=== PATIENT | male | born 1945 | race Caucasian/White ===

== ENCOUNTER 2016-11-10 17:24 | Inpatient (IN) | payer MEDICARE, OTHER ==
[2016-11-10 18:16] LABS: Anisocytosis Slight; Basophils % (A) 0 %; CH 27.1; CHCM 31.9; Eosinophils # (A) 0.2 k/uL (0-0.7); Eosinophils % (A) 3 %; HCT 41.5 % (39.0-53.0); HDW 2.75; HGB 12.9 gm/dL (13.0-17.5); Hypochromasia Slight; Luc # (Auto) 0.18; Luc % (Auto) 2; Lymphocytes # (A) 0.6 k/uL (1.0-4.8); Lymphocytes % (A) 8 %; MCH 26.6 pg (25.0-35.0); MCV 85.5 fL (80.0-100.0); Mean Platelet Volume 7.5; Monocytes # (A) 0.4 k/uL (0-1.0); Monocytes % (A) 5 %; Neutrophils # (A) 6.9 k/uL (1.3-7.7); Neutrophils % (A) 82 %; RBC 4.85 m/uL (4.30-5.90); RDW 16.9 % (11.5-15.5); WBC 8.3 k/uL (3.8-10.6); WBC (Perox) 8.48
--- NOTE | 2016-11-10 18:20 | XR ---
EXAMINATION TYPE: XR chest 1V portable DATE OF EXAM: 11/10/2016 6:10 PM COMPARISON: Prior chest x-ray 11 April 2016 HISTORY: Dyspnea TECHNIQUE: Single frontal view of the chest is obtained. FINDINGS: Abnormal increased attenuation present in the left midlung. Interstitium is increased. Hea rt may be enlarged. No evident pneumothorax indeterminate age right-sided rib fracture posteriorly th e fifth rib may be postoperative. IMPRESSION: Abnormal increased attenuation left midlung, correlate for pneumonia, follow-up to resol ution to exclude mass, suspect cardiomegaly, patient is rotated however. Interstitial lung disease devine spected.
[2016-11-10 18:26] LABS: Calcium 8.4 mg/dL (8.4-10.2); Magnesium 2.3 mg/dL (1.6-2.3); Potassium 4.9 mmol/L (3.5-5.1); Total Bilirubin 0.5 mg/dL (0.2-1.3); Total Protein 7.3 g/dL (6.3-8.2)
[2016-11-10 18:49] LABS: Creatine Kinase 43 U/L (55-170)
[2016-11-10 19:03] LABS: Creatine Kinase MB 1.2 ng/mL (0.0-2.4); Troponin I <0.012 ng/mL (0.000-0.034)
[2016-11-10] MEDS ORDERED: LEVOFLOXACIN 750MG-D5W PMX 750 MG in DEXTROSE/WATER 1 150ML.BAG IVPB STA (19:03)
[2016-11-10] MEDS ORDERED: ALBUTEROL NEBULIZED 2.5 MG/3 ML INHALATION PRN (19:03)
[2016-11-10] MEDS ORDERED: PNEUMONIA PROTOCOL UTILIZED 1 EACH MISC PO PRN (19:03)
[2016-11-10 19:04] LABS: INR 2.9 (<1.1); Partial Thromboplastin Time 23.2 sec (22.0-30.0); Prothrombin Time 27.8 sec (9.0-12.0)
[2016-11-10] MEDS: SODIUM CHLORIDE 0.9% 1,000 ML IV SCH (19:29)
--- NOTE | 2016-11-10 19:58 | ED ---
SOB HPI - General Chief Complaint: Shortness of Breath Stated Complaint: ABDIEL Time Seen by Provider: 11/10/16 17:51 Source: patient, EMS Mode of arrival: EMS Limitations: no limitations - History of Present Illness Initial Comments: This patient is a 71-year-old man with a history of previous lung cancer who arrives tonight by ambulance after he developed worsening shortness of breath. The patient states that this is come on over the past probably 1-2 hours. He did have a bit of a cough prior to that. The patient denies any chest pain. MD Complaint: shortness of breath, cough -: hour(s) Severity: severe Improves With: oxygen Worsens With: nothing Known History Of: other (Right lung cancer) Associated Symptoms: cough, sputum production Treatments Prior to Arrival: oxygen - Related Data Home Medications Medication Instructions Recorded Confirmed Cholecalciferol [Vitamin D3] 400 unit PO BID 01/26/16 11/10/16 Meclizine [Antivert] 12.5 mg PO TID 01/26/16 11/10/16 Omeprazole [PriLOSEC] 20 mg PO BID 01/26/16 11/10/16 Simvastatin [Zocor] 10 mg PO HS 01/26/16 11/10/16 traZODone HCL [Desyrel] 100 mg PO HS 01/26/16 11/10/16 Metoprolol Tartrate [Lopressor] 25 mg PO BID 03/15/16 11/10/16 Carbamide Peroxide [Debrox Otic] 5 drops BOTH EARS HS 11/10/16 11/10/16 Oxybutynin Chloride [Ditropan] 5 mg PO W/SUPPER 11/10/16 11/10/16 Warfarin Sodium 2.5 mg PO DAILY 11/10/16 11/10/16 glipiZIDE XL [Glucotrol XL] 2.5 mg PO BID@0700,1600 11/10/16 11/10/16 Allergies Allergy/AdvReac Type Severity Reaction Status Date / Time No Known Allergies Allergy Verified 11/10/16 19:09 Review of Systems ROS Statement: Those systems with pertinent positive or pertinent negative responses have been documented in the HPI. ROS Other: All systems not noted in ROS Statement are negative. Constitutional: Denies: fever, chills Respiratory: Reports: cough, dyspnea. Denies: hemoptysis Cardiovascular: Denies: chest pain, edema, syncope Gastrointestinal: Denies: abdominal pain, vomiting, diarrhea Genitourinary: Denies: dysuria, hematuria Musculoskeletal: Denies: back pain Skin: Denies: rash Neurological: Denies: headache, weakness, numbness Past Medical History Past Medical History: CVA/TIA, Diabetes Mellitus, GERD/Reflux, Hyperlipidemia, Hypertension, Pneumonia, Renal Disease Additional Past Medical History / Comment(s): HX OF CVA X3 -RIGHT SIDED WEAKNESS , SPEECH DIFFICULT TO UNDERSTAND AT TIMES, W/C BOUND, ABLE TO PIVOT TO TRANSFER WITH ASSISTANCE, DIFFICULTY CHEWING AND SWALLOWING, HX OF ASPIRATION.,WEARS DEPENDS FOR OCC. INCONTINENCE., DDD, KIDNEY FUNCTION AT 50-60%, ENVIRONMENTAL ALLERGIES. PT LIVES AT [facility] -HAS OWN APARTMENT WITH [address]., HAS DIZZINESS AND DIFFICULTY WITH VISION-WEARS PRISMS IN HIS EYE GLASSES. History of Any Multi-Drug Resistant Organisms: None Reported Past Surgical History: Cholecystectomy, Tonsillectomy Additional Past Surgical History / Comment(s): EYE SURGERY Past Anesthesia/Blood Transfusion Reactions: No Reported Reaction Past Psychological History: Depression Additional Psychological History / Comment(s): . Smoking Status: Current every day smoker Past Alcohol Use History: Rare Additional Past Alcohol Use History / Comment(s): started smoking 1956. CURRENTLY SMOKES 1/2 PPD. Past Drug Use History: None Reported - Past Family History Mother History Unknown: Yes Family Medical History: CVA/TIA Father History Unknown: Yes Family Medical History: No Reported History Brother(s) Family Medical History: Cancer Additional Family Medical History / Comment(s): MESOTHELIOMA LUNG CANCER General Exam Limitations: no limitations General appearance: alert, in distress (Patient is to Pick) Head exam: Present: atraumatic, normocephalic Eye exam: Present: normal appearance. Absent: scleral icterus, conjunctival injection ENT exam: Absent: normal oropharynx Neck exam: Present: normal inspection, full ROM Respiratory exam: Present: respiratory distress (Given), wheezes, rhonchi, accessory muscle use. Absent: rales, stridor, decreased breath sounds, prolonged expiratory Cardiovascular Exam: Present: regular rate, normal rhythm, normal heart sounds. Absent: systolic murmur, diastolic murmur GI/Abdominal exam: Present: soft. Absent: distended, tenderness, guarding, rebound, mass Extremities exam: Present: normal inspection, normal capillary refill. Absent: pedal edema, calf tenderness Back exam: Present: normal inspection. Absent: CVA tenderness (R), CVA tenderness (L) Neurological exam: Present: alert Skin exam: Present: warm, dry, intact, normal color. Absent: rash, cyanosis, diaphoretic, erythema, petechiae, pallor, mottled Course Vital Signs 11/10/16 11/10/16 11/10/16 17:26 17:30 18:00 Temperature 97.1 F L Pulse Rate 70 69 54 L Respiratory 28 H 30 H 26 H Rate Blood Pressure 209/81 161/70 O2 Sat by Pulse 88 L 88 L 97 Oximetry 11/10/16 11/10/16 18:29 19:31 Temperature Pulse Rate 55 L 78 Respiratory 26 H 16 Rate Blood Pressure 192/79 169/75 O2 Sat by Pulse 95 96 Oximetry Medical Decision Making - Medical Decision Making Patient is 71-year-old man presenting with dyspnea, cough. Chest x-ray does show a left-sided pneumonia. Antibiotic started. The patient does have therapeutic Coumadin level. He is not having chest pain. At this point the symptoms do not appear related to pulmonary embolus. Should he not show marked improvement with the antibiotics, CT can be added for pulmonary embolus. In the interim, we'll continue the Coumadin. - Lab Data Result diagrams: 11/10/16 17:53 11/10/16 17:53 Lab Results 11/10/16 11/10/16 11/10/16 Range/Units 17:53 17:53 17:53 WBC 8.3 (3.8-10.6) k/uL RBC 4.85 (4.30-5.90) m/uL Hgb 12.9 L (13.0-17.5) gm/dL Hct 41.5 (39.0-53.0) % MCV 85.5 (80.0-100.0) fL MCH 26.6 (25.0-35.0) pg MCHC 31.0 (31.0-37.0) g/dL RDW 16.9 H (11.5-15.5) % Plt Count 287 (150-450) k/uL Neutrophils % 82 % Lymphocytes % 8 % Monocytes % 5 % Eosinophils % 3 % Basophils % 0 % Neutrophils # 6.9 (1.3-7.7) k/uL Lymphocytes # 0.6 L (1.0-4.8) k/uL Monocytes # 0.4 (0-1.0) k/uL Eosinophils # 0.2 (0-0.7) k/uL Basophils # 0.0 (0-0.2) k/uL Hypochromasia Slight Anisocytosis Slight PT (9.0-12.0) sec INR (<1.1) APTT (22.0-30.0) sec Sodium 143 (137-145) mmol/L Potassium 4.9 (3.5-5.1) mmol/L Chloride 105 (98-107) mmol/L Carbon Dioxide 25 (22-30) mmol/L Anion Gap 13 mmol/L BUN 31 H (9-20) mg/dL Creatinine 2.02 H (0.66-1.25) mg/dL Est GFR (MDRD) Af Amer 40 (>60 ml/min/1.73 sqM) Est GFR (MDRD) Non-Af 33 (>60 ml/min/1.73 sqM) Glucose 122 H (74-99) mg/dL Plasma Lactic Acid Enrique (0.7-2.0) mmol/L Calcium 8.4 (8.4-10.2) mg/dL Magnesium 2.3 (1.6-2.3) mg/dL Total Bilirubin 0.5 (0.2-1.3) mg/dL AST 38 (17-59) U/L ALT 57 (21-72) U/L Alkaline Phosphatase 95 (38-126) U/L Total Creatine Kinase 43 L (55-170) U/L CK-MB (CK-2) 1.2 (0.0-2.4) ng/mL CK-MB (CK-2) Rel Index 2.8 Troponin I <0.012 (0.000-0.034) ng/mL NT-Pro-B Natriuret Pep pg/mL Total Protein 7.3 (6.3-8.2) g/dL Albumin 3.8 (3.5-5.0) g/dL 11/10/16 11/10/16 11/10/16 Range/Units 17:53 17:53 17:53 WBC (3.8-10.6) k/uL RBC (4.30-5.90) m/uL Hgb (13.0-17.5) gm/dL Hct (39.0-53.0) % MCV (80.0-100.0) fL MCH (25.0-35.0) pg MCHC (31.0-37.0) g/dL RDW (11.5-15.5) % Plt Count (150-450) k/uL Neutrophils % % Lymphocytes % % Monocytes % % Eosinophils % % Basophils % % Neutrophils # (1.3-7.7) k/uL Lymphocytes # (1.0-4.8) k/uL Monocytes # (0-1.0) k/uL Eosinophils # (0-0.7) k/uL Basophils # (0-0.2) k/uL Hypochromasia Anisocytosis PT 27.8 H (9.0-12.0) sec INR 2.9 (<1.1) APTT 23.2 (22.0-30.0) sec Sodium (137-145) mmol/L Potassium (3.5-5.1) mmol/L Chloride (98-107) mmol/L Carbon Dioxide (22-30) mmol/L Anion Gap mmol/L BUN (9-20) mg/dL Creatinine (0.66-1.25) mg/dL Est GFR (MDRD) Af Amer (>60 ml/min/1.73 sqM) Est GFR (MDRD) Non-Af (>60 ml/min/1.73 sqM) Glucose (74-99) mg/dL Plasma Lactic Acid Enrique 1.3 (0.7-2.0) mmol/L Calcium (8.4-10.2) mg/dL Magnesium (1.6-2.3) mg/dL Total Bilirubin (0.2-1.3) mg/dL AST (17-59) U/L ALT (21-72) U/L Alkaline Phosphatase (38-126) U/L Total Creatine Kinase (55-170) U/L CK-MB (CK-2) (0.0-2.4) ng/mL CK-MB (CK-2) Rel Index Troponin I (0.000-0.034) ng/mL NT-Pro-B Natriuret Pep 1470 pg/mL Total Protein (6.3-8.2) g/dL Albumin (3.5-5.0) g/dL Disposition Clinical Impression: Pneumonia Disposition: ADMITTED IP TO THIS HOSP Condition: Fair
[2016-11-10] MEDS: IPRATROPIUM-ALBUTEROL 3 ML NEB INHALATION SCH (20:16)
[2016-11-10 21:21] LABS: Glucose,Whole Blood 120 mg/dL (75-99)
[2016-11-10] MEDS: METOPROLOL TARTRATE 25 MG TAB PO SCH (23:14)
[2016-11-10] MEDS: CARBAMIDE PEROXIDE 6.5% DROPS 15 ML BTL BOTH EARS SCH (23:14)
[2016-11-10] MEDS: CHOLECALCIFEROL 400 UNIT TAB PO SCH (23:14)
[2016-11-10] MEDS: MECLIZINE 12.5 MG TAB PO SCH (23:14)
[2016-11-10] MEDS: PANTOPRAZOLE 40 MG TABLET PO SCH (23:14)
[2016-11-10] MEDS: traZODone HCL 100 MG TAB PO SCH (23:14)
[2016-11-10] MEDS: ATORVASTATIN 10 MG TAB PO SCH (23:14)
[2016-11-11] MEDS: IPRATROPIUM-ALBUTEROL 3 ML NEB INHALATION SCH ×4 (07:28→20:16)
[2016-11-11 08:12] LABS: Glucose,Whole Blood 86 mg/dL (75-99)
[2016-11-11] MEDS: PANTOPRAZOLE 40 MG TABLET PO SCH ×2 (08:20→22:27)
[2016-11-11] MEDS: ASPIRIN 81 MG CHEW PO SCH (08:20)
[2016-11-11] MEDS: WARFARIN 2.5 MG TAB PO SCH (08:21)
[2016-11-11] MEDS: MECLIZINE 12.5 MG TAB PO SCH ×3 (08:21→22:27)
[2016-11-11] MEDS: LORATADINE 10 MG TAB PO SCH (08:21)
[2016-11-11] MEDS: CHOLECALCIFEROL 400 UNIT TAB PO SCH ×2 (08:21→22:27)
[2016-11-11] MEDS: AMIODARONE 200 MG TAB PO SCH (08:21)
[2016-11-11] MEDS: METOPROLOL TARTRATE 25 MG TAB PO SCH ×2 (08:21→22:27)
[2016-11-11 09:16] LABS: INR 3.4 (<1.1); Prothrombin Time 32.7 sec (9.0-12.0)
--- NOTE | 2016-11-11 11:35 | P.HPIM ---
History of Present Illness H&P Date: 11/11/16 Chief Complaint: Cough and shortness of breath This is a 71-year-old male who presented emergency department complaining of cough and shortness of breath for 1-2 days. The patient states that he was eating candy and felt like it got stuck. He was able to cough it out. He did have fevers and chills at home. He states that he normally doesn't have issues with his swallowing. Although he does have a history of CVA. The patient also history history of lung cancer and had a right upper lobe resection done at [facility]. He underwent radiation therapy and had 4 rounds and has now completed the course. Review of Systems All systems: negative Past Medical History Past Medical History: CVA/TIA, Diabetes Mellitus, GERD/Reflux, Hyperlipidemia, Hypertension, Pneumonia, Renal Disease Additional Past Medical History / Comment(s): HX OF CVA X3 -RIGHT SIDED WEAKNESS , SPEECH DIFFICULT TO UNDERSTAND AT TIMES, W/C BOUND, ABLE TO PIVOT TO TRANSFER WITH ASSISTANCE, DIFFICULTY CHEWING AND SWALLOWING, HX OF ASPIRATION.,WEARS DEPENDS FOR OCC. INCONTINENCE., DDD, KIDNEY FUNCTION AT 50-60%, ENVIRONMENTAL ALLERGIES. PT LIVES AT [facility] -HAS OWN APARTMENT WITH [address]., HAS DIZZINESS AND DIFFICULTY WITH VISION-WEARS PRISMS IN HIS EYE GLASSES. History of Any Multi-Drug Resistant Organisms: None Reported Past Surgical History: Appendectomy, Cholecystectomy, Tonsillectomy Additional Past Surgical History / Comment(s): EYE SURGERY, right lobeectomy for Ca, spinal fusions x 2 Past Anesthesia/Blood Transfusion Reactions: No Reported Reaction Past Psychological History: Depression Additional Psychological History / Comment(s): . Smoking Status: Former smoker Past Alcohol Use History: Rare Additional Past Alcohol Use History / Comment(s): started smoking 1956. Past Drug Use History: None Reported - Past Family History Mother History Unknown: Yes Family Medical History: CVA/TIA Father History Unknown: Yes Family Medical History: No Reported History Brother(s) Family Medical History: Cancer Additional Family Medical History / Comment(s): MESOTHELIOMA LUNG CANCER Medications and Allergies Home Medications Medication Instructions Recorded Confirmed Type Cholecalciferol [Vitamin D3] 400 unit PO BID 01/26/16 11/10/16 History Meclizine [Antivert] 12.5 mg PO TID 01/26/16 11/10/16 History Omeprazole [PriLOSEC] 20 mg PO BID 01/26/16 11/10/16 History Simvastatin [Zocor] 10 mg PO HS 01/26/16 11/10/16 History traZODone HCL [Desyrel] 100 mg PO HS 01/26/16 11/10/16 History Metoprolol Tartrate [Lopressor] 25 mg PO BID 03/15/16 11/10/16 History Amiodarone [Cordarone] 200 mg PO DAILY 11/10/16 11/10/16 History Aspirin 81 mg PO DAILY 11/10/16 11/10/16 History Carbamide Peroxide [Debrox Otic] 5 drops BOTH EARS HS 11/10/16 11/10/16 History Loratadine 10 mg PO DAILY 11/10/16 11/10/16 History Oxybutynin Chloride [Ditropan] 5 mg PO W/SUPPER 11/10/16 11/10/16 History Warfarin Sodium 2.5 mg PO DAILY 11/10/16 11/10/16 History glipiZIDE XL [Glucotrol XL] 2.5 mg PO BID@0700,1600 11/10/16 11/10/16 History Allergies Allergy/AdvReac Type Severity Reaction Status Date / Time No Known Allergies Allergy Verified 11/10/16 19:09 Physical Exam Osteopathic Statement: *. No significant issues noted on an osteopathic structural exam other than those noted in the History and Physical/Consult. Vitals: Vital Signs Temp Pulse Pulse Resp BP BP Pulse Ox 11/11/16 07:40 76 11/11/16 07:28 76 11/11/16 07:00 96.8 F L 61 22 148/73 98 11/10/16 21:34 97.8 F 64 20 174/73 97 11/10/16 20:23 78 11/10/16 20:18 78 11/10/16 19:31 78 16 169/75 96 Intake and Output 11/10/16 11/11/16 11/11/16 22:59 06:59 14:59 Intake Total 200 Balance 200 Intake: Oral 200 Other: Voiding Method Diaper Diaper Incontinent Incontinent # Voids 1 4 # Bowel Movements 0 Gen.: Patient is alert and oriented 3, no acute distress, prior CVA with residual difficulties with speech Cardiovascular: Regular rate and rhythm, S1/S2 Lungs: Coarse breath sounds on the left, diminished breath sounds on the right Abdomen: Soft nontender nondistended positive bowel sounds Extremities: No edema Results CBC & Chem 7: 11/10/16 17:53 11/10/16 17:53 Labs: Abnormal Lab Results - Last 24 Hours (Table) 11/10/16 11/11/16 Range/Units 20:47 08:23 PT 32.7 H (9.0-12.0) sec POC Glucose (mg/dL) 120 H (75-99) mg/dL Chest x-ray: report reviewed, image reviewed Thrombosis Risk Factor Assmnt - DVT/VTE Prophylaxis DVT/VTE Prophylaxis: Pharmacologic Prophylaxis ordered - Choose All That Apply Each Factor Represents 1 point: Serious lung disease incl. pneumonia (< 1month) Other Risk Factors: Yes Each Risk Factor Represents 2 Points: Age 61-74 years Thrombosis Risk Factor Assessment Total Risk Factor Score: 3 Thrombosis Risk Factor Assessment Level: Moderate Risk Assessment and Plan Plan: Acute hypoxic respiratory failure Left midlung pneumonia, question aspiration History of lung cancer, status post right upper lobe resection and radiation therapy Dysphagia Acute kidney injury on chronic kidney disease stage III History of CVA Diabetes mellitus type 2 Dyslipidemia Hypertension GERD History of atrial fibrillation Anemia Coumadin coagulopathy, currently therapeutic O2 to maintain saturation greater than equal to 88% Antibiotics: Levaquin, will add clindamycin Bronchodilators and Pulmicort Sputum culture, blood culture Speech pathology consultation IV fluid hydration, increase to 75 mL an hour Avoid nephrotoxins PT and INR, Coumadin dosing Blood sugar control Continue patient's home medications GI and DVT prophylaxis: Coumadin, Protonix
[2016-11-11 12:36] LABS: Glucose,Whole Blood 161 mg/dL (75-99)
[2016-11-11] MEDS: CLINDAMYCIN 600 MG in DEXTROSE 5% IN WATER 50 ML IVPB SCH ×6 (13:47→23:33)
[2016-11-11] MEDS: SODIUM CHLORIDE 0.9% 1,000 ML IV SCH ×2 (13:48→23:11)
--- NOTE | 2016-11-11 14:40 | XR ---
EXAMINATION TYPE: XR chest 2V DATE OF EXAM: 11/11/2016 2:05 PM COMPARISON: Chest x-ray from yesterday. Chest CT May 14, 2016 HISTORY: Pneumonia progress study. TECHNIQUE: Frontal and lateral views of the chest are obtained. FINDINGS: There is persistent left hilar opacity and right mid and lower lung opacities with small r ight pleural effusion. There is persistent juxtaphrenic peaking of both hemidiaphragms. Right-sided volume loss is felt present. The cardiac silhouette size is stable and enlarged. Posterior right fift h rib deformity is noted. Suspect interval right lung surgery since prior CT. IMPRESSION: Persistent right greater than left bilateral mid to lower lung infiltrates with right-si ded volume loss, cardiomegaly, and probable small right pleural effusion.
[2016-11-11 17:28] LABS: Glucose,Whole Blood 151 mg/dL (75-99)
[2016-11-11] MEDS: OXYBUTYNIN CHLORIDE 5 MG TAB PO SCH (17:48)
[2016-11-11] MEDS: BUDESONIDE 0.5 MG/2 ML NEBU INHALATION SCH (20:16)
[2016-11-11] MEDS: LEVOFLOXACIN 750 MG TAB PO SCH (21:00)
[2016-11-11 21:05] LABS: Glucose,Whole Blood 176 mg/dL (75-99)
[2016-11-11] MEDS: traZODone HCL 100 MG TAB PO SCH (22:26)
[2016-11-11] MEDS: CARBAMIDE PEROXIDE 6.5% DROPS 15 ML BTL BOTH EARS SCH (22:27)
[2016-11-11] MEDS: ATORVASTATIN 10 MG TAB PO SCH (22:27)
[2016-11-12] MEDS: CLINDAMYCIN 600 MG in DEXTROSE 5% IN WATER 50 ML IVPB SCH ×8 (05:33→23:12)
[2016-11-12 07:17] LABS: Glucose,Whole Blood 92 mg/dL (75-99)
[2016-11-12] MEDS: IPRATROPIUM-ALBUTEROL 3 ML NEB INHALATION SCH ×4 (08:27→20:42)
[2016-11-12] MEDS: BUDESONIDE 0.5 MG/2 ML NEBU INHALATION SCH ×2 (08:27→20:42)
[2016-11-12 09:32] LABS: INR 3.9 (<1.1); Prothrombin Time 37.8 sec (9.0-12.0)
[2016-11-12] MEDS: CHOLECALCIFEROL 400 UNIT TAB PO SCH ×2 (09:33→21:23)
[2016-11-12] MEDS: METOPROLOL TARTRATE 25 MG TAB PO SCH ×2 (09:33→21:24)
[2016-11-12] MEDS: PANTOPRAZOLE 40 MG TABLET PO SCH ×2 (09:33→21:24)
[2016-11-12] MEDS: AMIODARONE 200 MG TAB PO SCH (09:34)
[2016-11-12] MEDS: LORATADINE 10 MG TAB PO SCH (09:34)
[2016-11-12] MEDS: ASPIRIN 81 MG CHEW PO SCH (09:34)
[2016-11-12] MEDS: MECLIZINE 12.5 MG TAB PO SCH ×3 (09:34→21:24)
[2016-11-12 11:36] LABS: Glucose,Whole Blood 125 mg/dL (75-99)
--- NOTE | 2016-11-12 12:54 | FL ---
Modified barium swallow. HISTORY: Dysphagia. Modified barium swallow was performed with the department of speech pathology. The patient was prese nted with various consistencies of barium. There is mild transient penetration. No evidence for aspiration. Full report is to follow from the de partment of speech pathology. Impression: There is mild transient penetration.
--- NOTE | 2016-11-12 13:01 | P.CNPUL ---
History of Present Illness Consult date: 11/12/16 Reason for consult: dyspnea, cough, pneumonia Chief complaint: Cough, SOB History of present illness: This is a 71-year-old male who presented emergency department complaining of cough and shortness of breath for 1-2 days. The patient states that he was eating candy and felt like it got stuck. He was able to cough it out. He did have fevers and chills at home. He states that he normally doesn't have issues with his swallowing. Although he does have a history of CVA. The patient also history history of lung cancer and had a right upper lobe resection done at [facility]. He underwent radiation therapy and had 4 rounds and has now completed the course. The patient underwent modified barium swallow evaluation this morning, results are pending. He states he is starting to feel better overall. Review of Systems All systems: negative Past Medical History Past Medical History: CVA/TIA, Diabetes Mellitus, GERD/Reflux, Hyperlipidemia, Hypertension, Pneumonia, Renal Disease Additional Past Medical History / Comment(s): HX OF CVA X3 -RIGHT SIDED WEAKNESS , SPEECH DIFFICULT TO UNDERSTAND AT TIMES, W/C BOUND, ABLE TO PIVOT TO TRANSFER WITH ASSISTANCE, DIFFICULTY CHEWING AND SWALLOWING, HX OF ASPIRATION.,WEARS DEPENDS FOR OCC. INCONTINENCE., DDD, KIDNEY FUNCTION AT 50-60%, ENVIRONMENTAL ALLERGIES. PT LIVES AT [facility] -HAS OWN APARTMENT WITH [address]., HAS DIZZINESS AND DIFFICULTY WITH VISION-WEARS PRISMS IN HIS EYE GLASSES. History of Any Multi-Drug Resistant Organisms: None Reported Past Surgical History: Appendectomy, Cholecystectomy, Tonsillectomy Additional Past Surgical History / Comment(s): EYE SURGERY, right lobeectomy for Ca, spinal fusions x 2 Past Anesthesia/Blood Transfusion Reactions: No Reported Reaction Past Psychological History: Depression Additional Psychological History / Comment(s): . Smoking Status: Former smoker Past Alcohol Use History: Rare Additional Past Alcohol Use History / Comment(s): started smoking 1956. Past Drug Use History: None Reported - Past Family History Mother History Unknown: Yes Family Medical History: CVA/TIA Father History Unknown: Yes Family Medical History: No Reported History Brother(s) Family Medical History: Cancer Additional Family Medical History / Comment(s): MESOTHELIOMA LUNG CANCER Medications and Allergies Home Medications Medication Instructions Recorded Confirmed Type Cholecalciferol [Vitamin D3] 400 unit PO BID 01/26/16 11/10/16 History Meclizine [Antivert] 12.5 mg PO TID 01/26/16 11/10/16 History Omeprazole [PriLOSEC] 20 mg PO BID 01/26/16 11/10/16 History Simvastatin [Zocor] 10 mg PO HS 01/26/16 11/10/16 History traZODone HCL [Desyrel] 100 mg PO HS 01/26/16 11/10/16 History Metoprolol Tartrate [Lopressor] 25 mg PO BID 03/15/16 11/10/16 History Amiodarone [Cordarone] 200 mg PO DAILY 11/10/16 11/10/16 History Aspirin 81 mg PO DAILY 11/10/16 11/10/16 History Carbamide Peroxide [Debrox Otic] 5 drops BOTH EARS HS 11/10/16 11/10/16 History Loratadine 10 mg PO DAILY 11/10/16 11/10/16 History Oxybutynin Chloride [Ditropan] 5 mg PO W/SUPPER 11/10/16 11/10/16 History Warfarin Sodium 2.5 mg PO DAILY 11/10/16 11/10/16 History glipiZIDE XL [Glucotrol XL] 2.5 mg PO BID@0700,1600 11/10/16 11/10/16 History Allergies Allergy/AdvReac Type Severity Reaction Status Date / Time No Known Allergies Allergy Verified 11/10/16 19:09 Physical Exam Osteopathic Statement: *. No significant issues noted on an osteopathic structural exam other than those noted in the History and Physical/Consult. Vitals: Vital Signs Temp Pulse Pulse Resp BP Pulse Ox 11/12/16 07:00 96.5 F L 58 L 19 184/81 99 11/11/16 23:00 97.2 F L 67 18 115/60 100 11/11/16 22:26 69 130/54 11/11/16 20:33 80 11/11/16 20:17 80 11/11/16 19:07 94 L 11/11/16 16:51 80 11/11/16 16:41 80 11/11/16 15:00 97.0 F L 97 20 148/65 98 Intake and Output 11/11/16 11/12/16 11/12/16 22:59 06:59 14:59 Intake Total 300 50 Balance 300 50 Intake: IV 50 Clindamycin 600 mg In 50 Dextrose 5% in Water 50 ml @ 100 mls/hr IVPB Q6HR [facility] Rx#:[id number] Oral 300 Other: Voiding Method Diaper Diaper Diaper Incontinent Incontinent Incontinent # Voids 1 3 Gen.: Patient is alert and oriented 3, no acute distress, prior CVA with residual difficulties with speech Cardiovascular: Regular rate and rhythm, S1/S2 Lungs: Coarse breath sounds on the left, diminished breath sounds on the right Abdomen: Soft nontender nondistended positive bowel sounds Extremities: No edema Results - Laboratory Findings CBC and BMP: 11/10/16 17:53 11/10/16 17:53 PT/INR, D-dimer PT 37.8 sec (9.0-12.0) H 11/12/16 08:36 INR 3.9 (<1.1) 11/12/16 08:36 Abnormal lab findings: Abnormal Labs 11/10/16 11/11/16 11/11/16 20:47 08:23 12:13 PT 32.7 H POC Glucose (mg/dL) 120 H 161 H 11/11/16 11/11/16 11/12/16 17:13 20:41 08:36 PT 37.8 H POC Glucose (mg/dL) 151 H 176 H 11/12/16 11:34 PT POC Glucose (mg/dL) 125 H - Diagnostic Findings Chest x-ray: report reviewed, image reviewed Assessment and Plan Plan: Acute hypoxic respiratory failure Left midlung pneumonia, question aspiration History of lung cancer, status post right upper lobe resection and radiation therapy Dysphagia Acute kidney injury on chronic kidney disease stage III History of CVA Diabetes mellitus type 2 Dyslipidemia Hypertension GERD History of atrial fibrillation Anemia Coumadin coagulopathy, currently therapeutic O2 to maintain saturation greater than equal to 88% Antibiotics: Levaquin, clindamycin Bronchodilators and Pulmicort Sputum culture, blood culture Speech pathology consultation IV fluid hydration, 75 mL an hour Avoid nephrotoxins PT and INR, Coumadin dosing Blood sugar control Continue patient's home medications GI and DVT prophylaxis: Coumadin, Protonix Awaiting MBS results
[2016-11-12] MEDS: WARFARIN 2.5 MG TAB PO SCH (13:28)
[2016-11-12] MEDS: SODIUM CHLORIDE 0.9% 1,000 ML IV SCH (13:28)
--- NOTE | 2016-11-12 14:02 | P.PN ---
Subjective 8-year-old male who presented on the day of admission to the emergency room from [facility]. Patient had been experiencing frequent cough with shortness of breath for the past several days. Patient stated that he was eating candy felt like it got stuck in his throat he was not able to cough out. Patient did have fever and chills at home. Patient has limited mobility is wheelchair bedbound. Patient does have a history of a prior CVA. Also has a history of lung cancer the right upper lobe resection done at [facility]. Patient reportedly underwent radiation treatment and had completed 4 rounds patient's been followed by pulmonology service. Patient did undergo a modified barium swallow this morning impression it showed mild transit penetration no evidence of aspiration. Objective - Vital Signs Vital signs: Vital Signs Temp 96.5 F L 11/12/16 07:00 Pulse 58 L 11/12/16 07:00 Resp 19 11/12/16 07:00 BP 184/81 11/12/16 07:00 Pulse Ox 99 11/12/16 07:00 Intake & Output 11/11/16 11/12/16 11/12/16 18:59 06:59 18:59 Intake Total 850 350 Balance 850 350 Intake: IV 50 Clindamycin 600 mg In 50 Dextrose 5% in Water 50 ml @ 100 mls/hr IVPB Q6HR FELIX Rx#:[id number] Intake, IV Titration 650 Amount Clindamycin 600 mg In 50 Dextrose 5% in Water 50 ml @ 100 mls/hr IVPB Q6HR FELIX Rx#:[id number] Sodium Chloride 0.9% 1, 600 000 ml @ 75 mls/hr IV . [id number] FELIX Rx#:[id number] Oral 200 300 Other: Voiding Method Diaper Diaper Diaper Incontinent Incontinent Incontinent # Voids 3 2 - Exam Physical exam 71-year-old male sitting up in bed is awake and alert oriented 3 does not appear in acute distress from his prior CVA has residual difficulties with speech Lungs coarse rhonchi throughout diminished right greater than the left no cough noted Heart S1-S2 audible regular Abdomen soft nontender no nausea vomiting incontinent of urine no stool Extremities no edema - Labs CBC & Chem 7: 11/10/16 17:53 11/10/16 17:53 Labs: Abnormal Lab Results - Last 24 Hours (Table) 11/11/16 11/11/16 11/12/16 Range/Units 17:13 20:41 08:36 PT 37.8 H (9.0-12.0) sec POC Glucose (mg/dL) 151 H 176 H (75-99) mg/dL 11/12/16 Range/Units 11:34 PT (9.0-12.0) sec POC Glucose (mg/dL) 125 H (75-99) mg/dL Assessment and Plan Plan: Impression Hypertension Prior CVA Chronic debility wheelchair bedbound suspect due to prior CVA Right side weakness from a prior CVA with speech difficulty Urinary incontinence Prior history of aspiration Present on admission acute hypoxic respiratory failure suspect due to left midlung pneumonia likely aspiration History of lung cancer status post right upper lobe resection with radiation therapy Present on admission acute kidney injury Chronic kidney disease stage III History of atrial fibrillation on anticoagulation Present on admission Coumadin coagulopathy Anemia of chronic illness Dyslipidemia Hypertension Anemia hemoglobin stable Plan Hold the Coumadin the INR is 3.9 today Repeat labs in the morning DVT and GI prophylaxis Continue IV antibiotic clindamycin and oral Levaquin Resume home meds as appropriate Further recommendations pending Aspiration precautions Continue current aerosol bronchodilators The above dictated assessment and findings were discussed with Dr. Mckeon Impression and the plan of care have been dictated as directed. Shanti Curran nurse practitioner acting as a scribe for Dr. Mckeon
--- NOTE | 2016-11-12 14:12 | XR ---
EXAMINATION TYPE: XR chest 1V DATE OF EXAM: 11/12/2016 2:05 PM COMPARISON: November 11, 2016 HISTORY: SOB, Follow Up FINDINGS: Stable perihilar and right basilar infiltrates and/or atelectasis. Stable right apical volume loss. N o evidence for sizable pneumothorax. Suspect small right-sided effusion. Stable appearance right-side d rib fractures. IMPRESSION: 1. Stable portable chest. Clinical correlation and follow up until resolution is recommended.
[2016-11-12 14:44] LABS: Appearance,Urine Clear (Clear); Bilirubin,Urine Negative (Negative); Glucose,Urine (UA) Negative (Negative); Ketones,Urine Negative (Negative); Leukocyte Esterase,Urine Negative (Negative); Nitrite,Urine Negative (Negative); PH, Urine 5.5 (5.0-8.0); Protein,Urine Negative (Negative); Specific Gravity,Urine 1.007 (1.001-1.035); UA Billing (MACRO vs. MICRO) CHEM; Urobilinogen,Urine <2.0 mg/dL (<2.0)
[2016-11-12 17:03] LABS: Glucose,Whole Blood 67 mg/dL (75-99)
[2016-11-12] MEDS: OXYBUTYNIN CHLORIDE 5 MG TAB PO SCH (18:43)
[2016-11-12 20:46] LABS: Glucose,Whole Blood 79 mg/dL (75-99)
[2016-11-12] MEDS: ATORVASTATIN 10 MG TAB PO SCH (21:23)
[2016-11-12] MEDS: CARBAMIDE PEROXIDE 6.5% DROPS 15 ML BTL BOTH EARS SCH (21:24)
[2016-11-12] MEDS: traZODone HCL 100 MG TAB PO SCH (21:24)
[2016-11-13] MEDS: SODIUM CHLORIDE 0.9% 1,000 ML IV SCH ×5 (01:47→21:38)
[2016-11-13] MEDS: CLINDAMYCIN 600 MG in DEXTROSE 5% IN WATER 50 ML IVPB SCH ×8 (05:51→23:36)
[2016-11-13] MEDS: BUDESONIDE 0.5 MG/2 ML NEBU INHALATION SCH ×2 (07:15→20:24)
[2016-11-13] MEDS: IPRATROPIUM-ALBUTEROL 3 ML NEB INHALATION SCH ×4 (07:15→20:23)
[2016-11-13 08:02] LABS: Glucose,Whole Blood 83 mg/dL (75-99)
[2016-11-13] MEDS: CHOLECALCIFEROL 400 UNIT TAB PO SCH ×2 (08:58→21:40)
[2016-11-13] MEDS: METOPROLOL TARTRATE 25 MG TAB PO SCH ×2 (08:59→21:39)
[2016-11-13] MEDS: MECLIZINE 12.5 MG TAB PO SCH ×3 (08:59→21:39)
[2016-11-13] MEDS: AMIODARONE 200 MG TAB PO SCH (08:59)
[2016-11-13] MEDS: PANTOPRAZOLE 40 MG TABLET PO SCH ×2 (08:59→21:40)
[2016-11-13] MEDS: ASPIRIN 81 MG CHEW PO SCH (09:00)
[2016-11-13] MEDS: LORATADINE 10 MG TAB PO SCH (09:00)
[2016-11-13 09:11] LABS: INR 3.2 (<1.1)
[2016-11-13 09:12] LABS: Prothrombin Time 31.1 sec (9.0-12.0)
[2016-11-13] MEDS: WARFARIN 2.5 MG TAB PO SCH (10:34)
[2016-11-13 12:23] LABS: Glucose,Whole Blood 152 mg/dL (75-99)
--- NOTE | 2016-11-13 13:50 | P.PN ---
Subjective 71-year-old who is seen on rounds this morning. Patient has been seen by speech therapy. Patient currently is refusing honey thickened diet per recommendations of speech therapy. The swallowing eval does show transit penetration observed with sequential swallows be a straw patient is refusing the nectar liquids via spoon . pureed food.. Under supervision patient is noted audibly be choking when he attempts to swallow Objective - Vital Signs Vital signs: Vital Signs Temp 97.4 F L 11/13/16 07:00 Pulse 64 11/13/16 12:31 Resp 18 11/13/16 07:00 BP 167/76 11/13/16 07:00 Pulse Ox 96 11/13/16 07:00 Intake & Output 11/12/16 11/13/16 11/13/16 18:59 06:59 18:59 Intake Total 930 Balance 930 Intake: Oral 930 Other: Voiding Method Diaper Diaper Diaper Incontinent Incontinent Incontinent # Voids 2 3 - Exam Physical exam 71-year-old male who is sitting up in bed lives [facility] pleasant oriented to place person no recall of event Lungs coarse rhonchi decreased at the bases Heart S1-S2 audible regular Abdomen soft nontender no stooling no nausea vomiting Extremities right side weakness persist from a prior CVA no edema noted - Labs CBC & Chem 7: 11/10/16 17:53 11/10/16 17:53 Labs: Abnormal Lab Results - Last 24 Hours (Table) 11/12/16 11/13/16 11/13/16 Range/Units 17:02 08:20 11:54 PT 31.1 H (9.0-12.0) sec POC Glucose (mg/dL) 67 L 152 H (75-99) mg/dL Assessment and Plan Plan: Impression Hypertension Prior CVA Chronic debility wheelchair bedbound suspect due to prior CVA Right side weakness from a prior CVA with speech difficulty Urinary incontinence Prior history of aspiration Present on admission acute hypoxic respiratory failure suspect due to left midlung pneumonia likely aspiration History of lung cancer status post right upper lobe resection with radiation therapy Present on admission acute kidney injury Chronic kidney disease stage III History of atrial fibrillation on anticoagulation Present on admission Coumadin coagulopathy Anemia of chronic illness Dyslipidemia Hypertension Anemia hemoglobin stable New-onset dysphagia Plan Hold the Coumadin the INR is 3.2 today Repeat labs in the morning DVT and GI prophylaxis Continue IV antibiotic clindamycin and oral Levaquin Resume home meds as appropriate Further recommendations pending Aspiration precautions Continue current aerosol bronchodilators manager float to contact patient's legal guardian to discuss options for nutritional support patient may benefit from a PEG tube Neurology consultation requested the new onset dysphasia new findings The above dictated assessment and findings were discussed with Dr. Mckeon Impression and the plan of care have been dictated as directed. Shanti Curran nurse practitioner acting as a scribe for Dr. Mckeon
[2016-11-13 16:52] LABS: Glucose,Whole Blood 84 mg/dL (75-99)
--- NOTE | 2016-11-13 16:57 | P.PN ---
Subjective Principal diagnosis: Aspiration pneumonia Patient seen and examined. Patient states he is still having some shortness of breath. He denies cough, fevers, chills. He has no other specific needs or complaints at this time. Objective - Vital Signs Vital signs: Vital Signs Temp 97.4 F L 11/13/16 07:00 Pulse 60 11/13/16 16:00 Resp 18 11/13/16 07:00 BP 167/76 11/13/16 07:00 Pulse Ox 96 11/13/16 07:00 Intake & Output 11/12/16 11/13/16 11/13/16 18:59 06:59 18:59 Intake Total 930 Balance 930 Intake: Oral 930 Other: Voiding Method Diaper Diaper Diaper Incontinent Incontinent Incontinent # Voids 2 3 - Exam Gen.: Patient is alert and oriented 3, no acute distress, prior CVA with residual difficulties with speech Cardiovascular: Regular rate and rhythm, S1/S2 Lungs: Coarse breath sounds on the left, diminished breath sounds on the right Abdomen: Soft nontender nondistended positive bowel sounds Extremities: No edema - Labs CBC & Chem 7: 11/10/16 17:53 11/10/16 17:53 Labs: Abnormal Lab Results - Last 24 Hours (Table) 11/12/16 11/13/16 11/13/16 Range/Units 17:02 08:20 11:54 PT 31.1 H (9.0-12.0) sec POC Glucose (mg/dL) 67 L 152 H (75-99) mg/dL Assessment and Plan Plan: Acute hypoxic respiratory failure Left midlung pneumonia, question aspiration History of lung cancer, status post right upper lobe resection and radiation therapy Dysphagia Acute kidney injury on chronic kidney disease stage III History of CVA Diabetes mellitus type 2 Dyslipidemia Hypertension GERD History of atrial fibrillation Anemia Coumadin coagulopathy, currently therapeutic O2 to maintain saturation greater than equal to 88% Antibiotics: Levaquin, clindamycin Bronchodilators and Pulmicort Sputum culture, blood culture Modified diet per speech language pathology IV fluid hydration, 40 mL an hour Neurology eval for new dysphagia Avoid nephrotoxins PT and INR, Coumadin dosing Blood sugar control Continue patient's home medications GI and DVT prophylaxis: Coumadin, Protonix
[2016-11-13] MEDS: OXYBUTYNIN CHLORIDE 5 MG TAB PO SCH (17:19)
[2016-11-13 20:40] LABS: Glucose,Whole Blood 98 mg/dL (75-99)
[2016-11-13] MEDS: LEVOFLOXACIN 750 MG TAB PO SCH (21:38)
[2016-11-13] MEDS: ATORVASTATIN 10 MG TAB PO SCH (21:39)
[2016-11-13] MEDS: CARBAMIDE PEROXIDE 6.5% DROPS 15 ML BTL BOTH EARS SCH (21:39)
[2016-11-13] MEDS: traZODone HCL 100 MG TAB PO SCH (21:40)
--- NOTE | 2016-11-13 22:58 | CONS ---
DATE OF CONSULTATION: 11/13/16 CHIEF COMPLAINT: Dysphagia. HISTORY OF PRESENT ILLNESS: Mr. Lopez is a pleasant 71-year-old male who is being evaluated by the neurology service per the request of Dr. Aubrey Mckeon for dysphagia. The patient was brought in to [facility] emergency room on 11/10/2016 with complaints of shortness of breath and coughing. He was diagnosed with acute hypoxic event secondary to pneumonia. The patient was also noticed to have some dysphagia and neurology consultation was obtained. The patient does have a previous history of stroke and has been having dysphagia ever since. He does report that the dysphagia also worsened after he had a spine surgery done. Speech therapy has been consulted and a swallow study has been ordered. The patient is tolerating a thickened liquid diet. He denies any other new neurological complaints. On admission, his BNP was elevated at 1470. His CBC showed mild anemia with a hemoglobin of 12.9. His urinalysis was normal. His comprehensive metabolic profile showed mild renal insufficiency with a BUN of 31 and creatinine of 2.02. He is currently on IV hydration. PAST MEDICAL HISTORY: Stroke, diabetes, gastroesophageal reflux disease, dyslipidemia, hypertension, chronic renal insufficiency, history of tonsillectomy, cholecystectomy, appendectomy, lumbar spine fusion, history of lung cancer with the right partial lobectomy, depression. SOCIAL HISTORY: The patient is a former smoker. He rarely drinks alcohol. He denies any drug use. FAMILY HISTORY: Positive for stroke and cancer. HOME MEDICATIONS: Reviewed in the chart. ALLERGIES: No known drug allergies. REVIEW OF SYSTEMS: As mentioned above and also positive for occasional dizziness and urinary incontinence. PHYSICAL EXAM: Vital signs show a temperature of 97.7, pulse 60, respirations 18, blood pressure 147/72. GENERAL APPEARANCE: The patient is a well-developed, elderly male who appears to be in no acute distress. HEENT: Normocephalic, atraumatic, no facial asymmetry is seen. Neck is supple with no masses felt. CARDIOVASCULAR: Regular rate and rhythm. ABDOMEN: Nontender, nondistended. EXTREMITIES: Showed trace edema with no clubbing seen. NEUROLOGICAL EXAM: The patient is awake, and oriented x3. Speech is mildly dysarthric. Strength showed mild right hemiparesis secondary to his old stroke. No facial asymmetry is seen on cranial nerve testing. Sensory exam was normal to light touch in all 4 extremities. IMPRESSION: 1. Chronic dysphagia. 2. History of stroke. 3. Pneumonia. RECOMMENDATIONS: The patient's dysphagia is chronic, and is unchanged at this time. Speech therapy has been consulted and his diet has been modified. A swallow study is pending. No further inpatient neurological work-up is needed. Continue antibiotic therapy for his pneumonia. I will continue to follow with you as needed. Thank you for allowing me to participate in the care of your patient. If you have any questions, please feel free to contact me. APRIL
[2016-11-14] MEDS: CLINDAMYCIN 600 MG in DEXTROSE 5% IN WATER 50 ML IVPB SCH ×6 (06:25→17:14)
[2016-11-14] MEDS: IPRATROPIUM-ALBUTEROL 3 ML NEB INHALATION SCH ×4 (07:33→18:43)
[2016-11-14] MEDS: BUDESONIDE 0.5 MG/2 ML NEBU INHALATION SCH ×2 (07:33→18:43)
[2016-11-14 08:01] LABS: Glucose,Whole Blood 91 mg/dL (75-99)
[2016-11-14] MEDS: METOPROLOL TARTRATE 25 MG TAB PO SCH ×2 (08:37→20:53)
[2016-11-14] MEDS: CHOLECALCIFEROL 400 UNIT TAB PO SCH ×2 (08:37→20:53)
[2016-11-14] MEDS: ASPIRIN 81 MG CHEW PO SCH (08:38)
[2016-11-14] MEDS: AMIODARONE 200 MG TAB PO SCH (08:38)
[2016-11-14] MEDS: LORATADINE 10 MG TAB PO SCH (08:38)
[2016-11-14] MEDS: MECLIZINE 12.5 MG TAB PO SCH ×3 (08:38→20:54)
[2016-11-14] MEDS: PANTOPRAZOLE 40 MG TABLET PO SCH ×2 (08:38→20:53)
[2016-11-14 09:00] LABS: INR 2.3 (<1.1); Prothrombin Time 22.3 sec (9.0-12.0)
--- NOTE | 2016-11-14 10:45 | P.PN ---
Subjective Principal diagnosis: Aspiration pneumonia Patient seen and examined. Patient is currently on room air. He states he does not feel short of breath. His only complaint is continued nonproductive cough. Objective - Vital Signs Vital signs: Vital Signs Temp 97.0 F L 11/14/16 07:00 Pulse 67 11/14/16 08:00 Resp 20 11/14/16 08:00 BP 151/72 11/14/16 07:00 Pulse Ox 93 L 11/14/16 07:00 Intake & Output 11/13/16 11/14/16 11/14/16 18:59 06:59 18:59 Intake Total 480 Balance 480 Intake: Oral 480 Other: Voiding Method Diaper Diaper Diaper Incontinent Incontinent Incontinent # Voids 3 2 # Bowel Movements 0 - Exam Gen.: Patient is alert and oriented 3, no acute distress, prior CVA with residual difficulties with speech Cardiovascular: Regular rate and rhythm, S1/S2 Lungs: Coarse breath sounds on the left, diminished breath sounds on the right Abdomen: Soft nontender nondistended positive bowel sounds Extremities: No edema - Labs CBC & Chem 7: 11/10/16 17:53 11/10/16 17:53 Labs: Abnormal Lab Results - Last 24 Hours (Table) 11/13/16 11/14/16 Range/Units 11:54 08:38 PT 22.3 H (9.0-12.0) sec POC Glucose (mg/dL) 152 H (75-99) mg/dL Assessment and Plan Plan: Acute hypoxic respiratory failure, resolved Left midlung pneumonia, likely aspiration History of lung cancer, status post right upper lobe resection and radiation therapy Dysphagia Acute kidney injury on chronic kidney disease stage III History of CVA Diabetes mellitus type 2 Dyslipidemia Hypertension GERD History of atrial fibrillation Anemia Coumadin coagulopathy O2 to maintain saturation greater than equal to 88% Antibiotics: Levaquin, clindamycin Bronchodilators and Pulmicort Sputum culture, blood culture - negative to date Modified diet per speech language pathology IV fluid hydration, 40 mL an hour Avoid nephrotoxins PT and INR, Coumadin dosing Blood sugar control Continue patient's home medications GI and DVT prophylaxis: Coumadin, Protonix Repeat chest x-ray today, x-ray will need to be followed as an outpatient until clear
[2016-11-14 12:26] LABS: Glucose,Whole Blood 112 mg/dL (75-99)
--- NOTE | 2016-11-14 15:46 | P.PN ---
Subjective 71-year-old male being seen on rounds with the attending . Patient is sitting up in bed. Neurology eval noted. Patient was noted to be experiencing episode of dysphasia did speak with the patient's legal guardian by phone on the 13 of November who indicated that the patient had a stroke prior since the stroke has been experiencing on and off dysphagia. Additionally legal guardian indicated that this seemed to worsen after patient spinal surgery. he reportedly can tolerate thickened liquid diet neurology indicate there is no further neurological workup indicated for the chronic dysphasia to observe aspiration precautions at all times Nursing reports that the patient had an episode at lunchtime coughing and choking dropped a sat when they were trying to feed him patient was on a pureed thickened diet Objective - Vital Signs Vital signs: Vital Signs Temp 97.0 F L 11/14/16 07:00 Pulse 67 11/14/16 15:33 Resp 20 11/14/16 15:33 BP 151/72 11/14/16 07:00 Pulse Ox 93 L 11/14/16 07:00 Intake & Output 11/13/16 11/14/16 11/14/16 18:59 06:59 18:59 Intake Total 480 350 Balance 480 350 Intake: IV 350 Clindamycin 600 mg In 50 Dextrose 5% in Water 50 ml @ 100 mls/hr IVPB Q6HR FELIX Rx#:[id number] Sodium Chloride 0.9% 1, 300 000 ml @ 40 mls/hr IV . Q24H FELIX Rx#:[id number] Oral 480 Other: Voiding Method Diaper Diaper Diaper Incontinent Incontinent Incontinent # Voids 3 2 # Bowel Movements 0 - Exam Physical exam 71-year-old male who is sitting up in bed pleasant oriented to place person no recall of event Lungs coarse rhonchi decreased at the bases Heart S1-S2 audible regular Abdomen soft nontender no stooling no nausea vomiting Extremities right side weakness persist from a prior CVA no edema noted - Labs CBC & Chem 7: 11/10/16 17:53 11/10/16 17:53 Labs: Abnormal Lab Results - Last 24 Hours (Table) 11/14/16 11/14/16 Range/Units 08:38 12:22 PT 22.3 H (9.0-12.0) sec POC Glucose (mg/dL) 112 H (75-99) mg/dL Assessment and Plan Plan: Impression Hypertension Prior CVA Chronic debility wheelchair bedbound suspect due to prior CVA Right side weakness from a prior CVA with speech difficulty Urinary incontinence Prior history of aspiration Present on admission acute hypoxic respiratory failure suspect due to left midlung pneumonia likely aspiration History of lung cancer status post right upper lobe resection with radiation therapy Present on admission acute kidney injury Chronic kidney disease stage III History of atrial fibrillation on anticoagulation Present on admission Coumadin coagulopathy Anemia of chronic illness Dyslipidemia Hypertension Anemia hemoglobin stable chronic dysphagia Plan Hold the Coumadin the INR is 3.2 today Repeat labs in the morning DVT and GI prophylaxis Continue IV antibiotic clindamycin and oral Levaquin Resume home meds as appropriate Further recommendations pending Aspiration precautions Continue current aerosol bronchodilators manager concrete to contact patient's legal guardian to discuss options for nutritional support patient may benefit from a PEG tube The above dictated assessment and findings were discussed with Dr. Linda Colbert and the plan of care have been dictated as directed. Shanti Curran nurse practitioner acting as a scribe for Dr. Mckeon
[2016-11-14] MEDS: OXYBUTYNIN CHLORIDE 5 MG TAB PO SCH (17:14)
[2016-11-14 17:28] LABS: Glucose,Whole Blood 98 mg/dL (75-99)
[2016-11-14] MEDS: SODIUM CHLORIDE 0.9% 1,000 ML IV SCH (17:49)
[2016-11-14] MEDS: CARBAMIDE PEROXIDE 6.5% DROPS 15 ML BTL BOTH EARS SCH (20:52)
[2016-11-14] MEDS: ATORVASTATIN 10 MG TAB PO SCH (20:52)
[2016-11-14] MEDS: traZODone HCL 100 MG TAB PO SCH (20:53)
[2016-11-14 21:00] LABS: Glucose,Whole Blood 97 mg/dL (75-99)
[2016-11-15] MEDS: CLINDAMYCIN 600 MG in DEXTROSE 5% IN WATER 50 ML IVPB SCH ×6 (00:08→12:50)
[2016-11-15 07:26] LABS: Glucose,Whole Blood 82 mg/dL (75-99)
[2016-11-15] MEDS: IPRATROPIUM-ALBUTEROL 3 ML NEB INHALATION SCH ×4 (07:34→20:16)
[2016-11-15] MEDS: BUDESONIDE 0.5 MG/2 ML NEBU INHALATION SCH ×2 (07:34→20:16)
--- NOTE | 2016-11-15 07:42 | XR ---
EXAMINATION TYPE: XR chest 2V DATE OF EXAM: 11/15/2016 7:25 AM HISTORY: Pneumonia. REFERENCE: Previous study dated 11/12/2016. FINDINGS: There is a 7 cm masslike density adjacent to the left hilum. There is volume loss in the ri ght lung. There is tracheal deviation towards the right. There is a right-sided effusion. Heart size is obscured. IMPRESSION: 1. MASSLIKE DENSITY, LEFT HILUM. 2. VOLUME LOSS, ATELECTASIS, RIGHT LUNG AND RIGHT-SIDED EFFUSION.
[2016-11-15] MEDS: ASPIRIN 81 MG CHEW PO SCH (08:05)
[2016-11-15] MEDS: LORATADINE 10 MG TAB PO SCH (08:05)
[2016-11-15] MEDS: MECLIZINE 12.5 MG TAB PO SCH ×3 (08:05→21:37)
[2016-11-15] MEDS: CHOLECALCIFEROL 400 UNIT TAB PO SCH ×2 (08:06→21:08)
[2016-11-15] MEDS: METOPROLOL TARTRATE 25 MG TAB PO SCH ×2 (08:06→21:10)
[2016-11-15] MEDS: AMIODARONE 200 MG TAB PO SCH (08:06)
[2016-11-15] MEDS: PANTOPRAZOLE 40 MG TABLET PO SCH ×2 (08:06→21:08)
[2016-11-15 09:21] LABS: INR 1.7 (<1.1); Prothrombin Time 16.7 sec (9.0-12.0)
--- NOTE | 2016-11-15 11:15 | P.PN ---
Subjective 71-year-old male being seen on rounds this morning with the attending. Nursing reports patient continues to choke when attempting to feed the patient. Patient additionally has refusing to eat. Honey thickened diet that has been recommended for patient's chronic dysphasia. Patients being treated for aspiration suspected involving the left midlung resulting in pneumonia Dr. Mckeon will contact the legal guardian and discuss treatment options to address patient's chronic dysphasia at risk for aspiration possible PEG tube may be warranted Objective - Vital Signs Vital signs: Vital Signs Temp 96.9 F L 11/15/16 07:00 Pulse 68 11/15/16 07:54 Resp 16 11/15/16 07:00 BP 175/81 11/15/16 07:00 Pulse Ox 92 L 11/15/16 07:00 Intake & Output 11/14/16 11/15/16 11/15/16 18:59 06:59 18:59 Intake Total 350 900 Balance 350 900 Intake: IV 350 Clindamycin 600 mg In 50 Dextrose 5% in Water 50 ml @ 100 mls/hr IVPB Q6HR FELIX Rx#:[id number] Sodium Chloride 0.9% 1, 300 000 ml @ 40 mls/hr IV . Q24H FELIX Rx#:[id number] Oral 900 Other: Voiding Method Diaper Diaper Incontinent Incontinent # Voids 2 1 - Exam Physical exam 71-year-old gentleman sitting up in bed awake and alert this morning oriented to person and place Lungs coarse rhonchi throughout diminished bases sats on room air 91% on 2 L 92 % a frequent nonproductive cough noted Heart S1-S2 audible regular no murmur abdomen soft nontender incontinently urine no stool Extremities weakness on the right side chronic no edema moves all extremities - Labs CBC & Chem 7: 11/10/16 17:53 11/10/16 17:53 Labs: Abnormal Lab Results - Last 24 Hours (Table) 11/14/16 11/15/16 Range/Units 12:22 08:41 PT 16.7 H (9.0-12.0) sec POC Glucose (mg/dL) 112 H (75-99) mg/dL Assessment and Plan Plan: Impression Hypertension Prior CVA Chronic debility wheelchair bedbound suspect due to prior CVA Right side weakness from a prior CVA with speech difficulty Urinary incontinence Prior history of aspiration Present on admission acute hypoxic respiratory failure suspect due to left midlung pneumonia likely aspiration History of lung cancer status post right upper lobe resection with radiation therapy Present on admission acute kidney injury Chronic kidney disease stage III History of atrial fibrillation on anticoagulation Present on admission Coumadin coagulopathy Anemia of chronic illness Dyslipidemia Hypertension Anemia hemoglobin stable chronic dysphagia Plan Restart Coumadin today INR 1.7 Repeat labs in the morning DVT and GI prophylaxis Continue IV antibiotic clindamycin and oral Levaquin Resume home meds as appropriate Further recommendations pending Aspiration precautions Continue current aerosol bronchodilators senior software manager to contact patient's legal guardian to discuss options for nutritional support patient may benefit from a PEG tube The above dictated assessment and findings were discussed with Dr. Mckeon Impression and the plan of care have been dictated as directed. Shanti Curran nurse practitioner acting as a scribe for Dr. Mckeon
[2016-11-15 12:13] LABS: Glucose,Whole Blood 80 mg/dL (75-99)
--- NOTE | 2016-11-15 15:22 | P.PN ---
Subjective Principal diagnosis: Aspiration pneumonia Patient seen and examined with patient's niece/caregiver at bedside. Patient's CXR is much worse and patient has had several witnessed episodes of choking while eating. It is recommended to the patient and his niece that he would benefit from a PEG tube and the patient and his niece adamantly decline at this time. The patient's niece states he has always had issues with his swallowing and does find at baseline. The patient is on a modified diet and still is aspirating. He and his niece express understanding of the risks of continuing to eat and aspirate, including the risk of . They continue to decline PEG tube. Objective - Vital Signs Vital signs: Vital Signs Temp 96.9 F L 11/15/16 07:00 Pulse 74 11/15/16 11:55 Resp 16 11/15/16 07:00 BP 175/81 11/15/16 07:00 Pulse Ox 92 L 11/15/16 07:00 Intake & Output 11/14/16 11/15/16 11/15/16 18:59 06:59 18:59 Intake Total 350 900 Balance 350 900 Intake: IV 350 Clindamycin 600 mg In 50 Dextrose 5% in Water 50 ml @ 100 mls/hr IVPB Q6HR FELIX Rx#:[id number] Sodium Chloride 0.9% 1, 300 000 ml @ 40 mls/hr IV . Q24H FELIX Rx#:[id number] Oral 900 Other: Voiding Method Diaper Diaper Incontinent Incontinent # Voids 2 1 - Exam Gen.: Patient is alert and oriented 3, no acute distress, prior CVA with residual difficulties with speech Cardiovascular: Regular rate and rhythm, S1/S2 Lungs: Coarse breath sounds on the left, diminished breath sounds on the right Abdomen: Soft nontender nondistended positive bowel sounds Extremities: No edema - Labs CBC & Chem 7: 11/10/16 17:53 11/10/16 17:53 Labs: Abnormal Lab Results - Last 24 Hours (Table) 11/15/16 Range/Units 08:41 PT 16.7 H (9.0-12.0) sec Assessment and Plan Plan: Acute hypoxic respiratory failure Left midlung and right basilar pneumonia, aspiration History of lung cancer, status post right upper lobe resection and radiation therapy Dysphagia with recurrent aspiration despite modified diet Acute kidney injury on chronic kidney disease stage III History of CVA Diabetes mellitus type 2 Dyslipidemia Hypertension GERD History of atrial fibrillation Anemia Coumadin coagulopathy O2 to maintain saturation greater than equal to 88% Antibiotics: Levaquin, clindamycin - change to PO Bronchodilators and Pulmicort Sputum culture, blood culture - negative to date Modified diet per speech language pathology IV fluid hydration, 40 mL an hour Avoid nephrotoxins PT and INR, Coumadin dosing Blood sugar control Continue patient's home medications GI and DVT prophylaxis: Coumadin, Protonix Repeat chest x-ray today, x-ray will need to be followed as an outpatient until clear Patient's CXR is much worse and patient has had several witnessed episodes of choking while eating. It is recommended to the patient and his niece that he would benefit from a PEG tube and the patient and his niece adamantly decline at this time. The patient's niece states he has always had issues with his swallowing and does fine at baseline. The patient is on a modified diet and still is aspirating. He and his niece express understanding of the risks of continuing to eat and aspirate, including the risk of . They continue to decline PEG tube.
[2016-11-15] MEDS: CLINDAMYCIN 150 MG CAP PO SCH ×2 (16:04→21:37)
[2016-11-15] MEDS: OXYBUTYNIN CHLORIDE 5 MG TAB PO SCH (17:22)
[2016-11-15 17:26] LABS: Glucose,Whole Blood 96 mg/dL (75-99)
[2016-11-15] MEDS ORDERED: WARFARIN 2 MG TAB PO SCH (18:00)
[2016-11-15] MEDS: SODIUM CHLORIDE 0.9% 1,000 ML IV SCH (20:46)
[2016-11-15] MEDS: ATORVASTATIN 10 MG TAB PO SCH (21:08)
[2016-11-15] MEDS: traZODone HCL 100 MG TAB PO SCH (21:08)
[2016-11-15] MEDS: CARBAMIDE PEROXIDE 6.5% DROPS 15 ML BTL BOTH EARS SCH (21:09)
[2016-11-15 21:14] LABS: Glucose,Whole Blood 145 mg/dL (75-99)
[2016-11-15] MEDS: LEVOFLOXACIN 750 MG TAB PO SCH (21:37)
[2016-11-16 07:23] LABS: Glucose,Whole Blood 82 mg/dL (75-99)
[2016-11-16] MEDS: IPRATROPIUM-ALBUTEROL 3 ML NEB INHALATION SCH ×4 (08:27→19:43)
[2016-11-16] MEDS: BUDESONIDE 0.5 MG/2 ML NEBU INHALATION SCH ×2 (08:27→19:43)
[2016-11-16] MEDS: AMIODARONE 200 MG TAB PO SCH (09:00)
[2016-11-16] MEDS: CHOLECALCIFEROL 400 UNIT TAB PO SCH ×2 (09:00→20:17)
[2016-11-16] MEDS: ASPIRIN 81 MG CHEW PO SCH (09:00)
[2016-11-16] MEDS: CLINDAMYCIN 150 MG CAP PO SCH (09:06)
[2016-11-16] MEDS: LORATADINE 10 MG TAB PO SCH (09:08)
[2016-11-16] MEDS: PANTOPRAZOLE 40 MG TABLET PO SCH ×2 (09:09→20:17)
[2016-11-16] MEDS: MECLIZINE 12.5 MG TAB PO SCH ×3 (09:09→21:35)
[2016-11-16] MEDS: METOPROLOL TARTRATE 25 MG TAB PO SCH ×2 (09:09→20:16)
--- NOTE | 2016-11-16 09:12 | P.PN ---
Subjective 71-year-old gentleman being seen on rounds this morning currently the patient is up sitting in a chair. Nursing did assist the patient with this morning meal patient 8 approximate 70% of his oatmeal pruee honey thickened consistency. Nursing reports patient is the assist of 2 to transfer from bed to a chair has weakness chronic lower extremities Patient is more awake and more alert. When questioning patient about a PEG tube patient is adamant about refusing a PEG tube Objective - Vital Signs Vital signs: Vital Signs Temp 97.5 F L 11/16/16 07:00 Pulse 76 11/16/16 08:40 Resp 18 11/16/16 07:00 BP 172/82 11/16/16 08:58 Pulse Ox 92 L 11/16/16 07:00 Intake & Output 11/15/16 11/16/16 11/16/16 18:59 06:59 18:59 Intake Total 950 Balance 950 Intake: IV 450 Clindamycin 600 mg In 50 Dextrose 5% in Water 50 ml @ 100 mls/hr IVPB Q6HR FELIX Rx#:[id number] Sodium Chloride 0.9% 1, 400 000 ml @ 40 mls/hr IV . Q24H FELIX Rx#:[id number] Oral 500 Other: Voiding Method Diaper Diaper Incontinent Incontinent # Voids 1 2 1 - Exam Physical exam 71-year-old gentleman sitting up in a chair is more awake and alert oriented 3. Nursing assistance the patient with this morning meal no episodes of choking Lungs diminished at the bases otherwise adequate air movement sats on room air 92% Heart S1-S2 audible regular denying chest pain Abdomen soft nontender incontinently urine no stool no nausea vomiting Extremities chronic right side weakness no edema noted - Labs CBC & Chem 7: 11/10/16 17:53 11/10/16 17:53 Labs: Abnormal Lab Results - Last 24 Hours (Table) 11/15/16 11/15/16 Range/Units 08:41 21:12 PT 16.7 H (9.0-12.0) sec POC Glucose (mg/dL) 145 H (75-99) mg/dL Assessment and Plan Plan: Impression Hypertension Prior CVA Chronic debility wheelchair bedbound suspect due to prior CVA Right side weakness from a prior CVA with speech difficulty Chronic Urinary incontinence Prior history of aspiration Present on admission acute hypoxic respiratory failure suspect due to left midlung pneumonia likely aspiration History of lung cancer status post right upper lobe resection with radiation therapy Present on admission acute kidney injury Chronic kidney disease stage III History of atrial fibrillation on anticoagulation Present on admission Coumadin coagulopathy Anemia of chronic illness Dyslipidemia Hypertension Anemia hemoglobin stable chronic dysphagia Plan Restart Coumadin today INR 1.7 Repeat labs in the morning DVT and GI prophylaxis Continue IV antibiotic clindamycin and oral Levaquin Resume home meds as appropriate Further recommendations pending Aspiration precautions Continue current aerosol bronchodilators entry manager to contact patient's legal guardian to discuss options for nutritional support patient may benefit from a PEG tube Continue to assist with all meals up in chair for meals continue with The above dictated assessment and findings were discussed with Dr. Mckeon Impression and the plan of care have been dictated as directed. Shanti Curran nurse practitioner acting as a scribe for Dr. Mckeon
[2016-11-16] MEDS: SENNOSIDES 8.6 MG TAB PO SCH ×2 (10:22→20:17)
[2016-11-16 10:33] LABS: INR 1.6 (<1.1); Prothrombin Time 15.2 sec (9.0-12.0)
[2016-11-16 10:42] LABS: Anisocytosis Slight; Basophils % (A) 0 %; CH 26.1; CHCM 29.9; Eosinophils # (A) 0.2 k/uL (0-0.7); Eosinophils % (A) 2 %; HCT 37.9 % (39.0-53.0); HDW 2.57; HGB 11.1 gm/dL (13.0-17.5); Hypochromasia Marked; Luc # (Auto) 0.16; Luc % (Auto) 2; Lymphocytes # (A) 0.4 k/uL (1.0-4.8); Lymphocytes % (A) 5 %; MCH 25.8 pg (25.0-35.0); MCHC 29.4 g/dL (31.0-37.0); MCV 87.7 fL (80.0-100.0); Mean Platelet Volume 6.5; Monocytes # (A) 0.4 k/uL (0-1.0); Monocytes % (A) 5 %; Neutrophils # (A) 6.8 k/uL (1.3-7.7); Neutrophils % (A) 86 %; RBC 4.32 m/uL (4.30-5.90); RDW 16.7 % (11.5-15.5); WBC 7.9 k/uL (3.8-10.6); WBC (Perox) 8.32
[2016-11-16 10:44] LABS: Calcium 8.8 mg/dL (8.4-10.2); Potassium 4.5 mmol/L (3.5-5.1); Total Bilirubin 0.5 mg/dL (0.2-1.3); Total Protein 6.2 g/dL (6.3-8.2)
--- NOTE | 2016-11-16 11:02 | PN ---
DATE OF SERVICE: 11/16/2016 The patient is a 71-year-old male who is seen sitting up in bed, is awake and alert. According to nursing, he did eat breakfast this morning. He is on a special diet per speech therapy for his swallowing problems. The patient had no difficulty this morning with his breakfast as long as he was sitting up in a chair. The patient is afebrile. Blood pressure a little elevated this morning. Patient is in no acute distress. ON PHYSICAL EXAM: VITAL SIGNS: Temp is 97.5, heart rate 76, respiratory rate 18, blood pressure is 172/82, O2 sat is 92% on 2 L O2 via nasal cannula. HEENT: Head is normocephalic, atraumatic. NECK: Supple. Trachea is midline. LUNGS: With decreased breath sounds throughout. HEART: S1 and S2 are heard. Not tachycardic. Abdomen is soft, distended. Bowel sounds are heard. EXTREMITIES: With trace edema. NEUROLOGIC: The patient is awake and alert. Does have right-sided weakness from previous stroke. No new labs to review. No new imaging to review. IMPRESSION: 1. Acute hypoxic respiratory failure. 2. Left mid lung and right basilar pneumonia aspiration. 3. History of lung cancer, status post right upper lobe resection and radiation therapy. 4. Dysphagia with recurrent aspiration despite modified diet. 5. Acute kidney injury on chronic kidney disease stage III. 6. History of cerebrovascular accident. 7. Diabetes mellitus type 2. 8. Dyslipidemia. 9. Hypertension. 10. Gastroesophageal reflux disease. 11. History of atrial fibrillation. 12. Anemia. 13. Coumadin coagulopathy. PLAN: Continue oxygen to maintain sats greater than or equal to 88%. Continue current medications which have been reviewed with bronchodilators and aerosolized steroids. Continue antibiotics. Recommend patient be sitting up ideally in a chair before meals to assist with swallowing. Continue modified diet per speech. Continue GI and DVT prophylaxis. We will follow patient closely with you, making further changes as necessary.
[2016-11-16 11:51] VITALS: BMI 24.3
[2016-11-16 11:57] LABS: Glucose,Whole Blood 140 mg/dL (75-99)
[2016-11-16] MEDS: OXYBUTYNIN CHLORIDE 5 MG TAB PO SCH (16:59)
[2016-11-16] MEDS: WARFARIN 2 MG TAB PO SCH (17:00)
[2016-11-16 17:11] LABS: Glucose,Whole Blood 105 mg/dL (75-99)
--- NOTE | 2016-11-16 17:41 | CONS ---
DATE OF CONSULTATION: 11/16/2016 REASON FOR CONSULTATION: Aspiration pneumonia, antibiotic recommendation. HISTORY OF PRESENT ILLNESS: The patient is a 71-year-old male who was brought into the ER at [facility] on 11/10/2016 with chief complaints of increasing shortness of breath. Apparently symptoms going on for about a day or two prior to coming to the hospital and symptoms started after he was eating candy and felt like he got stuck. however, his breathing continued to get worse since then. The patient does have history of problems with swallowing since his CVA back in 2003, however, the patient has been carefully watching what he drinks and eats and that has prevented him from getting recurrent aspiration pneumonia. The patient does have a history of lung cancer with a right upper lobe resection and therapy to the left lung. The patient did have a chest x-ray on admission, which did show some abnormal increased attenuation in left mid lung correlate for pneumonia and x-ray repeated yesterday morning showing mass like density in the left hilum and volume loss right lung and right sided effusion. The patient did have esophagogram swallow done on 11/12 which did show a thin penetration. He has been treated with Levaquin initially with clindamycin added yesterday. I was asked to see the patient today for further recommendation regarding antibiotic therapy. Patient's breathing has improved. He continues to have some cough however he is unable to break any sputum up. The patient denies having any chest pain. Denies having any nausea or vomiting. He denies any abdominal pain and no diarrhea. REVIEW OF SYSTEMS: CONSTITUTIONAL: Positive for weakness but no fever has been recorded. EYES: No complaint. ENT: No complaint. RESPIRATORY: As per HPI. CARDIOVASCULAR: No complaint. GENITOURINARY: No complaint. GASTROINTESTINAL: No complaint. MUSCULOSKELETAL: No complaint. INTEGUMENTARY: No complaint. PSYCHOLOGIC: No complaint. ENDOCRINE: No complaint. NEUROLOGIC: No complaint. PAST MEDICAL HISTORY: Hypertension, hyperlipidemia, pneumonia, diabetes mellitus, CVA, TIA, gastroesophageal reflux disease and adrenal insufficiency. PAST SURGICAL HISTORY: Appendectomy, cholecystectomy, tonsillectomy, right lobectomy for cancer and spinal fusion x2. SOCIAL HISTORY: Remote history of smoking. No drinking or drug use. FAMILY HISTORY: Mother with history of CVA, TIA, brother with history of mesothelioma. ALLERGIES: No known drug allergies. Medications currently include the patient is on: 1. Ventolin. 2. DuoNeb. 3. Amiodarone. 4. Aspirin. 5. Lipitor. 6. Pulmicort. 7. Divalproex. 8. Vitamin D3. 9. Clindamycin. 10. Glucotrol. 11. Levaquin. 12. Claritin. 13. Antivert. 14. Lopressor. 15. Protonix. 16. Senokot. 17. Desyrel. 18. Coumadin. On examination, blood pressure is 193/87 with a pulse of 72, temperature 97.5. He is 92% on room air. General description is an elderly male, lying in bed in no distress. No tachypnea or accessory muscle respiration use. HEENT EXAMINATION: Pallor. There is no scleral icterus. Oral mucous membrane is dry. NECK: Trachea central. There is no thyromegaly. LUNGS: Unlabored breathing with decreased breath sounds at base. No wheeze. HEART: S1, S2. Regular heart rate and rhythm. ABDOMEN: Soft. No tenderness. No guarding or rigidity. EXTREMITIES: No edema of feet. SKIN EXAMINATION: No rash or mass palpable. NEUROLOGICAL: Patient awake, alert, oriented x3. Mood and affect normal. LABS: Hemoglobin is 11.1, white count 7.9 with a BUN of 19, creatinine 1.79. He did have blood cultures on the that has been negative. No sputum collected. Chest x-ray report as mention above. DIAGNOSTIC IMPRESSION AND PLAN: 1. Patient admitted to hospital with difficulty breathing that started after he choked on a candy with component likely aspiration pneumonia now with x-ray showing mass like abnormality in the left hilum concern for aspiration pneumonia as the patient did have evidence of penetration on the barium swallow. 2. Patient who is on amiodarone and Coumadin with drug interactions between the Levaquin the patient is currently on. PLAN: 1. Discontinue the Levaquin and clindamycin. 2. Start the patient on Unasyn 1.5 q.6. 3. Obtain sputum for gram stain culture and sensitivity. 4. The patient may benefit from a bronchoscopy as the patient did have history of lung cancer to make sure no evidence of any recurrence. 5. I will follow up on the clinical condition and cultures to further adjust the medication if needed. Thank you for this consultation. Will follow this patient along with you. APRIL
[2016-11-16] MEDS: AMPICILLIN-SULBACTAM 1.5 GM in SODIUM CHLORIDE 0.9% 50 ML IVPB SCH ×2 (18:58→23:27)
[2016-11-16] MEDS: SODIUM CHLORIDE 0.9% 1,000 ML IV SCH (20:15)
[2016-11-16] MEDS: ATORVASTATIN 10 MG TAB PO SCH (20:16)
[2016-11-16] MEDS: CARBAMIDE PEROXIDE 6.5% DROPS 15 ML BTL BOTH EARS SCH (20:16)
[2016-11-16] MEDS: traZODone HCL 100 MG TAB PO SCH (20:17)
[2016-11-16 22:24] LABS: Glucose,Whole Blood 92 mg/dL (75-99)
[2016-11-17] MEDS: SODIUM CHLORIDE 0.9% 1,000 ML IV SCH (05:41)
[2016-11-17] MEDS: AMPICILLIN-SULBACTAM 1.5 GM in SODIUM CHLORIDE 0.9% 50 ML IVPB SCH ×4 (05:41→23:47)
[2016-11-17 06:56] LABS: Glucose,Whole Blood 84 mg/dL (75-99)
[2016-11-17 08:19] LABS: INR 1.9 (<1.1); Prothrombin Time 17.9 sec (9.0-12.0)
[2016-11-17] MEDS: AMIODARONE 200 MG TAB PO SCH (08:20)
[2016-11-17] MEDS: ASPIRIN 81 MG CHEW PO SCH (08:20)
[2016-11-17] MEDS: CHOLECALCIFEROL 400 UNIT TAB PO SCH ×2 (08:21→20:15)
[2016-11-17] MEDS: MECLIZINE 12.5 MG TAB PO SCH ×3 (08:21→21:26)
[2016-11-17] MEDS: LORATADINE 10 MG TAB PO SCH (08:21)
[2016-11-17] MEDS: METOPROLOL TARTRATE 25 MG TAB PO SCH ×2 (08:21→20:14)
[2016-11-17] MEDS: PANTOPRAZOLE 40 MG TABLET PO SCH ×2 (08:22→20:15)
[2016-11-17] MEDS: SENNOSIDES 8.6 MG TAB PO SCH ×2 (08:23→20:14)
[2016-11-17] MEDS: IPRATROPIUM-ALBUTEROL 3 ML NEB INHALATION SCH ×4 (09:12→19:29)
[2016-11-17] MEDS: BUDESONIDE 0.5 MG/2 ML NEBU INHALATION SCH ×2 (09:12→19:29)
[2016-11-17 12:15] LABS: Glucose,Whole Blood 86 mg/dL (75-99)
[2016-11-17] MEDS: methylPREDNISolone SOD SUCCI 125 MG/2 ML VIAL IV SCH ×3 (15:21→23:47)
--- NOTE | 2016-11-17 16:25 | PN ---
DATE OF SERVICE: 11/17/2016 He has remained hemodynamically stable. He continues to have some shortness of breath and cough. On physical examination, respiratory rate is 19, pulse rate of 73, temperature 97.2, blood pressure 165/77. O2 sat on room air is 91%. HEENT reveals pupils are equal. Chest reveals expiratory wheeze with occasional rhonchi. Cardiovascular system reveals an S1 and S2. Abdomen is soft. There is no edema. IMPRESSION AT THIS TIME: 1. Acute hypoxic respiratory failure. 2. Aspiration-type pneumonia. 3. Previous history of lung cancer, status post right upper lobe resection and radiation therapy. 4. Dysphagia. 5. Bronchospasm. At this point in time, add a short course of Solu-Medrol. Continue bronchodilators, aerosolized steroids. His prognosis is fair.
[2016-11-17 16:39] LABS: Glucose,Whole Blood 124 mg/dL (75-99)
[2016-11-17] MEDS: OXYBUTYNIN CHLORIDE 5 MG TAB PO SCH (17:54)
[2016-11-17] MEDS: WARFARIN 2 MG TAB PO SCH (17:55)
[2016-11-17] MEDS: traZODone HCL 100 MG TAB PO SCH (20:14)
[2016-11-17] MEDS: ATORVASTATIN 10 MG TAB PO SCH (20:14)
[2016-11-17] MEDS: CARBAMIDE PEROXIDE 6.5% DROPS 15 ML BTL BOTH EARS SCH (20:15)
[2016-11-17 20:52] LABS: Glucose,Whole Blood 295 mg/dL (75-99)
[2016-11-17 21:12] LABS: Glucose,Whole Blood 284 mg/dL (75-99)
[2016-11-17] MEDS: INSULIN LISPRO (humaLOG) 300 UNIT/3 ML VIAL SQ SCH (21:26)
[2016-11-18] MEDS: SODIUM CHLORIDE 0.9% 1,000 ML IV SCH (04:08)
[2016-11-18] MEDS: AMPICILLIN-SULBACTAM 1.5 GM in SODIUM CHLORIDE 0.9% 50 ML IVPB SCH ×2 (05:07→12:34)
[2016-11-18] MEDS: methylPREDNISolone SOD SUCCI 125 MG/2 ML VIAL IV SCH ×2 (05:07→12:34)
[2016-11-18 07:22] LABS: Glucose,Whole Blood 228 mg/dL (75-99)
[2016-11-18] MEDS: IPRATROPIUM-ALBUTEROL 3 ML NEB INHALATION SCH ×4 (08:13→21:08)
[2016-11-18] MEDS: BUDESONIDE 0.5 MG/2 ML NEBU INHALATION SCH ×2 (08:14→21:08)
[2016-11-18] MEDS: INSULIN LISPRO (humaLOG) 300 UNIT/3 ML VIAL SQ SCH ×4 (08:42→22:17)
[2016-11-18] MEDS: AMIODARONE 200 MG TAB PO SCH (08:44)
[2016-11-18] MEDS: LORATADINE 10 MG TAB PO SCH (08:44)
[2016-11-18] MEDS: CHOLECALCIFEROL 400 UNIT TAB PO SCH ×2 (08:44→20:54)
[2016-11-18] MEDS: ASPIRIN 81 MG CHEW PO SCH (08:44)
[2016-11-18] MEDS: METOPROLOL TARTRATE 25 MG TAB PO SCH ×2 (08:45→20:54)
[2016-11-18] MEDS: PANTOPRAZOLE 40 MG TABLET PO SCH ×2 (08:45→20:54)
[2016-11-18] MEDS: MECLIZINE 12.5 MG TAB PO SCH ×3 (08:45→20:59)
[2016-11-18] MEDS: SENNOSIDES 8.6 MG TAB PO SCH ×2 (08:45→20:56)
[2016-11-18 08:48] LABS: INR 2.1 (<1.1); Prothrombin Time 20.5 sec (9.0-12.0)
[2016-11-18 12:27] LABS: Glucose,Whole Blood 228 mg/dL (75-99)
--- NOTE | 2016-11-18 13:35 | PN ---
DATE OF SERVICE: 11/18/2016 He is less short of breath. He does not have much wheezing today and is more comfortable overall. On physical examination, blood pressure is 175/82, respiratory rate 21, pulse of 83, temperature 96.3, O2 sat on room air is 91%. HEENT is unremarkable. Chest reveals no wheezing today, occasional basal rhonchi. Cardiovascular system reveals an S1, S2. ABDOMEN: Soft. There is no edema. PT, INR is 2.1. IMPRESSION: 1. Aspiration pneumonia. 2. Bronchospasm. Switch him to oral steroids, oral antibiotics. Increase activity level. Discharge planning for tomorrow would be appropriate.
[2016-11-18] MEDS: predniSONE 20 MG TAB PO SCH (15:14)
[2016-11-18 17:23] LABS: Glucose,Whole Blood 256 mg/dL (75-99)
[2016-11-18] MEDS: WARFARIN 2 MG TAB PO SCH (18:21)
[2016-11-18] MEDS: OXYBUTYNIN CHLORIDE 5 MG TAB PO SCH (18:21)
[2016-11-18] MEDS: CARBAMIDE PEROXIDE 6.5% DROPS 15 ML BTL BOTH EARS SCH (20:53)
[2016-11-18] MEDS: AMOXIC-POT CLAV 875-125MG 1 EACH TAB PO SCH (20:54)
[2016-11-18] MEDS: traZODone HCL 100 MG TAB PO SCH (20:54)
[2016-11-18] MEDS: ATORVASTATIN 10 MG TAB PO SCH (20:54)
[2016-11-18 22:21] LABS: Glucose,Whole Blood 305 mg/dL (75-99)
[2016-11-18 22:21] LABS: Glucose,Whole Blood 305 mg/dL (75-99)
[2016-11-19] MEDS: SODIUM CHLORIDE 0.9% 1,000 ML IV SCH (04:41)
[2016-11-19 07:01] LABS: Glucose,Whole Blood 161 mg/dL (75-99)
[2016-11-19 07:29] VITALS: BP 174/76; RESP 16; TEMP 97.9
[2016-11-19] MEDS: CHOLECALCIFEROL 400 UNIT TAB PO SCH (08:06)
[2016-11-19] MEDS: AMIODARONE 200 MG TAB PO SCH (08:07)
[2016-11-19] MEDS: METOPROLOL TARTRATE 25 MG TAB PO SCH (08:07)
[2016-11-19] MEDS: ASPIRIN 81 MG CHEW PO SCH (08:07)
[2016-11-19] MEDS: AMOXIC-POT CLAV 875-125MG 1 EACH TAB PO SCH (08:07)
[2016-11-19] MEDS: PANTOPRAZOLE 40 MG TABLET PO SCH (08:07)
[2016-11-19] MEDS: SENNOSIDES 8.6 MG TAB PO SCH (08:07)
[2016-11-19] MEDS: MECLIZINE 12.5 MG TAB PO SCH (08:07)
[2016-11-19] MEDS: LORATADINE 10 MG TAB PO SCH (08:09)
[2016-11-19] MEDS: predniSONE 20 MG TAB PO SCH (08:09)
[2016-11-19] MEDS: INSULIN LISPRO (humaLOG) 300 UNIT/3 ML VIAL SQ SCH ×2 (08:09→12:38)
[2016-11-19 09:03] LABS: Anisocytosis Slight; Basophils % (A) 0 %; CH 26.6; CHCM 29.8; Eosinophils % (A) 0 %; HDW 2.57; HGB 11.2 gm/dL (13.0-17.5); Hypochromasia Marked; Luc # (Auto) 0.22; Luc % (Auto) 1; Lymphocytes # (A) 0.3 k/uL (1.0-4.8); Lymphocytes % (A) 2 %; MCH 27.2 pg (25.0-35.0); MCHC 30.3 g/dL (31.0-37.0); MCV 89.6 fL (80.0-100.0); Mean Platelet Volume 7.3; Monocytes # (A) 0.8 k/uL (0-1.0); Monocytes % (A) 4 %; Neutrophils # (A) 16.9 k/uL (1.3-7.7); Neutrophils % (A) 93 %; RBC 4.13 m/uL (4.30-5.90); RDW 17.4 % (11.5-15.5); WBC 18.3 k/uL (3.8-10.6); WBC (Perox) 18.33
[2016-11-19] MEDS: IPRATROPIUM-ALBUTEROL 3 ML NEB INHALATION SCH ×2 (09:04→11:36)
[2016-11-19] MEDS: BUDESONIDE 0.5 MG/2 ML NEBU INHALATION SCH (09:04)
[2016-11-19 09:18] LABS: INR 2.9 (<1.1); Prothrombin Time 28.5 sec (9.0-12.0)
[2016-11-19 09:20] LABS: Calcium 8.7 mg/dL (8.4-10.2); Potassium 4.4 mmol/L (3.5-5.1); Total Bilirubin 0.4 mg/dL (0.2-1.3); Total Protein 6.6 g/dL (6.3-8.2)
--- NOTE | 2016-11-19 09:49 | PN ---
A 71-year-old white male was has improved wheezing and less shortness of breath. No chest pain, no lightheadedness, syncope. Blood pressure 170s/80s, respiratory rate 15 to 20, pulse 80 to 83, which is 91% on room air. Lungs show decreased breath sounds, but mostly clear. HEART: S1, S2. ABDOMEN: Soft. INR is 2.1. ASSESSMENT: 1. Aspiration pneumonia with bronchospasm. 2. Chronic obstructive pulmonary disease exacerbation. Continue current treatment. Dysmotility. The patient is refusing PEG tube placement, possibly will be discharged home in the morning.
--- NOTE | 2016-11-19 10:43 | PN ---
DATE OF SERVICE: 11/18/2016 Reason for followup is aspiration pneumonia. INTERVAL HISTORY: The patient is afebrile. Has been breathing more comfortably. He continues to have a cough but not bringing up any sputum. Denies any chest pain. No abdominal pain or any diarrhea. On examination, blood pressure 141/75 with a pulse of 70, temperature 98. He is 97% on 2 L nasal cannula. General description is an elderly male, lying in bed in no distress. RESPIRATORY SYSTEM: Unlabored breathing. Some decreased breath sounds in the base. HEART: S1, S2 with regular rate and rhythm. ABDOMEN: Soft, no tenderness. LABS: Hemoglobin is 11.1, white count of 7.9. Blood culture negative. Sputum not collected. DIAGNOSTIC IMPRESSION AND PLAN: Patient with a component of aspiration pneumonia. Did well on Unasyn. Currently on p.o. Augmentin that will be continued for about 7 to 10 days to finish the course of therapy. Continue supportive care.
[2016-11-19 11:55] VITALS: PULSE 76
[2016-11-19 11:59] LABS: Glucose,Whole Blood 197 mg/dL (75-99)
--- NOTE | 2016-11-19 13:03 | P.DS ---
Providers Date of admission: 11/10/16 19:10 Expected date of discharge: 11/19/16 Attending physician: Aubrey Mckeon Consults: 11/12/16 02:18 Consult Physician Routine Consulting Provider: Renate Hicks Consult Reason/Comments: pneumonia Do you want consulting provider notified?: Yes 11/13/16 13:32 Consult Physician Urgent Consulting Provider: Aleksandra Levy Consult Reason/Comments: Increased confusion Do you want consulting provider notified?: Yes 11/16/16 08:37 Consult Physician Urgent Consulting Provider: Sebastian Buenrostro Consult Reason/Comments: Recommendations antibiotics Do you want consulting provider notified?: Yes Primary care physician: [facility] Course: 8-year-old male who presented on the day of admission to the emergency room from [facility]. Patient had been experiencing frequent cough with shortness of breath for the past several days. Patient stated that he was eating candy felt like it got stuck in his throat he was not able to cough out. Patient did have fever and chills at home. Patient has limited mobility is wheelchair bedbound. Patient does have a history of a prior CVA. Also has a history of lung cancer the right upper lobe resection done at [facility]. Patient reportedly underwent radiation treatment and had completed 4 rounds patient's been followed by pulmonology service. Patient did undergo a modified barium swallow this morning impression it showed mild transit penetration no evidence of aspiration. Patient was followed by pulmonology service. Patient's niece is patient's medical power erp pm the furnace builder and the attending did this because with the niece as well as the patient. Patient would benefit from a PEG tube to be placed given that the patient is at risk for aspiration pneumonia. The patient's niece and the patient were adamant about not having a PEG tube placed they declined at this time. Patient was followed by speech therapy. Was placed on a modified diet. Continue to have periods of aspirating. The furnace builder did discuss with the niece and the patient the risk of continuing to eat and aspirating could increase the risk of . Even though the conversation went over the risk factors of not having a PEG tube and continuing to aspirate the niece and the patient declined PEG tube placement at this time aspiration precautions were obtained at all times. Patient does take the assist of 2 to transfer from bed to a chair physical therapy and occupational therapy did participate in the plan of care. Patient was placed on a modified diet. Was given assistance with all meals. Infectious disease did participate in the plan of care infectious disease indicated the patient at the time of discharge could be discharged on oral Augmentin for 10 day course. Subsequent patient was felt to be stable and appropriate to transfer back to [facility] the niece indicated the patient does have nursing care at the facility for assistance with ADLs Impression discharge diagnosis Present on admission hypertension urgency blood pressure elevated 209/81 Acute hypoxic respiratory failure suspect due to left midlung right basilar pneumonia Essential Hypertension Prior CVA with right side weakness Chronic debility wheelchair bedbound suspect due to prior CVA Right side weakness from a prior CVA with speech difficulty Chronic Urinary incontinence Prior history of aspiration Present on admission acute hypoxic respiratory failure suspect due to left midlung pneumonia likely aspiration History of lung cancer status post right upper lobe resection with radiation therapy Present on admission acute kidney injury Acute kidney disease on Chronic kidney disease stage III History of chronic persistent atrial fibrillation rate control on anticoagulation Present on admission Coumadin coagulopathy Anemia of chronic illness Dyslipidemia Limited mobility takes the assist of 2 to transfer from bed to chair Anemia hemoglobin stable chronic dysphagia likely due to a prior CVA Patient Condition at Discharge: Fair Plan - Discharge Summary New Discharge Prescriptions: Albuterol Nebulized [Ventolin Nebulized] 2.5 mg INHALATION RT-Q4H PRN #120 nebu PRN Reason: Shortness Of Breath Or Wheezing Amoxic-Pot Clav 875-125Mg [Augmentin 875-125] 1 each PO Q12HR #20 tab Ipratropium-Albuterol Nebulize [Duoneb 0.5 mg-3 mg/3 ml Soln] 3 ml INHALATION RT -QID #120 ampul.neb Warfarin [Coumadin] 4 mg PO DAILY@1800 #30 tab predniSONE 40 mg PO DAILY #8 tab Discharge Medication List Cholecalciferol [Vitamin D3] 400 unit PO BID 01/26/16 [History] Meclizine [Antivert] 12.5 mg PO TID 01/26/16 [History] Omeprazole [PriLOSEC] 20 mg PO BID 01/26/16 [History] Simvastatin [Zocor] 10 mg PO HS 01/26/16 [History] traZODone HCL [Desyrel] 100 mg PO HS 01/26/16 [History] Metoprolol Tartrate [Lopressor] 25 mg PO BID 03/15/16 [History] Amiodarone [Cordarone] 200 mg PO DAILY 11/10/16 [History] Aspirin 81 mg PO DAILY 11/10/16 [History] Carbamide Peroxide [Debrox Otic] 5 drops BOTH EARS HS 11/10/16 [History] Loratadine 10 mg PO DAILY 11/10/16 [History] Oxybutynin Chloride [Ditropan] 5 mg PO W/SUPPER 11/10/16 [History] glipiZIDE XL [Glucotrol XL] 2.5 mg PO BID@0700,1600 11/10/16 [History] Albuterol Nebulized [Ventolin Nebulized] 2.5 mg INHALATION RT-Q4H PRN #120 nebu 11/19/16 [Rx] Amoxic-Pot Clav 875-125Mg [Augmentin 875-125] 1 each PO Q12HR #20 tab 11/19/16 [ Rx] Ipratropium-Albuterol Nebulize [Duoneb 0.5 mg-3 mg/3 ml Soln] 3 ml INHALATION RT -QID #120 ampul.neb 11/19/16 [Rx] Sennosides [Senokot] 8.6 mg PO BID tab 11/19/16 [Rx] Warfarin [Coumadin] 4 mg PO DAILY@1800 #30 tab 11/19/16 [Rx] predniSONE 40 mg PO DAILY #8 tab 11/19/16 [Rx] Follow up Appointment(s)/Referral(s): Aubrey Mckeon MD [Primary Care Provider] - 11/21/16 Ambulatory/Diagnostic Orders: Prothrombin Time INR [LAB.AMB] Time Frame: 11/21/16, Location: Determined By Patient Patient Instructions/Handouts: Type 2 Diabetes in Adults (DC) Activity/Diet/Wound Care/Special Instructions: [facility] Discharge Disposition: HOME WITH HOME HEALTH SERVICES
--- NOTE | 2016-11-19 13:25 | P.PN ---
Subjective Principal diagnosis: Aspiration pneumonia Patient seen and examined. Patient is sitting up in the chair eating lunch. He states his breathing is much better. His cough is improving. He has not had any fevers or chills. He is hopeful to be discharged today. Objective - Vital Signs Vital signs: Vital Signs Temp 97.9 F 11/19/16 07:00 Pulse 76 11/19/16 11:55 Resp 16 11/19/16 08:00 BP 174/76 11/19/16 07:00 Pulse Ox 93 L 11/19/16 07:00 Intake & Output 11/18/16 11/19/16 11/19/16 18:59 06:59 18:59 Intake Total 200 Balance 200 Intake: Oral 200 Other: Voiding Method Bedside Commode Bedside Commode Bedside Commode Diaper Diaper Diaper Incontinent Incontinent Incontinent # Voids 4 2 1 # Bowel Movements 1 1 1 - Exam Gen.: Patient is alert and oriented 3, no acute distress, prior CVA with residual difficulties with speech Cardiovascular: Regular rate and rhythm, S1/S2 Lungs: Coarse breath sounds on the left, diminished breath sounds on the right Abdomen: Soft nontender nondistended positive bowel sounds Extremities: No edema - Labs CBC & Chem 7: 11/19/16 08:18 11/19/16 08:18 Labs: Abnormal Lab Results - Last 24 Hours (Table) 11/18/16 11/18/16 11/18/16 Range/Units 17:09 22:14 22:16 WBC (3.8-10.6) k/uL RBC (4.30-5.90) m/uL Hgb (13.0-17.5) gm/dL Hct (39.0-53.0) % MCHC (31.0-37.0) g/dL RDW (11.5-15.5) % Neutrophils # (1.3-7.7) k/uL Lymphocytes # (1.0-4.8) k/uL PT (9.0-12.0) sec Chloride (98-107) mmol/L BUN (9-20) mg/dL Creatinine (0.66-1.25) mg/dL Glucose (74-99) mg/dL POC Glucose (mg/dL) 256 H 305 H 305 H (75-99) mg/dL AST (17-59) U/L 11/19/16 11/19/16 11/19/16 Range/Units 06:59 08:18 08:18 WBC 18.3 H (3.8-10.6) k/uL RBC 4.13 L (4.30-5.90) m/uL Hgb 11.2 L (13.0-17.5) gm/dL Hct 37.0 L (39.0-53.0) % MCHC 30.3 L (31.0-37.0) g/dL RDW 17.4 H (11.5-15.5) % Neutrophils # 16.9 H (1.3-7.7) k/uL Lymphocytes # 0.3 L (1.0-4.8) k/uL PT 28.5 H (9.0-12.0) sec Chloride (98-107) mmol/L BUN (9-20) mg/dL Creatinine (0.66-1.25) mg/dL Glucose (74-99) mg/dL POC Glucose (mg/dL) 161 H (75-99) mg/dL AST (17-59) U/L 11/19/16 11/19/16 Range/Units 08:18 11:57 WBC (3.8-10.6) k/uL RBC (4.30-5.90) m/uL Hgb (13.0-17.5) gm/dL Hct (39.0-53.0) % MCHC (31.0-37.0) g/dL RDW (11.5-15.5) % Neutrophils # (1.3-7.7) k/uL Lymphocytes # (1.0-4.8) k/uL PT (9.0-12.0) sec Chloride 109 H (98-107) mmol/L BUN 24 H (9-20) mg/dL Creatinine 1.55 H (0.66-1.25) mg/dL Glucose 151 H (74-99) mg/dL POC Glucose (mg/dL) 197 H (75-99) mg/dL AST 15 L (17-59) U/L Assessment and Plan Plan: Acute hypoxic respiratory failure Left midlung and right basilar pneumonia, aspiration History of lung cancer, status post right upper lobe resection and radiation therapy Dysphagia with recurrent aspiration despite modified diet Acute kidney injury on chronic kidney disease stage III History of CVA Diabetes mellitus type 2 Dyslipidemia Hypertension GERD History of atrial fibrillation Anemia Coumadin coagulopathy O2 to maintain saturation greater than equal to 88% Antibiotics: Levaquin, clindamycin - change to PO Bronchodilators and Pulmicort Modified diet per speech language pathology Avoid nephrotoxins Prednisone taper PT and INR, Coumadin dosing Blood sugar control Continue patient's home medications GI and DVT prophylaxis: Coumadin, Protonix Repeat chest x-ray today, x-ray will need to be followed as an outpatient until clear Patient and family refusing PEG tube Respiratory status is stable. Okay to DC from pulmonary standpoint
--- NOTE | 2016-11-19 21:03 | PN ---
DATE OF SERVICE: 11/19/2016 Reason for follow-up: Aspiration pneumonia. INTERVAL HISTORY: The patient is afebrile. He was seen on rounds this morning. He has been breathing comfortably. Denies significant chest pain, shortness of breath or cough. No nausea, vomiting or diarrhea. On examination, blood pressure 174/76 with a pulse of 77, temperature is 97.9, he is 93% on room air. General description is an elderly male, lying in bed in no distress. RESPIRATORY SYSTEM: Unlabored breathing. Clear to auscultation anteriorly. HEART: S1, S2. Regular rate and rhythm. ABDOMEN: Soft. No tenderness. LABS: Hemoglobin is 11.2 with a white count of 18.3, BUN of 24, creatinine 1.55. DIAGNOSTIC IMPRESSION AND PLAN: 1. Patient with aspiration pneumonia currently responding to Augmentin, he will continue for about a week. 2. Patient did have jump in the white count more likely because of the steroid effect. Continue supportive care.
== END 2016-11-19 15:33 | disposition home health service (06) | DRG 177 ==
LOC: SUPCPDRO 17:24 → EC 17:24 → 4MS4W 19:10
PROVIDERS: ADMIT Family Medicine; ATTEND Family Medicine
DX: J69.0 Pneumonitis due to inhalation of food and vomit (principal); J96.01 Acute respiratory failure with hypoxia; N17.9 Acute kidney failure, unspecified; E27.40 Unspecified adrenocortical insufficiency; E11.22 Type 2 diabetes mellitus with diabetic chronic kidney disease; I48.1 Persistent atrial fibrillation; I69.351 Hemiplegia and hemiparesis following cerebral infarction affecting right dominant side; D63.8 Anemia in other chronic diseases classified elsewhere; E78.5 Hyperlipidemia, unspecified; F17.210 Nicotine dependence, cigarettes, uncomplicated; F32.9 Major depressive disorder, single episode, unspecified; I12.9 Hypertensive chronic kidney disease with stage 1 through stage 4 chronic kidney disease, or unspecified chronic kidney disease; I48.2 Chronic atrial fibrillation; K21.9 Gastro-esophageal reflux disease without esophagitis; N18.3 Chronic kidney disease, stage 3 (moderate); R13.10 Dysphagia, unspecified; I69.321 Dysphasia following cerebral infarction; R79.1 Abnormal coagulation profile; T45.515A Adverse effect of anticoagulants, initial encounter; Z74.01 Bed confinement status; Z79.01 Long term (current) use of anticoagulants; Z79.82 Long term (current) use of aspirin; Z85.118 Personal history of other malignant neoplasm of bronchus and lung; Z90.2 Acquired absence of lung [part of]; Z92.3 Personal history of irradiation; Z98.1 Arthrodesis status; Z99.3 Dependence on wheelchair; Z79.899 Other long term (current) drug therapy
CPT/HCPCS: 36415; 71010; 71020; 74230; 80053; 81003; 82550; 82553; 83605; 83735; 83880; 84484; 85025; 85610; 85730; 87040; 93005; 94640; 94660; 94760; 96365; 99285

== ENCOUNTER 2017-12-13 13:02 | Emergency (ER) | payer MEDICARE, OTHER ==
[2017-12-13 13:39] VITALS: BP 150/70; PULSE 53; RESP 20; TEMP 98
--- NOTE | 2017-12-13 14:42 | ED ---
General Adult HPI - General Chief complaint: ENT Stated complaint: Ear med in eyes Source: patient Mode of arrival: wheelchair Limitations: no limitations - History of Present Illness Initial comments: 72-year-old male presents to the emergency department for a chief complaint of bilateral eye irritation. Patient states he was in the group home when a nurse put DeBrox into his eyes bilaterally instead of his ears. He had some burning at this point but the eyes were not flushed by the nurse. This morning patient still had some irritation and felt his eyelids were slightly swollen. They contacted the eye doctor who told them to bring him to the emergency room to make sure nothing was wrong the since the eye doctor was not in the office. Patient has a history of stroke and RAD has poor vision so visual acuity was not performed. Patient states he has not noticed a decrease or change in vision since the drops occurred. Patient denies any headache or pain with moving the eyes. Patient denies any blurry vision or seeing spots. Patient denies shortness of breath, chest pain, abdominal pain. - Related Data Home Medications Medication Instructions Recorded Confirmed Cholecalciferol [Vitamin D3] 400 unit PO BID 01/26/16 12/13/17 Simvastatin [Zocor] 10 mg PO HS 01/26/16 12/13/17 traZODone HCL [Desyrel] 100 mg PO HS 01/26/16 12/13/17 Metoprolol Tartrate [Lopressor] 25 mg PO BID 03/15/16 12/13/17 Amiodarone [Cordarone] 200 mg PO DAILY 11/10/16 12/13/17 Aspirin 81 mg PO DAILY 11/10/16 12/13/17 Carbamide Peroxide [Debrox Otic] 5 drops BOTH EARS HS 11/10/16 12/13/17 Oxybutynin Chloride [Ditropan] 5 mg PO W/SUPPER 11/10/16 12/13/17 glipiZIDE XL [Glucotrol XL] 2.5 mg PO BID@0700,1600 11/10/16 12/13/17 Dabigatran [Pradaxa] 150 mg PO BID 12/13/17 12/13/17 Esomeprazole Magnesium [NexIUM] 40 mg PO DAILY 12/13/17 12/13/17 Fexofenadine HCl [Alyson Allergy] 180 mg PO DAILY 12/13/17 12/13/17 Previous Rx's Medication Instructions Recorded Albuterol Nebulized [Ventolin 2.5 mg INHALATION RT-Q4H PRN #120 11/19/16 Nebulized] nebu Erythromycin Ophth Oint [Romycin 1 applic BOTH EYES QID 10 Days #1 12/13/17 Ophth Oint] bottle Allergies Allergy/AdvReac Type Severity Reaction Status Date / Time No Known Allergies Allergy Verified 12/13/17 13:56 Review of Systems ROS Statement: Those systems with pertinent positive or pertinent negative responses have been documented in the HPI. ROS Other: All systems not noted in ROS Statement are negative. Past Medical History Past Medical History: CVA/TIA, Diabetes Mellitus, GERD/Reflux, Hyperlipidemia, Hypertension, Pneumonia, Renal Disease Additional Past Medical History / Comment(s): HX OF CVA X3 -RIGHT SIDED WEAKNESS , SPEECH DIFFICULT TO UNDERSTAND AT TIMES, W/C BOUND, ABLE TO PIVOT TO TRANSFER WITH ASSISTANCE, DIFFICULTY CHEWING AND SWALLOWING, HX OF ASPIRATION.,WEARS DEPENDS FOR OCC. INCONTINENCE., DDD, KIDNEY FUNCTION AT 50-60%, ENVIRONMENTAL ALLERGIES. PT LIVES AT [facility] -HAS OWN APARTMENT WITH 24 HOUR HELP., HAS DIZZINESS AND DIFFICULTY WITH VISION-WEARS PRISMS IN HIS EYE GLASSES. History of Any Multi-Drug Resistant Organisms: None Reported Past Surgical History: Appendectomy, Cholecystectomy, Tonsillectomy Additional Past Surgical History / Comment(s): EYE SURGERY, right lobeectomy for Ca, spinal fusions x 2 Past Anesthesia/Blood Transfusion Reactions: No Reported Reaction Past Psychological History: Depression Smoking Status: Former smoker Past Alcohol Use History: Rare Past Drug Use History: None Reported - Past Family History Mother History Unknown: Yes Family Medical History: CVA/TIA Father History Unknown: Yes Family Medical History: No Reported History Brother(s) Family Medical History: Cancer Additional Family Medical History / Comment(s): MESOTHELIOMA LUNG CANCER General Exam Limitations: no limitations Head exam: Present: atraumatic, normocephalic, normal inspection Eye exam: Present: PERRL, EOMI, other (Slight erythematous eyelid on the right eye. Swelling not noticeable.). Absent: scleral icterus, conjunctival injection, nystagmus, periorbital swelling, periorbital tenderness ENT exam: Present: normal exam, mucous membranes moist, TM's normal bilaterally Neck exam: Present: normal inspection. Absent: tenderness, meningismus, lymphadenopathy Course Vital Signs 12/13/17 13:36 Temperature 98.0 F Pulse Rate 53 L Respiratory 20 Rate Blood Pressure 150/70 O2 Sat by Pulse 98 Oximetry Medical Decision Making - Medical Decision Making 72-year-old male presents to the emergency department for a chief complaint of eye irritation after the boxes accidentally applied to the eyes yesterday. Patient has had slight burning sense. The burning has lessened since yesterday. On exam patient has EOMI and PERRLA. No redness or irritation noted to the conjunctiva. No erosions noted to the eye. There is some slight redness of the lid of the right eye. Patient has no other complaints at this time. Patient has a history of stroke and so vision was previously compromised. Patient's daughter states it will not be worth getting him up to look at the visual acuity board as his vision is arty so poor. He states he notices no visual changes at this time. Patient will be given erythromycin drops to prevent any infection from occurring. He has an appointment with his eye doctor in 3 days and will attend that appointment to follow-up. Patient will return to the emergency Department if he notices worsening symptoms. Disposition Clinical Impression: Eye pain Disposition: HOME SELF-CARE Condition: Good Instructions: Eye Pain (ED) Prescriptions: Erythromycin Ophth Oint [Romycin Ophth Oint] 1 applic BOTH EYES QID 10 Days #1 bottle Referrals: [facility] PAC [Primary Care Provider] - 1-2 days Time of Disposition: 14:42
== END 2017-12-13 15:05 | disposition home or self-care (01) ==
LOC: EC 13:02
DX: H57.13 Ocular pain, bilateral (principal); E11.9 Type 2 diabetes mellitus without complications; K21.9 Gastro-esophageal reflux disease without esophagitis; E78.5 Hyperlipidemia, unspecified; I10 Essential (primary) hypertension; F32.9 Major depressive disorder, single episode, unspecified; Z87.891 Personal history of nicotine dependence; Z86.73 Personal history of transient ischemic attack (TIA), and cerebral infarction without residual deficits; Z79.82 Long term (current) use of aspirin; Z79.84 Long term (current) use of oral hypoglycemic drugs; Z79.899 Other long term (current) drug therapy
CPT/HCPCS: 99283

== ENCOUNTER 2018-03-15 12:11 | Inpatient (IN) | payer MEDICARE, OTHER ==
[2018-03-15] MEDS ORDERED: IPRATROPIUM-ALBUTEROL 3 ML NEB INHALATION STA (12:29)
--- NOTE | 2018-03-15 12:33 | ED ---
General Adult HPI - General Stated complaint: ABDIEL Time Seen by Provider: 03/15/18 12:18 Source: patient, EMS, RN notes reviewed Mode of arrival: EMS Limitations: no limitations - History of Present Illness Initial comments: Patient is a pleasant 73-year-old male presenting to the emergency Department with hemoptysis. Patient does have history of previous lung resection secondary to tumor. Patient has been coughing more than his chronic cough for the past several days. Patient has had several episodes of hemoptysis. Patient does have difficulty with talking that he states is chronic. Patient is a poor historian. Patient denies chest pain. No fevers. No significant dyspnea. - Related Data Home Medications Medication Instructions Recorded Confirmed Cholecalciferol [Vitamin D3] 400 unit PO BID 01/26/16 03/15/18 Simvastatin [Zocor] 10 mg PO HS 01/26/16 03/15/18 traZODone HCL [Desyrel] 100 mg PO HS 01/26/16 03/15/18 Metoprolol Tartrate [Lopressor] 25 mg PO BID 03/15/16 03/15/18 Amiodarone [Cordarone] 200 mg PO DAILY 11/10/16 03/15/18 Aspirin 81 mg PO DAILY 11/10/16 03/15/18 Oxybutynin Chloride [Ditropan] 5 mg PO W/SUPPER 11/10/16 03/15/18 glipiZIDE XL [Glucotrol XL] 2.5 mg PO BID@0630,1600 11/10/16 03/15/18 Dabigatran [Pradaxa] 150 mg PO BID 12/13/17 03/15/18 Esomeprazole Magnesium [NexIUM] 40 mg PO DAILY 12/13/17 03/15/18 Acetaminophen [Tylenol Arthritis] 650 mg PO Q8HR PRN 03/15/18 03/15/18 Cetirizine HCl [Zyrtec] 10 mg PO DAILY 03/15/18 03/15/18 Cyanocobalamin (Vitamin B-12) 1,000 mcg PO DAILY 03/15/18 03/15/18 [Vitamin B-12] Docusate [Colace] 100 mg PO HS 03/15/18 03/15/18 Furosemide [Lasix] 20 mg PO DAILY 03/15/18 03/15/18 Ipratropium-Albuterol Nebulize 3 ml INHALATION RT-Q6H PRN 03/15/18 03/15/18 [Duoneb 0.5 mg-3 mg/3 ml Soln] Propylene Glycol/Peg 400/Pf 1 drop BOTH EYES DAILY PRN 03/15/18 03/15/18 [Systane 0.3-0.4% Eye Drops] guaiFENesin-DM 100-10MG/5ML 10 ml PO Q6HR PRN 03/15/18 03/15/18 [Robitussin DM] Allergies Allergy/AdvReac Type Severity Reaction Status Date / Time No Known Allergies Allergy Verified 03/15/18 12:35 Review of Systems ROS Statement: Those systems with pertinent positive or pertinent negative responses have been documented in the HPI. ROS Other: All systems not noted in ROS Statement are negative. Constitutional: Denies: fever Eyes: Denies: eye pain ENT: Denies: ear pain Respiratory: Reports: cough, hemoptysis. Denies: dyspnea Cardiovascular: Denies: chest pain Endocrine: Denies: fatigue Gastrointestinal: Denies: abdominal pain Genitourinary: Denies: dysuria Musculoskeletal: Denies: back pain Skin: Denies: rash Neurological: Denies: weakness Past Medical History Past Medical History: CVA/TIA, Diabetes Mellitus, GERD/Reflux, Hyperlipidemia, Hypertension, Pneumonia, Renal Disease Additional Past Medical History / Comment(s): HX OF CVA X3 -RIGHT SIDED WEAKNESS , SPEECH DIFFICULT TO UNDERSTAND AT TIMES, W/C BOUND, ABLE TO PIVOT TO TRANSFER WITH ASSISTANCE, DIFFICULTY CHEWING AND SWALLOWING, HX OF ASPIRATION.,WEARS DEPENDS FOR OCC. INCONTINENCE., DDD, KIDNEY FUNCTION AT 50-60%, ENVIRONMENTAL ALLERGIES. PT LIVES AT [facility] -HAS OWN APARTMENT WITH 24 HOUR HELP., HAS DIZZINESS AND DIFFICULTY WITH VISION-WEARS PRISMS IN HIS EYE GLASSES. History of Any Multi-Drug Resistant Organisms: None Reported Past Surgical History: Appendectomy, Cholecystectomy, Tonsillectomy Additional Past Surgical History / Comment(s): EYE SURGERY, right lobeectomy for Ca, spinal fusions x 2 Past Anesthesia/Blood Transfusion Reactions: No Reported Reaction Past Psychological History: Depression Smoking Status: Former smoker Past Alcohol Use History: Rare Past Drug Use History: None Reported - Past Family History Mother History Unknown: Yes Family Medical History: CVA/TIA Father History Unknown: Yes Family Medical History: No Reported History Brother(s) Family Medical History: Cancer Additional Family Medical History / Comment(s): MESOTHELIOMA LUNG CANCER General Exam Limitations: no limitations General appearance: alert, in no apparent distress Head exam: Present: atraumatic Eye exam: Present: normal appearance, PERRL ENT exam: Present: normal oropharynx Neck exam: Present: normal inspection Respiratory exam: Present: wheezes Cardiovascular Exam: Present: bradycardia GI/Abdominal exam: Present: soft. Absent: tenderness Extremities exam: Present: normal inspection. Absent: pedal edema, calf tenderness Neurological exam: Present: alert Psychiatric exam: Present: normal affect, normal mood Skin exam: Present: normal color Course Vital Signs 03/15/18 03/15/18 03/15/18 12:29 12:40 12:41 Temperature 97.9 F Pulse Rate 55 L 65 Respiratory 20 18 Rate Blood Pressure 182/75 O2 Sat by Pulse 94 L Oximetry 03/15/18 12:49 Temperature Pulse Rate 59 L Respiratory Rate Blood Pressure O2 Sat by Pulse Oximetry EKG Findings - EKG Comments: EKG Findings:: Sinus bradycardia with a rate of 56. CT 180. QRS 162. QTC 490. QTC 472. Normal axis. Left bundle branch block. No acute ST change. Medical Decision Making - Medical Decision Making Patient reevaluated and resting comfortably in bed. Patient and family updated on results and plan. Family states patient did previously seen Dr. Cabral and he will be placed on consult. Case was discussed with Dr. hansen, who will admit for medical call. Patient will be covered with IV antibiotics for possible pneumonia. Patient does not meet sepsis criteria at this time. - Lab Data Result diagrams: 03/15/18 12:39 03/15/18 12:39 Lab Results 03/15/18 03/15/18 03/15/18 Range/Units 12:39 12:39 12:39 WBC 9.7 (3.8-10.6) k/uL RBC 4.59 (4.30-5.90) m/uL Hgb 13.5 (13.0-17.5) gm/dL Hct 43.0 (39.0-53.0) % MCV 93.5 (80.0-100.0) fL MCH 29.5 (25.0-35.0) pg MCHC 31.5 (31.0-37.0) g/dL RDW 13.1 (11.5-15.5) % Plt Count 258 (150-450) k/uL Neutrophils % 80 % Lymphocytes % 10 % Monocytes % 6 % Eosinophils % 2 % Basophils % 0 % Neutrophils # 7.7 (1.3-7.7) k/uL Lymphocytes # 0.9 L (1.0-4.8) k/uL Monocytes # 0.6 (0-1.0) k/uL Eosinophils # 0.2 (0-0.7) k/uL Basophils # 0.0 (0-0.2) k/uL PT 14.7 H (9.0-12.0) sec INR 1.6 H (<1.2) APTT 44.8 H (22.0-30.0) sec Sodium 143 (137-145) mmol/L Potassium 4.2 (3.5-5.1) mmol/L Chloride 104 (98-107) mmol/L Carbon Dioxide 27 (22-30) mmol/L Anion Gap 12 mmol/L BUN 19 (9-20) mg/dL Creatinine 1.37 H (0.66-1.25) mg/dL Est GFR (CKD-EPI)AfAm 59 (>60 ml/min/1.73 sqM) Est GFR (CKD-EPI)NonAf 51 (>60 ml/min/1.73 sqM) Glucose 148 H (74-99) mg/dL Calcium 8.5 (8.4-10.2) mg/dL Total Bilirubin 0.4 (0.2-1.3) mg/dL AST 27 (17-59) U/L ALT 31 (21-72) U/L Alkaline Phosphatase 79 (38-126) U/L Total Protein 6.3 (6.3-8.2) g/dL Albumin 3.4 L (3.5-5.0) g/dL - Radiology Data Radiology results: report reviewed (Computed tomography scan of the chest shows no pulmonary embolism. Previous right upper lobectomy. Regular soft tissue 3.5 x 2.8) lateral tracheal wall. Concerning for neoplasm versus metastatic disease. Nodules are present. Prominent left-sided hilar consolidation, correlate for pneumonia. Cannot exclude neoplasm. Correlate for tracheal bronchomalacia.) Disposition Clinical Impression: Pneumonia, Lung mass Disposition: ADMITTED IP TO THIS HOSP Condition: Serious Is patient prescribed a controlled substance at d/c from ED?: No Referrals: [facility], PAC [Primary Care Provider] - 1-2 days Decision Time: 15:21
[2018-03-15 12:58] LABS: Basophils % (A) 0 %; Eosinophils # (A) 0.2 k/uL (0-0.7); Eosinophils % (A) 2 %; HGB 13.5 gm/dL (13.0-17.5); Lymphocytes # (A) 0.9 k/uL (1.0-4.8); Lymphocytes % (A) 10 %; MCH 29.5 pg (25.0-35.0); MCHC 31.5 g/dL (31.0-37.0); MCV 93.5 fL (80.0-100.0); Mean Platelet Volume 6.5; Monocytes # (A) 0.6 k/uL (0-1.0); Monocytes % (A) 6 %; Neutrophils # (A) 7.7 k/uL (1.3-7.7); Neutrophils % (A) 80 %; Platelet Count 258 k/uL (150-450); RBC 4.59 m/uL (4.30-5.90); RDW 13.1 % (11.5-15.5); WBC 9.7 k/uL (3.8-10.6)
[2018-03-15 13:17] LABS: INR 1.6 (<1.2); Partial Thromboplastin Time 44.8 sec (22.0-30.0); Prothrombin Time 14.7 sec (9.0-12.0)
[2018-03-15 13:23] LABS: Albumin 3.4 g/dL (3.5-5.0); Calcium 8.5 mg/dL (8.4-10.2); Potassium 4.2 mmol/L (3.5-5.1); Total Bilirubin 0.4 mg/dL (0.2-1.3); Total Protein 6.3 g/dL (6.3-8.2)
--- NOTE | 2018-03-15 14:34 | CT ---
EXAMINATION TYPE: CT angio chest DATE OF EXAM: 03/15/2018 COMPARISON: 05/14/2016 HISTORY: 73-year-old male Patient poor historian. Difficulty breathing. TECHNIQUE: Contiguous axial scanning of the chest performed with IV Contrast, patient injected with 8 0 mL of Isovue 370. Coronal/sagittal MIP reconstructions performed. CT DLP: 382.6 mGycm Automated exposure control for dose reduction was used. FINDINGS: Heart is upper limits of normal in size without pericardial effusion. Coronary vessel calcifications are present in remarkable for coronary artery disease. Aorta normal caliber with mild atherosclerotic calcifications and conventional arch vessel branching anatomy. There is prominent narrowing of the vladimir and left mainstem bronchus suggesting tracheal bronchomala alma delia. Prominent but nonenlarged 8mm prevascular space lymph node in the superior mediastinum. Prominent but not enlarged 1.2 cm subcarinal lymph node. Satisfactory opacification of the pulmonary artery system. There are mild respiratory motion artifact but no evidence for pulmonary embolus. Right-sided thoracic deformity suggests thoracotomy change. Patient is status post right upper lobect arvin. Left perihilar bronchovascular consolidation at the hilum. Trace pleural effusions. Multiple pulmonary nodules at the right lower lung measuring up to 1.1 cm. There appears to be some abnormal irregular soft tissue thickening along the right lateral wall of th e trachea measuring 3.5 x 2.8 cm, reference axial image 6 cm from images 1 through image 10. Mild diffuse thickening of the left adrenal gland is unchanged. Cholecystectomy clips. Bones: Right-sided thoracotomy change. No osseous destructive process. IMPRESSION: 1. NO EVIDENCE FOR PULMONARY EMBOLUS. 2. PATIENT IS STATUS POST RIGHT UPPER LOBECTOMY. HOWEVER, THERE IS IRREGULAR MURAL BASED SOFT TISSUE ALONG THE RIGHT LATERAL TRACHEAL WALL MEASURING 3.5 X 2.8 CM. A PRIMARY NEOPLASM OF THE TRACHEA VERSU S METASTATIC DISEASE ARE CONSIDERED. 3. ADDITIONAL PULMONARY NODULES IN THE RIGHT LOWER LOBE MEASURING UP TO 1.1 CM. METASTATIC DISEASE NO T EXCLUDED. 4. PROMINENT LEFT-SIDED HILAR CONSOLIDATION. CORRELATE FOR PNEUMONIA. FOLLOW-UP AFTER TREATMENT TO EN SURE CLEARANCE AND EXCLUDE A NEOPLASTIC ETIOLOGY. 5. CORRELATE FOR TRACHEOBRONCHOMALACIA. THERE IS SLITLIKE NARROWING OF THE LEFT MAINSTEM BRONCHUS IN PARTICULAR. 6. TRACE EFFUSIONS.
[2018-03-15] MEDS ORDERED: PNEUMONIA PROTOCOL UTILIZED 1 EACH MISC PO PRN (15:22)
[2018-03-15] MEDS ORDERED: ALBUTEROL NEBULIZED 2.5 MG/3 ML INHALATION PRN (15:22)
[2018-03-15] MEDS ORDERED: cefTRIAXone IN SWFI 1,000 MG/10 ML SYRINGE IVP STA (15:37)
[2018-03-15] MEDS ORDERED: AZITHROMYCIN 500 MG in DEXTROSE 5% IN WATER 250 ML IVPB STA ×2 (15:37)
[2018-03-15] MEDS ORDERED: IPRATROPIUM-ALBUTEROL 3 ML NEB INHALATION PRN (15:47)
[2018-03-15] MEDS ORDERED: METOPROLOL TARTRATE 25 MG TAB PO STA (15:53)
[2018-03-15] MEDS: SODIUM CHLORIDE 0.9% 1,000 ML IV SCH (16:40)
[2018-03-15 17:17] VITALS: BMI 26.9
[2018-03-15] MEDS ORDERED: guaiFENesin-DM 100-10MG/5ML 10 ML CUP PO PRN (17:48)
[2018-03-15] MEDS ORDERED: ARTIFICIAL TEARS-HYPROMELLOSE DROPS 15 ML BTL BOTH EYES PRN (17:48)
[2018-03-15] MEDS ORDERED: ACETAMINOPHEN TAB 325 MG TAB PO PRN (17:48)
[2018-03-15] MEDS: DOCUSATE 100 MG CAP PO SCH (19:46)
[2018-03-15] MEDS: traZODone HCL 100 MG TAB PO SCH (19:46)
[2018-03-15] MEDS: ATORVASTATIN 10 MG TAB PO SCH (19:47)
[2018-03-15] MEDS: CHOLECALCIFEROL 400 UNIT TAB PO SCH (19:47)
[2018-03-15] MEDS ORDERED: METOPROLOL TARTRATE 25 MG TAB PO SCH (21:00)
[2018-03-15] MEDS ORDERED: hydrALAZINE HCL 20 MG/ML 1 ML VIAL IVP PRN (23:27)
[2018-03-15] MEDS ORDERED: cloNIDine HCL 0.1 MG TAB PO PRN (23:27)
[2018-03-16] MEDS: methylPREDNISolone SOD SUCCI 125 MG/2 ML VIAL IV SCH ×4 (00:10→17:58)
[2018-03-16 07:15] LABS: Glucose,Whole Blood 103 mg/dL (75-99)
--- NOTE | 2018-03-16 07:43 | HP ---
HISTORY AND PHYSICAL CHIEF COMPLAINTS: Shortness of breath and hemoptysis. HISTORY OF PRESENT ILLNESS: This 73-year-old gentleman with a past medical history of diabetes and history of CVA, TIA, GERD, hypertension and hyperlipidemia being followed by Dr. Toney in the outpatient setting also had previous history of lung cancer with right upper lobe radiation and lobectomy. The patient is complaining of some shortness of breath and hemoptysis and the patient was taken to [facility] and admitted for further evaluation and treatment. Patient is confused, unable to provide reliable history. Most of the history taken from my discussion with staff and review of the chart and discussion with the ER physician also. The patient is also coughing and there is a chronic cough also at this time. The patient had a CT scan of the chest which showed irregular mural base soft tissue along with the right lateral tracheal wall measuring 3.5, 2.8 and primary neoplasm is a possibility and pulmonary nodules with prominent left-sided hilar consultation was also noted. Tracheobronchomalacia was also suspected. There is no history of fever, rigors, chills at this time. PAST MEDICAL HISTORY: Diabetes mellitus type 2, GERD, hypertension, hyperlipidemia, history of pneumonia, CVA, TIA, lung cancer resection. MEDICATIONS: Prior to admission include home medications are: 1. Guaifenesin p.r.n. 2. Systane 1 drop both eyes daily p.r.n. 3. DuoNeb q.i.d. and p.r.n. 4. Vitamin D3 400 daily. 5. Tylenol 650 q.8h p.r.n. 6. Lasix 20 mg daily. 7. 10 mg p.o. daily. 8. Nexium 40 mg p.o. daily. 9. Colace 100 mg p.o. q.h.s. 10.Desyrel 100 mg p.o. q.h.s. 11.Zocor 10 mg q.h.s. 12.Ditropan 5 mg with supper. 13.Lopressor 25 mg p.o. b.i.d. 14.Pradaxa 150 mg p.o. b.i.d. 15.Vitamin B12 1000 mcg p.o. daily. 16.Cordarone 200 mg p.o. daily. 17.Glucotrol XL 2.5 mg b.i.d. 18.Aspirin 81 mg p.o. daily. ALLERGIES: None. FAMILY HISTORY: History of CAD, mesothelioma, lung cancer. SOCIAL HISTORY: Previous history of smoking. No history of current smoking or alcohol. REVIEW OF SYSTEMS: ENT: Diminished hearing and vision. CARDIOVASCULAR: No angina or palpitations. RESPIRATORY: As mentioned earlier. GI no nausea or vomiting. : No dysuria or retention. NERVOUS SYSTEM: As mentioned earlier. ALLERGY/IMMUNOLOGY: As mentioned earlier. MUSCULOSKELETAL: As mentioned earlier. HEMATOLOGY/ONCOLOGY as mentioned earlier. ENDOCRINE: No history of diabetes or hypothyroidism. CONSTITUTIONAL: As mentioned earlier. DERMATOLOGY: Negative. RHEUMATOLOGY: Negative. PSYCHIATRIC: As mentioned earlier. PHYSICAL EXAMINATION: Alert, oriented times three, pulse 44, blood pressure 108/60, respiration 16, temperature 97.8, pulse ox 98% on 2 L. HEENT is conjunctivae normal. Oral mucosa moist. Neck is no jugular venous distention. No carotid bruit. No lymph node enlargement. Cardiovascular system : S1, S2 muffled. No S3, no S4. Respiratory: Breath sounds diminished in the bases. A few scattered rhonchi. Expiratory wheezing also present. ABDOMEN: Soft, nontender. No mass palpable. Legs no edema. No swelling. Nervous system: Higher functions as mentioned earlier, moves all 4 limbs, no focal motor or sensory deficits. Lymphatics: No lymph nodes palpable in the neck, axillae or groin. SKIN: No ulcer, rash, bleeding. LABS: Labs at this time shows WBC 9.2, hemoglobin 13.8, INR 1.6, creatinine 1.37. ASSESSMENT: 1. Hemoptysis with right upper lobe mass lesion, rule out recurrent lung cancer. 2. History of lung cancer with right upper lobe resection and as well as radiation. 3. Tracheal bronchomalacia. 4. Possible left hilar consolidation. 5. Cerebrovascular accident, transient ischemic attack. 6. Diabetes type 2. 7. Gastroesophageal reflux disease. 8. Hypertension. 9. Hyperlipidemia. 10.History of pneumonia. 11.History of appendectomy. 12.Remote history of nicotine dependence. 13.Depression. RECOMMENDATIONS AND DISCUSSION: In this 73-year-old gentleman who presented with multiple complex medical issues , we will monitor the patient closely, continue the current medications, continue symptomatic treatment. We will initiate broad-spectrum IV antibiotics, bronchodilators. I would also recommend IV steroids at this time empirically and DVT prophylaxis. I would also recommend Pulmonary and Hematology/Oncology consultations. Overall prognosis guarded because of the complex medical issues and we will hold antiplatelet agents and anticoagulants at this time because of the concern for hemoptysis. The prognosis guarded because of multiple complex medical issues. Further recommendations to follow. Copy forwarded to Dr. Toney who is the primary physician. MMSULEMAL / IJN: [id number] / MTDD
[2018-03-16 08:47] LABS: Basophils % (A) 0 %; Eosinophils # (A) 0.2 k/uL (0-0.7); Eosinophils % (A) 3 %; HGB 12.3 gm/dL (13.0-17.5); Lymphocytes # (A) 0.7 k/uL (1.0-4.8); Lymphocytes % (A) 10 %; MCH 30.2 pg (25.0-35.0); MCHC 32.4 g/dL (31.0-37.0); MCV 93.2 fL (80.0-100.0); Mean Platelet Volume 6.7; Monocytes # (A) 0.5 k/uL (0-1.0); Monocytes % (A) 8 %; Neutrophils # (A) 5.4 k/uL (1.3-7.7); Neutrophils % (A) 77 %; Platelet Count 270 k/uL (150-450); RBC 4.07 m/uL (4.30-5.90); RDW 13.6 % (11.5-15.5); WBC 7.1 k/uL (3.8-10.6)
[2018-03-16] MEDS: INSULIN ASPART 100 UNIT/ML 1 ML 10 ML VIAL SQ SCH ×4 (08:49→20:21)
[2018-03-16] MEDS ORDERED: cefTRIAXone IN SWFI 1,000 MG/10 ML SYRINGE IVP SCH (09:00)
[2018-03-16 09:13] LABS: Calcium 7.9 mg/dL (8.4-10.2); Potassium 4.1 mmol/L (3.5-5.1)
[2018-03-16] MEDS: AMIODARONE 200 MG TAB PO SCH (09:42)
[2018-03-16] MEDS: AZITHROMYCIN 500 MG TAB PO SCH (09:42)
[2018-03-16] MEDS: CYANOCOBALAMIN 500 MCG TAB PO SCH (09:43)
[2018-03-16] MEDS: FUROSEMIDE 20 MG TAB PO SCH (09:43)
[2018-03-16] MEDS: LORATADINE 10 MG TAB PO SCH (09:43)
[2018-03-16] MEDS: PANTOPRAZOLE 40 MG TABLET PO SCH (09:43)
[2018-03-16] MEDS: CHOLECALCIFEROL 400 UNIT TAB PO SCH ×2 (09:43→20:22)
[2018-03-16 11:17] LABS: Glucose,Whole Blood 92 mg/dL (75-99)
--- NOTE | 2018-03-16 12:44 | XR ---
EXAMINATION TYPE: XR chest 2V DATE OF EXAM: 03/16/2018 COMPARISON: 11/15/2016 INDICATION: Pneumonia TECHNIQUE: Frontal and lateral views of the chest are obtained. FINDINGS: The heart size is normal. The pulmonary vasculature is normal. There is mild increase infiltrate to the right lung. Some mild pleural thickening along the right lat eral border may be present. Minimal effusion is not excluded. Previous right hilar infiltrate is slightly improved. The left hilar consolidation is significantly i mproved.. IMPRESSION: 1. Improving lung opacities especially at the left hilar region. Moderate residual remains present gr eater on the right. Continued follow-up is recommended.
--- NOTE | 2018-03-16 15:37 | CONS ---
CONSULTATION DATE OF SERVICE: March 16, 2018. REASON FOR CONSULTATION: Lung mass. Mr. Joesph Lopez is a pleasant 73 years old gentleman, who presented to the emergency department because of cough associated with hemoptysis and also complaining of hoarseness of his voice, which has been going on for about 2 weeks. In the emergency department he had a CT scan done of the chest due to his shortness of breath and hemoptysis, which revealed no evidence of pulmonary embolus. However, there was soft tissue density along the right lateral trachea wall measuring 3.5 x 2.8 cm. There was also an additional pulmonary nodule in the right lower lobe measuring 1.1 cm and prominent left-sided hilar consolidation and possible pneumonia. The patient was initially diagnosed in January of 2016 with squamous cell carcinoma when he had a CT scan done revealing the lesion in the right upper lobe. He did undergo a bronchoscopy, which confirmed squamous cell carcinoma. The patient did have further evaluation with PET scan and brain MRI. He was referred to Dr. Daryl Curry at [facility]. 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 He has been following up with them in that regard. In fact, he did have a CT scan done at [place] on 11/18/2017 which revealed a 4 mm solid nodule in the right lower lobe, but otherwise it was felt to be stable. As stated above, the patient has been complaining of some shortness of breath, cough, and intermittent mild hemoptysis and also he has noticed that his voice has become hoarse over the last couple of weeks. He denies any fever or chills. He denies any dysphagia, nausea, or vomiting. His appetite is fair. No recent weight loss. No headaches. No seizures or syncope. He has significant weakness in the right upper extremity and right lower extremity due to previous stroke. Although he is somewhat difficult to talk to due to his previous stroke, but he seemed very reliable and provides good information. PAST MEDICAL HISTORY: In addition to what is stated above in regard to his 2 primaries lung carcinoma in the right upper lobe and the left and the left lower lobe, he has a history of diabetes, gastroesophageal reflux disease, hypertension, hyperlipidemia, history of pneumonia, history of stroke. He has a history of paroxysmal atrial fibrillation. PAST SURGICAL HISTORY: He has a right upper lobe lobectomy, laminectomy and tonsillectomy. HOME MEDICATION: Include Robitussin, Systane eyedrop, DuoNeb q.i.d., vitamin D3, Tylenol as needed. Lasix 20 mg daily. Zyrtec 10 mg daily. Nexium 40 mg daily. Trazodone 100 mg q.h.s., Zocor 10 mg daily, Ditropan 5 mg daily. Lopressor 25 mg b.i.d., Pradaxa 150 mg b.i.d., vitamin B12 100 mcg p.o. daily, amiodarone 200 mg daily, Glucotrol 2.5 mg daily, aspirin 81 mg daily. ALLERGIES: There is no known drug allergy. FAMILY HISTORY: Positive for coronary artery disease and mesothelioma. SOCIAL HISTORY: He is a previous smoker. No alcohol abuse or substance abuse. REVIEW OF SYSTEMS: As stated above in the history of present illness, otherwise negative. PHYSICAL EXAMINATION: He is alert, oriented x3. He does not appear to be in distress. His vital signs are temperature 98.1, afebrile, pulse 59 and regular, respiration is 16, blood pressure 146/64. HEENT: Normocephalic, atraumatic. No obvious icterus. Oral mucosa intact. NECK: Supple. No jugular venous distention. Chest equal expansion bilaterally. Lungs are clear to auscultation. Resonant percussion. Heart is regular rate and rhythm. Abdomen is soft. No organomegaly or masses. Bowel sounds present. EXTREMITIES: No edema. SKIN: No significant bruise, or petechiae. LYMPHATICS: No lymphadenopathy or enlarged cervical, supraclavicular lymph nodes. Musculoskeletal: Has significant motor weakness in the right upper extremity and right lower extremity from previous stroke. No percussion tenderness detected over his spine or sternum. LABORATORY DATA: WBC of 7.1, hemoglobin 12.3, hematocrit 38.1, platelets are 270. Sodium 140, potassium 4.1, chloride 102, CO2 is 29, BUN is 19, creatinine is 1.22. IMPRESSION AND RECOMMENDATION: Previous history of 2 synchronous lung carcinoma, both were stage I, one in the right upper lobe for which he had right upper lobe lobectomy in May of 2016 and one in the left lower lobe for which he underwent definitive radiation therapy with SBRT completed in August of 2016 at [facility]. Now the patient is presenting with mediastinal soft tissue lesion. Certainly, with his symptom of worsening shortness of breath, hemoptysis, and hoarseness of his voice, this is concerning about possible recurrent malignancy. His last CT scan at [facility] was in October of 2017 and it was reported as stable at that time. However, direct comparison to this current CT scan would be warranted. Also, I would recommend pulmonary evaluation. If this is felt to represent recurrent disease, he may require further bronchoscopic evaluation and possibly repeat bronchoscopy evaluation and potential biopsy and also repeat further staging with PET imaging in the outpatient setting. The above was discussed in detail with the patient. I have answered all his questions to his satisfaction. Thank you much for asking me participate in the care of this nice gentleman. MMMALACHI / TIFFANIEN: [id number] /
[2018-03-16] MEDS: SODIUM CHLORIDE 0.9% 1,000 ML IV SCH (16:55)
[2018-03-16 17:33] LABS: Glucose,Whole Blood 248 mg/dL (75-99)
[2018-03-16] MEDS: PIPERACILLIN-TAZOBACTAM 3.375 GM in DEXTROSE/WATER 1 50ML.BAG IVPB SCH (17:57)
[2018-03-16] MEDS: OXYBUTYNIN CHLORIDE 5 MG TAB PO SCH (17:57)
--- NOTE | 2018-03-16 18:46 | PN ---
PROGRESS NOTE DATE OF SERVICE: 03/16/2018 This 73-year-old gentleman with a past medical history of multiple medical problems, hemoptysis. The patient is recently right upper lobe cancer mass, was suspected. Patient also had bilateral lung lesions also, tracheomalacia also suspected. The patient is closely monitored at this time. Multiple consultants are following the patient. The patient is on broad-spectrum IV antibiotics also. PAST MEDICAL HISTORY: Reviewed. REVIEW OF SYSTEMS: CARDIOVASCULAR: No angina. RESPIRATORY: As mentioned earlier. GI: As mentioned. : No dysuria. NERVOUS SYSTEM: No numbness or weakness. CURRENT MEDICATIONS: Reviewed and include: 1. Tylenol 650 q.8 p.r.n. 2. DuoNeb q.i.d. and p.r.n. 3. Cordarone 20 mg b.i.d. 5. Lipitor 40 mg. 6. 500 mg. 7. Rocephin. 8. Vitamin D3. 9. Catapres 0.1 p.r.n. 10.Vitamin B12. 11.Colace. 12.Lasix. 13.Glucotrol. 15.Tapazole. 16.Claritin. 17.Solu-Medrol 60 IV q.8h. 18.Ditropan. PHYSICAL EXAM: Patient is alert, oriented x2. Pulse is 60, blood pressure is 146/62, respirations 16, temperature 98.1, pulse ox 94% on room air. HEENT: Conjunctivae normal. Oral mucosa moist. Neck is no jugular venous distention. No carotid bruit. No lymph node enlargement. CARDIOVASCULAR: S1, S2 muffled. No S3, no S4. RESPIRATORY: Breath sounds diminished in the bases. A few scattered rhonchi and crackles. Expiratory wheezing also present. ABDOMEN: Soft, nontender. No mass palpable. LEGS: No edema, no swelling. NERVOUS SYSTEM: Higher functions as mentioned earlier. Moves all four limbs. No focal motor deficits. LYMPHATICS: No lymphadenopathy in the neck, axillae, groin. SKIN: No ulcer, rash, bleeding. LABS: WBC 7.2, hemoglobin 12.3. ASSESSMENT: 1. Hemoptysis with right upper lobe mass lesion, rule out recurrent lung cancer. 2. History of lung cancer, right upper lobe resection and as well as radiation. 3. Possible bibasilar pneumonia, possibly gram-negative. 4. Tracheobronchomalacia. 5. Possible left hilar consolidation. 6. Cerebrovascular accident, transient ischemic attack. 7. Diabetes mellitus type 2. 8. History of gastroesophageal reflux disease. 9. Hypertension. 10.Hyperlipidemia. 11.History pneumonia. 12.History of appendectomy. 13.Remote history of nicotine dependence. 14.History of depression. RECOMMENDATIONS AND DISCUSSION: This 73-year-old gentleman who presented with multiple complex medical issues, will monitor the patient closely. Continue the current management and symptomatic treatment. Otherwise at this time I would recommend continue with the current medication, bronchodilator, steroids, and I would change the antibiotics to Zosyn IV. Pulmonary consultation. DVT prophylaxis. Repeat labs. The prognosis is extremely guarded because of multiple complex medical issues. See orders for details. Continue to monitor blood sugars closely and Hematology-Oncology input appreciated. Further recommendations to follow. MELANIE / SHAHRAM: [id number] / MTDLisa
[2018-03-16] MEDS: IPRATROPIUM-ALBUTEROL 3 ML NEB INHALATION SCH (19:28)
[2018-03-16 20:13] LABS: Glucose,Whole Blood 290 mg/dL (75-99)
[2018-03-16] MEDS: HEPARIN SODIUM,PORCINE 5,000 UNIT/ML 1 ML VIAL SQ SCH (20:13)
[2018-03-16] MEDS: ATORVASTATIN 10 MG TAB PO SCH (20:22)
[2018-03-16] MEDS: DOCUSATE 100 MG CAP PO SCH (20:22)
[2018-03-16] MEDS: traZODone HCL 100 MG TAB PO SCH (20:22)
[2018-03-17] MEDS: PIPERACILLIN-TAZOBACTAM 3.375 GM in DEXTROSE/WATER 1 50ML.BAG IVPB SCH ×3 (00:04→17:26)
[2018-03-17] MEDS: methylPREDNISolone SOD SUCCI 125 MG/2 ML VIAL IV SCH ×3 (00:05→11:35)
[2018-03-17 07:22] LABS: Glucose,Whole Blood 268 mg/dL (75-99)
[2018-03-17 08:22] LABS: Basophils % (A) 0 %; Eosinophils # (A) 0.1 k/uL (0-0.7); Eosinophils % (A) 0 %; HCT 39.9 % (39.0-53.0); Lymphocytes # (A) 0.6 k/uL (1.0-4.8); Lymphocytes % (A) 4 %; MCH 30.5 pg (25.0-35.0); MCHC 32.6 g/dL (31.0-37.0); MCV 93.7 fL (80.0-100.0); Mean Platelet Volume 6.6; Monocytes # (A) 0.5 k/uL (0-1.0); Monocytes % (A) 4 %; Neutrophils % (A) 92 %; Platelet Count 277 k/uL (150-450); RBC 4.26 m/uL (4.30-5.90); RDW 13.3 % (11.5-15.5); WBC 14.2 k/uL (3.8-10.6)
[2018-03-17 08:35] LABS: Calcium 8.5 mg/dL (8.4-10.2)
[2018-03-17] MEDS: PANTOPRAZOLE 40 MG TABLET PO SCH (09:04)
[2018-03-17] MEDS: AMIODARONE 200 MG TAB PO SCH (09:04)
[2018-03-17] MEDS: IPRATROPIUM-ALBUTEROL 3 ML NEB INHALATION SCH ×4 (09:04→18:57)
[2018-03-17] MEDS: AZITHROMYCIN 500 MG TAB PO SCH (09:05)
[2018-03-17] MEDS: CHOLECALCIFEROL 400 UNIT TAB PO SCH ×2 (09:06→20:48)
[2018-03-17] MEDS: FUROSEMIDE 20 MG TAB PO SCH (09:06)
[2018-03-17] MEDS: HEPARIN SODIUM,PORCINE 5,000 UNIT/ML 1 ML VIAL SQ SCH ×2 (09:06→20:49)
[2018-03-17] MEDS: LORATADINE 10 MG TAB PO SCH (09:07)
[2018-03-17] MEDS: INSULIN ASPART 100 UNIT/ML 1 ML 10 ML VIAL SQ SCH ×4 (09:09→20:49)
[2018-03-17 09:10] LABS: Potassium 5.4 mmol/L (3.5-5.1)
--- NOTE | 2018-03-17 09:10 | P.CNPUL ---
History of Present Illness Consult date: 03/16/18 (Late entry note) Reason for consult: dyspnea, cough, pneumonia Chief complaint: Shortness of breath, hemoptysis History of present illness: 73-year-old male with prior history of lung cancer he is status post a right upper lobe resection followed by XRT Dr. Pedersen follows for lung cancer related issues, he was brought into the emergency department with increasing shortness of breath cough and some streaks of blood, patient overall is a poor historian not much data can be obtained from him, patient is being evaluated for aspiration and aspiration and related issues as well, computed tomography scan of the chest revealed presence of tracheobronchomalacia, prior evidence of right upper lobe resection paratracheal lesion cannot be excluded which is 3 x 3 cm in size along with left hilar consolidation and lymphadenopathy secondary Review of Systems ROS unobtainable: due to mental status Past Medical History Past Medical History: CVA/TIA, Diabetes Mellitus, GERD/Reflux, Hyperlipidemia, Hypertension, Pneumonia, Renal Disease Additional Past Medical History / Comment(s): Lung Cancer right upper lobe with radiation and lobectomy,. HX OF CVA X3 -RIGHT SIDED WEAKNESS, SPEECH DIFFICULT TO UNDERSTAND AT TIMES, W/C BOUND, ABLE TO PIVOT TO TRANSFER WITH ASSISTANCE, DIFFICULTY CHEWING AND SWALLOWING, HX OF ASPIRATION.,WEARS DEPENDS FOR OCC. INCONTINENCE., DDD, KIDNEY FUNCTION AT 50-60%, ENVIRONMENTAL ALLERGIES. PT LIVES AT [facility] -HAS OWN APARTMENT WITH 24 HOUR HELP., HAS DIZZINESS AND DIFFICULTY WITH VISION-WEARS PRISMS IN HIS EYE GLASSES. History of Any Multi-Drug Resistant Organisms: None Reported Past Surgical History: Appendectomy, Tonsillectomy Additional Past Surgical History / Comment(s): EYE SURGERY, right upper lobectomy for Ca 2016, spinal fusions x 2, gallstones removed. Past Anesthesia/Blood Transfusion Reactions: No Reported Reaction Past Psychological History: Depression Additional Psychological History / Comment(s): . Smoking Status: Former smoker Past Alcohol Use History: Rare Additional Past Alcohol Use History / Comment(s): started smoking 1956. Past Drug Use History: None Reported - Past Family History Mother History Unknown: Yes Family Medical History: CVA/TIA Father History Unknown: Yes Family Medical History: No Reported History Brother(s) Family Medical History: Cancer Additional Family Medical History / Comment(s): MESOTHELIOMA LUNG CANCER Medications and Allergies Home Medications Medication Instructions Recorded Confirmed Type Cholecalciferol [Vitamin D3] 400 unit PO BID 01/26/16 03/15/18 History Simvastatin [Zocor] 10 mg PO HS 01/26/16 03/15/18 History traZODone HCL [Desyrel] 100 mg PO HS 01/26/16 03/15/18 History Metoprolol Tartrate [Lopressor] 25 mg PO BID 03/15/16 03/15/18 History Amiodarone [Cordarone] 200 mg PO DAILY 11/10/16 03/15/18 History Aspirin 81 mg PO DAILY 11/10/16 03/15/18 History Oxybutynin Chloride [Ditropan] 5 mg PO W/SUPPER 11/10/16 03/15/18 History glipiZIDE XL [Glucotrol XL] 2.5 mg PO BID@0630,1600 11/10/16 03/15/18 History Dabigatran [Pradaxa] 150 mg PO BID 12/13/17 03/15/18 History Esomeprazole Magnesium [NexIUM] 40 mg PO DAILY 12/13/17 03/15/18 History Acetaminophen [Tylenol Arthritis] 650 mg PO Q8HR PRN 03/15/18 03/15/18 History Cetirizine HCl [Zyrtec] 10 mg PO DAILY 03/15/18 03/15/18 History Cyanocobalamin (Vitamin B-12) 1,000 mcg PO DAILY 03/15/18 03/15/18 History [Vitamin B-12] Docusate [Colace] 100 mg PO HS 03/15/18 03/15/18 History Furosemide [Lasix] 20 mg PO DAILY 03/15/18 03/15/18 History Ipratropium-Albuterol Nebulize 3 ml INHALATION RT-Q6H PRN 03/15/18 03/15/18 History [Duoneb 0.5 mg-3 mg/3 ml Soln] Propylene Glycol/Peg 400/Pf 1 drop BOTH EYES DAILY PRN 03/15/18 03/15/18 History [Systane 0.3-0.4% Eye Drops] guaiFENesin-DM 100-10MG/5ML 10 ml PO Q6HR PRN 03/15/18 03/15/18 History [Robitussin DM] Allergies Allergy/AdvReac Type Severity Reaction Status Date / Time No Known Allergies Allergy Verified 03/15/18 12:35 Physical Exam Vitals: Vital Signs Temp Pulse Pulse Resp BP Pulse Ox 03/17/18 05:00 97.8 F 63 16 198/82 99 03/17/18 00:00 16 03/16/18 23:00 97.4 F L 65 16 141/65 93 L 03/16/18 19:37 58 L 16 03/16/18 19:29 60 16 03/16/18 16:25 98.5 F 56 L 16 154/75 97 03/16/18 15:24 58 L 20 03/16/18 15:17 60 18 96 Intake and Output 03/16/18 03/17/18 03/17/18 22:59 06:59 14:59 Intake Total 590 450 Balance 590 450 Intake: Intake, IV Titration 210 Amount Piperacillin-Tazobactam 3 50 .375 gm In Dextrose/Water 1 50ml.bag @ 12.5 mls/hr IVPB Q8HR FELIX Rx#: [id number] Sodium Chloride 0.9% 1, 160 000 ml @ 20 mls/hr IV . Q24H FELIX Rx#:[id number] Oral 590 240 Other: Voiding Method Incontinent Limitations: no limitations General appearance: alert, in no apparent distress Head exam: Present: atraumatic Eye exam: Present: normal appearance, PERRL ENT exam: Present: normal oropharynx Neck exam: Present: normal inspection Respiratory exam: Present: wheezes Cardiovascular Exam: Present: bradycardia GI/Abdominal exam: Present: soft. Absent: tenderness Extremities exam: Present: normal inspection. Absent: pedal edema, calf tenderness Neurological exam: Present: alert however unable to give a detailed description of ongoing events Psychiatric exam: Present: normal affect, normal mood Skin exam: Present: normal color Results - Laboratory Findings CBC and BMP: 03/17/18 07:45 03/17/18 07:45 PT/INR, D-dimer PT 14.7 sec (9.0-12.0) H 03/15/18 12:39 INR 1.6 (<1.2) H 03/15/18 12:39 Abnormal lab findings: Abnormal Labs 03/15/18 03/15/18 03/15/18 12:39 12:39 12:39 WBC RBC Hgb Hct Neutrophils # Lymphocytes # 0.9 L PT 14.7 H INR 1.6 H APTT 44.8 H Potassium BUN Creatinine 1.37 H Glucose 148 H POC Glucose (mg/dL) Calcium Albumin 3.4 L 03/16/18 03/16/18 03/16/18 07:13 07:47 07:47 WBC RBC 4.07 L Hgb 12.3 L Hct 38.0 L Neutrophils # Lymphocytes # 0.7 L PT INR APTT Potassium BUN Creatinine Glucose POC Glucose (mg/dL) 103 H Calcium 7.9 L Albumin 03/16/18 03/16/18 03/17/18 17:22 20:12 07:20 WBC RBC Hgb Hct Neutrophils # Lymphocytes # PT INR APTT Potassium BUN Creatinine Glucose POC Glucose (mg/dL) 248 H 290 H 268 H Calcium Albumin 03/17/18 03/17/18 07:45 07:45 WBC 14.2 H RBC 4.26 L Hgb Hct Neutrophils # 13.0 H Lymphocytes # 0.6 L PT INR APTT Potassium 5.4 H BUN 21 H Creatinine 1.30 H Glucose 230 H POC Glucose (mg/dL) Calcium Albumin Assessment and Plan Assessment: Tracheal mass versus mucous plug Hemoptysis Left Perihilar pneumonia History of prior lung cancer status post right upper lobe resection in next Generalized weakness and medical debility Tracheobronchomalacia CVA Type 2 diabetes mellitus Potential hypertensive cardiovascular disease Plan: Gentle rehydration Broad-spectrum antibiotics IV steroids DVT and peptic ulcer disease prophylaxis Monitor observe clinical course closely once patient is slightly more stable consider doing a bronchoscopy Agree with swallow evaluation Further recommendations pending plan of care as per clinical response of the patient Time with Patient: Greater than 30
--- NOTE | 2018-03-17 09:14 | P.PN ---
Subjective Progress Note Date: 03/17/18 Principal diagnosis: Hemoptysis, left perihilar pneumonia, tracheal mass versus mucous plug, high risk for aspiration and aspiration related complications, CVA, hypertension hypertensive cardiovascular disease, dyslipidemia, 03/17/2018, patient seen eval examined during the rounds clinically overall not much change compared to yesterday exam patient is due for a swallow evaluation later on today hemodynamic status stable labs and medications reviewed radiographic studies including CAT scan of the chest reviewed as well, patient probably require repeat bronchoscopy however we'll wait for slight improvement in general condition of the patient and swallow evaluation would recommend to continue treating pneumonia with further recommendations pending, currently patient is relatively high risk for development of respiratory failure during procedure 73-year-old male with prior history of lung cancer he is status post a right upper lobe resection followed by XRT Dr. Pedersen follows for lung cancer related issues, he was brought into the emergency department with increasing shortness of breath cough and some streaks of blood, patient overall is a poor historian not much data can be obtained from him, patient is being evaluated for aspiration and aspiration and related issues as well, computed tomography scan of the chest revealed presence of tracheobronchomalacia, prior evidence of right upper lobe resection paratracheal lesion cannot be excluded which is 3 x 3 cm in size along with left hilar consolidation and lymphadenopathy secondary Objective - Vital Signs Vital signs: Vital Signs Temp 97.8 F 03/17/18 05:00 Pulse 60 03/17/18 09:06 Resp 16 03/17/18 05:00 BP 198/82 03/17/18 05:00 Pulse Ox 95 03/17/18 09:06 Intake & Output 03/16/18 03/17/18 03/17/18 18:59 06:59 18:59 Intake Total 1040 Balance 1040 Intake: Intake, IV Titration 210 Amount Piperacillin-Tazobactam 3 50 .375 gm In Dextrose/Water 1 50ml.bag @ 12.5 mls/hr IVPB Q8HR FELIX Rx#: [id number] Sodium Chloride 0.9% 1, 160 000 ml @ 20 mls/hr IV . Q24H FELIX Rx#:[id number] Oral 830 Other: Voiding Method Incontinent Incontinent # Voids 3 - Exam Limitations: no limitations General appearance: alert, in no apparent distress Head exam: Present: atraumatic Eye exam: Present: normal appearance, PERRL ENT exam: Present: normal oropharynx Neck exam: Present: normal inspection Respiratory exam: Present: wheezes Cardiovascular Exam: Present: bradycardia GI/Abdominal exam: Present: soft. Absent: tenderness Extremities exam: Present: normal inspection. Absent: pedal edema, calf tenderness Neurological exam: Present: alert however unable to give a detailed description of ongoing events Psychiatric exam: Present: normal affect, normal mood Skin exam: Present: normal color - Labs CBC & Chem 7: 03/17/18 07:45 03/17/18 07:45 Labs: Abnormal Lab Results - Last 24 Hours (Table) 03/16/18 03/16/18 03/16/18 Range/Units 07:47 17:22 20:12 WBC (3.8-10.6) k/uL RBC (4.30-5.90) m/uL Neutrophils # (1.3-7.7) k/uL Lymphocytes # (1.0-4.8) k/uL Potassium (3.5-5.1) mmol/L BUN (9-20) mg/dL Creatinine (0.66-1.25) mg/dL Glucose (74-99) mg/dL POC Glucose (mg/dL) 248 H 290 H (75-99) mg/dL Calcium 7.9 L (8.4-10.2) mg/dL 03/17/18 03/17/18 03/17/18 Range/Units 07:20 07:45 07:45 WBC 14.2 H (3.8-10.6) k/uL RBC 4.26 L (4.30-5.90) m/uL Neutrophils # 13.0 H (1.3-7.7) k/uL Lymphocytes # 0.6 L (1.0-4.8) k/uL Potassium 5.4 H (3.5-5.1) mmol/L BUN 21 H (9-20) mg/dL Creatinine 1.30 H (0.66-1.25) mg/dL Glucose 230 H (74-99) mg/dL POC Glucose (mg/dL) 268 H (75-99) mg/dL Calcium (8.4-10.2) mg/dL Microbiology - Last 24 Hours (Table) 03/15/18 18:26 Blood Culture - Preliminary Blood No Growth after 24 hours 03/15/18 18:00 Blood Culture - Preliminary Blood No Growth after 24 hours 03/15/18 12:39 Blood Culture - Preliminary Blood No Growth after 24 hours Assessment and Plan Assessment: Tracheal mass versus mucous plug Hemoptysis Left Perihilar pneumonia History of prior lung cancer status post right upper lobe resection in next 30 Generalized weakness and medical debility Tracheobronchomalacia CVA Type 2 diabetes mellitus Potential hypertensive cardiovascular disease Plan: Gentle rehydration Broad-spectrum antibiotics IV steroids DVT and peptic ulcer disease prophylaxis Monitor observe clinical course closely once patient is slightly more stable consider doing a bronchoscopy Agree with swallow evaluation Further recommendations pending plan of care as per clinical response of the patient Time with Patient: Greater than 30
--- NOTE | 2018-03-17 10:48 | FL ---
MODIFIED SWALLOW / DEGLUTITION STUDY DATE OF EXAM: 03/17/2018 CLINICAL HISTORY: 73-year-old male with history of lung cancer, patient lost voice for 2 weeks and wi th trouble swallowing for 6 weeks. Dysphagia. TECHNIQUE: Deglutition study is performed utilizing thin liquid barium, honey and nectar thick liqui d barium, barium thick applesauce, and barium coated cracker. COMPARISON: None. Total fluoroscopy time: 2.51 minutes. Total images: None. Real-time fluoroscopy support was provided to speech pathology. FINDINGS: There is tiffany aspiration with thin liquids. There is moderate deep penetration with nectar thick con sistency. There is deep penetration which would likely lead to eventual aspiration with crushed solid consistency. No penetration or aspiration seen with honey thickened consistency. IMPRESSION: 1. Tiffany aspiration with thin liquids. 2. Moderate deep penetration with nectar liquids and deep penetration which would likely lead to even tual aspiration with crushed solid consistencies. 3. Please refer to speech therapist notes for further details if necessary.
[2018-03-17 11:13] LABS: Glucose,Whole Blood 253 mg/dL (75-99)
[2018-03-17 11:20] LABS: Hemoglobin A1C 6.9 % (4.0-6.0)
[2018-03-17] MEDS: CYANOCOBALAMIN 500 MCG TAB PO SCH (11:33)
--- NOTE | 2018-03-17 15:56 | PN ---
PROGRESS NOTE DATE OF SERVICE: 03/17/2018 This 73-year-old gentleman was admitted with multiple medical problems. He also had hemoptysis. The patient also had possible bilateral pneumonia. The patient is being closely monitored. The patient has swallowing issues also. Pulmonary and Dr. Maxwell are following the patient closely. Dr. Cabral has seen the patient and recommended gentle hydration and broad-spectrum IV antibiotics. Past medical history reviewed. REVIEW OF SYSTEMS: CARDIOVASCULAR SYSTEM: No angina, palpitations. RESPIRATORY SYSTEM: As mentioned earlier. GI: As mentioned earlier. : No dysuria or retention. NERVOUS SYSTEM: No numbness, weakness.. CURRENT MEDICATIONS: Current medications are reviewed and include: 1. Albuterol q.i.d. and p.r.n. 2. Tylenol. 3. DuoNeb. 4. Cordarone 200 mg daily. 5. Artificial Tears. 6. Lipitor 10 mg. 7. Zithromax 500 mg daily. 8. Vitamin D3 400 daily. 9. Catapres 0.1 q.4 p.r.n. 10.Vitamin B12 1000 mg daily. 11.Colace 100 mg daily. 12.Lasix 20 mg p.o. daily. 13.Glucotrol 2.5 mg b.i.d. 14.Robitussin DM 10 mL q.6 p.r.n. 15.Heparin 5000 subcutaneously b.i.d. 16.Apresoline 10 mg q.4 p.r.n. 17.NovoLog. 18.Claritin 10 mg daily. 19.Solu-Medrol 60 IV q.6. 20.Ditropan 5 mg with supper. 21.Protonix 40 mg daily. 22.Zosyn 3.375 IV q.8. 23.Desyrel. PHYSICAL EXAMINATION: Patient is alert, oriented x2. Patient is dysphonic. Pulse 63, blood pressure 198/82, respiration 16, temperature 97.8, pulse ox 99% on 2 L. HEENT: Conjunctivae normal. Oral mucosa moist. NECK: No jugular venous distention. No carotid bruit. No lymph node enlargement. CARDIOVASCULAR SYSTEM: S1, S2 muffled. RESPIRATORY SYSTEM: Breath sounds diminished at the bases. A few scattered rhonchi and crackles. ABDOMEN: Soft, non-tender. No mass palpable. LEGS: No edema. No swelling. NERVOUS SYSTEM: Higher functions as mentioned earlier. Moves all 4 limbs. No focal deficit. LABS AT THIS TIME: WBC 14.2, hemoglobin 13, sodium 138, potassium 5.4, creatinine 1.3. Glucose noted. ASSESSMENT: 1. Hemoptysis with right upper lobe mass lesion and mucous plug. Rule out recurrent lung cancer. 2. Bilateral pneumonia, possibly Gram-negative, on broad-spectrum IV antibiotics. 3. History of lung cancer, status post right upper lobe resection as well as radiation. 4. Dysphagia with risk of aspiration, on modified diet. 5. Tracheobronchomalacia. 6. Possible left hilar consolidation. 7. Cerebrovascular accident, transient ischemic attack history. 8. Gait dysfunction. 9. Diabetes mellitus, type 2. 10.Gastroesophageal reflux disease. 11.Hypertension. 12.Hyperlipidemia. 13.History of pneumonia. 14.History of appendectomy. 15.History of nicotine dependence. 16.History of depression. RECOMMENDATIONS AND DISCUSSION: I recommend to continue current medication, continue symptomatic treatment. Dr. Cabral's input appreciated. Continue with the bronchodilators, empiric antibiotics. I would also reduce the steroids and the bronchodilators. I would also recommend Speech Pathology for recommendation regarding modified diet. As far as the gait dysfunction is concerned, I would recommend PT/OT to evaluate the patient, increase ambulation and to evaluate the patient for possible ECF rehab. Continue the rest of the medications, including DVT prophylaxis. The prognosis is guarded because of multiple complex medical issues. Further recommendations to follow. As far as the hypertension is concerned, I will add Norvasc to the current regimen. Otherwise, continue to monitor. See orders for further details. Prognosis guarded. Further recommendations to follow. MMODL / IJN: [id number] /
[2018-03-17 17:19] LABS: Glucose,Whole Blood 297 mg/dL (75-99)
[2018-03-17] MEDS: amLODIPine 5 MG TAB PO SCH (17:25)
[2018-03-17] MEDS: methylPREDNISolone SOD SUCCI 40 MG/ML 1 ML VIAL IV SCH (17:26)
[2018-03-17] MEDS: SODIUM CHLORIDE 0.9% 1,000 ML IV SCH (17:27)
[2018-03-17] MEDS: OXYBUTYNIN CHLORIDE 5 MG TAB PO SCH (17:27)
[2018-03-17 20:05] LABS: Glucose,Whole Blood 327 mg/dL (75-99)
[2018-03-17] MEDS: traZODone HCL 100 MG TAB PO SCH (20:48)
[2018-03-17] MEDS: DOCUSATE 100 MG CAP PO SCH (20:48)
[2018-03-17] MEDS: ATORVASTATIN 10 MG TAB PO SCH (20:48)
[2018-03-18] MEDS: PIPERACILLIN-TAZOBACTAM 3.375 GM in DEXTROSE/WATER 1 50ML.BAG IVPB SCH ×4 (00:53→23:50)
[2018-03-18] MEDS: methylPREDNISolone SOD SUCCI 40 MG/ML 1 ML VIAL IV SCH ×4 (00:54→23:50)
[2018-03-18 07:05] LABS: Glucose,Whole Blood 303 mg/dL (75-99)
[2018-03-18] MEDS: HEPARIN SODIUM,PORCINE 5,000 UNIT/ML 1 ML VIAL SQ SCH ×2 (07:40→20:34)
[2018-03-18] MEDS: LORATADINE 10 MG TAB PO SCH (07:40)
[2018-03-18] MEDS: PANTOPRAZOLE 40 MG TABLET PO SCH (07:40)
[2018-03-18] MEDS: FUROSEMIDE 20 MG TAB PO SCH (07:40)
[2018-03-18] MEDS: amLODIPine 5 MG TAB PO SCH (07:41)
[2018-03-18] MEDS: INSULIN ASPART 100 UNIT/ML 1 ML 10 ML VIAL SQ SCH ×4 (07:41→20:32)
[2018-03-18] MEDS: CHOLECALCIFEROL 400 UNIT TAB PO SCH ×2 (07:42→20:34)
[2018-03-18] MEDS: AMIODARONE 200 MG TAB PO SCH (07:42)
[2018-03-18] MEDS: AZITHROMYCIN 500 MG TAB PO SCH (07:42)
[2018-03-18] MEDS: CYANOCOBALAMIN 500 MCG TAB PO SCH (07:43)
[2018-03-18 08:19] LABS: Basophils % (A) 0 %; Eosinophils # (A) 0.1 k/uL (0-0.7); Eosinophils % (A) 0 %; HCT 38.8 % (39.0-53.0); HGB 12.6 gm/dL (13.0-17.5); Lymphocytes # (A) 0.4 k/uL (1.0-4.8); Lymphocytes % (A) 2 %; MCH 30.1 pg (25.0-35.0); MCHC 32.5 g/dL (31.0-37.0); MCV 92.5 fL (80.0-100.0); Mean Platelet Volume 6.9; Monocytes % (A) 5 %; Neutrophils # (A) 20.2 k/uL (1.3-7.7); Neutrophils % (A) 93 %; Platelet Count 292 k/uL (150-450); RBC 4.19 m/uL (4.30-5.90); RDW 13.3 % (11.5-15.5); WBC 21.8 k/uL (3.8-10.6)
[2018-03-18 08:24] LABS: Calcium 8.6 mg/dL (8.4-10.2); Potassium 4.8 mmol/L (3.5-5.1)
[2018-03-18] MEDS: IPRATROPIUM-ALBUTEROL 3 ML NEB INHALATION SCH ×4 (08:54→19:41)
[2018-03-18 11:29] LABS: Glucose,Whole Blood 322 mg/dL (75-99)
--- NOTE | 2018-03-18 16:25 | PN ---
PROGRESS NOTE DATE OF SERVICE: 03/18/2018 This 73-year-old gentleman was admitted with multiple medical problems had possible aspiration pneumonia. Patient is high risk of aspiration. Patient is not happy with modified food at this time. Dr. Maxwell and Dr. Cabral is following the patient closely. PAST MEDICAL HISTORY: Reviewed. REVIEW OF SYSTEMS: CARDIOVASCULAR: No angina. RESPIRATORY: As mentioned earlier. GI: No nausea. : No dysuria. NERVOUS SYSTEM: No numbness or weakness. ALLERGY/IMMUNOLOGY: No asthma. CURRENT MEDICATIONS: Reviewed and include: 1. Tylenol 650 q.8 p.r.n. 2. DuoNeb q.i.d. and p.r.n. 3. Cordarone 200 mg b.i.d. 4. Norvasc 5 mg p.o. daily. 5. Artificial Tears. 6. Lipitor 10 mg q.h.s. 7. Zithromax 500 mg daily. 8. Vitamin D3 400 units b.i.d. 9. Catapres 0.1 q.4h p.r.n. 10.Vitamin B12 1000 mg p.o. daily. 11.Colace 100 mg p.o. q.h.s. 12.Lasix 20 mg p.o. daily. 13.Glucotrol 2.5 mg b.i.d. 14.Robitussin. 15.Heparin 5 subcu b.i.d. 16.Apresoline 10 mg q.4h p.r.n. 17.Claritin 10 mg. 18.Solu-Medrol 40 IV q.8h. 19.Ditropan 5 mg with supper. 20.Protonix 40 mg daily. 21.Zosyn 3.375 IV q.8h. 22.Desyrel 100 mg p.o. q.h.s. PHYSICAL EXAM: Patient is alert, oriented x3. Pulse 80, blood pressure 130/60, respiration 18, temperature 98 degrees, pulse ox 100% on 2 L. HEENT: Conjunctivae normal. Oral mucosa moist. Neck is no jugular venous distention. No carotid bruit. No lymph node enlargement. CARDIOVASCULAR: S1, S2. No S3, no S4 RESPIRATORY: Breath sounds diminished in the bases. A few scattered rhonchi. No crackles. ABDOMEN: Soft, nontender. LEGS: No edema. NERVOUS SYSTEM: Diffusely weak. Patient is dysphonic also. LABS: WBC 21.2, hemoglobin 12.8, creatinine is 1.56. ASSESSMENT: 1. Hemoptysis with right upper lobe mass lesion with mucus plug, rule out recurrent lung cancer. 2. Bilateral pneumonia possibly gram-negative on broad-spectrum IV antibiotics. 3. Dysphagia with risk of aspiration on modified diet. 4. History of lung cancer, status post right upper lobe resection as well as radiation. 5. Tracheobronchomalacia. 6. Left perihilar consolidation. 7. Cerebrovascular accident, transient ischemic attack. 8. Gait dysfunction. 9. Diabetes mellitus type 2. 10.Gastroesophageal reflux disease. 11.Hypertension. 12.Hyperlipidemia. 13.History of pneumonia. 14.History of appendectomy. 15.History of nicotine dependence. 16.History of depression. RECOMMENDATIONS AND DISCUSSION: This 73-year-old gentleman who presented with multiple complex medical issues, will continue with current medications, symptomatic treatment and bronchodilators. Continue empiric antibiotics. Guarded prognosis because of multiple complex medical issues. Continue to monitor and closely follow with Pulmonary. Bronchoscopy. Further recommendations to follow. Prognosis guarded. MMODL / IJN: [id number] /
[2018-03-18 16:59] LABS: Glucose,Whole Blood 395 mg/dL (75-99)
[2018-03-18] MEDS: OXYBUTYNIN CHLORIDE 5 MG TAB PO SCH (17:24)
--- NOTE | 2018-03-18 17:30 | P.PN ---
Subjective Progress Note Date: 03/18/18 Principal diagnosis: lung mass Patient seen briefly in follow-up, he complains of persistent discomfort in the middle of the chest, from top of sternum to the top of the epigastric area, denies nausea, reflux, difficulty in breathing, radiating pain across the chest. He is having bronch tomorrow. Objective - Vital Signs Vital signs: Vital Signs Temp 98 F 03/18/18 14:23 Pulse 60 03/18/18 16:20 Resp 18 03/18/18 14:49 BP 138/63 03/18/18 14:23 Pulse Ox 100 03/18/18 14:23 Intake & Output 03/17/18 03/18/18 03/18/18 18:59 06:59 18:59 Intake Total 800 Balance 800 Weight 78.018 kg 78.018 kg 78.018 kg Intake: Intake, IV Titration 80 Amount Sodium Chloride 0.9% 1, 80 000 ml @ 20 mls/hr IV . Q24H [facility] Rx#:[id number] Oral 720 Other: Voiding Method Diaper Diaper Diaper Incontinent Incontinent Incontinent # Voids 1 3 3 - Constitutional General appearance: Present: average body habitus, cooperative, no acute distress - EENT Eyes: Present: anicteric sclerae ENT: Present: normal oropharynx - Respiratory Respiratory: bilateral: CTA - Cardiovascular Heart sounds: normal: S1, S2 - Gastrointestinal General gastrointestinal: Present: soft Localized gastrointestinal: tender: epigastric periumbilical (mild) - Integumentary Integumentary: Present: pale - Neurologic Neurologic: Present: focal deficits - Psychiatric Psychiatric: Present: A&O x's 3 - Labs CBC & Chem 7: 03/18/18 07:30 03/18/18 07:30 Labs: Abnormal Lab Results - Last 24 Hours (Table) 03/17/18 03/18/18 03/18/18 Range/Units 20:04 07:03 07:30 WBC 21.8 H (3.8-10.6) k/uL RBC 4.19 L (4.30-5.90) m/uL Hgb 12.6 L (13.0-17.5) gm/dL Hct 38.8 L (39.0-53.0) % Neutrophils # 20.2 H (1.3-7.7) k/uL Lymphocytes # 0.4 L (1.0-4.8) k/uL BUN (9-20) mg/dL Creatinine (0.66-1.25) mg/dL Glucose (74-99) mg/dL POC Glucose (mg/dL) 327 H 303 H (75-99) mg/dL 03/18/18 03/18/18 03/18/18 Range/Units 07:30 11:27 16:57 WBC (3.8-10.6) k/uL RBC (4.30-5.90) m/uL Hgb (13.0-17.5) gm/dL Hct (39.0-53.0) % Neutrophils # (1.3-7.7) k/uL Lymphocytes # (1.0-4.8) k/uL BUN 29 H (9-20) mg/dL Creatinine 1.56 H (0.66-1.25) mg/dL Glucose 317 H (74-99) mg/dL POC Glucose (mg/dL) 322 H 395 H (75-99) mg/dL Microbiology - Last 24 Hours (Table) 03/15/18 12:39 Blood Culture - Preliminary Blood No Growth after 72 hours 03/15/18 18:26 Blood Culture - Preliminary Blood No Growth after 48 hours 03/15/18 18:00 Blood Culture - Preliminary Blood No Growth after 48 hours Assessment and Plan (1) Lung mass Narrative/Plan: Dr. Cabral doing biopsy in a.m., pathology pending. Current Visit: Yes Status: Acute Priority: High Code(s): R91.8 - OTHER NONSPECIFIC ABNORMAL FINDING OF LUNG FIELD SNOMED Code(s): 448668329 (2) Altered mental status Narrative/Plan: I am not aware of patient's baseline mental status but, CT of the brain will be ordered once creatinine has improved and staging PET scan will be scheduled outpatient. Current Visit: Yes Status: Acute Priority: High Code(s): R41.82 - ALTERED MENTAL STATUS, UNSPECIFIED SNOMED Code(s): 786725524
[2018-03-18] MEDS: SODIUM CHLORIDE 0.9% 1,000 ML IV SCH (17:32)
--- NOTE | 2018-03-18 17:44 | P.PN ---
Subjective Progress Note Date: 03/18/18 Principal diagnosis: Right upper lobe mass invading trachea with right upper lobe volume loss, right lower lobe multiple lung nodules, Hemoptysis, left perihilar pneumonia, tracheal mass versus mucous plug, high risk for aspiration and aspiration related complications, CVA, hypertension hypertensive cardiovascular disease, dyslipidemia, 03/18/2018, patient seen eval examined during the rounds care plan discussed with the primary service and oncology service, the computed tomography scan of the chest are reviewed discussed with the patient, procedure of bronchoscopy and lung biopsy explained to the patient 03/17/2018, patient seen eval examined during the rounds clinically overall not much change compared to yesterday exam patient is due for a swallow evaluation later on today hemodynamic status stable labs and medications reviewed radiographic studies including CAT scan of the chest reviewed as well, patient probably require repeat bronchoscopy however we'll wait for slight improvement in general condition of the patient and swallow evaluation would recommend to continue treating pneumonia with further recommendations pending, currently patient is relatively high risk for development of respiratory failure during procedure 73-year-old male with prior history of lung cancer he is status post a right upper lobe resection followed by XRT Dr. Pedersen follows for lung cancer related issues, he was brought into the emergency department with increasing shortness of breath cough and some streaks of blood, patient overall is a poor historian not much data can be obtained from him, patient is being evaluated for aspiration and aspiration and related issues as well, computed tomography scan of the chest revealed presence of tracheobronchomalacia, prior evidence of right upper lobe resection paratracheal lesion cannot be excluded which is 3 x 3 cm in size along with left hilar consolidation and lymphadenopathy secondary Objective - Vital Signs Vital signs: Vital Signs Temp 98 F 03/18/18 14:23 Pulse 60 03/18/18 16:20 Resp 18 03/18/18 14:49 BP 138/63 03/18/18 14:23 Pulse Ox 100 03/18/18 14:23 Intake & Output 03/17/18 03/18/18 03/18/18 18:59 06:59 18:59 Intake Total 800 Balance 800 Weight 78.018 kg 78.018 kg 78.018 kg Intake: Intake, IV Titration 80 Amount Sodium Chloride 0.9% 1, 80 000 ml @ 20 mls/hr IV . Q24H [facility] Rx#:[id number] Oral 720 Other: Voiding Method Diaper Diaper Diaper Incontinent Incontinent Incontinent # Voids 1 3 3 - Exam Limitations: no limitations General appearance: alert, in no apparent distress Head exam: Present: atraumatic Eye exam: Present: normal appearance, PERRL ENT exam: Present: normal oropharynx Neck exam: Present: normal inspection Respiratory exam: Present: wheezes Cardiovascular Exam: Present: bradycardia GI/Abdominal exam: Present: soft. Absent: tenderness Extremities exam: Present: normal inspection. Absent: pedal edema, calf tenderness Neurological exam: Present: alert however unable to give a detailed description of ongoing events Psychiatric exam: Present: normal affect, normal mood Skin exam: Present: normal color - Labs CBC & Chem 7: 03/18/18 07:30 03/18/18 07:30 Labs: Abnormal Lab Results - Last 24 Hours (Table) 03/17/18 03/18/18 03/18/18 Range/Units 20:04 07:03 07:30 WBC 21.8 H (3.8-10.6) k/uL RBC 4.19 L (4.30-5.90) m/uL Hgb 12.6 L (13.0-17.5) gm/dL Hct 38.8 L (39.0-53.0) % Neutrophils # 20.2 H (1.3-7.7) k/uL Lymphocytes # 0.4 L (1.0-4.8) k/uL BUN (9-20) mg/dL Creatinine (0.66-1.25) mg/dL Glucose (74-99) mg/dL POC Glucose (mg/dL) 327 H 303 H (75-99) mg/dL 03/18/18 03/18/18 03/18/18 Range/Units 07:30 11:27 16:57 WBC (3.8-10.6) k/uL RBC (4.30-5.90) m/uL Hgb (13.0-17.5) gm/dL Hct (39.0-53.0) % Neutrophils # (1.3-7.7) k/uL Lymphocytes # (1.0-4.8) k/uL BUN 29 H (9-20) mg/dL Creatinine 1.56 H (0.66-1.25) mg/dL Glucose 317 H (74-99) mg/dL POC Glucose (mg/dL) 322 H 395 H (75-99) mg/dL Microbiology - Last 24 Hours (Table) 03/15/18 12:39 Blood Culture - Preliminary Blood No Growth after 72 hours 03/15/18 18:26 Blood Culture - Preliminary Blood No Growth after 48 hours 03/15/18 18:00 Blood Culture - Preliminary Blood No Growth after 48 hours Assessment and Plan Assessment: Right upper lobe mass invading trachea Right upper lobe volume loss likely related to mass in the lung Right lower lobe multiple lung nodules Tracheal mass versus mucous plug Hemoptysis Left Perihilar pneumonia History of prior lung cancer status post right upper lobe resection in next 30 Generalized weakness and medical debility Tracheobronchomalacia CVA Type 2 diabetes mellitus Potential hypertensive cardiovascular disease Plan: Bronchoscopy and possible biopsy tomorrow, procedure explained to the patient along with the risk alternative Gentle rehydration Broad-spectrum antibiotics IV steroids DVT and peptic ulcer disease prophylaxis Monitor observe clinical course closely Agree with swallow evaluation Further recommendations pending plan of care as per clinical response of the patient Time with Patient: Greater than 30
[2018-03-18 20:29] LABS: Glucose,Whole Blood 458 mg/dL (75-99)
[2018-03-18 20:29] LABS: Glucose,Whole Blood 444 mg/dL (75-99)
[2018-03-18] MEDS: ATORVASTATIN 10 MG TAB PO SCH (20:34)
[2018-03-18] MEDS: DOCUSATE 100 MG CAP PO SCH (20:34)
[2018-03-18] MEDS: traZODone HCL 100 MG TAB PO SCH (20:34)
[2018-03-19] MEDS: IPRATROPIUM-ALBUTEROL 3 ML NEB INHALATION SCH ×4 (07:12→20:35)
[2018-03-19 07:19] LABS: Glucose,Whole Blood 253 mg/dL (75-99)
[2018-03-19 07:54] LABS: Basophils % (A) 0 %; Eosinophils % (A) 0 %; HCT 38.1 % (39.0-53.0); Lymphocytes # (A) 0.2 k/uL (1.0-4.8); Lymphocytes % (A) 1 %; MCH 29.2 pg (25.0-35.0); MCHC 31.4 g/dL (31.0-37.0); Mean Platelet Volume 6.9; Monocytes # (A) 0.7 k/uL (0-1.0); Monocytes % (A) 4 %; Neutrophils # (A) 15.9 k/uL (1.3-7.7); Neutrophils % (A) 94 %; Platelet Count 269 k/uL (150-450); RDW 13.4 % (11.5-15.5)
[2018-03-19 08:09] LABS: Potassium 4.4 mmol/L (3.5-5.1)
[2018-03-19 08:46] LABS: Calcium 8.3 mg/dL (8.4-10.2)
[2018-03-19] MEDS ORDERED: PROPOFOL 10 MG/ML 20 ML VIAL IV ONE (09:17)
[2018-03-19] MEDS ORDERED: LIDOCAINE 1% INJ 10MG/ML (20 ML MDV) ONE (09:17)
[2018-03-19] MEDS ORDERED: KETAMINE 10 MG/ML 20 ML VIAL ONE (09:17)
[2018-03-19 11:47] LABS: Glucose,Whole Blood 218 mg/dL (75-99)
[2018-03-19] MEDS: methylPREDNISolone SOD SUCCI 40 MG/ML 1 ML VIAL IV SCH ×3 (12:32→23:33)
[2018-03-19] MEDS: PIPERACILLIN-TAZOBACTAM 3.375 GM in DEXTROSE/WATER 1 50ML.BAG IVPB SCH ×3 (12:32→23:33)
[2018-03-19] MEDS: AMIODARONE 200 MG TAB PO SCH (12:32)
[2018-03-19] MEDS: AZITHROMYCIN 500 MG TAB PO SCH (12:32)
[2018-03-19] MEDS: amLODIPine 5 MG TAB PO SCH (12:32)
[2018-03-19] MEDS: INSULIN ASPART 100 UNIT/ML 1 ML 10 ML VIAL SQ SCH ×4 (12:32→21:10)
[2018-03-19] MEDS: CHOLECALCIFEROL 400 UNIT TAB PO SCH ×2 (12:33→21:09)
[2018-03-19] MEDS: HEPARIN SODIUM,PORCINE 5,000 UNIT/ML 1 ML VIAL SQ SCH ×2 (12:33→21:09)
[2018-03-19] MEDS: LORATADINE 10 MG TAB PO SCH (12:33)
[2018-03-19] MEDS: CYANOCOBALAMIN 500 MCG TAB PO SCH (12:33)
[2018-03-19] MEDS: FUROSEMIDE 20 MG TAB PO SCH (12:33)
[2018-03-19] MEDS: PANTOPRAZOLE 40 MG TABLET PO SCH (12:34)
--- NOTE | 2018-03-19 14:02 | P.PN ---
Subjective Progress Note Date: 03/19/18 Principal diagnosis: Right upper lobe mass invading trachea with right upper lobe volume loss, right lower lobe multiple lung nodules, Hemoptysis, left perihilar pneumonia, tracheal mass versus mucous plug, high risk for aspiration and aspiration related complications, CVA, hypertension hypertensive cardiovascular disease, dyslipidemia, 03/19/2018, patient seen eval examined during the rounds clinically not much change from baseline he is awake and alert open his eyes follow simple commands is still left cough which was makes with intermittent streaks of blood hemodynamic status stable labs reviewed medications reviewed care plan discussed with the patient as well as the primary service patient is scheduled for bronchoscopy later on today, care plan discussed with oncology service as well, procedure explained to the patient including alternative and side effect and complication 03/18/2018, patient seen eval examined during the rounds care plan discussed with the primary service and oncology service, the computed tomography scan of the chest are reviewed discussed with the patient, procedure of bronchoscopy and lung biopsy explained to the patient 03/17/2018, patient seen eval examined during the rounds clinically overall not much change compared to yesterday exam patient is due for a swallow evaluation later on today hemodynamic status stable labs and medications reviewed radiographic studies including CAT scan of the chest reviewed as well, patient probably require repeat bronchoscopy however we'll wait for slight improvement in general condition of the patient and swallow evaluation would recommend to continue treating pneumonia with further recommendations pending, currently patient is relatively high risk for development of respiratory failure during procedure 73-year-old male with prior history of lung cancer he is status post a right upper lobe resection followed by XRT Dr. Pedersen follows for lung cancer related issues, he was brought into the emergency department with increasing shortness of breath cough and some streaks of blood, patient overall is a poor historian not much data can be obtained from him, patient is being evaluated for aspiration and aspiration and related issues as well, computed tomography scan of the chest revealed presence of tracheobronchomalacia, prior evidence of right upper lobe resection paratracheal lesion cannot be excluded which is 3 x 3 cm in size along with left hilar consolidation and lymphadenopathy secondary Objective - Vital Signs Vital signs: Vital Signs Temp 98.1 F 03/18/18 21:20 Pulse 82 03/19/18 11:42 Resp 17 03/19/18 08:00 BP 103/52 03/18/18 21:20 Pulse Ox 95 03/18/18 21:20 Intake & Output 03/18/18 03/19/18 03/19/18 18:59 06:59 18:59 Intake Total 610 300 Balance 610 300 Weight 78.018 kg 78.018 kg Intake: Intake, IV Titration 130 300 Amount Piperacillin-Tazobactam 3 50 .375 gm In Dextrose/Water 1 50ml.bag @ 12.5 mls/hr IVPB Q8HR [facility] Rx#: [id number] Sodium Chloride 0.9% 1, 80 300 000 ml @ 20 mls/hr IV . Q24H [facility] Rx#:[id number] Oral 480 Other: Voiding Method Diaper Diaper Diaper Incontinent Incontinent Incontinent # Voids 3 - Exam Limitations: no limitations General appearance: alert, in no apparent distress Head exam: Present: atraumatic Eye exam: Present: normal appearance, PERRL ENT exam: Present: normal oropharynx Neck exam: Present: normal inspection Respiratory exam: Present: wheezes Cardiovascular Exam: Present: bradycardia GI/Abdominal exam: Present: soft. Absent: tenderness Extremities exam: Present: normal inspection. Absent: pedal edema, calf tenderness Neurological exam: Present: alert however unable to give a detailed description of ongoing events Psychiatric exam: Present: normal affect, normal mood Skin exam: Present: normal color - Labs CBC & Chem 7: 03/19/18 06:30 03/18/18 07:30 Labs: Abnormal Lab Results - Last 24 Hours (Table) 03/18/18 03/18/18 03/18/18 Range/Units 16:57 20:26 20:28 WBC (3.8-10.6) k/uL RBC (4.30-5.90) m/uL Hgb (13.0-17.5) gm/dL Hct (39.0-53.0) % Neutrophils # (1.3-7.7) k/uL Lymphocytes # (1.0-4.8) k/uL POC Glucose (mg/dL) 395 H 458 H 444 H (75-99) mg/dL 03/19/18 03/19/18 03/19/18 Range/Units 06:30 07:17 11:44 WBC 17.0 H (3.8-10.6) k/uL RBC 4.10 L (4.30-5.90) m/uL Hgb 12.0 L (13.0-17.5) gm/dL Hct 38.1 L (39.0-53.0) % Neutrophils # 15.9 H (1.3-7.7) k/uL Lymphocytes # 0.2 L (1.0-4.8) k/uL POC Glucose (mg/dL) 253 H 218 H (75-99) mg/dL Microbiology - Last 24 Hours (Table) 03/15/18 18:26 Blood Culture - Preliminary Blood No Growth after 72 hours 03/15/18 18:00 Blood Culture - Preliminary Blood No Growth after 72 hours 03/15/18 12:39 Blood Culture - Preliminary Blood No Growth after 72 hours Assessment and Plan Assessment: Right upper lobe mass invading trachea Right upper lobe volume loss likely related to mass in the lung as well as prior surgery 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 as well as XRT palliative Right lower lobe multiple lung nodules 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, mucous plug less likely Hemoptysis related to above Left Perihilar pneumonia and dense consolidation Generalized weakness and medical debility Tracheobronchomalacia CVA Type 2 diabetes mellitus Potential hypertensive cardiovascular disease Plan: Bronchoscopy and possible biopsy later on today, procedure explained to the patient along with the risk alternative Gentle rehydration Broad-spectrum antibiotics IV steroids DVT and peptic ulcer disease prophylaxis Monitor observe clinical course closely Agree with swallow evaluation Further recommendations pending plan of care as per clinical response of the patient Time with Patient: Greater than 30
--- NOTE | 2018-03-19 14:08 | P.PCN ---
Date of Procedure: 03/19/18 Preoperative Diagnosis: Tracheal mass, hemoptysis, history of squamous cell lung cancer with possible recurrence, tracheobronchomalacia Postoperative Diagnosis: As above Procedure(s) Performed: #1 bronchoscopy #2 bronchial biopsy/tracheal biopsy #3 tracheal brushing #4 bronchoalveolar lavage/tracheal lavage Surgeon: Ervin Cabral Estimated Blood Loss (ml): 20 Condition: stable Disposition: floor Indications for Procedure: As above Operative Findings: As below Description of Procedure: Patient prepared and draped in a usual fashion informed consent obtained from patient, fiberoptic bronchoscope was passed through the left nares, the tip of the scope has into the laryngeal area the vocal cords were normal structure and function tip of the scope was has beyond the vocal cords, diffuse right heme edema and trachea was present especially in themid area, the lumen of the trachea in mid area was asymmetrical with one third block H there is a growth appears to be coming extraordinarily through the posterior as well as right lateral wall into the lumen which was intermittently dozing blood on touching BAL biopsy and pressure were performed followed by the bronchoscope was passed below on the right side we'll from the right lower lobe was performed as well left side was inspected off note that it was a difficult procedure given that intermittent oozing of the blood from tracheal mass causing obliteration of the few otherwise however patient tolerated procedure well no complication noted some appendectomy and Nusrat was utilized for localized vasoconstriction
[2018-03-19 15:47] VITALS: RESP 16
[2018-03-19] MEDS: OXYBUTYNIN CHLORIDE 5 MG TAB PO SCH (16:44)
[2018-03-19 16:46] LABS: Glucose,Whole Blood 336 mg/dL (75-99)
[2018-03-19] MEDS: SODIUM CHLORIDE 0.9% 1,000 ML IV SCH (16:51)
--- NOTE | 2018-03-19 16:56 | PN ---
PROGRESS NOTE DATE OF SERVICE: 03/19/2018 This 73-year-old gentleman, admitted with hemoptysis, had bronchoscopy yesterday by Dr. Cabral. 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 The patient also had swallowing evaluation. Diet is modified. PT/OT has evaluated the patient for possible ECF rehab. No chest pain. No palpitation. On exam, alert and oriented x2. Dysphonic. Pulse is 80, blood pressure 140/67, respiration 16, temperature 97.8, pulse ox 93% on room air. HEENT: Conjunctivae normal. NECK: No jugular venous distention. CARDIOVASCULAR SYSTEM: S1, S2 muffled. No S3. No S4. RESPIRATORY SYSTEM: Breath sounds diminished at the bases. A few scattered rhonchi and crackles. ABDOMEN: Soft, non-tender. LEGS: No edema. No swelling. NERVOUS SYSTEM: No focal deficit. LABS: WBC 17, hemoglobin is 12, creatinine is 1.71. ASSESSMENT: 1. 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 2. Bilateral pneumonia, possibly Gram-negative, for aspiration, on broad-spectrum IV antibiotics. 3. Dysphagia with risk of aspiration, on modified diet. 4. History of lung cancer, status post right upper lobe resection as well as radiation. 5. Tracheobronchomalacia. 6. Left perihilar consolidation. 7. Cerebrovascular accident, transient ischemic attack. 8. Gait dysfunction. 9. Diabetes mellitus, type 2. 10.Gastroesophageal reflux disease. 11.Hypertension. 12.Hyperlipidemia. 13.History of pneumonia. 14.History of appendectomy. 15.History of nicotine dependence. 16.History of depression. RECOMMENDATIONS AND DISCUSSION: I recommend to continue current medication, continue symptomatic treatment. Continue with antibiotics. Continue with bronchodilators. PT/OT evaluation. Await biopsy report. Closely follow with Dr. Cabral. Further recommendations to follow. MMODL / IJN: [id number] /
[2018-03-19 20:57] LABS: Glucose,Whole Blood 393 mg/dL (75-99)
[2018-03-19] MEDS: DOCUSATE 100 MG CAP PO SCH (21:09)
[2018-03-19] MEDS: traZODone HCL 100 MG TAB PO SCH (21:09)
[2018-03-19] MEDS: ATORVASTATIN 10 MG TAB PO SCH (21:09)
[2018-03-20 06:32] VITALS: BP 178/73; TEMP 98.4
[2018-03-20 07:18] LABS: Glucose,Whole Blood 299 mg/dL (75-99)
[2018-03-20 07:30] LABS: Basophils % (A) 0 %; Eosinophils # (A) 0.1 k/uL (0-0.7); Eosinophils % (A) 1 %; HCT 38.9 % (39.0-53.0); HGB 12.1 gm/dL (13.0-17.5); Hypochromasia Slight; Lymphocytes # (A) 0.2 k/uL (1.0-4.8); Lymphocytes % (A) 2 %; MCH 29.3 pg (25.0-35.0); MCV 94.5 fL (80.0-100.0); Mean Platelet Volume 6.8; Monocytes # (A) 0.3 k/uL (0-1.0); Monocytes % (A) 3 %; Neutrophils # (A) 10.5 k/uL (1.3-7.7); Neutrophils % (A) 94 %; Platelet Count 276 k/uL (150-450); RBC 4.12 m/uL (4.30-5.90); RDW 13.8 % (11.5-15.5); WBC 11.1 k/uL (3.8-10.6)
[2018-03-20 07:50] LABS: Calcium 7.9 mg/dL (8.4-10.2)
[2018-03-20] MEDS: methylPREDNISolone SOD SUCCI 40 MG/ML 1 ML VIAL IV SCH (07:53)
[2018-03-20] MEDS: PIPERACILLIN-TAZOBACTAM 3.375 GM in DEXTROSE/WATER 1 50ML.BAG IVPB SCH (07:53)
[2018-03-20] MEDS: AMIODARONE 200 MG TAB PO SCH (07:54)
[2018-03-20] MEDS: AZITHROMYCIN 500 MG TAB PO SCH (07:54)
[2018-03-20] MEDS: amLODIPine 5 MG TAB PO SCH (07:54)
[2018-03-20] MEDS: CHOLECALCIFEROL 400 UNIT TAB PO SCH (07:54)
[2018-03-20] MEDS: FUROSEMIDE 20 MG TAB PO SCH (07:54)
[2018-03-20] MEDS: CYANOCOBALAMIN 500 MCG TAB PO SCH (07:54)
[2018-03-20] MEDS: PANTOPRAZOLE 40 MG TABLET PO SCH (07:55)
[2018-03-20] MEDS: INSULIN ASPART 100 UNIT/ML 1 ML 10 ML VIAL SQ SCH ×2 (07:55→12:38)
[2018-03-20] MEDS: HEPARIN SODIUM,PORCINE 5,000 UNIT/ML 1 ML VIAL SQ SCH (07:55)
[2018-03-20] MEDS: LORATADINE 10 MG TAB PO SCH (07:55)
[2018-03-20 07:58] LABS: Potassium 5.2 mmol/L (3.5-5.1)
[2018-03-20] MEDS: IPRATROPIUM-ALBUTEROL 3 ML NEB INHALATION SCH ×2 (08:43→11:47)
--- NOTE | 2018-03-20 10:28 | P.DS ---
Providers Date of admission: 03/15/18 15:22 Attending physician: Bronson Massey MD Consults: 03/15/18 15:22 Consult Physician Routine Consulting Provider: Ervin Cabral Consult Reason/Comments: Lung mass, pneumonia Do you want consulting provider notified?: Yes 03/15/18 23:23 Consult Physician Routine Consulting Provider: Sergio Druán Consult Reason/Comments: malignancy Do you want consulting provider notified?: Yes [facility] Course: Patient was admitted for a tracheal mass patient underwent biopsy biopsy results are pending patient had history of lung cancer patient probably has squamous cell cancer recurrence. Patient is clinically doing well does have some pneumonia in the right hilar area because of which the patient will be discharged on Augmentin for 5 more days. Patient is being treated for the aspiration pneumonia versus mucous plug. Patient was referred to Dr. Durán and patient had a follow-up that was set up. Patient does not appear to be in COPD exacerbation because of which I'm not giving him any systemic steroids patient will be discharged on inhaled steroids. Patient does have oral thrush for which we will use nystatin swish and swallow patient need to be in. Diet was evaluated by speech therapy. Patient's family is wishing to go home with home care. Patient will be resumed on anticoagulation. PHYSICAL EXAMINATION: GENERAL: The patient is alert and oriented x3, not in any acute distress. Thin built appears to be tired and weak HEENT: Pupils are round and equally reacting to light. EOMI. No scleral icterus. No conjunctival pallor. Normocephalic, atraumatic. No pharyngeal erythema. No thyromegaly. CARDIOVASCULAR: S1 and S2 present. No murmurs, rubs, or gallops. PULMONARY: Chest is clear to auscultation, no wheezing or crackles. ABDOMEN: Soft, nontender, nondistended, normoactive bowel sounds. No palpable organomegaly. MUSCULOSKELETAL: No joint swelling or deformity. EXTREMITIES: No cyanosis, clubbing, or pedal edema. NEUROLOGICAL: Gross neurological examination did not reveal any new focal deficits. She does have some focal deficits including speech and left-sided weakness from his previous stroke. SKIN: No rashes. 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 -Possible aspiration pneumonia -Take of bronchomalacia -History of CVA -Type 2 diabetes mellitus -Hypertension -Hyperlipidemia -Gastroesophageal reflux disease Patient Condition at Discharge: Serious Plan - Discharge Summary New Discharge Prescriptions: New amLODIPine [Norvasc] 5 mg PO DAILY #30 tab Amoxic-Pot Clav 875-125Mg [Augmentin 875-125] 1 tab PO Q12HR #10 tablet Budesonide-Formot 160-4.5 Mcg [Symbicort 160-4.5 Mcg Inhaler] 2 puff INHALATION BID #1 inhaler Dextromethorphan Hb/Doxylamine [Robitussin Nighttime Cough Dm] 5 ml PO TID PRN #1 bottle PRN Reason: Cough Nystatin 100,000 Unit/ml Susp [Mycostatin Oral Susp] 5 ml PO QID #100 ml Continue Cholecalciferol [Vitamin D3] 400 unit PO BID Simvastatin [Zocor] 10 mg PO HS traZODone HCL [Desyrel] 100 mg PO HS Metoprolol Tartrate [Lopressor] 25 mg PO BID Oxybutynin Chloride [Ditropan] 5 mg PO W/SUPPER glipiZIDE XL [Glucotrol XL] 2.5 mg PO BID@0630,1600 Aspirin 81 mg PO DAILY Amiodarone [Cordarone] 200 mg PO DAILY Dabigatran [Pradaxa] 150 mg PO BID Esomeprazole Magnesium [NexIUM] 40 mg PO DAILY guaiFENesin-DM 100-10MG/5ML [Robitussin DM] 10 ml PO Q6HR PRN PRN Reason: Cough Ipratropium-Albuterol Nebulize [Duoneb 0.5 mg-3 mg/3 ml Soln] 3 ml INHALATION RT-Q6H PRN PRN Reason: Shortness Of Breath Acetaminophen [Tylenol Arthritis] 650 mg PO Q8HR PRN PRN Reason: Pain Furosemide [Lasix] 20 mg PO DAILY Cetirizine HCl [Zyrtec] 10 mg PO DAILY Docusate [Colace] 100 mg PO HS Cyanocobalamin (Vitamin B-12) [Vitamin B-12] 1,000 mcg PO DAILY Propylene Glycol/Peg 400/Pf [Systane 0.3-0.4% Eye Drops] 1 drop BOTH EYES DAILY PRN PRN Reason: Dry Eye(S) Discharge Medication List Cholecalciferol [Vitamin D3] 400 unit PO BID 01/26/16 [History] Simvastatin [Zocor] 10 mg PO HS 01/26/16 [History] traZODone HCL [Desyrel] 100 mg PO HS 01/26/16 [History] Metoprolol Tartrate [Lopressor] 25 mg PO BID 03/15/16 [History] Amiodarone [Cordarone] 200 mg PO DAILY 11/10/16 [History] Aspirin 81 mg PO DAILY 11/10/16 [History] Oxybutynin Chloride [Ditropan] 5 mg PO W/SUPPER 11/10/16 [History] glipiZIDE XL [Glucotrol XL] 2.5 mg PO BID@0630,1600 11/10/16 [History] Dabigatran [Pradaxa] 150 mg PO BID 12/13/17 [History] Esomeprazole Magnesium [NexIUM] 40 mg PO DAILY 12/13/17 [History] Acetaminophen [Tylenol Arthritis] 650 mg PO Q8HR PRN 03/15/18 [History] Cetirizine HCl [Zyrtec] 10 mg PO DAILY 03/15/18 [History] Cyanocobalamin (Vitamin B-12) [Vitamin B-12] 1,000 mcg PO DAILY 03/15/18 [ History] Docusate [Colace] 100 mg PO HS 03/15/18 [History] Furosemide [Lasix] 20 mg PO DAILY 03/15/18 [History] Ipratropium-Albuterol Nebulize [Duoneb 0.5 mg-3 mg/3 ml Soln] 3 ml INHALATION RT -Q6H PRN 03/15/18 [History] Propylene Glycol/Peg 400/Pf [Systane 0.3-0.4% Eye Drops] 1 drop BOTH EYES DAILY PRN 03/15/18 [History] guaiFENesin-DM 100-10MG/5ML [Robitussin DM] 10 ml PO Q6HR PRN 03/15/18 [History] Amoxic-Pot Clav 875-125Mg [Augmentin 875-125] 1 tab PO Q12HR #10 tablet [Rx] Budesonide-Formot 160-4.5 Mcg [Symbicort 160-4.5 Mcg Inhaler] 2 puff INHALATION BID #1 inhaler 03/20/18 [Rx] Dextromethorphan Hb/Doxylamine [Robitussin Nighttime Cough Dm] 5 ml PO TID PRN # 1 bottle 03/20/18 [Rx] Nystatin 100,000 Unit/ml Susp [Mycostatin Oral Susp] 5 ml PO QID #100 ml [Rx] amLODIPine [Norvasc] 5 mg PO DAILY #30 tab 03/20/18 [Rx] Follow up Appointment(s)/Referral(s): Sergio Durán MD [STAFF PHYSICIAN] - 03/31/18 9:00 am ([place] office (behind [facility])) Timur North PAC [Primary Care Provider] - 1 Week (Dr. North's office will call patient with an appointment date and time. ) Patient Instructions/Handouts: Dextromethorphan (By mouth), Nystatin (By mouth) , Amoxicillin/Clavulanate Potassium (By mouth), Amlodipine (By mouth), Budesonide/Formoterol (By breathing), Pneumonia (DC) Discharge Disposition: HOME WITH HOME HEALTH SERVICES
[2018-03-20 10:50] LABS: Glucose,Whole Blood 417 mg/dL (75-99)
[2018-03-20 11:58] VITALS: PULSE 80
--- NOTE | 2018-03-20 19:35 | P.PN ---
Subjective Progress Note Date: 03/20/18 Principal diagnosis: Right upper lobe mass invading trachea with right upper lobe volume loss, right lower lobe multiple lung nodules, Hemoptysis, left perihilar pneumonia, tracheal mass versus mucous plug, high risk for aspiration and aspiration related complications, CVA, hypertension hypertensive cardiovascular disease, dyslipidemia, 03/20/2018, patient seen eval examined during the rounds clinically patient has been doing well awake and alert breathing comfortably no obvious distress is present she is he is status post bronchoscopy and tracheal biopsy results are pending patient's primary service is leaning towards possible discharge home I' ve discussed with patient and niece at length about further intervention and care awaiting their advice 03/19/2018, patient seen eval examined during the rounds clinically not much change from baseline he is awake and alert open his eyes follow simple commands is still left cough which was makes with intermittent streaks of blood hemodynamic status stable labs reviewed medications reviewed care plan discussed with the patient as well as the primary service patient is scheduled for bronchoscopy later on today, care plan discussed with oncology service as well, procedure explained to the patient including alternative and side effect and complication 03/18/2018, patient seen eval examined during the rounds care plan discussed with the primary service and oncology service, the computed tomography scan of the chest are reviewed discussed with the patient, procedure of bronchoscopy and lung biopsy explained to the patient 03/17/2018, patient seen eval examined during the rounds clinically overall not much change compared to yesterday exam patient is due for a swallow evaluation later on today hemodynamic status stable labs and medications reviewed radiographic studies including CAT scan of the chest reviewed as well, patient probably require repeat bronchoscopy however we'll wait for slight improvement in general condition of the patient and swallow evaluation would recommend to continue treating pneumonia with further recommendations pending, currently patient is relatively high risk for development of respiratory failure during procedure 73-year-old male with prior history of lung cancer he is status post a right upper lobe resection followed by XRT Dr. Pedersen follows for lung cancer related issues, he was brought into the emergency department with increasing shortness of breath cough and some streaks of blood, patient overall is a poor historian not much data can be obtained from him, patient is being evaluated for aspiration and aspiration and related issues as well, computed tomography scan of the chest revealed presence of tracheobronchomalacia, prior evidence of right upper lobe resection paratracheal lesion cannot be excluded which is 3 x 3 cm in size along with left hilar consolidation and lymphadenopathy secondary Objective - Vital Signs Vital signs: Vital Signs Temp 98.4 F 03/20/18 05:00 Pulse 80 03/20/18 11:57 Resp 16 03/20/18 05:00 BP 178/73 03/20/18 05:00 Pulse Ox 93 L 03/20/18 05:00 Intake & Output 03/20/18 03/20/18 03/21/18 06:59 18:59 06:59 Intake Total 330 210 Balance 330 210 Intake: IV 210 210 Piperacillin-Tazobactam 3 50 50 .375 gm In Dextrose/Water 1 50ml.bag @ 12.5 mls/hr IVPB Q8HR FELIX Rx#: [id number] Sodium Chloride 0.9% 1, 160 160 000 ml @ 20 mls/hr IV . Q24H FELIX Rx#:[id number] Oral 120 Other: Voiding Method Diaper Diaper Incontinent Incontinent # Voids 1 - Exam Limitations: no limitations General appearance: alert, in no apparent distress Head exam: Present: atraumatic Eye exam: Present: normal appearance, PERRL ENT exam: Present: normal oropharynx Neck exam: Present: normal inspection Respiratory exam: Present: wheezes Cardiovascular Exam: Present: bradycardia GI/Abdominal exam: Present: soft. Absent: tenderness Extremities exam: Present: normal inspection. Absent: pedal edema, calf tenderness Neurological exam: Present: alert however unable to give a detailed description of ongoing events Psychiatric exam: Present: normal affect, normal mood Skin exam: Present: normal color - Labs CBC & Chem 7: 03/20/18 06:56 03/20/18 06:56 Labs: Abnormal Lab Results - Last 24 Hours (Table) 03/19/18 03/20/18 03/20/18 Range/Units 20:56 06:56 06:56 WBC 11.1 H (3.8-10.6) k/uL RBC 4.12 L (4.30-5.90) m/uL Hgb 12.1 L (13.0-17.5) gm/dL Hct 38.9 L (39.0-53.0) % Neutrophils # 10.5 H (1.3-7.7) k/uL Lymphocytes # 0.2 L (1.0-4.8) k/uL Potassium 5.2 H (3.5-5.1) mmol/L BUN 33 H (9-20) mg/dL Creatinine 1.41 H (0.66-1.25) mg/dL Glucose 292 H (74-99) mg/dL POC Glucose (mg/dL) 393 H (75-99) mg/dL Calcium 7.9 L (8.4-10.2) mg/dL 03/20/18 03/20/18 Range/Units 07:16 10:47 WBC (3.8-10.6) k/uL RBC (4.30-5.90) m/uL Hgb (13.0-17.5) gm/dL Hct (39.0-53.0) % Neutrophils # (1.3-7.7) k/uL Lymphocytes # (1.0-4.8) k/uL Potassium (3.5-5.1) mmol/L BUN (9-20) mg/dL Creatinine (0.66-1.25) mg/dL Glucose (74-99) mg/dL POC Glucose (mg/dL) 299 H 417 H (75-99) mg/dL Calcium (8.4-10.2) mg/dL Microbiology - Last 24 Hours (Table) 03/15/18 12:39 Blood Culture - Preliminary Blood No Growth after 120 hours 03/19/18 09:30 Acid Fast Bacilli Smear - Final Bronchial Washings - Random Acid Fast Bacilli Culture - Preliminary 03/19/18 09:30 Gram Stain - Preliminary Bronchial Washings - Random Bronchial Washings Culture - Preliminary 03/19/18 09:30 Fungal Culture - Preliminary Bronchial Washings - Random 03/15/18 18:26 Blood Culture - Preliminary Blood No Growth after 96 hours 03/15/18 18:00 Blood Culture - Preliminary Blood No Growth after 96 hours Assessment and Plan Assessment: Right upper lobe mass invading trachea, likely cancer recurrence versus new secondary neoplasm of the lung Right upper lobe volume loss likely related to mass in the lung as well as prior surgery 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 as well as XRT palliative Right lower lobe multiple lung nodules 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, mucous plug less likely Hemoptysis related to above Left Perihilar pneumonia and dense consolidation Generalized weakness and medical debility Tracheobronchomalacia CVA Type 2 diabetes mellitus Potential hypertensive cardiovascular disease Plan: Bronchoscopy and possible biopsy results reviewed with the patient's niece at length Gentle rehydration Broad-spectrum antibiotics DVT and peptic ulcer disease prophylaxis Monitor observe clinical course closely Further recommendations pending plan of care as per clinical response of the patient Discharge planning as per primary care service Time with Patient: Greater than 30
== END 2018-03-20 16:05 | disposition home health service (06) | DRG 166 ==
LOC: EC 12:11 → 5ONC 15:22
PROVIDERS: ADMIT Internal Medicine; ATTEND Internal Medicine
PROC: 0B918ZZ Drainage of Trachea, Via Natural or Artificial Opening Endoscopic (ICD-10-PCS; 2018-03-19)
PROC: 0B9F8ZX Drainage of Right Lower Lung Lobe, Via Natural or Artificial Opening Endoscopic, Diagnostic (ICD-10-PCS; principal; 2018-03-19 09:05)
PROC: 0BBC8ZX Excision of Right Upper Lung Lobe, Via Natural or Artificial Opening Endoscopic, Diagnostic (ICD-10-PCS; 2018-03-19 09:05)
PROC: 0BB18ZX Excision of Trachea, Via Natural or Artificial Opening Endoscopic, Diagnostic (ICD-10-PCS; 2018-03-19 09:05)
DX: C34.91 Malignant neoplasm of unspecified part of right bronchus or lung (principal); J69.0 Pneumonitis due to inhalation of food and vomit; I69.351 Hemiplegia and hemiparesis following cerebral infarction affecting right dominant side; B37.0 Candidal stomatitis; R04.2 Hemoptysis; I48.0 Paroxysmal atrial fibrillation; J39.8 Other specified diseases of upper respiratory tract; J44.9 Chronic obstructive pulmonary disease, unspecified; R13.10 Dysphagia, unspecified; J98.09 Other diseases of bronchus, not elsewhere classified; E11.9 Type 2 diabetes mellitus without complications; E78.5 Hyperlipidemia, unspecified; K21.9 Gastro-esophageal reflux disease without esophagitis; I10 Essential (primary) hypertension; F32.9 Major depressive disorder, single episode, unspecified; R26.9 Unspecified abnormalities of gait and mobility; R32 Unspecified urinary incontinence; Z79.82 Long term (current) use of aspirin; Z79.01 Long term (current) use of anticoagulants; Z79.84 Long term (current) use of oral hypoglycemic drugs; Z79.899 Other long term (current) drug therapy; Z87.01 Personal history of pneumonia (recurrent); Z99.3 Dependence on wheelchair; Z90.49 Acquired absence of other specified parts of digestive tract; Z90.2 Acquired absence of lung [part of]; Z98.1 Arthrodesis status; Z92.3 Personal history of irradiation; Z85.118 Personal history of other malignant neoplasm of bronchus and lung; Z87.891 Personal history of nicotine dependence; Z82.3 Family history of stroke; Z80.1 Family history of malignant neoplasm of trachea, bronchus and lung; Z82.49 Family history of ischemic heart disease and other diseases of the circulatory system; R91.1 Solitary pulmonary nodule; R49.0 Dysphonia; R59.1 Generalized enlarged lymph nodes
CPT/HCPCS: 31623; 31624; 31625; 36415; 71046; 71275; 74230; 80048; 80053; 83036; 85025; 85610; 85730; 87040; 87070; 87102; 87116; 87205; 87206; 87252; 87299; 87496; 87498; 87502; 87529; 87541; 87634; 87798; 88104; 88108; 88305; 93005; 94640; 94760; 96374; 99285

== ENCOUNTER 2018-03-23 12:49 | Inpatient (IN) | payer MEDICARE, OTHER ==
--- NOTE | 2018-03-23 13:01 | ED ---
General Adult HPI - General Stated complaint: Difficulty Breathing Time Seen by Provider: 03/23/18 12:49 Source: RN notes reviewed - History of Present Illness Initial comments: This is a 73-year-old male who is brought to us by EMS. Patient comes from a retirement. Patient shows recently released from the hospital for difficulty breathing. Patient has a history of lung cancer. According to staff he was having a hard time breathing so they sent the patient to the emergency room. Patient was only speaking in one-word sentences EMS did not know if this was his baseline but it appears to be. There is no history of any recent fevers there's no history of the patient being any pain the patient does have a cough but it was nonproductive. Patient currently denies any abdominal pain patient denies any headache. Patient acknowledges he has a cough and is occasionally mildly short of breath. - Related Data Home Medications Medication Instructions Recorded Confirmed Cholecalciferol [Vitamin D3] 400 unit PO BID 01/26/16 03/15/18 Simvastatin [Zocor] 10 mg PO HS 01/26/16 03/15/18 traZODone HCL [Desyrel] 100 mg PO HS 01/26/16 03/15/18 Metoprolol Tartrate [Lopressor] 25 mg PO BID 03/15/16 03/15/18 Amiodarone [Cordarone] 200 mg PO DAILY 11/10/16 03/15/18 Aspirin 81 mg PO DAILY 11/10/16 03/15/18 Oxybutynin Chloride [Ditropan] 5 mg PO W/SUPPER 11/10/16 03/15/18 glipiZIDE XL [Glucotrol XL] 2.5 mg PO BID@0630,1600 11/10/16 03/15/18 Dabigatran [Pradaxa] 150 mg PO BID 12/13/17 03/15/18 Esomeprazole Magnesium [NexIUM] 40 mg PO DAILY 12/13/17 03/15/18 Acetaminophen [Tylenol Arthritis] 650 mg PO Q8HR PRN 03/15/18 03/15/18 Cetirizine HCl [Zyrtec] 10 mg PO DAILY 03/15/18 03/15/18 Cyanocobalamin (Vitamin B-12) 1,000 mcg PO DAILY 03/15/18 03/15/18 [Vitamin B-12] Docusate [Colace] 100 mg PO HS 03/15/18 03/15/18 Furosemide [Lasix] 20 mg PO DAILY 03/15/18 03/15/18 Ipratropium-Albuterol Nebulize 3 ml INHALATION RT-Q6H PRN 03/15/18 03/15/18 [Duoneb 0.5 mg-3 mg/3 ml Soln] Propylene Glycol/Peg 400/Pf 1 drop BOTH EYES DAILY PRN 03/15/18 03/15/18 [Systane 0.3-0.4% Eye Drops] guaiFENesin-DM 100-10MG/5ML 10 ml PO Q6HR PRN 03/15/18 03/15/18 [Robitussin DM] Previous Rx's Medication Instructions Recorded Amoxic-Pot Clav 875-125Mg 1 tab PO Q12HR #10 tablet 03/20/18 [Augmentin 875-125] Budesonide-Formot 160-4.5 Mcg 2 puff INHALATION BID #1 inhaler 03/20/18 [Symbicort 160-4.5 Mcg Inhaler] Dextromethorphan Hb/Doxylamine 5 ml PO TID PRN #1 bottle 03/20/18 [Robitussin Nighttime Cough Dm] Nystatin 100,000 Unit/ml Susp 5 ml PO QID #100 ml 03/20/18 [Mycostatin Oral Susp] amLODIPine [Norvasc] 5 mg PO DAILY #30 tab 03/20/18 Allergies Allergy/AdvReac Type Severity Reaction Status Date / Time No Known Allergies Allergy Verified 03/23/18 12:58 Review of Systems ROS Statement: Those systems with pertinent positive or pertinent negative responses have been documented in the HPI. ROS Other: All systems not noted in ROS Statement are negative. Past Medical History Past Medical History: CVA/TIA, Diabetes Mellitus, GERD/Reflux, Hyperlipidemia, Hypertension, Pneumonia, Renal Disease Additional Past Medical History / Comment(s): Lung Cancer right upper lobe with radiation and lobectomy,. HX OF CVA X3 -RIGHT SIDED WEAKNESS, SPEECH DIFFICULT TO UNDERSTAND AT TIMES, W/C BOUND, ABLE TO PIVOT TO TRANSFER WITH ASSISTANCE, DIFFICULTY CHEWING AND SWALLOWING, HX OF ASPIRATION.,WEARS DEPENDS FOR OCC. INCONTINENCE., DDD, KIDNEY FUNCTION AT 50-60%, ENVIRONMENTAL ALLERGIES. PT LIVES AT [facility] -HAS OWN APARTMENT WITH 24 HOUR HELP., HAS DIZZINESS AND DIFFICULTY WITH VISION-WEARS PRISMS IN HIS EYE GLASSES. History of Any Multi-Drug Resistant Organisms: None Reported Past Surgical History: Appendectomy, Tonsillectomy Additional Past Surgical History / Comment(s): EYE SURGERY, right upper lobectomy for Ca 2016, spinal fusions x 2, gallstones removed. Past Anesthesia/Blood Transfusion Reactions: No Reported Reaction Past Psychological History: Depression Additional Psychological History / Comment(s): . Smoking Status: Former smoker Past Alcohol Use History: Rare Additional Past Alcohol Use History / Comment(s): started smoking 1956. Past Drug Use History: None Reported - Past Family History Mother History Unknown: Yes Family Medical History: CVA/TIA Father History Unknown: Yes Family Medical History: No Reported History Brother(s) Family Medical History: Cancer Additional Family Medical History / Comment(s): MESOTHELIOMA LUNG CANCER General Exam - General Exam Comments Initial Comments: GENERAL: Patient is well-developed and well-nourished. Patient is nontoxic and well- hydrated and is in mild distress. ENT: Neck is soft and supple. No significant lymphadenopathy is noted. Oropharynx is clear. Moist mucous membranes. Neck has full range of motion without eliciting any pain. EYES: The sclera were anicteric and conjunctiva were pink and moist. Extraocular movements were intact and pupils were equal round and reactive to light. Eyelids were unremarkable. PULMONARY: Patient does not give a great effort so there is diminished breath sounds bilaterally CARDIOVASCULAR: There is a regular rate and rhythm without any murmurs gallops or rubs. ABDOMEN: Soft and nontender with normal bowel sounds. No palpable organomegaly was noted. There is no palpable pulsatile mass. SKIN: Skin is clear with no lesions or rashes and otherwise unremarkable. NEUROLOGIC: Patient is alert and oriented x3. Cranial nerves II through XII are grossly intact. Motor and sensory are also intact. Normal speech, volume and content. Symmetrical smile. MUSCULOSKELETAL: Normal extremities with adequate strength and full range of motion. No lower extremity swelling or edema. No calf tenderness. LYMPHATICS: No significant lymphadenopathy is noted PSYCHIATRIC: Normal psychiatric evaluation. Normal interpersonal interactions appears functionally intact in deals appropriately with others. No signs of depression. No signs of anxiety. Course Vital Signs 03/23/18 12:52 Temperature 97.3 F L Pulse Rate 65 Respiratory 20 Rate Blood Pressure 149/67 O2 Sat by Pulse 94 L Oximetry Medical Decision Making - Medical Decision Making EKG shows sinus bradycardia 55 bpm ND interval 178 QRSs 180 QT intervals 520 QTC is 497. Patient's EKG shows left bundle-branch block when compared to an old EKG to an old EKG also has left bundle branch block. Chest x-ray shows right lower lobe infiltrate that appears chronic. Patient continues to be dyspneic with any exertion. I spoke with because no one admitted the patient I wrote admitting orders. Because of the infiltrate I started the patient antibiotics. - Lab Data Result diagrams: 03/23/18 13:25 03/23/18 13:25 Lab Results 03/23/18 03/23/18 03/23/18 Range/Units 13:25 13:25 13:25 WBC 12.7 H (3.8-10.6) k/uL RBC 4.45 (4.30-5.90) m/uL Hgb 13.5 (13.0-17.5) gm/dL Hct 41.9 (39.0-53.0) % MCV 94.2 (80.0-100.0) fL MCH 30.4 (25.0-35.0) pg MCHC 32.3 (31.0-37.0) g/dL RDW 13.8 (11.5-15.5) % Plt Count 227 (150-450) k/uL Neutrophils % 87 % Lymphocytes % 4 % Monocytes % 4 % Eosinophils % 3 % Basophils % 0 % Neutrophils # 11.0 H (1.3-7.7) k/uL Lymphocytes # 0.6 L (1.0-4.8) k/uL Monocytes # 0.5 (0-1.0) k/uL Eosinophils # 0.4 (0-0.7) k/uL Basophils # 0.0 (0-0.2) k/uL PT (9.0-12.0) sec INR (<1.2) APTT (22.0-30.0) sec Sodium 142 (137-145) mmol/L Potassium 4.3 (3.5-5.1) mmol/L Chloride 102 (98-107) mmol/L Carbon Dioxide 28 (22-30) mmol/L Anion Gap 12 mmol/L BUN 34 H (9-20) mg/dL Creatinine 1.83 H (0.66-1.25) mg/dL Est GFR (CKD-EPI)AfAm 42 (>60 ml/min/1.73 sqM) Est GFR (CKD-EPI)NonAf 36 (>60 ml/min/1.73 sqM) Glucose 228 H (74-99) mg/dL Plasma Lactic Acid Enrique 2.0 (0.7-2.0) mmol/L Calcium 8.3 L (8.4-10.2) mg/dL Total Bilirubin 0.4 (0.2-1.3) mg/dL AST 21 (17-59) U/L ALT 35 (21-72) U/L Alkaline Phosphatase 58 (38-126) U/L Troponin I (0.000-0.034) ng/mL Total Protein 5.8 L (6.3-8.2) g/dL Albumin 3.3 L (3.5-5.0) g/dL Urine Color Urine Appearance (Clear) Urine pH (5.0-8.0) Ur Specific [place] (1.001-1.035) Urine Protein (Negative) Urine Glucose (UA) (Negative) Urine Ketones (Negative) Urine Blood (Negative) Urine Nitrite (Negative) Urine Bilirubin (Negative) Urine Urobilinogen (<2.0) mg/dL Ur Leukocyte Esterase (Negative) 03/23/18 03/23/18 03/23/18 Range/Units 13:25 13:25 13:45 WBC (3.8-10.6) k/uL RBC (4.30-5.90) m/uL Hgb (13.0-17.5) gm/dL Hct (39.0-53.0) % MCV (80.0-100.0) fL MCH (25.0-35.0) pg MCHC (31.0-37.0) g/dL RDW (11.5-15.5) % Plt Count (150-450) k/uL Neutrophils % % Lymphocytes % % Monocytes % % Eosinophils % % Basophils % % Neutrophils # (1.3-7.7) k/uL Lymphocytes # (1.0-4.8) k/uL Monocytes # (0-1.0) k/uL Eosinophils # (0-0.7) k/uL Basophils # (0-0.2) k/uL PT 13.2 H (9.0-12.0) sec INR 1.4 H (<1.2) APTT 26.8 (22.0-30.0) sec Sodium (137-145) mmol/L Potassium (3.5-5.1) mmol/L Chloride (98-107) mmol/L Carbon Dioxide (22-30) mmol/L Anion Gap mmol/L BUN (9-20) mg/dL Creatinine (0.66-1.25) mg/dL Est GFR (CKD-EPI)AfAm (>60 ml/min/1.73 sqM) Est GFR (CKD-EPI)NonAf (>60 ml/min/1.73 sqM) Glucose (74-99) mg/dL Plasma Lactic Acid Enrique (0.7-2.0) mmol/L Calcium (8.4-10.2) mg/dL Total Bilirubin (0.2-1.3) mg/dL AST (17-59) U/L ALT (21-72) U/L Alkaline Phosphatase (38-126) U/L Troponin I <0.012 (0.000-0.034) ng/mL Total Protein (6.3-8.2) g/dL Albumin (3.5-5.0) g/dL Urine Color Light Yellow Urine Appearance Clear (Clear) Urine pH 6.0 (5.0-8.0) Ur Specific [place] 1.011 (1.001-1.035) Urine Protein Negative (Negative) Urine Glucose (UA) Negative (Negative) Urine Ketones Negative (Negative) Urine Blood Negative (Negative) Urine Nitrite Negative (Negative) Urine Bilirubin Negative (Negative) Urine Urobilinogen <2.0 (<2.0) mg/dL Ur Leukocyte Esterase Negative (Negative) Disposition Clinical Impression: Pneumonia, History of lung cancer Disposition: ADMITTED IP TO THIS [facility] Referrals: Nonstaff,Physician [Primary Care Provider] - 1-2 days Time of Disposition: 14:28
[2018-03-23 13:37] LABS: Basophils % (A) 0 %; Eosinophils # (A) 0.4 k/uL (0-0.7); Eosinophils % (A) 3 %; HCT 41.9 % (39.0-53.0); HGB 13.5 gm/dL (13.0-17.5); Lymphocytes # (A) 0.6 k/uL (1.0-4.8); Lymphocytes % (A) 4 %; MCH 30.4 pg (25.0-35.0); MCHC 32.3 g/dL (31.0-37.0); MCV 94.2 fL (80.0-100.0); Mean Platelet Volume 6.8; Monocytes # (A) 0.5 k/uL (0-1.0); Monocytes % (A) 4 %; Neutrophils % (A) 87 %; Platelet Count 227 k/uL (150-450); RBC 4.45 m/uL (4.30-5.90); RDW 13.8 % (11.5-15.5); WBC 12.7 k/uL (3.8-10.6)
[2018-03-23 13:49] LABS: INR 1.4 (<1.2); Partial Thromboplastin Time 26.8 sec (22.0-30.0); Prothrombin Time 13.2 sec (9.0-12.0)
[2018-03-23 13:54] LABS: Albumin 3.3 g/dL (3.5-5.0); Calcium 8.3 mg/dL (8.4-10.2); Potassium 4.3 mmol/L (3.5-5.1); Total Bilirubin 0.4 mg/dL (0.2-1.3); Total Protein 5.8 g/dL (6.3-8.2)
[2018-03-23 14:04] LABS: Appearance,Urine Clear (Clear); Bilirubin,Urine Negative (Negative); Blood,Urine Negative (Negative); Color,Urine Light Yellow; Glucose,Urine (UA) Negative (Negative); Ketones,Urine Negative (Negative); Leukocyte Esterase,Urine Negative (Negative); Nitrite,Urine Negative (Negative); Protein,Urine Negative (Negative); Specific Gravity,Urine 1.011 (1.001-1.035); Urobilinogen,Urine <2.0 mg/dL (<2.0)
--- NOTE | 2018-03-23 14:07 | XR ---
EXAMINATION TYPE: XR chest 2V DATE OF EXAM: 03/23/2018 COMPARISON: Prior chest x-ray dated 03/16/2018. HISTORY: Fever TECHNIQUE: Frontal and lateral views of the chest are obtained. FINDINGS: Persistent loss of volume in the right hemithorax which appears less prominent when compare d with prior exam. Persistent infiltrate of the right lung base. Multiple monitor leads are superimpo sing the patient chest without underlying pneumothorax. The patient is rotated towards right side. Ca nnot evaluate the mediastinum and due to the patient rotation. Suspect the compensation changes with accentuation of interstitial markings in both lung amador. IMPRESSION: Limitation by the patient rotation. Persistent infiltrate in the right lung with loss of volume. Accentuation of the interstitial markings in both lung amador suspicious for decompensation c hanges. No pneumothorax.
[2018-03-23] MEDS ORDERED: LEVOFLOXACIN 750MG-D5W PMX 750 MG in DEXTROSE/WATER 1 150ML.BAG IVPB STA (14:28)
[2018-03-23] MEDS ORDERED: PNEUMONIA PROTOCOL UTILIZED 1 EACH MISC PO PRN (14:28)
[2018-03-23] MEDS ORDERED: PIPERACILLIN-TAZOBACTAM 3.375 GM in DEXTROSE/WATER 1 50ML.BAG IVPB STA (14:28)
[2018-03-23] MEDS ORDERED: ALBUTEROL NEBULIZED 2.5 MG/3 ML INHALATION SCH (16:00)
[2018-03-23] MEDS ORDERED: DOCUSATE 100 MG CAP PO PRN (17:56)
[2018-03-23] MEDS ORDERED: DOXYLAMINE PO PRN (17:56)
[2018-03-23] MEDS ORDERED: [UNRECOGNIZED DRUG - OTHER] PO PRN (17:56)
[2018-03-23] MEDS ORDERED: ACETAMINOPHEN TAB 325 MG TAB PO PRN (17:56)
[2018-03-23] MEDS ORDERED: DEXTROMETHORPHAN PO PRN (17:56)
[2018-03-23] MEDS ORDERED: guaiFENesin-DM 100-10MG/5ML 10 ML CUP PO PRN (17:56)
[2018-03-23] MEDS ORDERED: IPRATROPIUM-ALBUTEROL 3 ML NEB INHALATION PRN (17:59)
--- NOTE | 2018-03-23 18:35 | P.HPIM ---
History of Present Illness 71-year-old gentleman came in with complains of shortness of breath which started after he went out to get some fresh air because of the heat and humidity patient appears to have had bronchospasm presently patient is off oxygen and doing well. Patient was recently discharged from the hospital after he was treated for aspiration pneumonia no fevers patient leukocytosis is pretty much stable at around 11,000 12,000 patient denied any increase in cough patient still had similar infiltrate in the right lower lung amador at which was present at the time of discharge. Patient does have history of smoking may have COPD or asthma with acute exacerbation since he is not wheezing much symptoms improved now with breathing treatments patient will not be started on any systemic steroids will be started on inhaled steroids as needed albuterol ipratropium possibly of discharge tomorrow. We also get the opinion from his collaborative teacher Dr. Cabral. Patient was treated for aspiration pneumonia patient was evaluated by speech therapy and his diet was modified subsequently discharged from the hospital. Patient had paratracheal lymphadenopathy concerning for recurrence of his squamous lung cancer. Patient declined to go to rehab went to [facility] with [address] [place] [address]. Review of Systems REVIEW OF SYSTEMS: CONSTITUTIONAL: No fever, no malaise, no fatigue. HEENT: No recent visual problems or hearing problems. Denied any sore throat. CARDIOVASCULAR: No chest pain, orthopnea, PND, no palpitations, no syncope. PULMONARY: no hemoptysis. GASTROINTESTINAL: No diarrhea, no nausea, no vomiting, no abdominal pain. Normoactive bowel sounds. NEUROLOGICAL: No headaches, no weakness, no numbness. HEMATOLOGICAL: Denies any bleeding or petechiae. GENITOURINARY: Denies any burning micturition, frequency, or urgency. MUSCULOSKELETAL/RHEUMATOLOGICAL: Denies any joint pain, swelling, or any muscle pain. ENDOCRINE: Denies any polyuria or polydipsia. The rest of the 14-point review of systems is negative. Past Medical History Past Medical History: CVA/TIA, Diabetes Mellitus, GERD/Reflux, Hyperlipidemia, Hypertension, Pneumonia, Renal Disease Additional Past Medical History / Comment(s): Lung Cancer right upper lobe with radiation and lobectomy,. HX OF CVA X3 -RIGHT SIDED WEAKNESS, SPEECH DIFFICULT TO UNDERSTAND AT TIMES, W/C BOUND, ABLE TO PIVOT TO TRANSFER WITH ASSISTANCE, DIFFICULTY CHEWING AND SWALLOWING, HX OF ASPIRATION.,WEARS DEPENDS FOR OCC. INCONTINENCE., DDD, KIDNEY FUNCTION AT 50-60%, ENVIRONMENTAL ALLERGIES. PT LIVES AT [facility] -HAS OWN APARTMENT WITH 24 HOUR HELP., HAS DIZZINESS AND DIFFICULTY WITH VISION-WEARS PRISMS IN HIS EYE GLASSES. History of Any Multi-Drug Resistant Organisms: None Reported Past Surgical History: Appendectomy, Tonsillectomy Additional Past Surgical History / Comment(s): EYE SURGERY, right upper lobectomy for Ca 2016, spinal fusions x 2, gallstones removed. Past Anesthesia/Blood Transfusion Reactions: No Reported Reaction Past Psychological History: Depression Additional Psychological History / Comment(s): . Smoking Status: Former smoker Past Alcohol Use History: Rare Additional Past Alcohol Use History / Comment(s): started smoking 1956. Past Drug Use History: None Reported - Past Family History Mother History Unknown: Yes Family Medical History: CVA/TIA Father History Unknown: Yes Family Medical History: No Reported History Brother(s) Family Medical History: Cancer Additional Family Medical History / Comment(s): MESOTHELIOMA LUNG CANCER Medications and Allergies Home Medications Medication Instructions Recorded Confirmed Type Cholecalciferol [Vitamin D3] 400 unit PO BID 01/26/16 03/23/18 History Simvastatin [Zocor] 10 mg PO HS 01/26/16 03/23/18 History traZODone HCL [Desyrel] 100 mg PO HS 01/26/16 03/23/18 History Metoprolol Tartrate [Lopressor] 25 mg PO BID 03/15/16 03/23/18 History Amiodarone [Cordarone] 200 mg PO DAILY 11/10/16 03/23/18 History Aspirin 81 mg PO DAILY 11/10/16 03/23/18 History Oxybutynin Chloride [Ditropan] 5 mg PO W/SUPPER 11/10/16 03/23/18 History glipiZIDE XL [Glucotrol XL] 2.5 mg PO BID@0630,1600 11/10/16 03/23/18 History Dabigatran [Pradaxa] 150 mg PO BID 12/13/17 03/23/18 History Esomeprazole Magnesium [NexIUM] 40 mg PO DAILY 12/13/17 03/23/18 History Acetaminophen [Tylenol Arthritis] 650 mg PO Q8HR PRN 03/15/18 03/23/18 History Cetirizine HCl [Zyrtec] 10 mg PO DAILY 03/15/18 03/23/18 History Cyanocobalamin (Vitamin B-12) 1,000 mcg PO DAILY 03/15/18 03/23/18 History [Vitamin B-12] Docusate [Colace] 100 mg PO HS 03/15/18 03/23/18 History Furosemide [Lasix] 20 mg PO DAILY 03/15/18 03/23/18 History Ipratropium-Albuterol Nebulize 3 ml INHALATION RT-Q6H PRN 03/15/18 03/23/18 History [Duoneb 0.5 mg-3 mg/3 ml Soln] Propylene Glycol/Peg 400/Pf 1 drop BOTH EYES DAILY PRN 03/15/18 03/23/18 History [Systane 0.3-0.4% Eye Drops] guaiFENesin-DM 100-10MG/5ML 10 ml PO Q6HR PRN 03/15/18 03/23/18 History [Robitussin DM] Amoxic-Pot Clav 875-125Mg 1 tab PO Q12HR #10 tablet 03/20/18 03/23/18 Rx [Augmentin 875-125] Dextromethorphan Hb/Doxylamine 5 ml PO TID PRN #1 bottle 03/20/18 03/23/18 Rx [Robitussin Nighttime Cough Dm] Nystatin 100,000 Unit/ml Susp 5 ml PO QID #100 ml 03/20/18 03/23/18 Rx [Mycostatin Oral Susp] amLODIPine [Norvasc] 5 mg PO DAILY #30 tab 03/20/18 03/23/18 Rx Budesonide-Formot 160-4.5 Mcg 2 puff INHALATION RT-BID 03/23/18 03/23/18 History [Symbicort 160-4.5 Mcg Inhaler] Allergies Allergy/AdvReac Type Severity Reaction Status Date / Time No Known Allergies Allergy Verified 03/23/18 14:57 Physical Exam Vitals: Vital Signs Temp Pulse Resp BP Pulse Ox 03/23/18 17:35 97.9 F 62 16 146/67 91 L 03/23/18 15:52 62 03/23/18 15:45 61 03/23/18 15:06 55 L 16 157/70 94 L 03/23/18 12:52 97.3 F L 65 20 149/67 94 L Intake and Output 03/23/18 03/23/18 03/23/18 06:59 14:59 22:59 Output Total 50 Balance -50 Output: Urine 50 Straight 50 Other: Weight 77.836 kg PHYSICAL EXAMINATION: GENERAL: The patient is alert and oriented x3, not in any acute distress. Well developed, well nourished. HEENT: Pupils are round and equally reacting to light. EOMI. No scleral icterus. No conjunctival pallor. Normocephalic, atraumatic. No pharyngeal erythema. No thyromegaly. CARDIOVASCULAR: S1 and S2 present. No murmurs, rubs, or gallops. PULMONARY: Bibasilar crackles predominantly in right lower lung bases ABDOMEN: Soft, nontender, nondistended, normoactive bowel sounds. No palpable organomegaly. MUSCULOSKELETAL: No joint swelling or deformity. EXTREMITIES: No cyanosis, clubbing, or pedal edema. NEUROLOGICAL: Gross neurological examination did not reveal any new focal deficits but he does have some weakness in the left side from his previous stroke as have significant generalized weakness. SKIN: No rashes. Results CBC & Chem 7: 03/23/18 13:25 03/23/18 13:25 Labs: Abnormal Lab Results - Last 24 Hours (Table) 03/23/18 03/23/18 03/23/18 Range/Units 13:25 13:25 13:25 WBC 12.7 H (3.8-10.6) k/uL Neutrophils # 11.0 H (1.3-7.7) k/uL Lymphocytes # 0.6 L (1.0-4.8) k/uL PT 13.2 H (9.0-12.0) sec INR 1.4 H (<1.2) BUN 34 H (9-20) mg/dL Creatinine 1.83 H (0.66-1.25) mg/dL Glucose 228 H (74-99) mg/dL Calcium 8.3 L (8.4-10.2) mg/dL Total Protein 5.8 L (6.3-8.2) g/dL Albumin 3.3 L (3.5-5.0) g/dL Assessment and Plan Plan: -Shortness of breath probably secondary to either mild COPD or asthma exacerbation patient is already feeling better will be monitored overnight and patient will be started on inhaled steroids and breathing treatments possibility of discharge tomorrow -Recent possible aspiration pneumonia for which patient is on Augmentin with which patient is having multiple stools. There is no recurrence of pneumonia chest x-ray findings as infiltrate from his previous pneumonia for which patient is on Augmentin he'll complete the therapy by tomorrow. 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 -Recent history of dysphagia and patient is on modified diet which will be continued -History of CVA in the past without any significant new weakness -Hypertension -Hyperlipidemia -Gastroesophageal reflux disease -Mild acute renal failure from diuretic therapy which will be held patient's baseline creatinine is 1.2 patient has chronic kidney disease stage III from diabetes mellitus. Gentle hydration for a day -CODE STATUS do not rest are discussed with daughter
[2018-03-23] MEDS: SYMBICORT 160-4.5 MCG INHALER INHALATION SCH (18:54)
[2018-03-23] MEDS: IPRATROPIUM-ALBUTEROL 3 ML NEB INHALATION SCH (18:54)
[2018-03-23 20:12] VITALS: BMI 28.6
[2018-03-23] MEDS: SODIUM CHLORIDE 0.9% 1,000 ML IV SCH (20:36)
[2018-03-23] MEDS ORDERED: ATORVASTATIN 10 MG TAB PO SCH (21:00)
[2018-03-23] MEDS ORDERED: traZODone HCL 100 MG TAB PO SCH (21:00)
[2018-03-23] MEDS: NYSTATIN 100,000 UNIT/ML SUSP 500,000 UNIT/5 ML CUP PO SCH (22:58)
[2018-03-23] MEDS: CHOLECALCIFEROL 400 UNIT TAB PO SCH (22:59)
[2018-03-23] MEDS: METOPROLOL TARTRATE 25 MG TAB PO SCH (22:59)
[2018-03-23] MEDS: DABIGATRAN 150 MG CAP PO SCH (22:59)
[2018-03-24] MEDS ORDERED: PIPERACILLIN-TAZOBACTAM 3.375 GM in DEXTROSE/WATER 1 50ML.BAG IVPB SCH
--- NOTE | 2018-03-24 00:05 | XR ---
EXAMINATION TYPE: XR chest 1V portable DATE OF EXAM: 03/23/2018 COMPARISON: Today HISTORY: Coughing and choking TECHNIQUE: Single frontal view of the chest is obtained. FINDINGS: There is moderate interstitial edema. There is blunting of costophrenic angles and more on the right side. Thoracic aorta is atheromatous. Heart and mediastinum are shifted to the right. IMPRESSION: Pleural effusions and pulmonary interstitial edema are unchanged compared to earlier exa m. This could be congestive heart failure. Heart and mediastinum are deviated to the right side that is worse than older exam of 04/19/2016 and could relate to some significant atelectasis on the right s niki.
[2018-03-24] MEDS: NYSTATIN 100,000 UNIT/ML SUSP 500,000 UNIT/5 ML CUP PO SCH ×4 (00:11→17:03)
[2018-03-24] MEDS: DABIGATRAN 150 MG CAP PO SCH (07:23)
[2018-03-24] MEDS: CHOLECALCIFEROL 400 UNIT TAB PO SCH (07:23)
[2018-03-24] MEDS: METOPROLOL TARTRATE 25 MG TAB PO SCH (07:23)
[2018-03-24] MEDS ORDERED: PANTOPRAZOLE 40 MG TABLET PO SCH (07:30)
[2018-03-24] MEDS: IPRATROPIUM-ALBUTEROL 3 ML NEB INHALATION SCH ×3 (07:33→16:14)
[2018-03-24] MEDS: SYMBICORT 160-4.5 MCG INHALER INHALATION SCH (07:33)
[2018-03-24] MEDS: SODIUM CHLORIDE 0.9% 1,000 ML IV SCH (08:37)
[2018-03-24] MEDS ORDERED: LORATADINE 10 MG TAB PO SCH (09:00)
[2018-03-24] MEDS ORDERED: AMOXIC-POT CLAV 875-125MG 1 EACH TAB PO SCH (09:00)
[2018-03-24] MEDS ORDERED: AMIODARONE 200 MG TAB PO SCH (09:00)
[2018-03-24] MEDS ORDERED: ASPIRIN 81 MG PO SCH (09:00)
[2018-03-24] MEDS ORDERED: amLODIPine 5 MG TAB PO SCH (09:00)
--- NOTE | 2018-03-24 10:50 | P.DS ---
Providers Date of admission: 03/23/18 14:28 Attending physician: Abbi Suarez Consults: 03/23/18 18:25 Consult Physician Routine Consulting Provider: Ervin Cabral Consult Reason/Comments: SOB Do you want consulting provider notified?: Yes Primary care physician: Physician Nonstaff Hospital Course: 71-year-old gentleman came in with complains of shortness of breath which started after he went out to get some fresh air because of the heat and humidity patient appears to have had bronchospasm presently patient is off oxygen and doing well. Patient was recently discharged from the hospital after he was treated for aspiration pneumonia no fevers patient leukocytosis is pretty much stable at around 11,000 12,000 patient denied any increase in cough patient still had similar infiltrate in the right lower lung amador at which was present at the time of discharge. Patient does have history of smoking may have COPD or asthma with acute exacerbation since he is not wheezing much symptoms improved now with breathing treatments patient will not be started on any systemic steroids will be started on inhaled steroids as needed albuterol ipratropium possibly of discharge tomorrow. We also get the opinion from his molder feeder Dr. Cabral. Patient was treated for aspiration pneumonia patient was evaluated by speech therapy and his diet was modified subsequently discharged from the hospital. Patient had paratracheal lymphadenopathy concerning for recurrence of his squamous lung cancer. Patient declined to go to rehab went to [facility] with 24 7 care. 03/24/2018 Patient looks good but repeat chest x-ray was Suspicious for Pulmonary Edema, clinically I did not see any JVD will obtain a BNP. Depending on BNP I'll decide on Lasix and patient most probably will be discharged if agreeable with the family. She most probably has bronchospasm from asthma or COPD exacerbation not requiring any systemic steroids at this time. Patient does not have any recurrence of pneumonia patient will be done with Augmentin today Augmentin will be discontinued at the time of discharge. I'm also waiting on a branch associate teller recommendations regarding improving his protein intake PHYSICAL EXAMINATION: GENERAL: The patient is alert and oriented x3, not in any acute distress. Well developed, well nourished. HEENT: Pupils are round and equally reacting to light. EOMI. No scleral icterus. No conjunctival pallor. Normocephalic, atraumatic. No pharyngeal erythema. No thyromegaly. CARDIOVASCULAR: S1 and S2 present. No murmurs, rubs, or gallops. PULMONARY: Bibasilar crackles predominantly in right lower lung bases ABDOMEN: Soft, nontender, nondistended, normoactive bowel sounds. No palpable organomegaly. MUSCULOSKELETAL: No joint swelling or deformity. EXTREMITIES: No cyanosis, clubbing, or pedal edema. NEUROLOGICAL: Gross neurological examination did not reveal any new focal deficits but he does have some weakness in the left side from his previous stroke as have significant generalized weakness. SKIN: No rashes. 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 -Recent history of dysphagia and patient is on modified diet which will be continued -History of CVA in the past without any significant new weakness -Hypertension -Hyperlipidemia -Gastroesophageal reflux disease -Mild acute renal failure from diuretic therapy which will be held patient's baseline creatinine is 1.2 patient has chronic kidney disease stage III from diabetes mellitus. IV fluids will be discussed will obtain a BNP Lasix will be discontinued at the time of discharge on was BNP is elevated clinically patient does not appear to be in heart failure exacerbation -CODE STATUS do not resuscitate discussed with family member Plan - Discharge Summary New Discharge Prescriptions: New Docusate [Colace] 100 mg PO HS PRN cap PRN Reason: Constipation Ranitidine HCl [Zantac] 150 mg PO BID #30 tab Continue Cholecalciferol [Vitamin D3] 400 unit PO BID Simvastatin [Zocor] 10 mg PO HS traZODone HCL [Desyrel] 100 mg PO HS Metoprolol Tartrate [Lopressor] 25 mg PO BID Oxybutynin Chloride [Ditropan] 5 mg PO W/SUPPER glipiZIDE XL [Glucotrol XL] 2.5 mg PO BID@0630,1600 Aspirin 81 mg PO DAILY Amiodarone [Cordarone] 200 mg PO DAILY Dabigatran [Pradaxa] 150 mg PO BID guaiFENesin-DM 100-10MG/5ML [Robitussin DM] 10 ml PO Q6HR PRN PRN Reason: Cough Ipratropium-Albuterol Nebulize [Duoneb 0.5 mg-3 mg/3 ml Soln] 3 ml INHALATION RT-Q6H PRN PRN Reason: Shortness Of Breath Acetaminophen [Tylenol Arthritis] 650 mg PO Q8HR PRN PRN Reason: Pain Cetirizine HCl [Zyrtec] 10 mg PO DAILY Cyanocobalamin (Vitamin B-12) [Vitamin B-12] 1,000 mcg PO DAILY Propylene Glycol/Peg 400/Pf [Systane 0.3-0.4% Eye Drops] 1 drop BOTH EYES DAILY PRN PRN Reason: Dry Eye(S) amLODIPine [Norvasc] 5 mg PO DAILY #30 tab Dextromethorphan Hb/Doxylamine [Robitussin Nighttime Cough Dm] 5 ml PO TID PRN #1 bottle PRN Reason: Cough Nystatin 100,000 Unit/ml Susp [Mycostatin Oral Susp] 5 ml PO QID #100 ml Budesonide-Formot 160-4.5 Mcg [Symbicort 160-4.5 Mcg Inhaler] 2 puff INHALATION RT-BID Discontinued Esomeprazole Magnesium [NexIUM] 40 mg PO DAILY Furosemide [Lasix] 20 mg PO DAILY Docusate [Colace] 100 mg PO HS Amoxic-Pot Clav 875-125Mg [Augmentin 875-125] 1 tab PO Q12HR #10 tablet Discharge Medication List Cholecalciferol [Vitamin D3] 400 unit PO BID 01/26/16 [History] Simvastatin [Zocor] 10 mg PO HS 01/26/16 [History] traZODone HCL [Desyrel] 100 mg PO HS 01/26/16 [History] Metoprolol Tartrate [Lopressor] 25 mg PO BID 03/15/16 [History] Amiodarone [Cordarone] 200 mg PO DAILY 11/10/16 [History] Aspirin 81 mg PO DAILY 11/10/16 [History] Oxybutynin Chloride [Ditropan] 5 mg PO W/SUPPER 11/10/16 [History] glipiZIDE XL [Glucotrol XL] 2.5 mg PO BID@0630,1600 11/10/16 [History] Dabigatran [Pradaxa] 150 mg PO BID 12/13/17 [History] Acetaminophen [Tylenol Arthritis] 650 mg PO Q8HR PRN 03/15/18 [History] Cetirizine HCl [Zyrtec] 10 mg PO DAILY 03/15/18 [History] Cyanocobalamin (Vitamin B-12) [Vitamin B-12] 1,000 mcg PO DAILY 03/15/18 [ History] Ipratropium-Albuterol Nebulize [Duoneb 0.5 mg-3 mg/3 ml Soln] 3 ml INHALATION RT -Q6H PRN 03/15/18 [History] Propylene Glycol/Peg 400/Pf [Systane 0.3-0.4% Eye Drops] 1 drop BOTH EYES DAILY PRN 03/15/18 [History] guaiFENesin-DM 100-10MG/5ML [Robitussin DM] 10 ml PO Q6HR PRN 03/15/18 [History] Dextromethorphan Hb/Doxylamine [Robitussin Nighttime Cough Dm] 5 ml PO TID PRN # 1 bottle 03/20/18 [Rx] Nystatin 100,000 Unit/ml Susp [Mycostatin Oral Susp] 5 ml PO QID #100 ml [Rx] amLODIPine [Norvasc] 5 mg PO DAILY #30 tab 03/20/18 [Rx] Budesonide-Formot 160-4.5 Mcg [Symbicort 160-4.5 Mcg Inhaler] 2 puff INHALATION RT-BID 03/23/18 [History] Docusate [Colace] 100 mg PO HS PRN cap 03/24/18 [Rx] Ranitidine HCl [Zantac] 150 mg PO BID #30 tab 03/24/18 [Rx] Follow up Appointment(s)/Referral(s): Nonstaff,Physician [Primary Care Provider] - 3 Days
[2018-03-24 10:54] LABS: Calcium 8.2 mg/dL (8.4-10.2); Potassium 4.5 mmol/L (3.5-5.1)
[2018-03-24] MEDS ORDERED: CYANOCOBALAMIN 500 MCG TAB PO SCH (12:00)
--- NOTE | 2018-03-24 13:11 | P.CNPUL ---
History of Present Illness Consult date: 03/24/18 Reason for consult: dyspnea, cough, pneumonia Chief complaint: Shortness of breath and intermittent wheezing History of present illness: Mr. Ray Pink is 73-year-old male who was recently discharged from the hospital after a finding of tracheal mass with a biopsy confirmed presence of squamous cell cancer he also has left-sided pneumonia patient was treated with broad-spectrum antibiotics subsequently was discharged at home because of the heat and humidity patient appears to have had bronchospasm presently patient is off oxygen and doing well. Patient was recently discharged from the hospital after he was treated for aspiration pneumonia no fevers patient leukocytosis is pretty much stable at around 11,000 12,000 patient denied any increase in cough patient still had similar infiltrate in the right lower lung amador at which was present at the time of discharge Review of Systems All systems: negative Past Medical History Past Medical History: CVA/TIA, Diabetes Mellitus, GERD/Reflux, Hyperlipidemia, Hypertension, Pneumonia, Renal Disease Additional Past Medical History / Comment(s): Lung Cancer right upper lobe with radiation and lobectomy,. HX OF CVA X3 -RIGHT SIDED WEAKNESS, SPEECH DIFFICULT TO UNDERSTAND AT TIMES, W/C BOUND, ABLE TO PIVOT TO TRANSFER WITH ASSISTANCE, DIFFICULTY CHEWING AND SWALLOWING, HX OF ASPIRATION.,WEARS DEPENDS FOR OCC. INCONTINENCE., DDD, KIDNEY FUNCTION AT 50-60%, ENVIRONMENTAL ALLERGIES. PT LIVES AT [facility] -HAS OWN APARTMENT WITH 24 HOUR HELP., HAS DIZZINESS AND DIFFICULTY WITH VISION-WEARS PRISMS IN HIS EYE GLASSES. History of Any Multi-Drug Resistant Organisms: None Reported Past Surgical History: Appendectomy, Tonsillectomy Additional Past Surgical History / Comment(s): EYE SURGERY, right upper lobectomy for Ca 2016, spinal fusions x 2, gallstones removed. Past Anesthesia/Blood Transfusion Reactions: No Reported Reaction Past Psychological History: Depression Additional Psychological History / Comment(s): . Smoking Status: Former smoker Past Alcohol Use History: Rare Additional Past Alcohol Use History / Comment(s): started smoking 1956. Past Drug Use History: None Reported - Past Family History Mother History Unknown: Yes Family Medical History: CVA/TIA Father History Unknown: Yes Family Medical History: No Reported History Brother(s) Family Medical History: Cancer Additional Family Medical History / Comment(s): MESOTHELIOMA LUNG CANCER Medications and Allergies Home Medications Medication Instructions Recorded Confirmed Type Cholecalciferol [Vitamin D3] 400 unit PO BID 01/26/16 03/23/18 History Simvastatin [Zocor] 10 mg PO HS 01/26/16 03/23/18 History traZODone HCL [Desyrel] 100 mg PO HS 01/26/16 03/23/18 History Metoprolol Tartrate [Lopressor] 25 mg PO BID 03/15/16 03/23/18 History Amiodarone [Cordarone] 200 mg PO DAILY 11/10/16 03/23/18 History Aspirin 81 mg PO DAILY 11/10/16 03/23/18 History Oxybutynin Chloride [Ditropan] 5 mg PO W/SUPPER 11/10/16 03/23/18 History glipiZIDE XL [Glucotrol XL] 2.5 mg PO BID@0630,1600 11/10/16 03/23/18 History Dabigatran [Pradaxa] 150 mg PO BID 12/13/17 03/23/18 History Acetaminophen [Tylenol Arthritis] 650 mg PO Q8HR PRN 03/15/18 03/23/18 History Cetirizine HCl [Zyrtec] 10 mg PO DAILY 03/15/18 03/23/18 History Cyanocobalamin (Vitamin B-12) 1,000 mcg PO DAILY 03/15/18 03/23/18 History [Vitamin B-12] Ipratropium-Albuterol Nebulize 3 ml INHALATION RT-Q6H PRN 03/15/18 03/23/18 History [Duoneb 0.5 mg-3 mg/3 ml Soln] Propylene Glycol/Peg 400/Pf 1 drop BOTH EYES DAILY PRN 03/15/18 03/23/18 History [Systane 0.3-0.4% Eye Drops] guaiFENesin-DM 100-10MG/5ML 10 ml PO Q6HR PRN 03/15/18 03/23/18 History [Robitussin DM] Dextromethorphan Hb/Doxylamine 5 ml PO TID PRN #1 bottle 03/20/18 03/23/18 Rx [Robitussin Nighttime Cough Dm] Nystatin 100,000 Unit/ml Susp 5 ml PO QID #100 ml 03/20/18 03/23/18 Rx [Mycostatin Oral Susp] amLODIPine [Norvasc] 5 mg PO DAILY #30 tab 03/20/18 03/23/18 Rx Budesonide-Formot 160-4.5 Mcg 2 puff INHALATION RT-BID 03/23/18 03/23/18 History [Symbicort 160-4.5 Mcg Inhaler] Docusate [Colace] 100 mg PO HS PRN cap 03/24/18 Rx Ranitidine HCl [Zantac] 150 mg PO BID #30 tab 03/24/18 Rx Allergies Allergy/AdvReac Type Severity Reaction Status Date / Time No Known Allergies Allergy Verified 03/23/18 14:57 Physical Exam Vitals: Vital Signs Temp Pulse Pulse Resp BP BP Pulse Ox 03/24/18 11:06 60 16 03/24/18 10:55 62 16 03/24/18 08:00 59 L 16 03/24/18 07:45 58 L 16 03/24/18 07:33 57 L 16 94 L 03/24/18 07:17 154/70 03/24/18 04:47 98.0 F 59 L 16 134/72 94 L 03/23/18 21:11 98.2 F 58 L 16 125/64 94 L 03/23/18 19:14 97.5 F L 55 L 16 149/62 99 03/23/18 19:08 60 03/23/18 18:59 60 03/23/18 17:35 97.9 F 62 16 146/67 91 L 03/23/18 15:52 62 03/23/18 15:45 61 03/23/18 15:06 55 L 16 157/70 94 L Intake and Output 03/23/18 03/24/18 03/24/18 22:59 06:59 14:59 Intake Total 225 Balance 225 Intake: Intake, IV Titration 225 Amount Sodium Chloride 0.9% 1, 225 000 ml @ 75 mls/hr IV . [id number] [facility] Rx#:[id number] Other: Voiding Method Diaper Diaper # Voids 1 1 Weight 83 kg GENERAL: The patient is alert and oriented x3, not in any acute distress. Well developed, well nourished. HEENT: Pupils are round and equally reacting to light. EOMI. No scleral icterus. No conjunctival pallor. Normocephalic, atraumatic. No pharyngeal erythema. No thyromegaly. CARDIOVASCULAR: S1 and S2 present. No murmurs, rubs, or gallops. PULMONARY: Bibasilar crackles predominantly in right lower lung bases ABDOMEN: Soft, nontender, nondistended, normoactive bowel sounds. No palpable organomegaly. MUSCULOSKELETAL: No joint swelling or deformity. EXTREMITIES: No cyanosis, clubbing, or pedal edema. NEUROLOGICAL: Gross neurological examination did not reveal any new focal deficits but he does have some weakness in the left side from his previous stroke as have significant generalized weakness. SKIN: No rashes. Results - Laboratory Findings CBC and BMP: 03/23/18 13:25 03/24/18 10:12 PT/INR, D-dimer PT 13.2 sec (9.0-12.0) H 03/23/18 13:25 INR 1.4 (<1.2) H 03/23/18 13:25 Abnormal lab findings: Abnormal Labs 03/23/18 03/23/18 03/23/18 13:25 13:25 13:25 WBC 12.7 H Neutrophils # 11.0 H Lymphocytes # 0.6 L PT 13.2 H INR 1.4 H Chloride BUN 34 H Creatinine 1.83 H Glucose 228 H Calcium 8.3 L Total Protein 5.8 L Albumin 3.3 L 03/24/18 10:12 WBC Neutrophils # Lymphocytes # PT INR Chloride 108 H BUN 24 H Creatinine 1.64 H Glucose 106 H Calcium 8.2 L Total Protein Albumin - Diagnostic Findings Chest x-ray: report reviewed, image reviewed (As noted above) Assessment and Plan Assessment: Left-sided pneumonia, overall is stable COPD with possible exacerbation New diagnosis of tracheal mass biopsy confirmed squamous cell cancer further evaluation and therapy as per oncology service History of prior squamous cell lung cancer status post right upper lobe resection Plan: As noted above breathing treatments antibiotics supportive care and agree with discharge planning if remains stable Time with Patient: Greater than 30
--- NOTE | 2018-03-24 13:50 | XR ---
EXAMINATION TYPE: XR chest 2V DATE OF EXAM: 03/24/2018 COMPARISON: Prior chest 03/23/2018, CT chest 03/12/2018, PET/CT 04/21/2016 HISTORY: Pneumonia TECHNIQUE: Frontal and lateral views of the chest are obtained. FINDINGS: Heart is enlarged. No pneumothorax or sizable effusion. Apical pleural thickening in the r ight persists. Interstitium is increased. Pulmonary vascularity and ana laura not significantly changed, p erihilar soft tissue density persists. The patient is rotated. Surgical clips present in the upper ab domen. IMPRESSION: Correlate to exclude pulmonary venous hypertension and interstitial edema. Pneumonia andrea christy mass present in the hilar regions.
[2018-03-24 15:19] VITALS: BP 103/47; TEMP 97.3
[2018-03-24 16:17] VITALS: RESP 18
[2018-03-24 16:45] VITALS: PULSE 56
[2018-03-24] MEDS ORDERED: OXYBUTYNIN CHLORIDE 5 MG TAB PO SCH (17:30)
[2018-03-25] MEDS ORDERED: LEVOFLOXACIN 750MG-D5W PMX 750 MG in DEXTROSE/WATER 1 150ML.BAG IVPB SCH (15:00)
== END 2018-03-24 19:00 | disposition home or self-care (01) | DRG 190 ==
LOC: EC 12:49 → 4MS4W 14:28 → 5MS5E 17:11
PROVIDERS: ADMIT Internal Medicine; ATTEND Internal Medicine
DX: J44.1 Chronic obstructive pulmonary disease with (acute) exacerbation (principal); J69.0 Pneumonitis due to inhalation of food and vomit; J45.901 Unspecified asthma with (acute) exacerbation; N17.9 Acute kidney failure, unspecified; I69.351 Hemiplegia and hemiparesis following cerebral infarction affecting right dominant side; C33 Malignant neoplasm of trachea; J44.0 Chronic obstructive pulmonary disease with (acute) lower respiratory infection; K21.9 Gastro-esophageal reflux disease without esophagitis; N18.3 Chronic kidney disease, stage 3 (moderate); Z66 Do not resuscitate; Z85.118 Personal history of other malignant neoplasm of bronchus and lung; E11.22 Type 2 diabetes mellitus with diabetic chronic kidney disease; E78.5 Hyperlipidemia, unspecified; F32.9 Major depressive disorder, single episode, unspecified; I12.9 Hypertensive chronic kidney disease with stage 1 through stage 4 chronic kidney disease, or unspecified chronic kidney disease; I44.7 Left bundle-branch block, unspecified; Z79.01 Long term (current) use of anticoagulants; Z79.51 Long term (current) use of inhaled steroids; Z79.82 Long term (current) use of aspirin; Z79.899 Other long term (current) drug therapy; Z80.1 Family history of malignant neoplasm of trachea, bronchus and lung; Z87.01 Personal history of pneumonia (recurrent); Z87.891 Personal history of nicotine dependence; I69.328 Other speech and language deficits following cerebral infarction; Z92.3 Personal history of irradiation; T78.1XXA Other adverse food reactions, not elsewhere classified, initial encounter; R13.10 Dysphagia, unspecified; R32 Unspecified urinary incontinence; K59.00 Constipation, unspecified; Z71.3 Dietary counseling and surveillance; Z90.2 Acquired absence of lung [part of]; Z79.2 Long term (current) use of antibiotics; Z98.1 Arthrodesis status
CPT/HCPCS: 36415; 71045; 71046; 80048; 80053; 81003; 83605; 83880; 84484; 85025; 85610; 85730; 87040; 87070; 87086; 87205; 93005; 94640; 94760; 96365; 99285

== ENCOUNTER 2018-04-07 14:46 | Inpatient (IN) | payer MEDICARE, OTHER ==
[2018-04-07] MEDS ORDERED: IPRATROPIUM 0.5 MG/2.5 ML NEBU INHALATION STA (15:10)
[2018-04-07] MEDS ORDERED: ALBUTEROL NEBULIZED 2.5 MG/3 ML INHALATION STA (15:10)
[2018-04-07] MEDS ORDERED: SODIUM CHLORIDE 0.9% 1,000 ML IV STA (15:10)
--- NOTE | 2018-04-07 15:16 | ED ---
General Adult HPI - General Chief complaint: Shortness of Breath Stated complaint: SOB Time Seen by Provider: 04/07/18 14:48 Source: EMS, RN notes reviewed, old records reviewed Mode of arrival: EMS Limitations: no limitations - History of Present Illness Initial comments: This is a 73-year-old male the ER for evaluation. Today patient presents for evaluation regarding cough and congestion, positive shortness of breath. Patient has history of lung C8. No other complaints or travel history no sick contacts no chest pain. Patient has no recent evaluation regarding her hospitalization. Patient states shortness of breath is just been increasing, - Related Data Home Medications Medication Instructions Recorded Confirmed Cholecalciferol [Vitamin D3] 400 unit PO BID@629,192901/26/16 04/07/18 Simvastatin [Zocor] 10 mg PO HS@192901/26/16 04/07/18 traZODone HCL [Desyrel] 100 mg PO HS@192901/26/16 04/07/18 Metoprolol Tartrate [Lopressor] 25 mg PO BID@629,192903/15/16 04/07/18 Amiodarone [Cordarone] 200 mg PO DAILY@62911/10/16 04/07/18 Aspirin 81 mg PO DAILY@62911/10/16 04/07/18 Oxybutynin Chloride [Ditropan] 5 mg PO DAILY@1600 11/10/16 04/07/18 glipiZIDE XL [Glucotrol XL] 2.5 mg PO DAILY@30 11/10/16 04/07/18 Dabigatran [Pradaxa] 150 mg PO BID@629,192912/13/17 04/07/18 Acetaminophen [Tylenol Arthritis] 650 mg PO Q8HR PRN 03/15/18 04/07/18 Cetirizine HCl [Zyrtec] 10 mg PO DAILY@1100 03/15/18 04/07/18 Cyanocobalamin (Vitamin B-12) 1,000 mcg PO DAILY@0630 03/15/18 04/07/18 [Vitamin B-12] Ipratropium-Albuterol Nebulize 3 ml INHALATION RT-Q6H PRN 03/15/18 04/07/18 [Duoneb 0.5 mg-3 mg/3 ml Soln] Propylene Glycol/Peg 400/Pf 1 drop BOTH EYES DAILY PRN 03/15/18 04/07/18 [Systane 0.3-0.4% Eye Drops] guaiFENesin-DM 100-10MG/5ML 10 ml PO Q6HR PRN 03/15/18 04/07/18 [Robitussin DM] Budesonide-Formot 160-4.5 Mcg 2 puff INHALATION RT-BID@0630,1900 03/23/18 [Symbicort 160-4.5 Mcg Inhaler] Docusate [Colace] 100 mg PO HS@192904/07/18 04/07/18 Ocusoft Lid Scrub 1 applic OPHTHALMIC BID@0630,192904/07/18 04/07/18 Ranitidine HCl [Zantac] 150 mg PO BID@0630,192904/07/18 04/07/18 amLODIPine [Norvasc] 5 mg PO DIRECTED 04/07/18 04/07/18 Allergies Allergy/AdvReac Type Severity Reaction Status Date / Time No Known Allergies Allergy Verified 04/07/18 15:01 Review of Systems ROS Statement: Those systems with pertinent positive or pertinent negative responses have been documented in the HPI. ROS Other: All systems not noted in ROS Statement are negative. Past Medical History Past Medical History: CVA/TIA, Diabetes Mellitus, GERD/Reflux, Hyperlipidemia, Hypertension, Pneumonia, Renal Disease Additional Past Medical History / Comment(s): Lung Cancer right upper lobe with radiation and lobectomy,. HX OF CVA X3 -RIGHT SIDED WEAKNESS, SPEECH DIFFICULT TO UNDERSTAND AT TIMES, W/C BOUND, ABLE TO PIVOT TO TRANSFER WITH ASSISTANCE, DIFFICULTY CHEWING AND SWALLOWING, HX OF ASPIRATION.,WEARS DEPENDS FOR OCC. INCONTINENCE., DDD, KIDNEY FUNCTION AT 50-60%, ENVIRONMENTAL ALLERGIES. PT LIVES AT [facility] -HAS OWN APARTMENT WITH 24 HOUR HELP., HAS DIZZINESS AND DIFFICULTY WITH VISION-WEARS PRISMS IN HIS EYE GLASSES. History of Any Multi-Drug Resistant Organisms: None Reported Past Surgical History: Appendectomy, Tonsillectomy Additional Past Surgical History / Comment(s): EYE SURGERY, right upper lobectomy for Ca 2016, spinal fusions x 2, gallstones removed. Past Anesthesia/Blood Transfusion Reactions: No Reported Reaction Past Psychological History: Depression Smoking Status: Former smoker Past Alcohol Use History: Rare Past Drug Use History: None Reported - Past Family History Mother History Unknown: Yes Family Medical History: CVA/TIA Father History Unknown: Yes Family Medical History: No Reported History Brother(s) Family Medical History: Cancer Additional Family Medical History / Comment(s): MESOTHELIOMA LUNG CANCER General Exam Limitations: no limitations General appearance: alert, in no apparent distress Head exam: Present: atraumatic, normocephalic, normal inspection Eye exam: Present: normal appearance, PERRL, EOMI. Absent: scleral icterus, conjunctival injection, periorbital swelling ENT exam: Present: normal exam, mucous membranes moist Neck exam: Present: normal inspection. Absent: tenderness, meningismus, lymphadenopathy Respiratory exam: Present: normal lung sounds bilaterally, rhonchi, decreased breath sounds, prolonged expiratory. Absent: respiratory distress, wheezes, rales, stridor Cardiovascular Exam: Present: regular rate, normal rhythm, normal heart sounds. Absent: systolic murmur, diastolic murmur, rubs, gallop, clicks GI/Abdominal exam: Present: soft, normal bowel sounds. Absent: distended, tenderness, guarding, rebound, rigid Extremities exam: Present: normal inspection, full ROM, normal capillary refill. Absent: tenderness, pedal edema, joint swelling, calf tenderness Back exam: Present: normal inspection Neurological exam: Present: alert, oriented X3, CN II-XII intact Psychiatric exam: Present: normal affect, normal mood Skin exam: Present: warm, dry, intact, normal color. Absent: rash Course Vital Signs 04/07/18 04/07/18 04/07/18 15:02 15:15 15:45 Temperature 97.1 F L Pulse Rate 60 57 L 51 L Respiratory 18 18 Rate Blood Pressure 159/70 137/63 O2 Sat by Pulse 95 100 Oximetry 04/07/18 04/07/18 04/07/18 16:15 16:28 16:30 Temperature Pulse Rate 51 L 58 L 59 L Respiratory 20 Rate Blood Pressure 135/63 O2 Sat by Pulse 100 Oximetry 04/07/18 04/07/18 04/07/18 16:31 17:40 18:12 Temperature Pulse Rate 63 72 Respiratory 18 18 Rate Blood Pressure 122/58 128/78 O2 Sat by Pulse 92 L 96 98 Oximetry EKG Findings - EKG Comments: EKG Findings:: EKG shows sinus bradycardia rate 52, CA 160, QRS 156, QTc 461 Medical Decision Making - Medical Decision Making 73 male the ER for positive evaluation shortness breath, positive pneumonia on x -ray, patient to be admitted for IV antibiotics and breathing treatments, monitoring of cardiopulmonary state - Lab Data Result diagrams: 04/08/18 08:16 04/08/18 08:16 Lab Results 04/07/18 04/07/18 04/07/18 Range/Units 15:20 15:20 15:20 WBC 8.1 (3.8-10.6) k/uL RBC 4.38 (4.30-5.90) m/uL Hgb 13.0 (13.0-17.5) gm/dL Hct 41.3 (39.0-53.0) % MCV 94.4 (80.0-100.0) fL MCH 29.7 (25.0-35.0) pg MCHC 31.4 (31.0-37.0) g/dL RDW 14.4 (11.5-15.5) % Plt Count 298 (150-450) k/uL Neutrophils % 77 % Lymphocytes % 11 % Monocytes % 7 % Eosinophils % 2 % Basophils % 0 % Neutrophils # 6.2 (1.3-7.7) k/uL Lymphocytes # 0.9 L (1.0-4.8) k/uL Monocytes # 0.6 (0-1.0) k/uL Eosinophils # 0.2 (0-0.7) k/uL Basophils # 0.0 (0-0.2) k/uL Hypochromasia Slight PT (9.0-12.0) sec INR (<1.2) APTT (22.0-30.0) sec Sodium 143 (137-145) mmol/L Potassium 5.1 (3.5-5.1) mmol/L Chloride 109 H (98-107) mmol/L Carbon Dioxide 26 (22-30) mmol/L Anion Gap 8 mmol/L BUN 20 (9-20) mg/dL Creatinine 2.00 H (0.66-1.25) mg/dL Est GFR (CKD-EPI)AfAm 37 (>60 ml/min/1.73 sqM) Est GFR (CKD-EPI)NonAf 32 (>60 ml/min/1.73 sqM) Glucose 144 H (74-99) mg/dL Calcium 9.0 (8.4-10.2) mg/dL Magnesium 2.4 H (1.6-2.3) mg/dL Total Bilirubin 0.3 (0.2-1.3) mg/dL AST 22 (17-59) U/L ALT 31 (21-72) U/L Alkaline Phosphatase 71 (38-126) U/L Total Creatine Kinase 29 L (55-170) U/L CK-MB (CK-2) 0.6 (0.0-2.4) ng/mL CK-MB (CK-2) Rel Index 2.1 Troponin I <0.012 (0.000-0.034) ng/mL NT-Pro-B Natriuret Pep pg/mL Total Protein 6.0 L (6.3-8.2) g/dL Albumin 3.4 L (3.5-5.0) g/dL 04/07/18 04/07/18 Range/Units 15:20 15:20 WBC (3.8-10.6) k/uL RBC (4.30-5.90) m/uL Hgb (13.0-17.5) gm/dL Hct (39.0-53.0) % MCV (80.0-100.0) fL MCH (25.0-35.0) pg MCHC (31.0-37.0) g/dL RDW (11.5-15.5) % Plt Count (150-450) k/uL Neutrophils % % Lymphocytes % % Monocytes % % Eosinophils % % Basophils % % Neutrophils # (1.3-7.7) k/uL Lymphocytes # (1.0-4.8) k/uL Monocytes # (0-1.0) k/uL Eosinophils # (0-0.7) k/uL Basophils # (0-0.2) k/uL Hypochromasia PT 17.3 H (9.0-12.0) sec INR 1.9 H (<1.2) APTT 49.0 H (22.0-30.0) sec Sodium (137-145) mmol/L Potassium (3.5-5.1) mmol/L Chloride (98-107) mmol/L Carbon Dioxide (22-30) mmol/L Anion Gap mmol/L BUN (9-20) mg/dL Creatinine (0.66-1.25) mg/dL Est GFR (CKD-EPI)AfAm (>60 ml/min/1.73 sqM) Est GFR (CKD-EPI)NonAf (>60 ml/min/1.73 sqM) Glucose (74-99) mg/dL Calcium (8.4-10.2) mg/dL Magnesium (1.6-2.3) mg/dL Total Bilirubin (0.2-1.3) mg/dL AST (17-59) U/L ALT (21-72) U/L Alkaline Phosphatase (38-126) U/L Total Creatine Kinase (55-170) U/L CK-MB (CK-2) (0.0-2.4) ng/mL CK-MB (CK-2) Rel Index Troponin I (0.000-0.034) ng/mL NT-Pro-B Natriuret Pep 2100 pg/mL Total Protein (6.3-8.2) g/dL Albumin (3.5-5.0) g/dL - Radiology Data Radiology results: report reviewed (Chest x-ray shows bilateral pneumonia), image reviewed Disposition Clinical Impression: History of lung cancer, Pneumonia, Aspiration pneumonia Disposition: ADMITTED IP TO THIS HOSP Condition: Fair Is patient prescribed a controlled substance at d/c from ED?: No
[2018-04-07 15:39] LABS: Basophils % (A) 0 %; Eosinophils # (A) 0.2 k/uL (0-0.7); Eosinophils % (A) 2 %; HCT 41.3 % (39.0-53.0); Hypochromasia Slight; Lymphocytes # (A) 0.9 k/uL (1.0-4.8); Lymphocytes % (A) 11 %; MCH 29.7 pg (25.0-35.0); MCHC 31.4 g/dL (31.0-37.0); MCV 94.4 fL (80.0-100.0); Mean Platelet Volume 7.1; Monocytes # (A) 0.6 k/uL (0-1.0); Monocytes % (A) 7 %; Neutrophils # (A) 6.2 k/uL (1.3-7.7); Neutrophils % (A) 77 %; Platelet Count 298 k/uL (150-450); RBC 4.38 m/uL (4.30-5.90); RDW 14.4 % (11.5-15.5); WBC 8.1 k/uL (3.8-10.6)
[2018-04-07 15:48] LABS: Creatine Kinase 29 U/L (55-170)
[2018-04-07 15:50] LABS: INR 1.9 (<1.2); Prothrombin Time 17.3 sec (9.0-12.0)
[2018-04-07 16:01] LABS: Creatine Kinase MB 0.6 ng/mL (0.0-2.4); Troponin I <0.012 ng/mL (0.000-0.034)
[2018-04-07 16:04] LABS: Albumin 3.4 g/dL (3.5-5.0); Magnesium 2.4 mg/dL (1.6-2.3); Potassium 5.1 mmol/L (3.5-5.1); Total Bilirubin 0.3 mg/dL (0.2-1.3)
[2018-04-07] MEDS ORDERED: LEVOFLOXACIN 750MG-D5W PMX 750 MG in DEXTROSE/WATER 1 150ML.BAG IVPB STA (16:30)
[2018-04-07] MEDS ORDERED: PNEUMONIA PROTOCOL UTILIZED 1 EACH MISC PO PRN (16:30)
[2018-04-07] MEDS ORDERED: PIPERACILLIN-TAZOBACTAM 3.375 GM in DEXTROSE/WATER 1 50ML.BAG IVPB STA (16:30)
[2018-04-07] MEDS: SODIUM CHLORIDE 0.9% 1,000 ML IV SCH (17:42)
--- NOTE | 2018-04-07 17:52 | XR ---
EXAMINATION TYPE: XR chest 2V DATE OF EXAM: 04/07/2018 COMPARISON: 03/24/2018 HISTORY: Pneumonia TECHNIQUE: Frontal and lateral views of the chest are obtained. FINDINGS: There is some patchy pneumonic consolidation in the right lower lobe. There is linear patc hy infiltrate in the left midlung. Pulmonary vascularity is difficult to evaluate because of the lung disease. I see no definite heart failure. Thoracic aorta shows mild atheromatous change. Heart size is probably normal. IMPRESSION: Bilateral pneumonia. This appears worse in the right lower lobe and slightly improved in the left lung compared to last exam. No obvious heart failure. No significant pleural fluid.
[2018-04-07 20:15] LABS: Glucose,Whole Blood 163 mg/dL (75-99)
[2018-04-07] MEDS: ALBUTEROL NEBULIZED 2.5 MG/3 ML INHALATION SCH (21:08)
[2018-04-07] MEDS ORDERED: ARTIFICIAL TEARS-HYPROMELLOSE DROPS 15 ML BTL BOTH EYES PRN (22:16)
[2018-04-07] MEDS ORDERED: guaiFENesin-DM 100-10MG/5ML 10 ML CUP PO PRN (22:16)
[2018-04-07] MEDS ORDERED: ACETAMINOPHEN TAB 325 MG TAB PO PRN (22:16)
[2018-04-08] MEDS: PIPERACILLIN-TAZOBACTAM 3.375 GM in DEXTROSE/WATER 1 50ML.BAG IVPB SCH ×3 (00:49→17:26)
[2018-04-08] MEDS: ASPIRIN 81 MG PO SCH (06:18)
[2018-04-08] MEDS: AMIODARONE 200 MG TAB PO SCH (06:18)
[2018-04-08] MEDS: CHOLECALCIFEROL 400 UNIT TAB PO SCH ×2 (06:19→19:45)
[2018-04-08] MEDS: DABIGATRAN 150 MG CAP PO SCH ×2 (06:19→19:45)
[2018-04-08] MEDS: CYANOCOBALAMIN 500 MCG TAB PO SCH (06:20)
[2018-04-08] MEDS: FAMOTIDINE 20 MG TAB PO SCH ×2 (06:21→19:45)
[2018-04-08] MEDS: METOPROLOL TARTRATE 25 MG TAB PO SCH ×2 (06:21→19:45)
[2018-04-08] MEDS ORDERED: OCUSOFT LID SCRUB OPHTHALMIC SCH (06:30)
[2018-04-08 06:58] LABS: Glucose,Whole Blood 89 mg/dL (75-99)
[2018-04-08] MEDS: SODIUM CHLORIDE 0.9% 1,000 ML IV SCH ×2 (08:21→13:06)
[2018-04-08] MEDS: SYMBICORT 160-4.5 MCG INHALER INHALATION SCH ×2 (08:41→19:10)
[2018-04-08] MEDS: ALBUTEROL NEBULIZED 2.5 MG/3 ML INHALATION SCH ×4 (08:41→19:10)
[2018-04-08 08:58] LABS: Basophils % (A) 0 %; Eosinophils # (A) 0.2 k/uL (0-0.7); Eosinophils % (A) 2 %; HCT 38.3 % (39.0-53.0); HGB 11.9 gm/dL (13.0-17.5); Hypochromasia Slight; Lymphocytes # (A) 0.4 k/uL (1.0-4.8); Lymphocytes % (A) 6 %; MCH 29.7 pg (25.0-35.0); MCHC 31.2 g/dL (31.0-37.0); MCV 95.2 fL (80.0-100.0); Monocytes # (A) 0.5 k/uL (0-1.0); Monocytes % (A) 7 %; Neutrophils # (A) 5.8 k/uL (1.3-7.7); Neutrophils % (A) 82 %; Platelet Count 313 k/uL (150-450); RBC 4.02 m/uL (4.30-5.90); RDW 14.6 % (11.5-15.5)
[2018-04-08 09:34] LABS: Calcium 8.4 mg/dL (8.4-10.2); Potassium 4.7 mmol/L (3.5-5.1)
--- NOTE | 2018-04-08 09:53 | HP ---
HISTORY AND PHYSICAL CHIEF COMPLAINTS: Shortness of breath and cough. HISTORY OF PRESENT ILLNESS: This 73-year-old gentleman with a past medical history of multiple medical illnesses, CVA, TIA, diabetes, hypertension, hyperlipidemia, GERD, also has lung cancer of the right upper lobe with radiation lobectomy. The patient was noted to have a tracheal mass which was recently biopsied. Patient has hemoptysis, also. Patient had difficulty in swallowing and difficulty in speaking, also. The patient is before Dr. Cabral and Dr. Jack Painting in the outpatient setting. Because of increasing difficulty, the patient came to [facility] and is found to have aspiration pneumonia bilaterally, right more than the left and patient admitted for further evaluation and treatment. There is no history of fever, rigors. No history of headache, loss consciousness at this time. PAST MEDICAL HISTORY: Lung cancer, history of tracheal mass, diabetes mellitus type 2, GERD, hypertension, hyperlipidemia, history of appendectomy, history of depression. MEDICATIONS: Prior to admission, home medications are: 1. Desyrel 100 mg p.o. q.h.s. 2. Robitussin DM 10 mL q.6 p.r.n. 3. Glucotrol XL 2.5 mg daily. 4. Norvasc 5 mg daily p.r.n. 5. Zocor 10 mg q.h.s. 6. Zantac 150 mg p.o. b.i.d. 7. Systane 1 drop daily p.r.n. 8. Ditropan 5 mg p.o. daily. 9. Lopressor 25 mg p.o. b.i.d. 10.DuoNeb q.6h. 11.Colace 100 mg p.o. q.h.s. 12.Pradaxa 150 mg p.o. b.i.d. 13.Vitamin B12 one thousand mcg p.o. daily. 14.Vitamin D3 four hundred units b.i.d. 15.Ceretec 10 mg p.o. daily. 16.Symbicort 160/4.5 two puffs b.i.d. 17.Cordarone 200 mg p.o. daily. 18.Aspirin 81 mg p.o. daily. 19.Tylenol 650 q.8p.r.n. ALLERGIES: None. FAMILY HISTORY: History of CVA, TIA, mesothelioma. SOCIAL HISTORY: Remote history of nicotine dependence. Occasional alcohol intake. REVIEW OF SYSTEMS: ENT: As mentioned earlier. CARDIOVASCULAR: No angina. RESPIRATORY: As mentioned earlier. GI: No nausea. : No dysuria. NERVOUS SYSTEM: No numbness or weakness. ALLERGY/IMMUNOLOGY: No asthma or hay fever. MUSCULOSKELETAL: As mentioned earlier. HEMATOLOGY/ONCOLOGY: As mentioned earlier. ENDOCRINE: No history of diabetes or hypothyroidism. CONSTITUTIONAL: As mentioned earlier. DERMATOLOGY: Negative. RHEUMATOLOGY/IMMUNOLOGY: As mentioned earlier. PSYCHIATRY: As mentioned earlier. ENDOCRINE: Diabetes mellitus. DERMATOLOGY: Negative PHYSICAL EXAM: Patient is alert and oriented x3. Pulse is 61, blood pressure 105/52, respirations 16, temperature 97.6, pulse ox 91% on room air. HEENT: Oral mucosa moist. Neck is no jugular venous distention. No lymph node enlargement. CARDIOVASCULAR SYSTEM: S1, S2, muffled. No S3, no S4. RESPIRATORY: Breath sounds diminished at the bases, bilateral scattered rhonchi No stenosis pressure in the bases. Bilateral scattered rhonchi and crackles. Expiratory wheezing also present. ABDOMEN: Soft, nontender. No mass palpable. LEGS: No edema, no swelling. NERVOUS SYSTEM: Higher functions as mentioned earlier: Moves all 4 limbs. No focal motor deficit. LYMPHATICS: No lymph node enlargement from neck or axillae. SKIN: No ulcer, rash or bleeding. LABS: At this time shows the CBC within normal limits. INR is 1.9. Sodium 143, potassium 5.1, glucose 144. ASSESSMENT: 1. Acute bilateral pneumonia, possibly aspiration pneumonia. 2. History of lung cancer with tracheal mass. 3. Status post resection and radiation. 4. Tracheobronchomalacia. 5. Cerebrovascular accident, transient ischemic attack history. 6. Diabetes mellitus type 2. 7. Dysphonia. 8. Gastroesophageal reflux disease. 9. Hypertension. 10.Hyperlipidemia. 11.History of pneumonia. 12.History of appendectomy. 13.Remote history of nicotine dependence. 14.Depression. 15.Increased creatinine with possibly chronic kidney disease stage III. RECOMMENDATION: In this 73-year-old gentleman who presented with multiple complex medical issues , I would recommend a barium swallow with speech pathology. Otherwise, the overall prognosis is extremely guarded because of the multiple complex medical issues and further management. The patient is on dabigatran as mentioned earlier. Medication reconciliation done. A copy of dictation forwarded to who is following the patient in the outpatient setting. MMODL / IJN: [id number] / MTDD
--- NOTE | 2018-04-08 10:25 | FL ---
MODIFIED SWALLOW / DEGLUTITION STUDY DATE OF EXAM: 04/08/2018 CLINICAL HISTORY: 73-year-old male dysphagia, patient with recurrent episodes of aspiration pneumoni a, history of CVA. Dysphagia. TECHNIQUE: Deglutition study is performed utilizing thin liquid barium, honey and nectar thick liqui d barium, barium thick applesauce, and barium coated cracker. Total fluoroscopy time: 2 minutes 22 seconds. Total images: None. Real-time fluoroscopy support was provided to speech pathology. COMPARISON: 03/17/2018. FINDINGS: Swallow initiation was mildly delayed with bolus free spilling to the level of the vallecula. Normal mastication is seen with solid modalities tested. There is severe gross aspiration with thin liquids during the swallowing phase. Mild penetration is s een to the laryngeal vestibule with nectar thickened liquids. Thicker and solid consistency showed no penetration or aspiration. IMPRESSION: 1. Redemonstrated severe gross aspiration with thin liquids. 2. Mild penetration into the laryngeal vestibule with nectar liquids. 3. Mildly delayed swallow initiation. 4. Please refer to speech therapist notes for further details if necessary.
--- NOTE | 2018-04-08 10:52 | XR ---
EXAMINATION TYPE: XR chest 2V DATE OF EXAM: 04/08/2018 COMPARISON: 04/07/2018 HISTORY: 73-year-old male follow-up pneumonia TECHNIQUE: AP and lateral views FINDINGS: Rightward patient rotation ultrasound and normal cardiac and mediastinal contours. Heart appears mild ly enlarged. Bilateral interstitial opacities persist. Patchy mid and lower lung opacities may be sli ghtly improved in the interval. No significant pleural effusion. IMPRESSION: Rotated exam. Interstitial and patchy airspace opacities show slight interval improvement.
[2018-04-08 11:06] LABS: Glucose,Whole Blood 128 mg/dL (75-99)
--- NOTE | 2018-04-08 11:08 | P.PN ---
Subjective Pleasant 73-year-old gentleman known to me is admitted in the past for aspiration pneumonia came in with same symptoms which frustrated his COPD. Patient is noncompliant with dietary recommendations of honey thickened liquids and a dysphagia diet. Patient went into warm air yesterday started having shortness of breath was admitted with 2 L of hard and patient doesn't arouse and patient is doing well today not using any oxygen at this time but did have significant aspiration, speech therapy reevaluated the patient. Patient will be started on steroids for his wheezing which may also help with a tracheal mass inflammation., Patient does have hoarseness of voice from tracheal mass and inflammation which is expected to improve with steroids because of which patient will be started on oral steroids. Constitutional: Denied any fatigue denied any fever. Cardio vascular: denied any chest pain, palpitations Gastrointestinal denied any nausea vomiting Pulmonary: Denied any shortness of breath cough Neurologic denied any new focal deficits Objective - Vital Signs Vital signs: Vital Signs Temp 97.5 F L 04/08/18 05:36 Pulse 58 L 04/08/18 08:57 Resp 16 04/08/18 08:00 BP 146/70 04/08/18 05:36 Pulse Ox 95 04/08/18 08:45 Intake & Output 04/07/18 04/08/18 04/08/18 18:59 06:59 18:59 Weight 79.379 kg Other: Voiding Method Incontinent Incontinent # Voids 2 - Exam PHYSICAL EXAMINATION: GENERAL: The patient is alert and oriented x3, not in any acute distress. Well developed, well nourished. HEENT: Pupils are round and equally reacting to light. EOMI. No scleral icterus. No conjunctival pallor. Normocephalic, atraumatic. No pharyngeal erythema. No thyromegaly. Patient does have hoarseness of voice CARDIOVASCULAR: S1 and S2 present. No murmurs, rubs, or gallops. PULMONARY: Minimal right lower lobe crackles and minimal expiratory wheezing ABDOMEN: Soft, nontender, nondistended, normoactive bowel sounds. No palpable organomegaly. MUSCULOSKELETAL: No joint swelling or deformity. EXTREMITIES: No cyanosis, clubbing, or pedal edema. NEUROLOGICAL: Gross neurological examination did not reveal any focal deficits. SKIN: No rashes. - Labs CBC & Chem 7: 04/08/18 08:16 04/08/18 08:16 Labs: Abnormal Lab Results - Last 24 Hours (Table) 04/07/18 04/07/18 04/07/18 Range/Units 15:20 15:20 15:20 RBC (4.30-5.90) m/uL Hgb (13.0-17.5) gm/dL Hct (39.0-53.0) % Lymphocytes # 0.9 L (1.0-4.8) k/uL PT (9.0-12.0) sec INR (<1.2) APTT (22.0-30.0) sec Chloride 109 H (98-107) mmol/L Creatinine 2.00 H (0.66-1.25) mg/dL Glucose 144 H (74-99) mg/dL POC Glucose (mg/dL) (75-99) mg/dL Magnesium 2.4 H (1.6-2.3) mg/dL Total Creatine Kinase 29 L (55-170) U/L Total Protein 6.0 L (6.3-8.2) g/dL Albumin 3.4 L (3.5-5.0) g/dL 04/07/18 04/07/18 04/08/18 Range/Units 15:20 20:13 08:16 RBC 4.02 L (4.30-5.90) m/uL Hgb 11.9 L (13.0-17.5) gm/dL Hct 38.3 L (39.0-53.0) % Lymphocytes # 0.4 L (1.0-4.8) k/uL PT 17.3 H (9.0-12.0) sec INR 1.9 H (<1.2) APTT 49.0 H (22.0-30.0) sec Chloride (98-107) mmol/L Creatinine (0.66-1.25) mg/dL Glucose (74-99) mg/dL POC Glucose (mg/dL) 163 H (75-99) mg/dL Magnesium (1.6-2.3) mg/dL Total Creatine Kinase (55-170) U/L Total Protein (6.3-8.2) g/dL Albumin (3.5-5.0) g/dL 04/08/18 Range/Units 08:16 RBC (4.30-5.90) m/uL Hgb (13.0-17.5) gm/dL Hct (39.0-53.0) % Lymphocytes # (1.0-4.8) k/uL PT (9.0-12.0) sec INR (<1.2) APTT (22.0-30.0) sec Chloride 110 H (98-107) mmol/L Creatinine 1.81 H (0.66-1.25) mg/dL Glucose 107 H (74-99) mg/dL POC Glucose (mg/dL) (75-99) mg/dL Magnesium (1.6-2.3) mg/dL Total Creatine Kinase (55-170) U/L Total Protein (6.3-8.2) g/dL Albumin (3.5-5.0) g/dL Assessment and Plan Plan: -Aspiration pneumonia: Noncompliant dietary recommendation patient need to be on pured diet and nectar thickened liquids and pills need to be crushed whichever can be crushed. -COPD with mild acute exacerbation -History of lung cancer supposed to receive radiation therapy has an appointment today which he missed because of consultation -Tracheal mass and tracheobronchomalacia Surveyor-several vascular accident and TIA in the past -Type 2 diabetes mellitus -Gastroesophageal reflux disease -Hypertension next and-acute renal failure probably prerenal azotemia continue with IV fluids repeat basic metabolic profile tomorrow -Depression -Chronic kidney disease secondary to diabetic nephropathy area stage II
[2018-04-08] MEDS: predniSONE 20 MG TAB PO SCH (13:11)
[2018-04-08] MEDS: LORATADINE 10 MG TAB PO SCH (13:11)
--- NOTE | 2018-04-08 13:20 | P.CONS ---
History of Present Illness - Reason for Consult Consult date: 04/08/18 squamous cell cancer Requesting physician: Melanie Emmanuel - Chief Complaint SOB, ABDIEL - History of Present Illness Mr. Lopez is a very pleasant male who presented in fall 2014 with complaints of productive cough and upper airway congestion, initial imaging suggested a pneumonia, treated with antibiotics but, had multiple relapses of symptoms, CT chest 02/07/16 revealed wedge shaped infiltrate in the RUL and fullness adjacent to the right main pulmonary artery, CT on 03/17/16 showed persistent abnormalities, bronchoscopy with biopsy was done on 04/02/16 revealing squamous cell carcinoma, staging PET and brain CT confirmed chest limited disease. Dr. Curry at [facility] performed right upper lobectomy on 06/04/16, final path stage IA squamous cell carcinoma, subsequently pt found to have a synchronous primary in the left lower lobe, also squamous cell, treated with PRT , completed in 09/07. patient continued to follow-up at [place], CT scan 11/10 showed stable findings, 4 mm nodule in the right lower lobe. Patient was seen and Mon on 03/16/2018 when he was admitted with cough, hemoptysis and hoarseness 2 weeks, CTA negative for PE but soft tissue density along the right lateral tracheal wall measuring 3.5 x 2.8 cm, 1.1 cm nodule in the right lower lobe, prominent left-sided hilar consolidation, bronchoscopy on 03/19/18, showed edema in the mid trachea, evidence of a growth growing into the posterior and right lateral wall, biopsy was positive for squamous cell carcinoma. Patient opted for proton beam radiation therapy, was due to be simulated this week at [facility]. Patient is admitted for the second time this month for aspiration pneumonia. Patient had profound shortness of breath, cough, this has improved since admission, patient does not follow prescribed pured diet, his voice is persistently weak and hoarse. No fevers, nausea, vomiting, hemoptysis, gagging, indigestion, painful swallowing, acute changes in bowel or bladder habits. Review of Systems 10 point ROS as stated in HPI Past Medical History Past Medical History: Cancer, CVA/TIA, Diabetes Mellitus, GERD/Reflux, Hyperlipidemia, Hypertension, Pneumonia, Renal Disease Additional Past Medical History / Comment(s): Lung Cancer right upper lobe with radiation and lobectomy,. HX OF CVA X3 -RIGHT SIDED WEAKNESS, SPEECH DIFFICULTY TO UNDERSTAND AT TIMES(WISPERS), W/C BOUND, PT IS RT SIDE DOMINANT.ABLE TO PIVOT TO TRANSFER WITH ASSISTANCE, DIFFICULTY CHEWING AND SWALLOWING, HX OF ASPIRATION.,WEARS DEPENDS FOR OCC. INCONTINENCE., DDD, KIDNEY FUNCTION AT 50-60%, ENVIRONMENTAL ALLERGIES. PT LIVES AT [facility] -HAS OWN APARTMENT WITH 24 HOUR HELP., HAS DIZZINESS AND DIFFICULTY WITH VISION- WEARS PRISMS IN HIS EYE GLASSES. History of Any Multi-Drug Resistant Organisms: None Reported Past Surgical History: Appendectomy, Tonsillectomy Additional Past Surgical History / Comment(s): EYE SURGERY, right upper lobectomy for Ca 2016, spinal fusions x 2, gallstones removed. Past Anesthesia/Blood Transfusion Reactions: No Reported Reaction Smoking Status: Former smoker Past Drug Use History: None Reported - Past Family History Mother History Unknown: Yes Family Medical History: CVA/TIA Father History Unknown: Yes Family Medical History: No Reported History Brother(s) Family Medical History: Cancer Additional Family Medical History / Comment(s): MESOTHELIOMA LUNG CANCER Medications and Allergies Home Medications Medication Instructions Recorded Confirmed Type Cholecalciferol [Vitamin D3] 400 unit PO BID@629,192901/26/16 04/07/18 History Simvastatin [Zocor] 10 mg PO HS@192901/26/16 04/07/18 History traZODone HCL [Desyrel] 100 mg PO HS@192901/26/16 04/07/18 History Metoprolol Tartrate [Lopressor] 25 mg PO BID@629,192903/15/16 04/07/18 History Amiodarone [Cordarone] 200 mg PO DAILY@62911/10/16 04/07/18 History Aspirin 81 mg PO DAILY@62911/10/16 04/07/18 History Oxybutynin Chloride [Ditropan] 5 mg PO DAILY@1600 11/10/16 04/07/18 History glipiZIDE XL [Glucotrol XL] 2.5 mg PO DAILY@30 11/10/16 04/07/18 History Dabigatran [Pradaxa] 150 mg PO BID@629,192912/13/17 04/07/18 History Acetaminophen [Tylenol Arthritis] 650 mg PO Q8HR PRN 03/15/18 04/07/18 History Cetirizine HCl [Zyrtec] 10 mg PO DAILY@1100 03/15/18 04/07/18 History Cyanocobalamin (Vitamin B-12) 1,000 mcg PO DAILY@0630 03/15/18 04/07/18 History [Vitamin B-12] Ipratropium-Albuterol Nebulize 3 ml INHALATION RT-Q6H PRN 03/15/18 04/07/18 History [Duoneb 0.5 mg-3 mg/3 ml Soln] Propylene Glycol/Peg 400/Pf 1 drop BOTH EYES DAILY PRN 03/15/18 04/07/18 History [Systane 0.3-0.4% Eye Drops] guaiFENesin-DM 100-10MG/5ML 10 ml PO Q6HR PRN 03/15/18 04/07/18 History [Robitussin DM] Budesonide-Formot 160-4.5 Mcg 2 puff INHALATION RT-BID@0630,19003/23/18 History [Symbicort 160-4.5 Mcg Inhaler] Docusate [Colace] 100 mg PO HS@192904/07/18 04/07/18 History Ocusoft Lid Scrub 1 applic OPHTHALMIC BID@0630,192904/07/18 04/07/18 History Ranitidine HCl [Zantac] 150 mg PO BID@0630,19304/07/18 04/07/18 History amLODIPine [Norvasc] 5 mg PO DIRECTED 04/07/18 04/07/18 History Allergies Allergy/AdvReac Type Severity Reaction Status Date / Time No Known Allergies Allergy Verified 04/07/18 15:01 Physical Exam Vitals: Vital Signs Temp Pulse Pulse Resp BP BP Pulse Ox 04/08/18 11:55 56 L 04/08/18 11:45 54 L 04/08/18 08:57 58 L 04/08/18 08:45 52 L 95 04/08/18 08:00 16 04/08/18 05:36 97.5 F L 60 16 146/70 93 L 04/07/18 21:22 60 04/07/18 21:12 97.6 F 64 61 16 105/52 91 L 04/07/18 18:20 97.9 F 65 18 146/62 92 L 04/07/18 18:12 72 18 128/78 98 04/07/18 17:40 63 18 122/58 96 04/07/18 16:31 92 L 04/07/18 16:30 59 L 04/07/18 16:28 58 L 20 135/63 100 04/07/18 16:15 51 L 04/07/18 15:45 51 L 04/07/18 15:15 57 L 18 137/63 100 04/07/18 15:02 97.1 F L 60 18 159/70 95 Intake and Output 04/07/18 04/08/18 04/08/18 22:59 06:59 14:59 Other: Voiding Method Incontinent Incontinent # Voids 1 2 Weight 79.379 kg - Constitutional General appearance: cooperative, no acute distress, obese - EENT dry mucus membranes Eyes: EOMI - Neck Neck: no lymphadenopathy - Respiratory Respiratory: right: diminished, left: CTA - Cardiovascular Heart sounds: normal: S1, S2 leg Peripheral Edema: bilateral: None - Gastrointestinal General gastrointestinal: no absent bowel sounds, no decreased bowel sounds, no distended, no hepatomegaly, no hyperactive bowel sounds, normal bowel sounds, no organomegaly, no rigid, no scaphoid, soft, no splenomegaly, no tenderness, no umbilical hernia, no ventral hernia - Integumentary Integumentary: pale - Musculoskeletal Musculoskeletal: generalized weakness, strength equal bilaterally - Psychiatric Psychiatric: A&O x's 3, appropriate affect, intact judgment & insight Results CBC & Chem 7: 04/08/18 08:16 04/08/18 08:16 Labs: Abnormal Lab Results - Last 24 Hours (Table) 04/07/18 04/07/18 04/07/18 Range/Units 15:20 15:20 15:20 RBC (4.30-5.90) m/uL Hgb (13.0-17.5) gm/dL Hct (39.0-53.0) % Lymphocytes # 0.9 L (1.0-4.8) k/uL PT (9.0-12.0) sec INR (<1.2) APTT (22.0-30.0) sec Chloride 109 H (98-107) mmol/L Creatinine 2.00 H (0.66-1.25) mg/dL Glucose 144 H (74-99) mg/dL POC Glucose (mg/dL) (75-99) mg/dL Magnesium 2.4 H (1.6-2.3) mg/dL Total Creatine Kinase 29 L (55-170) U/L Total Protein 6.0 L (6.3-8.2) g/dL Albumin 3.4 L (3.5-5.0) g/dL 04/07/18 04/07/18 04/08/18 Range/Units 15:20 20:13 08:16 RBC 4.02 L (4.30-5.90) m/uL Hgb 11.9 L (13.0-17.5) gm/dL Hct 38.3 L (39.0-53.0) % Lymphocytes # 0.4 L (1.0-4.8) k/uL PT 17.3 H (9.0-12.0) sec INR 1.9 H (<1.2) APTT 49.0 H (22.0-30.0) sec Chloride (98-107) mmol/L Creatinine (0.66-1.25) mg/dL Glucose (74-99) mg/dL POC Glucose (mg/dL) 163 H (75-99) mg/dL Magnesium (1.6-2.3) mg/dL Total Creatine Kinase (55-170) U/L Total Protein (6.3-8.2) g/dL Albumin (3.5-5.0) g/dL 04/08/18 04/08/18 Range/Units 08:16 11:05 RBC (4.30-5.90) m/uL Hgb (13.0-17.5) gm/dL Hct (39.0-53.0) % Lymphocytes # (1.0-4.8) k/uL PT (9.0-12.0) sec INR (<1.2) APTT (22.0-30.0) sec Chloride 110 H (98-107) mmol/L Creatinine 1.81 H (0.66-1.25) mg/dL Glucose 107 H (74-99) mg/dL POC Glucose (mg/dL) 128 H (75-99) mg/dL Magnesium (1.6-2.3) mg/dL Total Creatine Kinase (55-170) U/L Total Protein (6.3-8.2) g/dL Albumin (3.5-5.0) g/dL Chest x-ray: report reviewed Assessment and Plan (1) Non-small cell cancer of right lung Narrative/Plan: Squamous cell subtype, treated with lobectomy and radiation. Current Visit: No Status: Chronic Priority: Medium Code(s): C34.91 - MALIGNANT NEOPLASM OF UNSP PART OF RIGHT BRONCHUS OR LUNG SNOMED Code(s): 097717730 (2) Tracheal malignancy Narrative/Plan: Recent diagnosis, plan was for definitive radiation, recent PET scan pending. Pt states wanting to get treatment more locally so, Rad/Onc consulted to review pt case and give recommendations Current Visit: Yes Status: Acute Code(s): C33 - MALIGNANT NEOPLASM OF TRACHEA SNOMED Code(s): 966767607 Plan: Pt encouraged to follow prescribed diet to prevent aspiration. Pt states he does not was a PEG tube.
--- NOTE | 2018-04-08 16:52 | P.CNPUL ---
History of Present Illness Consult date: 04/08/18 Reason for consult: dyspnea, cough, COPD, pneumonia, lung mass Chief complaint: Shortness Of breath and wheezing of one to 2 day duration History of present illness: Mr. 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 underwent right upper lobe resection followed by radiation therapy of nodule in the left side patient was reviewed in remission until recently patient has increasing shortness of breath hemoptysis found to have a mass in the tracheal area which was positive for squamous cell cancer patient is being followed by the oncology service as well Ammann patient has been admitted into the hospital with increasing shortness of breath cough with a suspicion of aspiration and aspiration pneumonia as well the speech and swallow are evaluating this patient , oncology service has been following as well, patient is overall a poor historian most of the data has been obtained from the chart absent reviewed radiographic studies and chest x-ray reviewed Review of Systems All systems: negative Past Medical History Past Medical History: CVA/TIA, Diabetes Mellitus, GERD/Reflux, Hyperlipidemia, Hypertension, Pneumonia, Renal Disease Additional Past Medical History / Comment(s): Lung Cancer right upper lobe with radiation and lobectomy,. HX OF CVA X3 -RIGHT SIDED WEAKNESS, SPEECH DIFFICULTY TO UNDERSTAND AT TIMES(WISPERS), W/C BOUND, PT IS RT SIDE DOMINANT.ABLE TO PIVOT TO TRANSFER WITH ASSISTANCE, DIFFICULTY CHEWING AND SWALLOWING, HX OF ASPIRATION.,WEARS DEPENDS FOR OCC. INCONTINENCE., DDD, KIDNEY FUNCTION AT 50-60%, ENVIRONMENTAL ALLERGIES. PT LIVES AT [facility] -HAS OWN APARTMENT WITH 24 HOUR HELP., HAS DIZZINESS AND DIFFICULTY WITH VISION- WEARS PRISMS IN HIS EYE GLASSES. History of Any Multi-Drug Resistant Organisms: None Reported Past Surgical History: Appendectomy, Tonsillectomy Additional Past Surgical History / Comment(s): EYE SURGERY, right upper lobectomy for Ca 2016, spinal fusions x 2, gallstones removed. Past Anesthesia/Blood Transfusion Reactions: No Reported Reaction Smoking Status: Former smoker - Past Family History Mother History Unknown: Yes Family Medical History: CVA/TIA Father History Unknown: Yes Family Medical History: No Reported History Brother(s) Family Medical History: Cancer Additional Family Medical History / Comment(s): MESOTHELIOMA LUNG CANCER Medications and Allergies Home Medications Medication Instructions Recorded Confirmed Type Cholecalciferol [Vitamin D3] 400 unit PO BID@0630,192901/26/16 04/07/18 History Simvastatin [Zocor] 10 mg PO HS@192901/26/16 04/07/18 History traZODone HCL [Desyrel] 100 mg PO HS@192901/26/16 04/07/18 History Metoprolol Tartrate [Lopressor] 25 mg PO BID@06,192903/15/16 04/07/18 History Amiodarone [Cordarone] 200 mg PO DAILY@0611/10/16 04/07/18 History Aspirin 81 mg PO DAILY@0630 11/10/16 04/07/18 History Oxybutynin Chloride [Ditropan] 5 mg PO DAILY@1600 11/10/16 04/07/18 History glipiZIDE XL [Glucotrol XL] 2.5 mg PO DAILY@0630 11/10/16 04/07/18 History Dabigatran [Pradaxa] 150 mg PO BID@06,192912/13/17 04/07/18 History Acetaminophen [Tylenol Arthritis] 650 mg PO Q8HR PRN 03/15/18 04/07/18 History Cetirizine HCl [Zyrtec] 10 mg PO DAILY@1100 03/15/18 04/07/18 History Cyanocobalamin (Vitamin B-12) 1,000 mcg PO DAILY@0630 03/15/18 04/07/18 History [Vitamin B-12] Ipratropium-Albuterol Nebulize 3 ml INHALATION RT-Q6H PRN 03/15/18 04/07/18 History [Duoneb 0.5 mg-3 mg/3 ml Soln] Propylene Glycol/Peg 400/Pf 1 drop BOTH EYES DAILY PRN 03/15/18 04/07/18 History [Systane 0.3-0.4% Eye Drops] guaiFENesin-DM 100-10MG/5ML 10 ml PO Q6HR PRN 03/15/18 04/07/18 History [Robitussin DM] Budesonide-Formot 160-4.5 Mcg 2 puff INHALATION RT-BID@0630,0 03/23/18 History [Symbicort 160-4.5 Mcg Inhaler] Docusate [Colace] 100 mg PO HS@192904/07/18 04/07/18 History Ocusoft Lid Scrub 1 applic OPHTHALMIC BID@629,192904/07/18 04/07/18 History Ranitidine HCl [Zantac] 150 mg PO BID@0630,192904/07/18 04/07/18 History amLODIPine [Norvasc] 5 mg PO DIRECTED 04/07/18 04/07/18 History Allergies Allergy/AdvReac Type Severity Reaction Status Date / Time No Known Allergies Allergy Verified 04/07/18 15:01 Physical Exam Vitals: Vital Signs Temp Pulse Pulse Resp BP BP Pulse Ox 04/08/18 15:54 58 L 04/08/18 15:44 60 04/08/18 14:53 98.1 F 57 L 14 137/63 93 L 04/08/18 11:55 56 L 04/08/18 11:45 54 L 04/08/18 08:57 58 L 04/08/18 08:45 52 L 95 04/08/18 08:00 16 04/08/18 05:36 97.5 F L 60 16 146/70 93 L 04/07/18 21:22 60 04/07/18 21:12 97.6 F 64 61 16 105/52 91 L 04/07/18 18:20 97.9 F 65 18 146/62 92 L 04/07/18 18:12 72 18 128/78 98 04/07/18 17:40 63 18 122/58 96 Intake and Output 04/08/18 04/08/18 04/08/18 06:59 14:59 22:59 Other: Voiding Method Incontinent Incontinent # Voids 2 2 GENERAL: The patient is alert and oriented x3, not in any acute distress. Well developed, well nourished. HEENT: Pupils are round and equally reacting to light. EOMI. No scleral icterus. No conjunctival pallor. Normocephalic, atraumatic. No pharyngeal erythema. No thyromegaly. Patient does have hoarseness of voice CARDIOVASCULAR: S1 and S2 present. No murmurs, rubs, or gallops. PULMONARY: Minimal right lower lobe crackles and minimal expiratory wheezing ABDOMEN: Soft, nontender, nondistended, normoactive bowel sounds. No palpable organomegaly. MUSCULOSKELETAL: No joint swelling or deformity. EXTREMITIES: No cyanosis, clubbing, or pedal edema. NEUROLOGICAL: Gross neurological examination did not reveal any focal deficits. SKIN: No rashes. Results - Laboratory Findings CBC and BMP: 04/08/18 08:16 04/08/18 08:16 PT/INR, D-dimer PT 17.3 sec (9.0-12.0) H 04/07/18 15:20 INR 1.9 (<1.2) H 04/07/18 15:20 Abnormal lab findings: Abnormal Labs 04/07/18 04/07/18 04/07/18 15:20 15:20 15:20 RBC Hgb Hct Lymphocytes # 0.9 L PT INR APTT Chloride 109 H Creatinine 2.00 H Glucose 144 H POC Glucose (mg/dL) Magnesium 2.4 H Total Creatine Kinase 29 L Total Protein 6.0 L Albumin 3.4 L 04/07/18 04/07/18 04/08/18 15:20 20:13 08:16 RBC 4.02 L Hgb 11.9 L Hct 38.3 L Lymphocytes # 0.4 L PT 17.3 H INR 1.9 H APTT 49.0 H Chloride Creatinine Glucose POC Glucose (mg/dL) 163 H Magnesium Total Creatine Kinase Total Protein Albumin 04/08/18 04/08/18 08:16 11:05 RBC Hgb Hct Lymphocytes # PT INR APTT Chloride 110 H Creatinine 1.81 H Glucose 107 H POC Glucose (mg/dL) 128 H Magnesium Total Creatine Kinase Total Protein Albumin - Diagnostic Findings Chest x-ray: report reviewed, image reviewed Assessment and Plan Assessment: Aspiration pneumonia Severe COPD with component of acute exacerbation Lung cancer squamous cell is status post right upper lobe resection with radiation therapy of left-sided lung nodule back in 2016 now a large tracheal mass with right upper lobe subsegmental atelectasis Type 2 diabetes mellitus Hypertension hypertensive cardiovascular disease Plan: Bronchodilator Broad-spectrum antibiotics Swallow evaluation Aspiration precaution Continue home medications DVT and peptic ulcer disease prophylaxis Gentle rehydration Other recommendations pending plan of care as per clinical response of the patient Time with Patient: Greater than 30
[2018-04-08] MEDS ORDERED: LEVOFLOXACIN 750MG-D5W PMX 750 MG in DEXTROSE/WATER 1 150ML.BAG IVPB SCH (17:00)
[2018-04-08] MEDS: OXYBUTYNIN CHLORIDE 5 MG TAB PO SCH (17:27)
[2018-04-08 17:32] LABS: Glucose,Whole Blood 128 mg/dL (75-99)
[2018-04-08] MEDS: ATORVASTATIN 10 MG TAB PO SCH (19:44)
[2018-04-08] MEDS: traZODone HCL 100 MG TAB PO SCH (19:45)
[2018-04-08] MEDS: DOCUSATE 100 MG CAP PO SCH (19:45)
[2018-04-08 20:02] LABS: Glucose,Whole Blood 281 mg/dL (75-99)
[2018-04-08 21:59] LABS: Hemoglobin A1C 6.6 % (4.0-6.0)
[2018-04-09] MEDS: SODIUM CHLORIDE 0.9% 1,000 ML IV SCH ×3 (04:53→21:15)
[2018-04-09] MEDS: PIPERACILLIN-TAZOBACTAM 3.375 GM in DEXTROSE/WATER 1 50ML.BAG IVPB SCH ×3 (04:53→16:00)
[2018-04-09] MEDS: AMIODARONE 200 MG TAB PO SCH (06:15)
[2018-04-09] MEDS: FAMOTIDINE 20 MG TAB PO SCH ×2 (06:15→21:16)
[2018-04-09] MEDS: METOPROLOL TARTRATE 25 MG TAB PO SCH ×2 (06:15→21:16)
[2018-04-09] MEDS: CHOLECALCIFEROL 400 UNIT TAB PO SCH ×2 (06:15→21:16)
[2018-04-09] MEDS: CYANOCOBALAMIN 500 MCG TAB PO SCH (06:15)
[2018-04-09] MEDS: ASPIRIN 81 MG PO SCH (06:15)
[2018-04-09] MEDS: DABIGATRAN 150 MG CAP PO SCH ×2 (06:15→21:16)
[2018-04-09 07:11] LABS: Glucose,Whole Blood 142 mg/dL (75-99)
[2018-04-09 07:55] LABS: Basophils % (A) 0 %; Eosinophils % (A) 0 %; HCT 40.1 % (39.0-53.0); HGB 12.4 gm/dL (13.0-17.5); Hypochromasia Slight; Lymphocytes # (A) 0.5 k/uL (1.0-4.8); Lymphocytes % (A) 5 %; MCH 29.2 pg (25.0-35.0); MCHC 30.8 g/dL (31.0-37.0); MCV 94.6 fL (80.0-100.0); Monocytes # (A) 0.6 k/uL (0-1.0); Monocytes % (A) 6 %; Neutrophils % (A) 88 %; Platelet Count 332 k/uL (150-450); RBC 4.23 m/uL (4.30-5.90); RDW 14.9 % (11.5-15.5); WBC 10.2 k/uL (3.8-10.6)
[2018-04-09] MEDS: predniSONE 20 MG TAB PO SCH (08:22)
[2018-04-09] MEDS: ALBUTEROL NEBULIZED 2.5 MG/3 ML INHALATION SCH ×4 (08:26→19:40)
[2018-04-09] MEDS: SYMBICORT 160-4.5 MCG INHALER INHALATION SCH ×2 (08:26→19:40)
[2018-04-09 08:46] LABS: Calcium 8.3 mg/dL (8.4-10.2); Potassium 4.7 mmol/L (3.5-5.1)
[2018-04-09 11:17] LABS: Glucose,Whole Blood 144 mg/dL (75-99)
[2018-04-09] MEDS: LORATADINE 10 MG TAB PO SCH (13:22)
[2018-04-09] MEDS: OXYBUTYNIN CHLORIDE 5 MG TAB PO SCH (16:01)
--- NOTE | 2018-04-09 16:43 | P.PN ---
Subjective Pleasant 73-year-old gentleman known to me is admitted in the past for aspiration pneumonia came in with same symptoms which frustrated his COPD. Patient is noncompliant with dietary recommendations of honey thickened liquids and a dysphagia diet. Patient went into warm air yesterday started having shortness of breath was admitted with 2 L of hard and patient doesn't arouse and patient is doing well today not using any oxygen at this time but did have significant aspiration, speech therapy reevaluated the patient. Patient will be started on steroids for his wheezing which may also help with a tracheal mass inflammation., Patient does have hoarseness of voice from tracheal mass and inflammation which is expected to improve with steroids because of which patient will be started on oral steroids. 04/09/2018 His wheezing completely resolved patient still has hoarseness of voice from a tracheal mass. Patient is looking much better patient is more appropriate for subacute rehab patient is agreeable now to go to subacute rehab. Constitutional: Denied any fatigue denied any fever. Cardio vascular: denied any chest pain, palpitations Gastrointestinal denied any nausea vomiting Pulmonary: Denied any shortness of breath cough Neurologic denied any new focal deficits Objective - Vital Signs Vital signs: Vital Signs Temp 97.6 F 04/09/18 14:45 Pulse 68 04/09/18 15:45 Resp 18 04/09/18 14:45 BP 149/74 04/09/18 14:45 Pulse Ox 94 L 04/09/18 14:45 Intake & Output 04/08/18 04/09/18 04/09/18 18:59 06:59 18:59 Intake Total 640 Balance 640 Weight 79.379 kg Intake: Intake, IV Titration 160 Amount Sodium Chloride 0.9% 1, 160 000 ml @ 100 mls/hr IV . Q10H [facility] Rx#:[id number] Oral 480 Other: Voiding Method Incontinent Incontinent Incontinent # Voids 2 3 1 # Bowel Movements 1 - Exam PHYSICAL EXAMINATION: GENERAL: The patient is alert and oriented x3, not in any acute distress. Well developed, well nourished. HEENT: Pupils are round and equally reacting to light. EOMI. No scleral icterus. No conjunctival pallor. Normocephalic, atraumatic. No pharyngeal erythema. No thyromegaly. Patient does have hoarseness of voice CARDIOVASCULAR: S1 and S2 present. No murmurs, rubs, or gallops. PULMONARY: Good air entry into bilateral lung amador no wheezing was appreciated ABDOMEN: Soft, nontender, nondistended, normoactive bowel sounds. No palpable organomegaly. MUSCULOSKELETAL: No joint swelling or deformity. EXTREMITIES: No cyanosis, clubbing, or pedal edema. NEUROLOGICAL: Gross neurological examination did not reveal any focal deficits. SKIN: No rashes. - Labs CBC & Chem 7: 04/09/18 07:17 04/09/18 07:17 Labs: Abnormal Lab Results - Last 24 Hours (Table) 04/08/18 04/08/18 04/08/18 Range/Units 08:16 17:29 20:01 RBC (4.30-5.90) m/uL Hgb (13.0-17.5) gm/dL MCHC (31.0-37.0) g/dL Neutrophils # (1.3-7.7) k/uL Lymphocytes # (1.0-4.8) k/uL Chloride (98-107) mmol/L Creatinine (0.66-1.25) mg/dL Glucose (74-99) mg/dL POC Glucose (mg/dL) 128 H 281 H (75-99) mg/dL Hemoglobin A1c 6.6 H (4.0-6.0) % Calcium (8.4-10.2) mg/dL 04/09/18 04/09/18 04/09/18 Range/Units 07:09 07:17 07:17 RBC 4.23 L (4.30-5.90) m/uL Hgb 12.4 L (13.0-17.5) gm/dL MCHC 30.8 L (31.0-37.0) g/dL Neutrophils # 9.0 H (1.3-7.7) k/uL Lymphocytes # 0.5 L (1.0-4.8) k/uL Chloride 108 H (98-107) mmol/L Creatinine 1.47 H (0.66-1.25) mg/dL Glucose 160 H (74-99) mg/dL POC Glucose (mg/dL) 142 H (75-99) mg/dL Hemoglobin A1c (4.0-6.0) % Calcium 8.3 L (8.4-10.2) mg/dL 04/09/18 Range/Units 11:15 RBC (4.30-5.90) m/uL Hgb (13.0-17.5) gm/dL MCHC (31.0-37.0) g/dL Neutrophils # (1.3-7.7) k/uL Lymphocytes # (1.0-4.8) k/uL Chloride (98-107) mmol/L Creatinine (0.66-1.25) mg/dL Glucose (74-99) mg/dL POC Glucose (mg/dL) 144 H (75-99) mg/dL Hemoglobin A1c (4.0-6.0) % Calcium (8.4-10.2) mg/dL Microbiology - Last 24 Hours (Table) 04/07/18 16:10 Blood Culture - Preliminary Blood No Growth after 24 hours Assessment and Plan Plan: -Aspiration pneumonia: Noncompliant dietary recommendation patient need to be on pured diet and nectar thickened liquids and pills need to be crushed whichever can be crushed. 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
[2018-04-09 16:57] LABS: Glucose,Whole Blood 307 mg/dL (75-99)
--- NOTE | 2018-04-09 17:09 | P.PN ---
Subjective Progress Note Date: 04/09/18 Principal diagnosis: shortness of breath, difficulty in breathing Patient seen today in follow-up, he is tolerating his diet, no recent choking, breathing continues to be comfortable and unlabored, patient's voice unchanged. No pain to report Objective - Vital Signs Vital signs: Vital Signs Temp 97.6 F 04/09/18 14:45 Pulse 68 04/09/18 15:45 Resp 18 04/09/18 14:45 BP 149/74 04/09/18 14:45 Pulse Ox 94 L 04/09/18 14:45 Intake & Output 04/08/18 04/09/18 04/09/18 18:59 06:59 18:59 Intake Total 640 Balance 640 Weight 79.379 kg Intake: Intake, IV Titration 160 Amount Sodium Chloride 0.9% 1, 160 000 ml @ 100 mls/hr IV . Q10H [facility] Rx#:[id number] Oral 480 Other: Voiding Method Incontinent Incontinent Incontinent # Voids 2 3 1 # Bowel Movements 1 - Labs CBC & Chem 7: 04/09/18 07:17 04/09/18 07:17 Labs: Abnormal Lab Results - Last 24 Hours (Table) 04/08/18 04/08/18 04/08/18 Range/Units 08:16 17:29 20:01 RBC (4.30-5.90) m/uL Hgb (13.0-17.5) gm/dL MCHC (31.0-37.0) g/dL Neutrophils # (1.3-7.7) k/uL Lymphocytes # (1.0-4.8) k/uL Chloride (98-107) mmol/L Creatinine (0.66-1.25) mg/dL Glucose (74-99) mg/dL POC Glucose (mg/dL) 128 H 281 H (75-99) mg/dL Hemoglobin A1c 6.6 H (4.0-6.0) % Calcium (8.4-10.2) mg/dL 04/09/18 04/09/18 04/09/18 Range/Units 07:09 07:17 07:17 RBC 4.23 L (4.30-5.90) m/uL Hgb 12.4 L (13.0-17.5) gm/dL MCHC 30.8 L (31.0-37.0) g/dL Neutrophils # 9.0 H (1.3-7.7) k/uL Lymphocytes # 0.5 L (1.0-4.8) k/uL Chloride 108 H (98-107) mmol/L Creatinine 1.47 H (0.66-1.25) mg/dL Glucose 160 H (74-99) mg/dL POC Glucose (mg/dL) 142 H (75-99) mg/dL Hemoglobin A1c (4.0-6.0) % Calcium 8.3 L (8.4-10.2) mg/dL 04/09/18 04/09/18 Range/Units 11:15 16:55 RBC (4.30-5.90) m/uL Hgb (13.0-17.5) gm/dL MCHC (31.0-37.0) g/dL Neutrophils # (1.3-7.7) k/uL Lymphocytes # (1.0-4.8) k/uL Chloride (98-107) mmol/L Creatinine (0.66-1.25) mg/dL Glucose (74-99) mg/dL POC Glucose (mg/dL) 144 H 307 H (75-99) mg/dL Hemoglobin A1c (4.0-6.0) % Calcium (8.4-10.2) mg/dL Microbiology - Last 24 Hours (Table) 04/07/18 16:10 Blood Culture - Preliminary Blood No Growth after 24 hours Assessment and Plan (1) Non-small cell cancer of right lung Narrative/Plan: Dr. Durán reviewed results of recent PET scan. Unfortunately, this is showing disease in the trachea area as well as the bilateral lungs and in the area abutting his previous right upper lobectomy. Intent of treatment is palliation of symptoms as disease is not curable. Radiation would no longer be definitive but for symptoms of dysphagia and loss of voice. Chemotherapy can be considered. We'll try to contact patient's niece who coordinates his care. Patient was scheduled to have MRI of the brain, this will be requested to be done while inpatient to complete restaging baseline. Patient did not have any other questions. Current Visit: No Status: Chronic Priority: Medium Code(s): C34.91 - MALIGNANT NEOPLASM OF UNSP PART OF RIGHT BRONCHUS OR LUNG SNOMED Code(s): 941787835 (2) Tracheal malignancy Current Visit: Yes Status: Acute Code(s): C33 - MALIGNANT NEOPLASM OF TRACHEA SNOMED Code(s): 100151896 Plan: Doctor attests:I have performed a history and physical exam of this pt, discussed with dictator. I agree with dictated note, documented as a scribe.
[2018-04-09] MEDS: INSULIN ASPART 100 UNIT/ML 1 ML 10 ML VIAL SQ SCH ×2 (17:45→21:16)
[2018-04-09] MEDS ORDERED: INSULIN ASPART 100 UNIT/ML 1 ML 10 ML VIAL SQ SCH (21:00)
[2018-04-09] MEDS ORDERED: LEVOFLOXACIN 750MG-D5W PMX 750 MG in DEXTROSE/WATER 1 150ML.BAG IVPB SCH (21:00)
[2018-04-09 21:05] LABS: Glucose,Whole Blood 271 mg/dL (75-99)
--- NOTE | 2018-04-09 21:09 | MR ---
EXAMINATION TYPE: MR brain wo/w con DATE OF EXAM: 04/09/2018 COMPARISON: None HISTORY: Pneumonia, SOB, recurrent lung cancer TECHNIQUE: Multiplanar, multisequence images of the brain and brainstem is performed without and with IV contras t, utilizing 7.5 mL intravenous Gadavist . FINDINGS: There is diffuse cerebral cortical atrophy. There is no mass effect nor midline shift. Ther e is no sign of intracranial hemorrhage. There is patchy increased signal in the periventricular whit e matter on the FLAIR and T2 images. There is coalescent areas measure up to 2 cm. There is no hydroc ephalus. The brainstem shows some atrophy. There is a 5 mm focus of increased signal within the centr al jesus. There is no pathologic enhancement. There is thinning of the corpus callosum. Sella turcica appears normal. There is no evidence of orbital mass. IMPRESSION: Cerebral atrophy. Extensive white matter changes consistent with chronic small vessel isc hemia. Demyelinating disease is possible. No enhancing focus to suggest metastatic disease. Small inf arct in the central jesus.
[2018-04-09] MEDS: ATORVASTATIN 10 MG TAB PO SCH (21:16)
[2018-04-09] MEDS: DOCUSATE 100 MG CAP PO SCH (21:16)
[2018-04-09] MEDS: traZODone HCL 100 MG TAB PO SCH (21:16)
[2018-04-10] MEDS: PIPERACILLIN-TAZOBACTAM 3.375 GM in DEXTROSE/WATER 1 50ML.BAG IVPB SCH ×3 (00:40→16:03)
[2018-04-10] MEDS: SODIUM CHLORIDE 0.9% 1,000 ML IV SCH ×2 (06:47→17:39)
[2018-04-10] MEDS: METOPROLOL TARTRATE 25 MG TAB PO SCH ×3 (06:53→21:59)
[2018-04-10] MEDS: CHOLECALCIFEROL 400 UNIT TAB PO SCH ×2 (06:53→19:34)
[2018-04-10] MEDS: DABIGATRAN 150 MG CAP PO SCH ×2 (06:53→19:33)
[2018-04-10] MEDS: CYANOCOBALAMIN 500 MCG TAB PO SCH (06:54)
[2018-04-10] MEDS: FAMOTIDINE 20 MG TAB PO SCH ×2 (06:54→19:34)
[2018-04-10] MEDS: AMIODARONE 200 MG TAB PO SCH (06:54)
[2018-04-10] MEDS: ASPIRIN 81 MG PO SCH (06:54)
[2018-04-10 07:45] LABS: Glucose,Whole Blood 89 mg/dL (75-99)
[2018-04-10 08:16] LABS: Calcium 8.6 mg/dL (8.4-10.2); Potassium 4.3 mmol/L (3.5-5.1)
[2018-04-10] MEDS: INSULIN ASPART 100 UNIT/ML 1 ML 10 ML VIAL SQ SCH ×4 (08:36→19:37)
[2018-04-10] MEDS: ALBUTEROL NEBULIZED 2.5 MG/3 ML INHALATION SCH ×4 (08:38→19:43)
[2018-04-10] MEDS: SYMBICORT 160-4.5 MCG INHALER INHALATION SCH ×2 (08:38→19:44)
[2018-04-10 08:48] LABS: Basophils % (A) 0 %; Eosinophils % (A) 0 %; HCT 42.9 % (39.0-53.0); HGB 13.3 gm/dL (13.0-17.5); Hypochromasia Slight; Lymphocytes # (A) 0.6 k/uL (1.0-4.8); Lymphocytes % (A) 6 %; MCH 29.3 pg (25.0-35.0); MCHC 31.1 g/dL (31.0-37.0); MCV 94.3 fL (80.0-100.0); Mean Platelet Volume 6.6; Monocytes # (A) 0.6 k/uL (0-1.0); Monocytes % (A) 6 %; Neutrophils # (A) 8.5 k/uL (1.3-7.7); Neutrophils % (A) 85 %; Platelet Count 355 k/uL (150-450); RBC 4.54 m/uL (4.30-5.90); RDW 14.5 % (11.5-15.5)
[2018-04-10] MEDS: predniSONE 20 MG TAB PO SCH (08:48)
[2018-04-10] MEDS: LORATADINE 10 MG TAB PO SCH (08:48)
--- NOTE | 2018-04-10 09:49 | P.PN ---
<Cristiana Chun E - Last Filed: 04/10/18 09:44> Subjective Progress Note Date: 04/10/18 History of present illness: Mr. 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 underwent right upper lobe resection followed by radiation therapy of nodule in the left side patient was reviewed in remission until recently patient has increasing shortness of breath hemoptysis found to have a mass in the tracheal area which was positive for squamous cell cancer patient is being followed by the oncology service as well Ammann patient has been admitted into the hospital with increasing shortness of breath cough with a suspicion of aspiration and aspiration pneumonia as well the speech and swallow are evaluating this patient , oncology service has been following as well, patient is overall a poor historian most of the data has been obtained from the chart absent reviewed radiographic studies and chest x-ray reviewed Interval History: Patient is being seen examined and evaluated while covering today for Dr. Cabral. He is resting up in bed on room air. His voice is hoarse from his tracheal mass. He is being followed by oncology. Does have some exertional shortness of breath. He is on oral prednisone. Afebrile no further complaints. Discharge planning in process for subacute rehab. Objective - Vital Signs Vital signs: Vital Signs Temp 98.7 F 04/10/18 07:00 Pulse 53 L 04/10/18 07:00 Resp 17 04/10/18 07:00 BP 183/82 04/10/18 07:00 Pulse Ox 98 04/10/18 07:00 Intake & Output 04/09/18 04/10/18 04/10/18 18:59 06:59 18:59 Intake Total 800 Balance 800 Intake: Intake, IV Titration 800 Amount Piperacillin-Tazobactam 3 100 .375 gm In Dextrose/Water 1 50ml.bag @ 12.5 mls/hr IVPB Q8HR [facility] Rx#: [id number] Sodium Chloride 0.9% 1, 700 000 ml @ 100 mls/hr IV . Q10H [facility] Rx#:[id number] Other: Voiding Method Incontinent Incontinent Incontinent # Voids 1 1 # Bowel Movements 1 - Exam GENERAL EXAM: Alert, active, comfortable in no apparent distress. HEAD: Normocephalic. EYES: Normal reaction of pupils, equal size. NOSE: Clear with pink turbinates. THROAT: No erythema or exudates. Hoarseness of voice NECK: No masses, no JVD. CHEST: No chest wall deformity. LUNGS: Lungs somewhat diminished with some faint expiratory wheezing CVS: S1 and S2 normal with no audible mumurs, regular rhythm. ABDOMEN: No hepatosplenomegaly, normal bowel sounds, no guarding or rigidity. EXTREMITIES: No edema noted, pedal pulses palpable. CENTRAL NERVOUS SYSTEM: No focal deficits, tone is normal in all 4 extremities. - Labs CBC & Chem 7: 04/10/18 07:25 04/10/18 07:25 Labs: Abnormal Lab Results - Last 24 Hours (Table) 04/09/18 04/09/18 04/09/18 Range/Units 11:15 16:55 21:04 Neutrophils # (1.3-7.7) k/uL Lymphocytes # (1.0-4.8) k/uL Chloride (98-107) mmol/L Creatinine (0.66-1.25) mg/dL POC Glucose (mg/dL) 144 H 307 H 271 H (75-99) mg/dL 04/10/18 04/10/18 Range/Units 07:25 07:25 Neutrophils # 8.5 H (1.3-7.7) k/uL Lymphocytes # 0.6 L (1.0-4.8) k/uL Chloride 109 H (98-107) mmol/L Creatinine 1.51 H (0.66-1.25) mg/dL POC Glucose (mg/dL) (75-99) mg/dL Microbiology - Last 24 Hours (Table) 04/07/18 16:10 Blood Culture - Preliminary Blood No Growth after 48 hours Assessment and Plan Assessment: Assessment: Aspiration pneumonia Severe COPD with component of acute exacerbation Lung cancer squamous cell is status post right upper lobe resection with radiation therapy of left-sided lung nodule back in 2016 now a large tracheal mass with right upper lobe subsegmental atelectasis Type 2 diabetes mellitus Hypertension hypertensive cardiovascular disease Plan: Medications reviewed and will be continued as ordered Discharge planning in process for subacute rehab Bronchodilator Prednisone Broad-spectrum antibiotics Swallow evaluation Aspiration precaution Continue home medications DVT and peptic ulcer disease prophylaxis Gentle rehydration Other recommendations pending plan of care as per clinical response of the patient I performed an examination of the patient and discussed their management with the nurse practitioner. I have reviewed the nurse practitioner's note and agree with the documented findings and plan of care. <Renate Hicks A - Last Filed: 04/10/18 16:10> Objective - Vital Signs Vital signs: Vital Signs Temp 98.7 F 04/10/18 07:00 Pulse 65 04/10/18 15:25 Resp 17 04/10/18 07:00 BP 183/82 04/10/18 07:00 Pulse Ox 97 04/10/18 11:19 Intake & Output 04/09/18 04/10/18 04/10/18 18:59 06:59 18:59 Intake Total 800 850 Balance 800 850 Intake: Intake, IV Titration 800 850 Amount Piperacillin-Tazobactam 3 100 50 .375 gm In Dextrose/Water 1 50ml.bag @ 12.5 mls/hr IVPB Q8HR [facility] Rx#: [id number] Sodium Chloride 0.9% 1, 700 800 000 ml @ 100 mls/hr IV . Q10H [facility] Rx#:[id number] Other: Voiding Method Incontinent Incontinent Incontinent # Voids 1 1 # Bowel Movements 1 - Labs CBC & Chem 7: 04/10/18 07:25 04/10/18 07:25 Labs: Abnormal Lab Results - Last 24 Hours (Table) 04/09/18 04/09/18 04/10/18 Range/Units 16:55 21:04 07:25 Neutrophils # 8.5 H (1.3-7.7) k/uL Lymphocytes # 0.6 L (1.0-4.8) k/uL Chloride (98-107) mmol/L Creatinine (0.66-1.25) mg/dL POC Glucose (mg/dL) 307 H 271 H (75-99) mg/dL 04/10/18 04/10/18 Range/Units 07:25 11:14 Neutrophils # (1.3-7.7) k/uL Lymphocytes # (1.0-4.8) k/uL Chloride 109 H (98-107) mmol/L Creatinine 1.51 H (0.66-1.25) mg/dL POC Glucose (mg/dL) 224 H (75-99) mg/dL Microbiology - Last 24 Hours (Table) 04/07/18 16:10 Blood Culture - Preliminary Blood No Growth after 48 hours Assessment and Plan Assessment: Patient seen and examined covering for Dr. Cabral. Patient states he is still short of breath with exertion. He denies cough, fever, chills. He has known squamous cell lung cancer, s/p resection and radiation. He also has a tracheal mass and is following with oncology. He is currently on RA with O2 saturation 97%. He has CKD3, which is at baseline. BS elevated. Plan for possible PHILIPP. Aspiration precautions, swallow eval. ABX, steroid taper. Symbicort, Albuterol nebs PRN. Decrease IVF. GI and DVT prophylaxis. SCDs and Pepcid. ~Renate Hicks DO
[2018-04-10 11:17] LABS: Glucose,Whole Blood 224 mg/dL (75-99)
--- NOTE | 2018-04-10 13:07 | P.PN ---
Subjective Progress Note Date: 04/10/18 Principal diagnosis: shortness of breath, difficulty in breathing, metastatic squamous cell lung cancer Pt seen in f/u. He is aware that he has cancer in his trachea and both lungs, he is wanting to do the radiation for palliation of the trach and hopefully this will help to restore his ability to swallow and maybe his voice. He denies pain, nausea or changes in BM. Objective - Vital Signs Vital signs: Vital Signs Temp 98.7 F 04/10/18 07:00 Pulse 59 L 04/10/18 11:31 Resp 17 04/10/18 07:00 BP 183/82 04/10/18 07:00 Pulse Ox 97 04/10/18 11:19 Intake & Output 04/09/18 04/10/18 04/10/18 18:59 06:59 18:59 Intake Total 800 Balance 800 Intake: Intake, IV Titration 800 Amount Piperacillin-Tazobactam 3 100 .375 gm In Dextrose/Water 1 50ml.bag @ 12.5 mls/hr IVPB Q8HR [facility] Rx#: [id number] Sodium Chloride 0.9% 1, 700 000 ml @ 100 mls/hr IV . Q10H [facility] Rx#:[id number] Other: Voiding Method Incontinent Incontinent Incontinent # Voids 1 1 # Bowel Movements 1 - Constitutional General appearance: Present: average body habitus, cooperative, no acute distress - Integumentary Integumentary: Present: pale - Psychiatric Psychiatric: Present: A&O x's 3, appropriate affect, intact judgment & insight - Labs CBC & Chem 7: 04/10/18 07:25 04/10/18 07:25 Labs: Abnormal Lab Results - Last 24 Hours (Table) 04/09/18 04/09/18 04/10/18 Range/Units 16:55 21:04 07:25 Neutrophils # 8.5 H (1.3-7.7) k/uL Lymphocytes # 0.6 L (1.0-4.8) k/uL Chloride (98-107) mmol/L Creatinine (0.66-1.25) mg/dL POC Glucose (mg/dL) 307 H 271 H (75-99) mg/dL 04/10/18 04/10/18 Range/Units 07:25 11:14 Neutrophils # (1.3-7.7) k/uL Lymphocytes # (1.0-4.8) k/uL Chloride 109 H (98-107) mmol/L Creatinine 1.51 H (0.66-1.25) mg/dL POC Glucose (mg/dL) 224 H (75-99) mg/dL Microbiology - Last 24 Hours (Table) 04/07/18 16:10 Blood Culture - Preliminary Blood No Growth after 48 hours Assessment and Plan (1) Non-small cell cancer of right lung Current Visit: No Status: Chronic Priority: Medium Code(s): C34.91 - MALIGNANT NEOPLASM OF UNSP PART OF RIGHT BRONCHUS OR LUNG SNOMED Code(s): 966543735 (2) Tracheal malignancy Current Visit: Yes Status: Acute Code(s): C33 - MALIGNANT NEOPLASM OF TRACHEA SNOMED Code(s): 523883055 Plan: Spent>30min reviewing pt case with niece who cares for him. We discussed diagnosis of metastatic squamous cell lung cancer, intent of radiation being palliation of symptoms and biomarker testing for treatment options. There was quite a bit of confusion re: "special" radiation at [facility] and staying local for treatment. There were also concerns as to urgency of starting radiation treatment. Case discussed with Rad/Onc who will discuss case with [facility] and communicate recommendations to pt and niece. Biomarkers have been requested on trach biopsy specimen. Pt will f/u with Dr. Durán after rehab and radiation for additional treatment options Plan is for some time in rehab. Pt cannot do treatment while in rehab so any plans will have to be postponed until discharge. Case discussed with speech pathologist for possible voice enhancement device.
[2018-04-10 17:02] LABS: Glucose,Whole Blood 235 mg/dL (75-99)
[2018-04-10] MEDS: OXYBUTYNIN CHLORIDE 5 MG TAB PO SCH (17:38)
[2018-04-10 19:34] LABS: Glucose,Whole Blood 255 mg/dL (75-99)
[2018-04-10] MEDS: traZODone HCL 100 MG TAB PO SCH (19:34)
[2018-04-10] MEDS: ATORVASTATIN 10 MG TAB PO SCH (19:34)
[2018-04-10] MEDS: DOCUSATE 100 MG CAP PO SCH (19:34)
[2018-04-10] MEDS: AMOXIC-POT CLAV 875-125MG 1 EACH TAB PO SCH (19:34)
[2018-04-11] MEDS: CHOLECALCIFEROL 400 UNIT TAB PO SCH ×2 (06:31→22:41)
[2018-04-11] MEDS: DABIGATRAN 150 MG CAP PO SCH ×2 (06:31→22:40)
[2018-04-11] MEDS: AMIODARONE 200 MG TAB PO SCH (06:31)
[2018-04-11] MEDS: FAMOTIDINE 20 MG TAB PO SCH (06:31)
[2018-04-11] MEDS: ASPIRIN 81 MG PO SCH (06:31)
[2018-04-11] MEDS: CYANOCOBALAMIN 500 MCG TAB PO SCH (06:31)
[2018-04-11] MEDS: ALBUTEROL NEBULIZED 2.5 MG/3 ML INHALATION SCH ×4 (07:16→22:05)
[2018-04-11] MEDS: SYMBICORT 160-4.5 MCG INHALER INHALATION SCH ×2 (07:16→22:05)
[2018-04-11 07:23] LABS: Glucose,Whole Blood 124 mg/dL (75-99)
[2018-04-11] MEDS: METOPROLOL TARTRATE 25 MG TAB PO SCH ×2 (07:41→22:40)
[2018-04-11] MEDS: INSULIN ASPART 100 UNIT/ML 1 ML 10 ML VIAL SQ SCH ×4 (07:42→22:39)
[2018-04-11 07:44] LABS: Basophils % (A) 0 %; Eosinophils % (A) 0 %; HCT 38.1 % (39.0-53.0); Hypochromasia Slight; Lymphocytes # (A) 0.8 k/uL (1.0-4.8); Lymphocytes % (A) 8 %; MCH 29.7 pg (25.0-35.0); MCHC 31.6 g/dL (31.0-37.0); MCV 93.9 fL (80.0-100.0); Mean Platelet Volume 6.5; Monocytes # (A) 0.6 k/uL (0-1.0); Monocytes % (A) 6 %; Neutrophils # (A) 8.3 k/uL (1.3-7.7); Neutrophils % (A) 84 %; Platelet Count 361 k/uL (150-450); RBC 4.06 m/uL (4.30-5.90); RDW 14.7 % (11.5-15.5); WBC 9.8 k/uL (3.8-10.6)
[2018-04-11 07:56] LABS: Calcium 8.3 mg/dL (8.4-10.2); Potassium 4.3 mmol/L (3.5-5.1)
[2018-04-11] MEDS: AMOXIC-POT CLAV 875-125MG 1 EACH TAB PO SCH ×2 (08:10→22:41)
[2018-04-11] MEDS: predniSONE 10 MG TAB PO SCH (08:11)
--- NOTE | 2018-04-11 09:25 | P.CONS ---
History of Present Illness - Reason for Consult Consult date: 04/10/18 Recurrent cancer Requesting physician: Sergio Durán - Chief Complaint I am short of breathe - History of Present Illness Joesph is a pleasant 73 year old male with a history of early stage bilateral lung cancers. Dr. Curry at [facility] performed right upper lobectomy on 06/04/16, final path stage IA squamous cell carcinoma, subsequently pt found to have a synchronous primary in the left lower lobe, also squamous cell, treated with SBRT, completed in 09/07. Patient was admitted on 03/16/2018 with cough, hemoptysis and hoarseness 2 weeks, CTA negative for PE but soft tissue density along the right lateral tracheal wall measuring 3.5 x 2.8 cm, 1.1 cm nodule in the right lower lobe, prominent left-sided hilar consolidation. Bronchoscopy and biopsy on 03/19/18, showed edema in the mid trachea and evidence of a growth growing into the posterior and right lateral wall. Biopsy was positive for squamous cell carcinoma. Joesph did undergo PET/CT at [facility] for re-evaluation which visualized multiple bilateral pulmonary PET avid metastasis. Also noted was significant FDG avidity in the trachea. Joesph was schedled to intiate palliative radiation therapy at [facility],however, was admitted for aspiration pneumonia. Patient had profound shortness of breath, cough, this has improved since admission, patient does not follow prescribed pured diet, his voice is persistently weak and hoarse. No fevers, nausea, vomiting, hemoptysis, gagging, indigestion, painful swallowing, acute changes in bowel or bladder habits. Past Medical History Past Medical History: CVA/TIA, Diabetes Mellitus, GERD/Reflux, Hyperlipidemia, Hypertension, Pneumonia, Renal Disease Additional Past Medical History / Comment(s): Lung Cancer right upper lobe with radiation and lobectomy,. HX OF CVA X3 -RIGHT SIDED WEAKNESS, SPEECH DIFFICULT TO UNDERSTAND AT TIMES, W/C BOUND, ABLE TO PIVOT TO TRANSFER WITH ASSISTANCE, DIFFICULTY CHEWING AND SWALLOWING, HX OF ASPIRATION.,WEARS DEPENDS FOR OCC. INCONTINENCE., DDD, KIDNEY FUNCTION AT 50-60%, ENVIRONMENTAL ALLERGIES. PT LIVES AT [facility] -HAS OWN APARTMENT WITH 24 HOUR HELP., HAS DIZZINESS AND DIFFICULTY WITH VISION-WEARS PRISMS IN HIS EYE GLASSES. History of Any Multi-Drug Resistant Organisms: None Reported Past Surgical History: Appendectomy, Tonsillectomy Additional Past Surgical History / Comment(s): EYE SURGERY, right upper lobectomy for Ca 2016, spinal fusions x 2, gallstones removed. Past Anesthesia/Blood Transfusion Reactions: No Reported Reaction Past Psychological History: Depression Smoking Status: Former smoker Past Alcohol Use History: Rare Past Drug Use History: None Reported - Past Family History Mother History Unknown: Yes Family Medical History: CVA/TIA Father History Unknown: Yes Family Medical History: No Reported History Brother(s) Family Medical History: Cancer Additional Family Medical History / Comment(s): MESOTHELIOMA LUNG CANCER Medications and Allergies Home Medications Medication Instructions Recorded Confirmed Type Cholecalciferol [Vitamin D3] 400 unit PO BID@629,192901/26/16 04/07/18 History Simvastatin [Zocor] 10 mg PO HS@192901/26/16 04/07/18 History traZODone HCL [Desyrel] 100 mg PO HS@192901/26/16 04/07/18 History Metoprolol Tartrate [Lopressor] 25 mg PO BID@629,192903/15/16 04/07/18 History Amiodarone [Cordarone] 200 mg PO DAILY@0611/10/16 04/07/18 History Aspirin 81 mg PO DAILY@0630 11/10/16 04/07/18 History Oxybutynin Chloride [Ditropan] 5 mg PO DAILY@1600 11/10/16 04/07/18 History glipiZIDE XL [Glucotrol XL] 2.5 mg PO DAILY@0630 11/10/16 04/07/18 History Dabigatran [Pradaxa] 150 mg PO BID@629,192912/13/17 04/07/18 History Acetaminophen [Tylenol Arthritis] 650 mg PO Q8HR PRN 03/15/18 04/07/18 History Cetirizine HCl [Zyrtec] 10 mg PO DAILY@1100 03/15/18 04/07/18 History Cyanocobalamin (Vitamin B-12) 1,000 mcg PO DAILY@0630 03/15/18 04/07/18 History [Vitamin B-12] Propylene Glycol/Peg 400/Pf 1 drop BOTH EYES DAILY PRN 03/15/18 04/07/18 History [Systane 0.3-0.4% Eye Drops] guaiFENesin-DM 100-10MG/5ML 10 ml PO Q6HR PRN 03/15/18 04/07/18 History [Robitussin DM] Budesonide-Formot 160-4.5 Mcg 2 puff INHALATION RT-BID@0630,1900 03/23/18 History [Symbicort 160-4.5 Mcg Inhaler] Docusate [Colace] 100 mg PO HS@192904/07/18 04/07/18 History Ocusoft Lid Scrub 1 applic OPHTHALMIC BID@0630,1930 04/07/18 04/07/18 History amLODIPine [Norvasc] 5 mg PO DIRECTED 04/07/18 04/07/18 History Amoxic-Pot Clav 875-125Mg 1 tab PO Q12HR #14 tablet 04/10/18 Rx [Augmentin 875-125] Famotidine [Pepcid] 20 mg PO BID@0630,193 tab 04/10/18 Rx INSULIN LISPRO (HumaLOG) [humaLOG] 0 unit SQ ACHS #1 vial 04/10/18 Rx Ipratropium-Albuterol Nebulize 3 ml INHALATION QID #0 04/10/18 04/07/18 Rx [Duoneb 0.5 mg-3 mg/3 ml Soln] predniSONE 10 mg PO DIRECTED #30 tab 04/10/18 Rx Allergies Allergy/AdvReac Type Severity Reaction Status Date / Time No Known Allergies Allergy Verified 04/07/18 15:01 Physical Exam Vitals: Vital Signs Temp Pulse Pulse Resp BP Pulse Ox 04/11/18 07:29 60 04/11/18 07:17 60 04/11/18 05:00 97.6 F 59 L 16 145/71 94 L 04/10/18 21:58 54 L 04/10/18 20:55 98.1 F 58 L 17 141/65 92 L 04/10/18 19:58 62 04/10/18 19:44 59 L 96 04/10/18 15:25 65 04/10/18 15:12 67 04/10/18 11:31 59 L 04/10/18 11:19 57 L 97 Intake and Output 04/10/18 04/11/1818 22:59 06:59 14:59 Intake Total 590 Balance 590 Intake: Oral 590 Other: Voiding Method Incontinent # Voids 2 1 Results CBC & Chem 7: 04/11/18 07:05 04/11/18 07:05 Labs: Abnormal Lab Results - Last 24 Hours (Table) 04/10/18 04/10/18 04/10/18 Range/Units 11:14 17:00 19:20 RBC (4.30-5.90) m/uL Hgb (13.0-17.5) gm/dL Hct (39.0-53.0) % Neutrophils # (1.3-7.7) k/uL Lymphocytes # (1.0-4.8) k/uL Chloride (98-107) mmol/L Creatinine (0.66-1.25) mg/dL Glucose (74-99) mg/dL POC Glucose (mg/dL) 224 H 235 H 255 H (75-99) mg/dL Calcium (8.4-10.2) mg/dL 04/11/18 04/11/18 04/11/18 Range/Units 07:05 07:05 07:22 RBC 4.06 L (4.30-5.90) m/uL Hgb 12.0 L (13.0-17.5) gm/dL Hct 38.1 L (39.0-53.0) % Neutrophils # 8.3 H (1.3-7.7) k/uL Lymphocytes # 0.8 L (1.0-4.8) k/uL Chloride 108 H (98-107) mmol/L Creatinine 1.39 H (0.66-1.25) mg/dL Glucose 130 H (74-99) mg/dL POC Glucose (mg/dL) 124 H (75-99) mg/dL Calcium 8.3 L (8.4-10.2) mg/dL Microbiology - Last 24 Hours (Table) 04/07/18 16:10 Blood Culture - Preliminary Blood No Growth after 72 hours Assessment and Plan Assessment: 73 year old with metastatic lung cancer and a metastasis to the trachea resulting in shortness of breath and voice hoarseness. Plan: I discussed with Joesph and his niece Sadiq the role of palliative radiation in the setting of metastatic cancer. Initially they sought evaluation at [facility] in hopes for advanced treatment techniques. I did express to Joesph that at this time radiation would be delivered in a palliative rather than definitive fashion. They are agreeable to initiate therapy for airway control. We will have Joesph simulated 04/11/18 with plans to start therapy shortly there after. The case was discussed with the Dr. Kayli Rivas resident at [facility] as she is on vacation and [employer]. I expressed to Joesph that he would benefit from a PEG tube, but he is currently refusing. We will await discharge planning for Joesph' outpatient transportation needs. [facility] [phone]
--- NOTE | 2018-04-11 10:36 | P.PN ---
Subjective Progress Note Date: 04/11/18 History of present illness: Mr. 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 underwent right upper lobe resection followed by radiation therapy of nodule in the left side patient was reviewed in remission until recently patient has increasing shortness of breath hemoptysis found to have a mass in the tracheal area which was positive for squamous cell cancer patient is being followed by the oncology service as well Ammann patient has been admitted into the hospital with increasing shortness of breath cough with a suspicion of aspiration and aspiration pneumonia as well the speech and swallow are evaluating this patient , oncology service has been following as well, patient is overall a poor historian most of the data has been obtained from the chart absent reviewed radiographic studies and chest x-ray reviewed Interval History: 04/10/18- Patient is being seen examined and evaluated while covering today for Dr. Cabral. He is resting up in bed on room air. His voice is hoarse from his tracheal mass. He is being followed by oncology. Does have some exertional shortness of breath. He is on oral prednisone. Afebrile no further complaints. Discharge planning in process for subacute rehab. 04/11/18- patient is being seen examined and evaluated today on rounds, we'll covering for Dr. Cabral. He is resting up in bed on room air. He is potentially undergoing a palliative radiation treatment to help with his breathing, it was recommended the patient obtain a PEG tube as well however he is refusing. Dr. Bentley is on the case. He has been hemodynamically stable. Discharge planning underway Objective - Vital Signs Vital signs: Vital Signs Temp 97.6 F 04/11/18 05:00 Pulse 60 04/11/18 07:29 Resp 16 04/11/18 05:00 BP 145/71 04/11/18 05:00 Pulse Ox 94 L 04/11/18 05:00 Intake & Output 04/10/18 04/11/18 04/11/18 18:59 06:59 18:59 Intake Total 850 590 Balance 850 590 Intake: Intake, IV Titration 850 Amount Piperacillin-Tazobactam 3 50 .375 gm In Dextrose/Water 1 50ml.bag @ 12.5 mls/hr IVPB Q8HR [facility] Rx#: [id number] Sodium Chloride 0.9% 1, 800 000 ml @ 40 mls/hr IV . Q24H [facility] Rx#:[id number] Oral 590 Other: Voiding Method Incontinent Incontinent # Voids 1 - Exam GENERAL EXAM: Alert, active, comfortable in no apparent distress. HEAD: Normocephalic. EYES: Normal reaction of pupils, equal size. NOSE: Clear with pink turbinates. THROAT: No erythema or exudates. Hoarseness of voice NECK: No masses, no JVD. CHEST: No chest wall deformity. LUNGS: Lungs somewhat diminished with some faint expiratory wheezing CVS: S1 and S2 normal with no audible mumurs, regular rhythm. ABDOMEN: No hepatosplenomegaly, normal bowel sounds, no guarding or rigidity. EXTREMITIES: No edema noted, pedal pulses palpable. CENTRAL NERVOUS SYSTEM: No focal deficits, tone is normal in all 4 extremities. - Labs CBC & Chem 7: 04/11/18 07:05 04/11/18 07:05 Labs: Abnormal Lab Results - Last 24 Hours (Table) 04/10/18 04/10/18 04/10/18 Range/Units 11:14 17:00 19:20 RBC (4.30-5.90) m/uL Hgb (13.0-17.5) gm/dL Hct (39.0-53.0) % Neutrophils # (1.3-7.7) k/uL Lymphocytes # (1.0-4.8) k/uL Chloride (98-107) mmol/L Creatinine (0.66-1.25) mg/dL Glucose (74-99) mg/dL POC Glucose (mg/dL) 224 H 235 H 255 H (75-99) mg/dL Calcium (8.4-10.2) mg/dL 04/11/18 04/11/18 04/11/18 Range/Units 07:05 07:05 07:22 RBC 4.06 L (4.30-5.90) m/uL Hgb 12.0 L (13.0-17.5) gm/dL Hct 38.1 L (39.0-53.0) % Neutrophils # 8.3 H (1.3-7.7) k/uL Lymphocytes # 0.8 L (1.0-4.8) k/uL Chloride 108 H (98-107) mmol/L Creatinine 1.39 H (0.66-1.25) mg/dL Glucose 130 H (74-99) mg/dL POC Glucose (mg/dL) 124 H (75-99) mg/dL Calcium 8.3 L (8.4-10.2) mg/dL Microbiology - Last 24 Hours (Table) 04/07/18 16:10 Blood Culture - Preliminary Blood No Growth after 72 hours Assessment and Plan Assessment: Assessment: Aspiration pneumonia Severe COPD with component of acute exacerbation Lung cancer squamous cell is status post right upper lobe resection with radiation therapy of left-sided lung nodule back in 2016 now a large tracheal mass with right upper lobe subsegmental atelectasis Type 2 diabetes mellitus Hypertension hypertensive cardiovascular disease Plan: Patient is cleared for discharge from a pulmonary standpoint Medications reviewed and will be continued as ordered Discharge planning in process for subacute rehab Potential palliative radiation Bronchodilator Prednisone Broad-spectrum antibiotics Swallow evaluation Aspiration precaution Continue home medications DVT and peptic ulcer disease prophylaxis Gentle rehydration Other recommendations pending plan of care as per clinical response of the patient I performed an examination of the patient and discussed their management with the nurse practitioner. I have reviewed the nurse practitioner's note and agree with the documented findings and plan of care.
[2018-04-11] MEDS: LORATADINE 10 MG TAB PO SCH (13:05)
[2018-04-11 17:22] LABS: Glucose,Whole Blood 268 mg/dL (75-99)
[2018-04-11] MEDS: OXYBUTYNIN CHLORIDE 5 MG TAB PO SCH (18:12)
--- NOTE | 2018-04-11 18:20 | P.PN ---
Subjective Progress Note Date: 04/10/18 Progress note being dictated for Dr. Suarez Interval history:Pleasant 73-year-old gentleman known to me is admitted in the past for aspiration pneumonia came in with same symptoms which frustrated his COPD. Patient is noncompliant with dietary recommendations of honey thickened liquids and a dysphagia diet. Patient went into warm air yesterday started having shortness of breath was admitted with 2 L of hard and patient doesn't arouse and patient is doing well today not using any oxygen at this time but did have significant aspiration, speech therapy reevaluated the patient. Patient will be started on steroids for his wheezing which may also help with a tracheal mass inflammation., Patient does have hoarseness of voice from tracheal mass and inflammation which is expected to improve with steroids because of which patient will be started on oral steroids. 04/09/2018 His wheezing completely resolved patient still has hoarseness of voice from a tracheal mass. Patient is looking much better patient is more appropriate for subacute rehab patient is agreeable now to go to subacute rehab. Constitutional: Denied any fatigue denied any fever. Cardio vascular: denied any chest pain, palpitations Gastrointestinal denied any nausea vomiting Pulmonary: Denied any shortness of breath cough Neurologic denied any new focal deficits 04/10/2018 Evaluated by pulmonary, oncology. Dr. Durán reviewed recent PET scan, recommends palliative treatment. Patient is aware that he has cancer in lungs , trachea. Awaiting meeting with oncology radiologist regarding palliative radiation. Creatinine 1.51. Objective - Vital Signs Vital signs: Vital Signs Temp 98.7 F 04/10/18 07:00 Pulse 62 04/10/18 19:58 Resp 17 04/10/18 07:00 BP 183/82 04/10/18 07:00 Pulse Ox 96 04/10/18 19:44 Intake & Output 04/10/18 04/10/18 04/11/18 06:59 18:59 06:59 Intake Total 800 850 590 Balance 800 850 590 Intake: Intake, IV Titration 800 850 Amount Piperacillin-Tazobactam 3 100 50 .375 gm In Dextrose/Water 1 50ml.bag @ 12.5 mls/hr IVPB Q8HR [facility] Rx#: [id number] Sodium Chloride 0.9% 1, 700 800 000 ml @ 40 mls/hr IV . Q24H [facility] Rx#:[id number] Oral 590 Other: Voiding Method Incontinent Incontinent Incontinent # Voids 1 2 - Exam GENERAL: The patient is alert and oriented x3, not in any acute distress. Well developed, well nourished. HEENT: Pupils are round and equally reacting to light. EOMI. No scleral icterus. No conjunctival pallor. Normocephalic, atraumatic. No pharyngeal erythema. No thyromegaly. Patient does have hoarseness of voice CARDIOVASCULAR: S1 and S2 present. No murmurs, rubs, or gallops. PULMONARY: Good air entry into bilateral lung amador no wheezing was appreciated ABDOMEN: Soft, nontender, nondistended, normoactive bowel sounds. No palpable organomegaly. MUSCULOSKELETAL: No joint swelling or deformity. EXTREMITIES: No cyanosis, clubbing, or pedal edema. NEUROLOGICAL: Gross neurological examination did not reveal any focal deficits. SKIN: No rashes. - Labs CBC & Chem 7: 04/11/18 07:05 04/11/18 07:05 Labs: Abnormal Lab Results - Last 24 Hours (Table) 04/10/18 04/10/18 04/10/18 Range/Units 07:25 07:25 11:14 Neutrophils # 8.5 H (1.3-7.7) k/uL Lymphocytes # 0.6 L (1.0-4.8) k/uL Chloride 109 H (98-107) mmol/L Creatinine 1.51 H (0.66-1.25) mg/dL POC Glucose (mg/dL) 224 H (75-99) mg/dL 04/10/18 04/10/18 Range/Units 17:00 19:20 Neutrophils # (1.3-7.7) k/uL Lymphocytes # (1.0-4.8) k/uL Chloride (98-107) mmol/L Creatinine (0.66-1.25) mg/dL POC Glucose (mg/dL) 235 H 255 H (75-99) mg/dL Microbiology - Last 24 Hours (Table) 04/07/18 16:10 Blood Culture - Preliminary Blood No Growth after 72 hours Assessment and Plan Assessment: -Aspiration pneumonia: Noncompliant dietary recommendation patient need to be on pured diet and nectar thickened liquids and pills need to be crushed whichever can be crushed. -COPD with mild acute exacerbation significant improvement with systemic strides -History of lung cancer supposed to receive radiation therapy has an appointment today which he missed because of consultation -Tracheal mass and tracheobronchomalacia [place]-several vascular accident and TIA in the past -Type 2 diabetes mellitus -Gastroesophageal reflux disease -Hypertension -acute renal failure probably prerenal azotemia -Depression -Chronic kidney disease secondary to diabetic nephropathy area stage II -Generalized deconditioning: Secondary to cancer patient will be discharged to subacute rehabilitation. Plan: Continue on current medication regime ,monitoring and symptomatic treatment. As mentioned above, awaiting evaluation with oncology radiologist regarding palliative radiation. Discharge planning in progress for subacute rehab. The impression and plan of care has been dictated as directed. : I performed a history and examination of this patient, discussed the same with the dictator. I agree with the dictator's note ,documented as a scribe. Any additional findings or plans will be noted.
--- NOTE | 2018-04-11 18:26 | P.PN ---
Subjective Progress Note Date: 04/11/18 Progress note being dictated for Dr. Suarez Interval history:Pleasant 73-year-old gentleman known to me is admitted in the past for aspiration pneumonia came in with same symptoms which frustrated his COPD. Patient is noncompliant with dietary recommendations of honey thickened liquids and a dysphagia diet. Patient went into warm air yesterday started having shortness of breath was admitted with 2 L of hard and patient doesn't arouse and patient is doing well today not using any oxygen at this time but did have significant aspiration, speech therapy reevaluated the patient. Patient will be started on steroids for his wheezing which may also help with a tracheal mass inflammation., Patient does have hoarseness of voice from tracheal mass and inflammation which is expected to improve with steroids because of which patient will be started on oral steroids. 04/09/2018 His wheezing completely resolved patient still has hoarseness of voice from a tracheal mass. Patient is looking much better patient is more appropriate for subacute rehab patient is agreeable now to go to subacute rehab. Constitutional: Denied any fatigue denied any fever. Cardio vascular: denied any chest pain, palpitations Gastrointestinal denied any nausea vomiting Pulmonary: Denied any shortness of breath cough Neurologic denied any new focal deficits 04/10/2018 Evaluated by pulmonary, oncology. Dr. Durán reviewed recent PET scan, recommends palliative treatment. Patient is aware that he has cancer in lungs , trachea. Awaiting meeting with oncology radiologist regarding palliative radiation. Creatinine 1.51. 04/11/2018 no overnight events. Evaluated by oncology radiologist with recommendations noted. Patient consenting to palliative radiation, declining PEG tube. Renal function improving. Objective - Vital Signs Vital signs: Vital Signs Temp 97.9 F 04/11/18 15:00 Pulse 64 04/11/18 17:43 Resp 18 04/11/18 16:00 BP 138/68 04/11/18 15:00 Pulse Ox 93 L 04/11/18 15:00 Intake & Output 04/10/18 04/11/18 04/11/18 18:59 06:59 18:59 Intake Total 850 590 900 Balance 850 590 900 Weight 79.379 kg Intake: Intake, IV Titration 850 Amount Piperacillin-Tazobactam 3 50 .375 gm In Dextrose/Water 1 50ml.bag @ 12.5 mls/hr IVPB Q8HR [facility] Rx#: [id number] Sodium Chloride 0.9% 1, 800 000 ml @ 40 mls/hr IV . Q24H [facility] Rx#:[id number] Oral 590 900 Other: Voiding Method Incontinent Incontinent Incontinent # Voids 1 3 # Bowel Movements 1 - Exam GENERAL: The patient is alert and oriented x3, not in any acute distress. Well developed, well nourished. HEENT: Pupils are round and equally reacting to light. EOMI. No scleral icterus. No conjunctival pallor. Normocephalic, atraumatic. No pharyngeal erythema. No thyromegaly. Patient does have hoarseness of voice CARDIOVASCULAR: S1 and S2 present. No murmurs, rubs, or gallops. PULMONARY: Good air entry into bilateral lung amador, occasional fine expiratory wheezing ABDOMEN: Soft, nontender, nondistended, normoactive bowel sounds. No palpable organomegaly. MUSCULOSKELETAL: No joint swelling or deformity. EXTREMITIES: No cyanosis, clubbing, or pedal edema. NEUROLOGICAL: Gross neurological examination did not reveal any focal deficits. SKIN: No rashes. - Labs CBC & Chem 7: 04/11/18 07:05 04/11/18 07:05 Labs: Abnormal Lab Results - Last 24 Hours (Table) 04/10/18 04/11/18 04/11/18 Range/Units 19: 07:05 07:05 RBC 4.06 L (4.30-5.90) m/uL Hgb 12.0 L (13.0-17.5) gm/dL Hct 38.1 L (39.0-53.0) % Neutrophils # 8.3 H (1.3-7.7) k/uL Lymphocytes # 0.8 L (1.0-4.8) k/uL Chloride 108 H (98-107) mmol/L Creatinine 1.39 H (0.66-1.25) mg/dL Glucose 130 H (74-99) mg/dL POC Glucose (mg/dL) 255 H (75-99) mg/dL Calcium 8.3 L (8.4-10.2) mg/dL 04/11/18 04/11/18 Range/Units 07:22 17:19 RBC (4.30-5.90) m/uL Hgb (13.0-17.5) gm/dL Hct (39.0-53.0) % Neutrophils # (1.3-7.7) k/uL Lymphocytes # (1.0-4.8) k/uL Chloride (98-107) mmol/L Creatinine (0.66-1.25) mg/dL Glucose (74-99) mg/dL POC Glucose (mg/dL) 124 H 268 H (75-99) mg/dL Calcium (8.4-10.2) mg/dL Microbiology - Last 24 Hours (Table) 04/07/18 16:10 Blood Culture - Preliminary Blood No Growth after 96 hours Assessment and Plan Assessment: -Aspiration pneumonia: Noncompliant dietary recommendation patient need to be on pured diet and nectar thickened liquids and pills need to be crushed whichever can be crushed. 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 Plan: Continue on current medication regime ,monitoring and symptomatic treatment. Recommendations of oncology radiologist regarding palliative radiation noted. Discharge planning in progress for subacute rehab. The impression and plan of care has been dictated as directed. : I performed a history and examination of this patient, discussed the same with the dictator. I agree with the dictator's note ,documented as a scribe. Any additional findings or plans will be noted.
[2018-04-11 20:11] LABS: Glucose,Whole Blood 303 mg/dL (75-99)
[2018-04-11] MEDS: DOCUSATE 100 MG CAP PO SCH (22:41)
[2018-04-11] MEDS: traZODone HCL 100 MG TAB PO SCH (22:41)
[2018-04-11] MEDS: ATORVASTATIN 10 MG TAB PO SCH (22:41)
[2018-04-12 07:14] LABS: Glucose,Whole Blood 91 mg/dL (75-99)
[2018-04-12] MEDS: predniSONE 10 MG TAB PO SCH (08:05)
[2018-04-12] MEDS: AMOXIC-POT CLAV 875-125MG 1 EACH TAB PO SCH ×2 (08:05→21:00)
[2018-04-12] MEDS: AMIODARONE 200 MG TAB PO SCH (08:05)
[2018-04-12] MEDS: ASPIRIN 81 MG PO SCH (08:05)
[2018-04-12] MEDS: METOPROLOL TARTRATE 25 MG TAB PO SCH ×2 (08:06→21:02)
[2018-04-12] MEDS: CHOLECALCIFEROL 400 UNIT TAB PO SCH ×2 (08:06→21:00)
[2018-04-12] MEDS: FAMOTIDINE 20 MG TAB PO SCH (08:06)
[2018-04-12] MEDS: CYANOCOBALAMIN 500 MCG TAB PO SCH (08:06)
[2018-04-12] MEDS: DABIGATRAN 150 MG CAP PO SCH ×2 (08:06→21:00)
[2018-04-12] MEDS: INSULIN ASPART 100 UNIT/ML 1 ML 10 ML VIAL SQ SCH ×4 (08:15→21:22)
[2018-04-12] MEDS: ALBUTEROL NEBULIZED 2.5 MG/3 ML INHALATION SCH ×4 (09:26→20:14)
[2018-04-12] MEDS: SYMBICORT 160-4.5 MCG INHALER INHALATION SCH ×2 (09:27→20:14)
--- NOTE | 2018-04-12 10:49 | P.PN ---
Subjective Pleasant 73-year-old gentleman known to me is admitted in the past for aspiration pneumonia came in with same symptoms which frustrated his COPD. Patient is noncompliant with dietary recommendations of honey thickened liquids and a dysphagia diet. Patient went into warm air yesterday started having shortness of breath was admitted with 2 L of hard and patient doesn't arouse and patient is doing well today not using any oxygen at this time but did have significant aspiration, speech therapy reevaluated the patient. Patient will be started on steroids for his wheezing which may also help with a tracheal mass inflammation., Patient does have hoarseness of voice from tracheal mass and inflammation which is expected to improve with steroids because of which patient will be started on oral steroids. 04/09/2018 His wheezing completely resolved patient still has hoarseness of voice from a tracheal mass. Patient is looking much better patient is more appropriate for subacute rehab patient is agreeable now to go to subacute rehab. 04/12/2018 Patient again is awaiting disposition to subacute rehab rehabilitation. Basically we're looking at rehabilitation place which can accept him and also send him for radiation therapy. no overnight events Constitutional: Denied any fatigue denied any fever. Cardio vascular: denied any chest pain, palpitations Gastrointestinal denied any nausea vomiting Pulmonary: Denied any shortness of breath cough Neurologic denied any new focal deficits Objective - Vital Signs Vital signs: Vital Signs Temp 98.6 F 04/12/18 05:15 Pulse 66 04/12/18 09:37 Resp 16 04/12/18 05:15 BP 144/61 04/12/18 05:15 Pulse Ox 94 L 04/12/18 05:15 Intake & Output 04/11/18 04/12/18 04/12/18 18:59 06:59 18:59 Intake Total 900 75 Balance 900 75 Weight 79.379 kg Intake: Oral 900 75 Other: Voiding Method Incontinent Incontinent # Voids 3 2 # Bowel Movements 1 - Exam PHYSICAL EXAMINATION: GENERAL: The patient is alert and oriented x3, not in any acute distress. Well developed, well nourished. HEENT: Pupils are round and equally reacting to light. EOMI. No scleral icterus. No conjunctival pallor. Normocephalic, atraumatic. No pharyngeal erythema. No thyromegaly. Patient does have hoarseness of voice CARDIOVASCULAR: S1 and S2 present. No murmurs, rubs, or gallops. PULMONARY: Good air entry into bilateral lung amador no wheezing was appreciated ABDOMEN: Soft, nontender, nondistended, normoactive bowel sounds. No palpable organomegaly. MUSCULOSKELETAL: No joint swelling or deformity. EXTREMITIES: No cyanosis, clubbing, or pedal edema. NEUROLOGICAL: Gross neurological examination did not reveal any focal deficits. SKIN: No rashes. - Labs CBC & Chem 7: 04/11/18 07:05 04/11/18 07:05 Labs: Abnormal Lab Results - Last 24 Hours (Table) 04/11/18 04/11/18 Range/Units 17:19 20:04 POC Glucose (mg/dL) 268 H 303 H (75-99) mg/dL Microbiology - Last 24 Hours (Table) 04/07/18 16:10 Blood Culture - Preliminary Blood No Growth after 96 hours Assessment and Plan Plan: -Aspiration pneumonia: Noncompliant dietary recommendation patient need to be on pured diet and nectar thickened liquids and pills need to be crushed whichever can be crushed. -COPD with mild acute exacerbation significant improvement with systemic strides -History of lung cancer supposed to receive radiation therapy has an appointment today which he missed because of consultation -Tracheal mass and tracheobronchomalacia Cerebral vascular accident and TIA in the past -Type 2 diabetes mellitus -Gastroesophageal reflux disease -Hypertension -acute renal failure probably prerenal azotemia continue with IV fluids repeat, improved creatinine to 1.47 from 2 couple days ago -Depression -Chronic kidney disease secondary to diabetic nephropathy area stage II -Generalized deconditioning: Secondary to cancer patient will be discharged to subacute rehabilitation.
[2018-04-12 12:01] LABS: Glucose,Whole Blood 188 mg/dL (75-99)
[2018-04-12] MEDS: LORATADINE 10 MG TAB PO SCH (12:08)
--- NOTE | 2018-04-12 13:00 | PN ---
PROGRESS NOTE DATE OF SERVICE: 04/12/2018. He has some shortness of breath and some aphasia, otherwise he is in no respiratory distress. On physical examination: Blood pressure is 144/61, respiratory rate is 16, pulse rate of 56, temperature 98.6, O2 saturation on room air is 94%. HEENT is unremarkable. Chest reveals decreased breath sounds in the right. Cardiovascular system reveals an S1, S2. Abdomen is soft. There is no pedal edema. IMPRESSION: At this time: 1. 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 2. Aspiration pneumonia. 3. Chronic obstructive pulmonary disease with acute exacerbation. Increase activity level. Continue current medications which were reviewed. Depending on how he does we should make further changes to his care. MMODL / IJN: [id number] /
[2018-04-12] MEDS: OXYBUTYNIN CHLORIDE 5 MG TAB PO SCH (15:53)
[2018-04-12 17:14] LABS: Glucose,Whole Blood 262 mg/dL (75-99)
[2018-04-12] MEDS: traZODone HCL 100 MG TAB PO SCH (20:59)
[2018-04-12] MEDS: DOCUSATE 100 MG CAP PO SCH (21:00)
[2018-04-12 21:15] LABS: Glucose,Whole Blood 319 mg/dL (75-99)
[2018-04-12] MEDS: ATORVASTATIN 10 MG TAB PO SCH (23:19)
[2018-04-13] MEDS: METOPROLOL TARTRATE 25 MG TAB PO SCH ×2 (07:14→21:52)
[2018-04-13] MEDS: CHOLECALCIFEROL 400 UNIT TAB PO SCH ×2 (07:15→21:52)
[2018-04-13] MEDS: AMOXIC-POT CLAV 875-125MG 1 EACH TAB PO SCH ×2 (07:15→21:52)
[2018-04-13] MEDS: DABIGATRAN 150 MG CAP PO SCH ×2 (07:15→21:52)
[2018-04-13] MEDS: FAMOTIDINE 20 MG TAB PO SCH (07:15)
[2018-04-13] MEDS: predniSONE 10 MG TAB PO SCH (07:15)
[2018-04-13] MEDS: ASPIRIN 81 MG PO SCH (07:15)
[2018-04-13] MEDS: CYANOCOBALAMIN 500 MCG TAB PO SCH (07:16)
[2018-04-13] MEDS: AMIODARONE 200 MG TAB PO SCH (07:16)
[2018-04-13 07:17] LABS: Glucose,Whole Blood 139 mg/dL (75-99)
[2018-04-13] MEDS: INSULIN ASPART 100 UNIT/ML 1 ML 10 ML VIAL SQ SCH ×4 (08:08→21:51)
[2018-04-13] MEDS: SYMBICORT 160-4.5 MCG INHALER INHALATION SCH ×2 (09:30→21:05)
[2018-04-13] MEDS: ALBUTEROL NEBULIZED 2.5 MG/3 ML INHALATION SCH ×4 (09:30→21:05)
--- NOTE | 2018-04-13 10:54 | P.PN ---
Subjective Pleasant 73-year-old gentleman known to me is admitted in the past for aspiration pneumonia came in with same symptoms which frustrated his COPD. Patient is noncompliant with dietary recommendations of honey thickened liquids and a dysphagia diet. Patient went into warm air yesterday started having shortness of breath was admitted with 2 L of hard and patient doesn't arouse and patient is doing well today not using any oxygen at this time but did have significant aspiration, speech therapy reevaluated the patient. Patient will be started on steroids for his wheezing which may also help with a tracheal mass inflammation., Patient does have hoarseness of voice from tracheal mass and inflammation which is expected to improve with steroids because of which patient will be started on oral steroids. 04/09/2018 His wheezing completely resolved patient still has hoarseness of voice from a tracheal mass. Patient is looking much better patient is more appropriate for subacute rehab patient is agreeable now to go to subacute rehab. 04/12/2018 Patient again is awaiting disposition to subacute rehab rehabilitation. Basically we're looking at rehabilitation place which can accept him and also send him for radiation therapy. no overnight events 04/13/2018 No overnight events Constitutional: Denied any fatigue denied any fever. Cardio vascular: denied any chest pain, palpitations Gastrointestinal denied any nausea vomiting Pulmonary: Denied any shortness of breath cough Neurologic denied any new focal deficits Objective - Vital Signs Vital signs: Vital Signs Temp 97.8 F 04/13/18 06:07 Pulse 64 04/13/18 09:43 Resp 18 04/13/18 09:05 BP 168/74 04/13/18 06:07 Pulse Ox 94 L 04/13/18 06:07 Intake & Output 04/12/18 04/13/18 04/13/18 18:59 06:59 18:59 Intake Total 100 Balance 100 Intake: Oral 100 Other: Voiding Method Urinal Urinal Incontinent Incontinent # Voids 2 - Exam PHYSICAL EXAMINATION: GENERAL: The patient is alert and oriented x3, not in any acute distress. Well developed, well nourished. HEENT: Pupils are round and equally reacting to light. EOMI. No scleral icterus. No conjunctival pallor. Normocephalic, atraumatic. No pharyngeal erythema. No thyromegaly. Patient does have hoarseness of voice CARDIOVASCULAR: S1 and S2 present. No murmurs, rubs, or gallops. PULMONARY: Good air entry into bilateral lung amador no wheezing was appreciated ABDOMEN: Soft, nontender, nondistended, normoactive bowel sounds. No palpable organomegaly. MUSCULOSKELETAL: No joint swelling or deformity. EXTREMITIES: No cyanosis, clubbing, or pedal edema. NEUROLOGICAL: Gross neurological examination did not reveal any focal deficits. SKIN: No rashes. - Labs CBC & Chem 7: 04/11/18 07:05 04/11/18 07:05 Labs: Abnormal Lab Results - Last 24 Hours (Table) 04/12/18 04/12/18 04/12/18 Range/Units 11:59 17:13 21:13 POC Glucose (mg/dL) 188 H 262 H 319 H (75-99) mg/dL 04/13/18 Range/Units 07:16 POC Glucose (mg/dL) 139 H (75-99) mg/dL Microbiology - Last 24 Hours (Table) 04/07/18 16:10 Blood Culture - Preliminary Blood No Growth after 120 hours Assessment and Plan Plan: -Aspiration pneumonia: Noncompliant dietary recommendation patient need to be on pured diet and nectar thickened liquids and pills need to be crushed whichever can be crushed. -COPD with mild acute exacerbation significant improvement with systemic strides -History of lung cancer supposed to receive radiation therapy has an appointment today which he missed because of consultation -Tracheal mass and tracheobronchomalacia Cerebral vascular accident and TIA in the past -Type 2 diabetes mellitus -Gastroesophageal reflux disease -Hypertension -acute renal failure probably prerenal azotemia continue with IV fluids repeat, improved creatinine to 1.47 from 2 couple days ago -Depression -Chronic kidney disease secondary to diabetic nephropathy area stage II -Generalized deconditioning: Secondary to cancer patient will be discharged to subacute rehabilitation.
[2018-04-13] MEDS: LORATADINE 10 MG TAB PO SCH (11:35)
[2018-04-13 12:22] LABS: Glucose,Whole Blood 178 mg/dL (75-99)
--- NOTE | 2018-04-13 13:34 | PN ---
PROGRESS NOTE DATE OF SERVICE: 04/13/2018 He does not have any shortness of breath today. On physical examination, vitals are stable. He is afebrile. His chest reveals decreased breath sounds on the right. Cardiovascular system revealed an S1, S2. Abdomen is soft. There is no edema. IMPRESSION: At this time is: 1. Pneumonia. 2. Lung cancer. Continue Augmentin. Increase his activity level. Continue bronchodilators. His prognosis is fair. MMODL / IJN: [id number] /
[2018-04-13] MEDS: OXYBUTYNIN CHLORIDE 5 MG TAB PO SCH (15:44)
[2018-04-13 17:23] LABS: Glucose,Whole Blood 308 mg/dL (75-99)
[2018-04-13 20:26] LABS: Glucose,Whole Blood 309 mg/dL (75-99)
[2018-04-13] MEDS: ATORVASTATIN 10 MG TAB PO SCH (21:52)
[2018-04-13] MEDS: traZODone HCL 100 MG TAB PO SCH (21:52)
[2018-04-13] MEDS: DOCUSATE 100 MG CAP PO SCH (21:52)
[2018-04-14] MEDS: AMIODARONE 200 MG TAB PO SCH (07:33)
[2018-04-14] MEDS: DABIGATRAN 150 MG CAP PO SCH (07:33)
[2018-04-14] MEDS: CHOLECALCIFEROL 400 UNIT TAB PO SCH (07:33)
[2018-04-14] MEDS: METOPROLOL TARTRATE 25 MG TAB PO SCH (07:33)
[2018-04-14] MEDS: ALBUTEROL NEBULIZED 2.5 MG/3 ML INHALATION SCH ×3 (07:35→16:06)
[2018-04-14] MEDS: SYMBICORT 160-4.5 MCG INHALER INHALATION SCH (07:35)
[2018-04-14] MEDS: ASPIRIN 81 MG PO SCH (07:35)
[2018-04-14] MEDS: CYANOCOBALAMIN 500 MCG TAB PO SCH (07:36)
[2018-04-14] MEDS: predniSONE 10 MG TAB PO SCH (07:37)
[2018-04-14] MEDS: FAMOTIDINE 20 MG TAB PO SCH (07:38)
[2018-04-14] MEDS: INSULIN ASPART 100 UNIT/ML 1 ML 10 ML VIAL SQ SCH ×3 (07:48→18:17)
[2018-04-14 07:49] LABS: Glucose,Whole Blood 87 mg/dL (75-99)
[2018-04-14] MEDS: LORATADINE 10 MG TAB PO SCH (08:51)
[2018-04-14] MEDS: AMOXIC-POT CLAV 875-125MG 1 EACH TAB PO SCH (08:51)
--- NOTE | 2018-04-14 10:06 | P.PN ---
Subjective Progress Note Date: 04/14/18 Principal diagnosis: shortness of breath, difficulty in breathing, metastatic squamous cell lung cancer Pt seen in f/u, he continues to eat fairly well, appetite maintained, he has been simulated and will start XRT to trachea today, he denies SOB, does cough and has difficulty expectorating, no nausea, diarrhea, constipation or pain to report. Objective - Vital Signs Vital signs: Vital Signs Temp 97.9 F 04/14/18 06:13 Pulse 60 04/14/18 07:50 Resp 18 04/14/18 06:13 BP 148/64 04/14/18 06:13 Pulse Ox 95 04/14/18 07:38 Intake & Output 04/13/18 04/14/18 04/14/18 18:59 06:59 18:59 Other: Voiding Method Urinal Incontinent # Voids 2 3 # Bowel Movements 1 1 - Constitutional General appearance: Present: average body habitus, cooperative, no acute distress - EENT Eyes: Present: anicteric sclerae - Respiratory Respiratory: bilateral: CTA - Cardiovascular Heart sounds: normal: S1, S2 - Gastrointestinal General gastrointestinal: Present: normal bowel sounds, soft - Musculoskeletal Musculoskeletal: Present: generalized weakness - Psychiatric Psychiatric: Present: A&O x's 3, appropriate affect, intact judgment & insight - Labs CBC & Chem 7: 04/11/18 07:05 04/11/18 07:05 Labs: Abnormal Lab Results - Last 24 Hours (Table) 04/13/18 04/13/18 04/13/18 Range/Units 12:21 17:22 20:24 POC Glucose (mg/dL) 178 H 308 H 309 H (75-99) mg/dL Microbiology - Last 24 Hours (Table) 04/07/18 16:10 Blood Culture - Final Blood No Growth after 144 hours Assessment and Plan (1) Non-small cell cancer of right lung Narrative/Plan: CT confirmed bilateral masses in lungs, recurrent disease Current Visit: Yes Status: Chronic Priority: Medium Code(s): C34.91 - MALIGNANT NEOPLASM OF UNSP PART OF RIGHT BRONCHUS OR LUNG SNOMED Code(s): 496536164 (2) Tracheal malignancy Narrative/Plan: squamous cell, metastatic disease from lungs Current Visit: Yes Status: Acute Code(s): C33 - MALIGNANT NEOPLASM OF TRACHEA SNOMED Code(s): 111811578 Plan: Plan is for palliative radiation 1st then consideration for treatment of metastatic sq cell lung cancer, trach biopsy has been sent for biomarker testing , results pending. Plan would be to consider treatment after XRT and some recovery. Did encourage pt to participate with PT/OT and to try and to work on getting to the bathroom with assistance. Pt will f/u outpatient after completion of XRT and rehab
[2018-04-14 11:26] VITALS: BMI 27.3
[2018-04-14 11:36] LABS: Glucose,Whole Blood 149 mg/dL (75-99)
[2018-04-14 15:00] VITALS: BP 119/73; RESP 16; TEMP 97.5
[2018-04-14 16:51] VITALS: PULSE 65
[2018-04-14 17:01] LABS: Glucose,Whole Blood 374 mg/dL (75-99)
--- NOTE | 2018-04-14 17:01 | P.DS ---
Providers Date of admission: 04/07/18 16:33 Expected date of discharge: 04/14/18 Attending physician: Melanie Suarez Consults: 04/07/18 22:16 Consult Physician Routine Consulting Provider: Ervin Cabral Consult Reason/Comments: pneumonia Do you want consulting provider notified?: Yes 04/08/18 03:18 Consult Physician Routine Consulting Provider: Sergio Durán Consult Reason/Comments: tracheal mass and lung ca Do you want consulting provider notified?: Yes 04/08/18 12:43 Consult Physician Routine Consulting Provider: Lino Bentley Consult Reason/Comments: radiation referral, squamous Do you want consulting provider notified?: Already Contacted Primary care physician: Physician Nonstaff Hospital Course: Final Diagnoses: -Aspiration pneumonia: Noncompliant dietary recommendation patient need to be on pured diet and nectar thickened liquids and pills need to be crushed whichever can be crushed. -COPD with mild acute exacerbation significant improvement with systemic strides -History of lung cancer supposed to receive radiation therapy has an appointment today which he missed because of consultation -Tracheal mass and tracheobronchomalacia [place]-several vascular accident and TIA in the past -Type 2 diabetes mellitus -Gastroesophageal reflux disease -Hypertension -acute renal failure probably prerenal azotemia continue with IV fluids repeat, improved creatinine to 1.47 from 2 couple days ago -Depression -Chronic kidney disease secondary to diabetic nephropathy area stage II -Generalized deconditioning: Secondary to cancer patient will be discharged to subacute rehabilitation. Hospital course:Pleasant 73-year-old gentleman known to me is admitted in the past for aspiration pneumonia came in with same symptoms which frustrated his COPD. Patient is noncompliant with dietary recommendations of honey thickened liquids and a dysphagia diet. Patient went into warm air yesterday started having shortness of breath was admitted with 2 L of hard and patient doesn't arouse and patient is doing well today not using any oxygen at this time but did have significant aspiration, speech therapy reevaluated the patient. Patient will be started on steroids for his wheezing which may also help with a tracheal mass inflammation., Patient does have hoarseness of voice from tracheal mass and inflammation which is expected to improve with steroids because of which patient will be started on oral steroids. 04/09/2018 His wheezing completely resolved patient still has hoarseness of voice from a tracheal mass. Patient is looking much better patient is more appropriate for subacute rehab patient is agreeable now to go to subacute rehab. Constitutional: Denied any fatigue denied any fever. Cardio vascular: denied any chest pain, palpitations Gastrointestinal denied any nausea vomiting Pulmonary: Denied any shortness of breath cough Neurologic denied any new focal deficits Evaluated by pulmonary, oncology. Dr. Durán reviewed recent PET scan, recommends palliative treatment. Patient is aware that he has cancer in lungs, trachea. Met with oncology radiologist regarding palliative radiation. Proceeding with palliative radiation. Patient has been cleared by all consults for discharge. Patient is being discharged home with niece and home care. EXAMINATION: GENERAL: The patient is alert and oriented x3, not in any acute distress. HEENT: Pupils are round and equally reacting to light. EOMI. No scleral icterus. No conjunctival pallor. Normocephalic, atraumatic. Patient does have hoarseness of voice CARDIOVASCULAR: S1 and S2 present. No murmurs, rubs, or gallops. PULMONARY: Good air entry into bilateral lung amador no wheezing was appreciated ABDOMEN: Soft, nontender, nondistended, normoactive bowel sounds. No palpable organomegaly. NEUROLOGICAL: Gross neurological examination did not reveal any focal deficits. The impression and plan of care has been dictated as directed. DrLauren: I performed a history and examination of this patient, discussed the same with the dictator. I agree with the dictator's note ,documented as a scribe. Any additional findings or plans will be noted. Time taken: 35 minutes - Patient Condition at Discharge: Stable Plan - Discharge Summary Discharge Rx Participant: No New Discharge Prescriptions: New INSULIN LISPRO (HumaLOG) [humaLOG] 0 unit SQ ACHS #1 vial Amoxic-Pot Clav 875-125Mg [Augmentin 875-125] 1 each PO Q12HR #10 tab predniSONE 10 mg PO DIRECTED #18 tab Famotidine [Pepcid] 20 mg PO BID #60 tablet Continue Cholecalciferol [Vitamin D3] 400 unit PO BID@629,1929 Simvastatin [Zocor] 10 mg PO HS@1930 traZODone HCL [Desyrel] 100 mg PO HS@1930 Metoprolol Tartrate [Lopressor] 25 mg PO BID@629,1929 Oxybutynin Chloride [Ditropan] 5 mg PO DAILY@1600 glipiZIDE XL [Glucotrol XL] 2.5 mg PO DAILY@629 Aspirin 81 mg PO DAILY@629 Amiodarone [Cordarone] 200 mg PO DAILY@629 Dabigatran [Pradaxa] 150 mg PO BID@ guaiFENesin-DM 100-10MG/5ML [Robitussin DM] 10 ml PO Q6HR PRN PRN Reason: Cough Acetaminophen [Tylenol Arthritis] 650 mg PO Q8HR PRN PRN Reason: Pain Cetirizine HCl [Zyrtec] 10 mg PO DAILY@1100 Cyanocobalamin (Vitamin B-12) [Vitamin B-12] 1,000 mcg PO DAILY@629 Propylene Glycol/Peg 400/Pf [Systane 0.3-0.4% Eye Drops] 1 drop BOTH EYES DAILY PRN PRN Reason: Dry Eye(S) Budesonide-Formot 160-4.5 Mcg [Symbicort 160-4.5 Mcg Inhaler] 2 puff INHALATION RT-BID@ amLODIPine [Norvasc] 5 mg PO DIRECTED Docusate [Colace] 100 mg PO HS@1929 Ocusoft Lid Scrub 1 applic OPHTHALMIC BID@ Changed Ipratropium-Albuterol Nebulize [Duoneb 0.5 mg-3 mg/3 ml Soln] 3 ml INHALATION QID #0 Discontinued Ranitidine HCl [Zantac] 150 mg PO BID@629,1929 Discharge Medication List Cholecalciferol [Vitamin D3] 400 unit PO BID@629,192901/26/16 [History] Simvastatin [Zocor] 10 mg PO HS@192901/26/16 [History] traZODone HCL [Desyrel] 100 mg PO HS@192901/26/16 [History] Metoprolol Tartrate [Lopressor] 25 mg PO BID@629,192903/15/16 [History] Amiodarone [Cordarone] 200 mg PO DAILY@62911/10/16 [History] Aspirin 81 mg PO DAILY@62911/10/16 [History] Oxybutynin Chloride [Ditropan] 5 mg PO DAILY@1600 11/10/16 [History] glipiZIDE XL [Glucotrol XL] 2.5 mg PO DAILY@62911/10/16 [History] Dabigatran [Pradaxa] 150 mg PO BID@629,192912/13/17 [History] Acetaminophen [Tylenol Arthritis] 650 mg PO Q8HR PRN 03/15/18 [History] Cetirizine HCl [Zyrtec] 10 mg PO DAILY@1100 03/15/18 [History] Cyanocobalamin (Vitamin B-12) [Vitamin B-12] 1,000 mcg PO DAILY@62903/15/18 [ History] Propylene Glycol/Peg 400/Pf [Systane 0.3-0.4% Eye Drops] 1 drop BOTH EYES DAILY PRN 03/15/18 [History] guaiFENesin-DM 100-10MG/5ML [Robitussin DM] 10 ml PO Q6HR PRN 03/15/18 [History] Budesonide-Formot 160-4.5 Mcg [Symbicort 160-4.5 Mcg Inhaler] 2 puff INHALATION RT-BID@629,189903/23/18 [History] Docusate [Colace] 100 mg PO HS@192904/07/18 [History] Ocusoft Lid Scrub 1 applic OPHTHALMIC BID@629,192904/07/18 [History] amLODIPine [Norvasc] 5 mg PO DIRECTED 04/07/18 [History] INSULIN LISPRO (HumaLOG) [humaLOG] 0 unit SQ ACHS #1 vial 04/10/18 [Rx] Ipratropium-Albuterol Nebulize [Duoneb 0.5 mg-3 mg/3 ml Soln] 3 ml INHALATION QID #0 04/10/18 [Rx] Amoxic-Pot Clav 875-125Mg [Augmentin 875-125] 1 each PO Q12HR #10 tab 04/14/18 [ Rx] Famotidine [Pepcid] 20 mg PO BID #60 tablet 04/14/18 [Rx] predniSONE 10 mg PO DIRECTED #18 tab 04/14/18 [Rx] Follow up Appointment(s)/Referral(s): Sergio Durán MD [STAFF PHYSICIAN] - 04/29/18 11:45 am Alexander Mcdaniel MD [STAFF PHYSICIAN] - 04/24/18 3:00 pm () Lino Bentley MD [STAFF PHYSICIAN] - 04/15/18 (as scheduled. Plz confirm apt. prior to dc) Ervin Cabral MD [STAFF PHYSICIAN] - 04/17/18 10:30 am Ambulatory/Diagnostic Orders: Complete Blood Count w/diff [LAB.AMB] Time Frame: 3 Days, Location: None Selected Patient Instructions/Handouts: Prednisone (By mouth), Amoxicillin/Clavulanate Potassium (By mouth), Insulin Lispro (By injection), Aspiration Pneumonia (DC) Activity/Diet/Wound Care/Special Instructions: CBC,BMP in 3 days Diet: Pured, strict aspiration precautions, consistent carb Accu-Cheks before meals and at bedtime Follow up with Cardiology in 2 weeks [facility]
[2018-04-14] MEDS: OXYBUTYNIN CHLORIDE 5 MG TAB PO SCH (17:30)
--- NOTE | 2018-04-14 17:34 | P.PN ---
Subjective Progress Note Date: 04/14/18 Principal diagnosis: Pneumonia, generalized weakness and medical debility, squamous cell cancer trachea history of right upper lobe lung cancer status post right upper lobe resection, history of left-sided malignant nodule status post XRT 04/14/2018, patient seen eval reexamined during the rounds clinically patient is doing slightly better in terms of his generalized weakness and medical debility patient is a high risk for aspiration has been recommended for puree diet, patient has been started on radiation therapy today he finished second course of radiation treatment, patient is being planned for discharge later on today by oncology service and primary service cough congestion shortness of breath and sputum production has improved significantly Mr. 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 patient has been admitted into the hospital with increasing shortness of breath cough with a suspicion of aspiration and aspiration pneumonia as well the speech and swallow are evaluating this patient , oncology service has been following as well, patient is overall a poor historian most of the data has been obtained from the chart absent reviewed radiographic studies and chest x-ray reviewed Objective - Vital Signs Vital signs: Vital Signs Temp 97.5 F L 04/14/18 14:59 Pulse 65 04/14/18 16:00 Resp 16 04/14/18 16:00 BP 119/73 04/14/18 14:59 Pulse Ox 93 L 04/14/18 14:59 Intake & Output 04/13/18 04/14/18 04/14/18 18:59 06:59 18:59 Intake Total 240 Balance 240 Weight 79.379 kg Intake: Oral 240 Other: Voiding Method Urinal Urinal Incontinent Incontinent # Voids 2 3 1 # Bowel Movements 1 1 - Exam GENERAL: The patient is alert and oriented x3, not in any acute distress. Well developed, well nourished. Sitting upright on chair family present at bedside HEENT: Pupils are round and equally reacting to light. EOMI. No scleral icterus. No conjunctival pallor. Normocephalic, atraumatic. No pharyngeal erythema. No thyromegaly. Patient does have hoarseness of voice CARDIOVASCULAR: S1 and S2 present. No murmurs, rubs, or gallops. PULMONARY: Minimal right lower lobe crackles and minimal expiratory wheezing ABDOMEN: Soft, nontender, nondistended, normoactive bowel sounds. No palpable organomegaly. MUSCULOSKELETAL: No joint swelling or deformity. EXTREMITIES: No cyanosis, clubbing, or pedal edema. NEUROLOGICAL: Gross neurological examination did not reveal any focal deficits. SKIN: No rashes. 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 Lung cancer squamous cell is status post right upper lobe resection with radiation therapy of left-sided lung nodule back in 2016 now a large tracheal mass with right upper lobe subsegmental atelectasis Type 2 diabetes mellitus Hypertension hypertensive cardiovascular disease Plan: Bronchodilator Broad-spectrum antibiotics Puree diet Aspiration precaution Continue home medications DVT and peptic ulcer disease prophylaxis Other recommendations pending plan of care as per clinical response of the patient Patient is going home with follow-up on outpatient setting Time with Patient: Greater than 30
[2018-05-01] MEDS ORDERED: amLODIPine 5 MG TAB PO SCH (09:00)
== END 2018-04-14 18:20 | disposition home health service (06) | DRG 178 ==
LOC: EC 14:46 → 5MS5E 16:33 → 5ONC 04-08 15:21
PROVIDERS: ADMIT Hospitalist; ATTEND Hospitalist
DX: J69.0 Pneumonitis due to inhalation of food and vomit (principal); I69.351 Hemiplegia and hemiparesis following cerebral infarction affecting right dominant side; J44.1 Chronic obstructive pulmonary disease with (acute) exacerbation; J98.11 Atelectasis; N17.9 Acute kidney failure, unspecified; R47.01 Aphasia; C78.39 Secondary malignant neoplasm of other respiratory organs; C34.11 Malignant neoplasm of upper lobe, right bronchus or lung; Z80.1 Family history of malignant neoplasm of trachea, bronchus and lung; E11.21 Type 2 diabetes mellitus with diabetic nephropathy; E11.22 Type 2 diabetes mellitus with diabetic chronic kidney disease; E78.5 Hyperlipidemia, unspecified; F32.9 Major depressive disorder, single episode, unspecified; I13.10 Hypertensive heart and chronic kidney disease without heart failure, with stage 1 through stage 4 chronic kidney disease, or unspecified chronic kidney disease; N18.3 Chronic kidney disease, stage 3 (moderate); K21.9 Gastro-esophageal reflux disease without esophagitis; R13.10 Dysphagia, unspecified; Z79.02 Long term (current) use of antithrombotics/antiplatelets; Z79.51 Long term (current) use of inhaled steroids; Z79.82 Long term (current) use of aspirin; Z87.01 Personal history of pneumonia (recurrent); Z87.891 Personal history of nicotine dependence; Z90.2 Acquired absence of lung [part of]; Z90.49 Acquired absence of other specified parts of digestive tract; Z91.19 Patient's noncompliance with other medical treatment and regimen; Z92.3 Personal history of irradiation; Z79.84 Long term (current) use of oral hypoglycemic drugs; Z99.3 Dependence on wheelchair; R32 Unspecified urinary incontinence; Z98.1 Arthrodesis status
CPT/HCPCS: 36415; 70553; 71046; 74230; 77295; 77300; 77334; 77387; 77412; 77470; 80048; 80053; 82550; 82553; 83036; 83735; 83880; 84484; 85025; 85610; 85730; 87040; 93005; 94640; 94644; 94760; 96361; 96365; 99285

== ENCOUNTER 2018-05-20 21:27 | Inpatient (IN) | payer MEDICARE, OTHER ==
[2018-05-20] MEDS ORDERED: IPRATROPIUM-ALBUTEROL 3 ML NEB INHALATION STA (21:35)
--- NOTE | 2018-05-20 21:39 | ED ---
General Adult HPI - General Stated complaint: ABDIEL Time Seen by Provider: 05/20/18 21:28 Source: patient, RN notes reviewed Mode of arrival: EMS Limitations: altered mental status, physical limitation - History of Present Illness Initial comments: Patient is a pleasant 73-year-old male presenting to the emergency department with difficulty in breathing. Patient does come from long-term. Patient is a very poor historian and offers limited information. Patient does admit to feeling short of breath. Patient does admit to having cough that is nonproductive. No chest pain. Patient does have a history of previous dyspnea. - Related Data Home Medications Medication Instructions Recorded Confirmed Cholecalciferol [Vitamin D3] 400 unit PO BID 01/26/16 05/20/18 Simvastatin [Zocor] 10 mg PO HS 01/26/16 05/20/18 traZODone HCL [Desyrel] 100 mg PO HS 01/26/16 05/20/18 Metoprolol Tartrate [Lopressor] 25 mg PO BID 03/15/16 05/20/18 Amiodarone [Cordarone] 200 mg PO DAILY 11/10/16 05/20/18 Aspirin 81 mg PO DAILY 11/10/16 05/20/18 Oxybutynin Chloride [Ditropan] 5 mg PO DAILY@1600 11/10/16 05/20/18 glipiZIDE XL [Glucotrol XL] 2.5 mg PO DAILY 11/10/16 05/20/18 Dabigatran [Pradaxa] 150 mg PO BID 12/13/17 05/20/18 Cetirizine HCl [Zyrtec] 10 mg PO DAILY@1100 03/15/18 05/20/18 Cyanocobalamin (Vitamin B-12) 1,000 mcg PO DAILY 03/15/18 05/20/18 [Vitamin B-12] Docusate [Colace] 100 mg PO HS 04/07/18 05/20/18 amLODIPine [Norvasc] 5 mg PO DAILY 04/07/18 05/20/18 Famotidine [Pepcid] 20 mg PO BID 05/20/18 05/20/18 Melatonin 5 mg PO HS 05/20/18 05/20/18 Allergies Allergy/AdvReac Type Severity Reaction Status Date / Time No Known Allergies Allergy Verified 05/20/18 22:37 Review of Systems ROS Statement: Those systems with pertinent positive or pertinent negative responses have been documented in the HPI. ROS Other: All systems not noted in ROS Statement are negative. Constitutional: Denies: fever Eyes: Denies: eye pain ENT: Denies: ear pain Respiratory: Reports: cough, dyspnea Cardiovascular: Denies: chest pain Endocrine: Denies: fatigue Gastrointestinal: Denies: abdominal pain Genitourinary: Denies: dysuria Musculoskeletal: Denies: back pain Skin: Denies: rash Neurological: Denies: weakness Past Medical History Past Medical History: CVA/TIA, Diabetes Mellitus, GERD/Reflux, Hyperlipidemia, Hypertension, Pneumonia, Renal Disease Additional Past Medical History / Comment(s): Lung Cancer right upper lobe with radiation and lobectomy,. HX OF CVA X3 -RIGHT SIDED WEAKNESS, SPEECH DIFFICULT TO UNDERSTAND AT TIMES, W/C BOUND, ABLE TO PIVOT TO TRANSFER WITH ASSISTANCE, DIFFICULTY CHEWING AND SWALLOWING, HX OF ASPIRATION.,WEARS DEPENDS FOR OCC. INCONTINENCE., DDD, KIDNEY FUNCTION AT 50-60%, ENVIRONMENTAL ALLERGIES. PT LIVES AT [facility] -HAS OWN APARTMENT WITH 24 HOUR HELP., HAS DIZZINESS AND DIFFICULTY WITH VISION-WEARS PRISMS IN HIS EYE GLASSES. History of Any Multi-Drug Resistant Organisms: None Reported Past Surgical History: Appendectomy, Tonsillectomy Additional Past Surgical History / Comment(s): EYE SURGERY, right upper lobectomy for Ca 2016, spinal fusions x 2, gallstones removed. Past Anesthesia/Blood Transfusion Reactions: No Reported Reaction Past Psychological History: Depression Smoking Status: Former smoker Past Alcohol Use History: Rare Past Drug Use History: None Reported - Past Family History Mother History Unknown: Yes Family Medical History: CVA/TIA Father History Unknown: Yes Family Medical History: No Reported History Brother(s) Family Medical History: Cancer Additional Family Medical History / Comment(s): MESOTHELIOMA LUNG CANCER General Exam Limitations: no limitations General appearance: alert Head exam: Present: atraumatic Eye exam: Present: normal appearance, PERRL ENT exam: Present: normal oropharynx Neck exam: Present: normal inspection Respiratory exam: Present: wheezes, accessory muscle use, decreased breath sounds Cardiovascular Exam: Present: regular rate, normal rhythm GI/Abdominal exam: Present: soft. Absent: tenderness Extremities exam: Present: normal inspection. Absent: pedal edema, calf tenderness Neurological exam: Present: alert. Absent: motor sensory deficit Psychiatric exam: Present: normal affect, normal mood Skin exam: Present: normal color Course Vital Signs 05/20/18 05/20/18 05/20/18 21:30 21:36 21:45 Temperature 98.3 F Pulse Rate 71 74 77 Respiratory 16 18 18 Rate Blood Pressure 145/68 147/67 O2 Sat by Pulse 97 93 L Oximetry 05/20/18 05/20/18 05/20/18 22:15 22:42 23:00 Temperature Pulse Rate 75 73 68 Respiratory 18 15 16 Rate Blood Pressure 129/59 138/59 116/56 O2 Sat by Pulse 95 94 L 94 L Oximetry 05/21/18 00:00 Temperature Pulse Rate 65 Respiratory 18 Rate Blood Pressure 118/56 O2 Sat by Pulse 96 Oximetry EKG Findings - EKG Comments: EKG Findings:: Wide-complex QRS with a rate of 75. QRS 164. QT 448. QTC 500. Normal axis. Left bundle branch block. Nonspecific ST-T. Medical Decision Making - Medical Decision Making Patient reevaluated and is somewhat improved. Patient does have rhonchi. Patient is maintaining O2 saturation with Ventimask. Patient was decreased from 100% nonrebreather. Patient is not in respiratory distress at this time. Patient and family are updated on results and plan. Case was discussed in detail with Dr. Hernandez, who will admit for hospital call. He did come evaluate the patient in the emergency department. - Lab Data Result diagrams: 05/20/18 21:37 05/20/18 21:37 Lab Results 05/20/18 05/20/18 05/20/18 Range/Units 21:37 21:37 21:37 WBC 7.0 (3.8-10.6) k/uL RBC 5.70 (4.30-5.90) m/uL Hgb 16.6 D (13.0-17.5) gm/dL Hct 55.2 H (39.0-53.0) % MCV 96.7 (80.0-100.0) fL MCH 29.2 (25.0-35.0) pg MCHC 30.1 L (31.0-37.0) g/dL RDW 15.1 (11.5-15.5) % Plt Count 197 (150-450) k/uL Neutrophils % 89 % Lymphocytes % 4 % Monocytes % 4 % Eosinophils % 1 % Basophils % 0 % Neutrophils # 6.2 (1.3-7.7) k/uL Lymphocytes # 0.3 L (1.0-4.8) k/uL Monocytes # 0.3 (0-1.0) k/uL Eosinophils # 0.1 (0-0.7) k/uL Basophils # 0.0 (0-0.2) k/uL Hypochromasia Moderate PT (9.0-12.0) sec INR (<1.2) APTT (22.0-30.0) sec Sodium 137 (137-145) mmol/L Potassium 4.6 (3.5-5.1) mmol/L Chloride 105 (98-107) mmol/L Carbon Dioxide 24 (22-30) mmol/L Anion Gap 8 mmol/L BUN 27 H (9-20) mg/dL Creatinine 1.80 H (0.66-1.25) mg/dL Est GFR (CKD-EPI)AfAm 43 (>60 ml/min/1.73 sqM) Est GFR (CKD-EPI)NonAf 37 (>60 ml/min/1.73 sqM) Glucose 268 H (74-99) mg/dL Calcium 8.6 (8.4-10.2) mg/dL Total Bilirubin 0.7 (0.2-1.3) mg/dL AST 37 (17-59) U/L ALT 29 (21-72) U/L Alkaline Phosphatase 92 (38-126) U/L Total Creatine Kinase 25 L (55-170) U/L CK-MB (CK-2) 1.3 (0.0-2.4) ng/mL CK-MB (CK-2) Rel Index 5.2 Troponin I <0.012 (0.000-0.034) ng/mL NT-Pro-B Natriuret Pep pg/mL Total Protein 6.0 L (6.3-8.2) g/dL Albumin 3.1 L (3.5-5.0) g/dL 05/20/18 05/20/18 Range/Units 21:37 21:37 WBC (3.8-10.6) k/uL RBC (4.30-5.90) m/uL Hgb (13.0-17.5) gm/dL Hct (39.0-53.0) % MCV (80.0-100.0) fL MCH (25.0-35.0) pg MCHC (31.0-37.0) g/dL RDW (11.5-15.5) % Plt Count (150-450) k/uL Neutrophils % % Lymphocytes % % Monocytes % % Eosinophils % % Basophils % % Neutrophils # (1.3-7.7) k/uL Lymphocytes # (1.0-4.8) k/uL Monocytes # (0-1.0) k/uL Eosinophils # (0-0.7) k/uL Basophils # (0-0.2) k/uL Hypochromasia PT 13.6 H (9.0-12.0) sec INR 1.5 H (<1.2) APTT 34.2 H (22.0-30.0) sec Sodium (137-145) mmol/L Potassium (3.5-5.1) mmol/L Chloride (98-107) mmol/L Carbon Dioxide (22-30) mmol/L Anion Gap mmol/L BUN (9-20) mg/dL Creatinine (0.66-1.25) mg/dL Est GFR (CKD-EPI)AfAm (>60 ml/min/1.73 sqM) Est GFR (CKD-EPI)NonAf (>60 ml/min/1.73 sqM) Glucose (74-99) mg/dL Calcium (8.4-10.2) mg/dL Total Bilirubin (0.2-1.3) mg/dL AST (17-59) U/L ALT (21-72) U/L Alkaline Phosphatase (38-126) U/L Total Creatine Kinase (55-170) U/L CK-MB (CK-2) (0.0-2.4) ng/mL CK-MB (CK-2) Rel Index Troponin I (0.000-0.034) ng/mL NT-Pro-B Natriuret Pep 2200 pg/mL Total Protein (6.3-8.2) g/dL Albumin (3.5-5.0) g/dL - Radiology Data Radiology results: image reviewed (Chest x-ray shows some interstitial opacities.) Disposition Clinical Impression: Dyspnea Disposition: ADMITTED IP TO THIS HOSP Is patient prescribed a controlled substance at d/c from ED?: No Referrals: Timur Beltrán MD [Primary Care Provider] - 1-2 days Decision Time: 00:21
[2018-05-20 21:59] LABS: Basophils % (A) 0 %; Eosinophils # (A) 0.1 k/uL (0-0.7); Eosinophils % (A) 1 %; HGB 16.6 gm/dL (13.0-17.5); Hypochromasia Moderate; Lymphocytes # (A) 0.3 k/uL (1.0-4.8); Lymphocytes % (A) 4 %; MCH 29.2 pg (25.0-35.0); MCHC 30.1 g/dL (31.0-37.0); MCV 96.7 fL (80.0-100.0); Mean Platelet Volume 6.5; Monocytes # (A) 0.3 k/uL (0-1.0); Monocytes % (A) 4 %; Neutrophils # (A) 6.2 k/uL (1.3-7.7); Neutrophils % (A) 89 %; Platelet Count 197 k/uL (150-450); RDW 15.1 % (11.5-15.5)
[2018-05-20 22:00] LABS: HCT 55.2 % (39.0-53.0)
[2018-05-20 22:07] LABS: INR 1.5 (<1.2); Partial Thromboplastin Time 34.2 sec (22.0-30.0); Prothrombin Time 13.6 sec (9.0-12.0)
[2018-05-20 22:09] LABS: Creatine Kinase 25 U/L (55-170)
[2018-05-20 22:12] LABS: Albumin 3.1 g/dL (3.5-5.0); Calcium 8.6 mg/dL (8.4-10.2); Total Bilirubin 0.7 mg/dL (0.2-1.3)
[2018-05-20 22:18] LABS: Potassium 4.6 mmol/L (3.5-5.1)
[2018-05-20 22:22] LABS: Creatine Kinase MB 1.3 ng/mL (0.0-2.4); Troponin I <0.012 ng/mL (0.000-0.034)
--- NOTE | 2018-05-20 22:50 | XR ---
EXAM: XR Chest, 2 Views CLINICAL HISTORY: ITS.REASON XR Reason: difficulty breathing TECHNIQUE: Frontal and lateral views of the chest. COMPARISON: Chest radiograph on 04/08/2018. FINDINGS: Hardware: None. Lungs/pleura: Interstitial opacities again noted throughout the lungs, slightly decreased compared to prior exam. Slightly increased patchy airspace opacities and right greater than left lungs. Heart/mediastinum: Stable mild enlargement of the cardiac mediastinal silhouette. Soft tissues: Unremarkable. Bones: No acute fracture. Degenerative changes of the spine. Upper abdomen: Normal. IMPRESSION: Interstitial opacities throughout the lungs and slightly increased patchy airspace opacities which may represent pulmonary edema/fluid overload. Superimposed infection cannot be excluded.
[2018-05-21] MEDS ORDERED: IPRATROPIUM-ALBUTEROL 3 ML NEB INHALATION PRN (00:22)
[2018-05-21] MEDS ORDERED: methylPREDNISolone SOD SUCCI 125 MG/2 ML VIAL IV STA (00:22)
--- NOTE | 2018-05-21 02:11 | P.HPIM ---
History of Present Illness H&P Date: 05/21/18 Chief Complaint: Altered mental status 73-year-old male with history of squamous cell carcinoma of the LUNGS CURRENTLY STATUS POST RADIATION PALLIATIVE THERAPY. PATIENT WAS UNABLE TO PROVIDE ANY MEANINGFUL HISTORY DUE TO ONLY ABLE TO WHISPER , HISTORY WAS OBTAINED BY TALKING TO PATIENT NIECE SADIQ PATIENT PRESENTED TO THE HOSPITAL DUE TO CONFUSION AND HYPOXEMIA. PATIENT HAS BEEN AT HIS BASELINE STATUS OF HEALTH UP UNTIL YESTERDAY WHEN HE WAS SLIGHTLY COUGHING. TODAY PATIENT WAS VISITING HIS DOCTOR DOING HIS ROUTINE VISIT, and after he went home his niece has noticed that his oxygen saturation is low for which she grew concerned she gave him some breathing treatments without much improvement she reports oxygen saturation readings in the 80s for which she decided to call EMS especially after she noticed that the patient is growing more confused. She denies any fevers or chills however she noticed labored breathing denies any wheezing but did notice some coughing and peripheral cyanosis. Patient normally is on neck or sick diet dysphagia type I however over the past 2 days she's been getting clear Pepsi from his visiting family. Otherwise patient denies any chest pain, or any new focal neurologic deficits at this Review of Systems Unable to obtain meaningful review of systems from the patient due to him unable to talk but only to whisper Past Medical History Past Medical History: CVA/TIA, Diabetes Mellitus, GERD/Reflux, Hyperlipidemia, Hypertension, Pneumonia, Renal Disease Additional Past Medical History / Comment(s): Lung Cancer right upper lobe with radiation and lobectomy,. HX OF CVA X3 -RIGHT SIDED WEAKNESS, SPEECH DIFFICULT TO UNDERSTAND AT TIMES, W/C BOUND, ABLE TO PIVOT TO TRANSFER WITH ASSISTANCE, DIFFICULTY CHEWING AND SWALLOWING, HX OF ASPIRATION.,WEARS DEPENDS FOR OCC. INCONTINENCE., DDD, KIDNEY FUNCTION AT 50-60%, ENVIRONMENTAL ALLERGIES. PT LIVES AT [facility] -HAS OWN APARTMENT WITH 24 HOUR HELP., HAS DIZZINESS AND DIFFICULTY WITH VISION-WEARS PRISMS IN HIS EYE GLASSES. History of Any Multi-Drug Resistant Organisms: None Reported Past Surgical History: Appendectomy, Tonsillectomy Additional Past Surgical History / Comment(s): EYE SURGERY, right upper lobectomy for Ca 2016, spinal fusions x 2, gallstones removed. Past Anesthesia/Blood Transfusion Reactions: No Reported Reaction Past Psychological History: Depression Smoking Status: Former smoker Past Alcohol Use History: Rare Past Drug Use History: None Reported - Past Family History Mother History Unknown: Yes Family Medical History: CVA/TIA Father History Unknown: Yes Family Medical History: No Reported History Brother(s) Family Medical History: Cancer Additional Family Medical History / Comment(s): MESOTHELIOMA LUNG CANCER Medications and Allergies Home Medications Medication Instructions Recorded Confirmed Type Cholecalciferol [Vitamin D3] 400 unit PO BID 01/26/16 05/20/18 History Simvastatin [Zocor] 10 mg PO HS 01/26/16 05/20/18 History traZODone HCL [Desyrel] 100 mg PO HS 01/26/16 05/20/18 History Metoprolol Tartrate [Lopressor] 25 mg PO BID 03/15/16 05/20/18 History Amiodarone [Cordarone] 200 mg PO DAILY 11/10/16 05/20/18 History Aspirin 81 mg PO DAILY 11/10/16 05/20/18 History Oxybutynin Chloride [Ditropan] 5 mg PO DAILY@1600 11/10/16 05/20/18 History glipiZIDE XL [Glucotrol XL] 2.5 mg PO DAILY 11/10/16 05/20/18 History Dabigatran [Pradaxa] 150 mg PO BID 12/13/17 05/20/18 History Cetirizine HCl [Zyrtec] 10 mg PO DAILY@1100 03/15/18 05/20/18 History Cyanocobalamin (Vitamin B-12) 1,000 mcg PO DAILY 03/15/18 05/20/18 History [Vitamin B-12] Docusate [Colace] 100 mg PO HS 04/07/18 05/20/18 History amLODIPine [Norvasc] 5 mg PO DAILY 04/07/18 05/20/18 History Famotidine [Pepcid] 20 mg PO BID 05/20/18 05/20/18 History Melatonin 5 mg PO HS 05/20/18 05/20/18 History Allergies Allergy/AdvReac Type Severity Reaction Status Date / Time No Known Allergies Allergy Verified 05/20/18 22:37 Physical Exam Vitals: Vital Signs Temp Pulse Pulse Resp BP BP Pulse Ox 05/21/18 01:49 97.8 F 72 20 123/57 87 L 05/21/18 01:00 67 18 115/55 93 L 05/21/18 00:00 65 18 118/56 96 05/20/18 23:00 68 16 116/56 94 L 05/20/18 22:42 73 15 138/59 94 L 05/20/18 22:15 75 18 129/59 95 05/20/18 21:45 77 18 147/67 93 L 05/20/18 21:36 74 18 05/20/18 21:30 98.3 F 71 16 145/68 97 Intake and Output 05/20/18 05/20/18 05/21/18 14:59 22:59 06:59 Other: Weight 87 kg 78.698 kg Constitutional: No acute distress, pleasant, answers by nodding his head with yes and no. Patient is alert by the time I was examining him however this reported to me that he was confused initially Eyes: Anicteric sclerae, moist conjunctiva, no lid-lag Pupils equal round reactive to light ENMT: NC/AT Oropharynx clear, no erythema, exudates Neck: Supple, FROM, no masses, or JVD No carotid bruits No thyromegaly Lungs: Decreased breath sounds throughout no clear wheezing or rhonchi, there is right lower lung crackles Clear to percussion Normal respiratory effort, no accessory muscle use Cardiovascular: Heart regular in rate and rhythm, No murmurs, gallops, or rubs No peripheral edema Abdominal: Soft Nontender, no guarding, rebound or rigidity Abdomen moving with respiration Normoactive bowel sounds No hepatomegaly, No splenomegaly No palpable mass No abdominal wall hernia noted Skin: Normal temperature, tone, texture, turgor No induration No subcutaneous nodules No rash, lesions No ulcers Extremities: No digital cyanosis No clubbing Pedal pulses intact and symmetrical Radial pulses intact and symmetrical No calf tenderness Psychiatric: Alert and oriented to person, place Appropriate affect fair judgment Neuro Muscles Strength 4/5 in all 4 extremities Sensation to light touch grossly present throughout Cranial nerves II-XII grossly intact No focal sensory deficits Lymphatics: no palpable cervical or supraclavicular , or inguinal lymph nodes Results CBC & Chem 7: 05/20/18 21:37 05/20/18 21:37 Labs: Abnormal Lab Results - Last 24 Hours (Table) 05/20/18 05/20/18 05/20/18 Range/Units 21:37 21:37 21:37 Hct 55.2 H (39.0-53.0) % MCHC 30.1 L (31.0-37.0) g/dL Lymphocytes # 0.3 L (1.0-4.8) k/uL PT (9.0-12.0) sec INR (<1.2) APTT (22.0-30.0) sec BUN 27 H (9-20) mg/dL Creatinine 1.80 H (0.66-1.25) mg/dL Glucose 268 H (74-99) mg/dL Total Creatine Kinase 25 L (55-170) U/L Total Protein 6.0 L (6.3-8.2) g/dL Albumin 3.1 L (3.5-5.0) g/dL 05/20/18 Range/Units 21:37 Hct (39.0-53.0) % MCHC (31.0-37.0) g/dL Lymphocytes # (1.0-4.8) k/uL PT 13.6 H (9.0-12.0) sec INR 1.5 H (<1.2) APTT 34.2 H (22.0-30.0) sec BUN (9-20) mg/dL Creatinine (0.66-1.25) mg/dL Glucose (74-99) mg/dL Total Creatine Kinase (55-170) U/L Total Protein (6.3-8.2) g/dL Albumin (3.5-5.0) g/dL Assessment and Plan Assessment: 73-year-old male with history of squamous cell lung cancer in tracheal mass, patient admitted to the patient that dissipated left is stable more than 48 hours due to acute encephalopathy and acute hypoxic respiratory failure to rule out aspiration pneumonia. Patient presented with 1 day history of confusion, labored breathing and coughing Plan: Acute encephalopathy secondary to most likely hypoxemia rule out underlying infection, now resolved Acute hypoxic respiratory failure, secondary to aspiration pneumonia versus COPD COPD exacerbation secondary to possible aspiration pneumonia Diabetes mellitus History of stroke Squamous cell lung cancer with tracheal mask status post palliative radiotherapy DVT prophylaxis currently on dabigatran from home CK D stage III Mild protein calorie malnutrition Patient will be started on Unasyn ID consult Oncology consult Breathing treatments around the clock Systemic steroids Oral hypoglycemic agents on hold, continue with insulin sliding scale Aspiration precautions Continue aspirin, statin, pyridoxine Continue with metoprolol and amlodipine, continue with amiodarone Dysphagia type I diet and nectar thick Preformed a thorough record review from recent hospitalization where he was admitted for aspiration pneumonia Surrogate decision-maker: Patient needs DURABLE POWER OF MILITARY LOGISTICS SPECIALIST Sadiq CODE STATUS: DNR/DNI Discussed with: Patient, ER, RN Anticipated discharge: 48-[address]: Pending clinical progression A total of 60 minutes was spent on the care of this complex patient more than 50 % of the time was spent in counseling and care coordination.
[2018-05-21] MEDS: AMPICILLIN-SULBACTAM 3 GM in SODIUM CHLORIDE 0.9% 100 ML IVPB SCH ×3 (02:41→17:43)
[2018-05-21] MEDS: methylPREDNISolone SOD SUCCI 125 MG/2 ML VIAL IV SCH ×3 (06:31→17:42)
[2018-05-21 07:18] LABS: Glucose,Whole Blood 184 mg/dL (75-99)
[2018-05-21] MEDS: SYMBICORT 160-4.5 MCG INHALER INHALATION SCH ×2 (07:53→19:53)
[2018-05-21] MEDS: IPRATROPIUM-ALBUTEROL 3 ML NEB INHALATION SCH ×4 (07:53→19:57)
[2018-05-21 08:28] LABS: Basophils % (A) 0 %; Eosinophils % (A) 0 %; HCT 38.3 % (39.0-53.0); Hypochromasia Moderate; Lymphocytes # (A) 0.2 k/uL (1.0-4.8); Lymphocytes % (A) 3 %; MCH 29.8 pg (25.0-35.0); MCHC 31.6 g/dL (31.0-37.0); MCV 94.3 fL (80.0-100.0); Mean Platelet Volume 6.8; Monocytes # (A) 0.1 k/uL (0-1.0); Monocytes % (A) 2 %; Neutrophils % (A) 95 %; Platelet Count 302 k/uL (150-450); RBC 4.06 m/uL (4.30-5.90); RDW 14.9 % (11.5-15.5); WBC 8.4 k/uL (3.8-10.6)
[2018-05-21 08:30] LABS: HGB 12.1 gm/dL (13.0-17.5)
[2018-05-21 08:56] LABS: Albumin 2.5 g/dL (3.5-5.0); Calcium 8.2 mg/dL (8.4-10.2); Potassium 4.9 mmol/L (3.5-5.1); Total Bilirubin 0.6 mg/dL (0.2-1.3); Total Protein 5.1 g/dL (6.3-8.2)
[2018-05-21] MEDS: FAMOTIDINE 20 MG TAB PO SCH ×2 (09:17→09:32)
[2018-05-21] MEDS: LORATADINE 10 MG TAB PO SCH ×2 (09:17→09:32)
[2018-05-21] MEDS: AMIODARONE 200 MG TAB PO SCH ×2 (09:17→09:31)
[2018-05-21] MEDS: DABIGATRAN 150 MG CAP PO SCH ×3 (09:17→20:57)
[2018-05-21] MEDS: ASPIRIN 81 MG PO SCH ×2 (09:17→09:32)
[2018-05-21] MEDS: METOPROLOL TARTRATE 25 MG TAB PO SCH ×3 (09:17→20:56)
[2018-05-21] MEDS: amLODIPine 5 MG TAB PO SCH ×2 (09:17→09:32)
[2018-05-21] MEDS: CYANOCOBALAMIN 500 MCG TAB PO SCH ×2 (09:17→09:32)
[2018-05-21] MEDS: INSULIN ASPART 100 UNIT/ML 1 ML 10 ML VIAL SQ SCH ×4 (09:18→21:13)
[2018-05-21 11:38] LABS: Glucose,Whole Blood 219 mg/dL (75-99)
--- NOTE | 2018-05-21 11:38 | P.CNPUL ---
History of Present Illness Consult date: 05/21/18 Reason for consult: dyspnea, COPD, hypoxemia, pneumonia, pulmonary fibrosis Chief complaint: Shortness of breath, hypoxia, aspiration pneumonia History of present illness: 73-year-old male with history of squamous cell cancer of the right upper lobe status post resection followed by palliative radiation patient was in remission until he developed intermittent hemoptysis was diagnosis tracheal mass biopsy comes back again positive for squamous cell cancer primary of lung origin with a recurrence into the trachea. Patient recently had finished palliative radiation therapy, patient has a chronic history of stroke with right-sided weakness and predominantly is a wheelchair-bound patient has chronic ongoing issues associated with intermittent aspiration and aspiration related complication of the lung including pulmonary fibrosis and recurrent pneumonia, patient was seen yesterday in the office he was noted to have low oxygen saturation only 90% with some crackles on the right base patient was offered bronchodilator therapy as well as supplemental oxygen and further evaluation but he declined, off note that patient has been sitting outside in hot humid weather for last 2 days yesterday in the evening patient was more somnolent and lethargic and confused than baseline was brought into the emergency department, patient is suspected to have aspiration pneumonia being admitted into the hospital on broad-spectrum antibiotics also appears to have a component of COPD exacerbation and being treated accordingly. Chest x-ray suggestive of bilateral prominent interstitium with right lower lobe infiltrate, this morning patient is more awake opens eyes does follow simple command patient of note that because of prior stroke is a poor historian but does comprehend, patient has been evaluated by speech therapist, he has been recommended for PEG tube placement but he has declined he is currently on nectar thick fluid with as needed and tolerated fluids with aspiration precautions, patient has been recommended for hospice as well currently he is not interested, next of kin is his niece who is actively involved in his care Review of Systems All systems: negative Past Medical History Past Medical History: CVA/TIA, Diabetes Mellitus, GERD/Reflux, Hyperlipidemia, Hypertension, Pneumonia, Renal Disease Additional Past Medical History / Comment(s): Lung Cancer right upper lobe with radiation and lobectomy,. HX OF CVA X3 -RIGHT SIDED WEAKNESS, SPEECH DIFFICULT TO UNDERSTAND AT TIMES, W/C BOUND, ABLE TO PIVOT TO TRANSFER WITH ASSISTANCE, DIFFICULTY CHEWING AND SWALLOWING, HX OF ASPIRATION.,WEARS DEPENDS FOR OCC. INCONTINENCE., DDD, KIDNEY FUNCTION AT 50-60%, ENVIRONMENTAL ALLERGIES. PT LIVES AT [facility] -HAS OWN APARTMENT WITH 24 HOUR HELP., HAS DIZZINESS AND DIFFICULTY WITH VISION-WEARS PRISMS IN HIS EYE GLASSES. History of Any Multi-Drug Resistant Organisms: None Reported Past Surgical History: Appendectomy, Tonsillectomy Additional Past Surgical History / Comment(s): EYE SURGERY, right upper lobectomy for Ca 2016, spinal fusions x 2, gallstones removed. Past Anesthesia/Blood Transfusion Reactions: No Reported Reaction Past Psychological History: Depression Additional Psychological History / Comment(s): . Smoking Status: Former smoker Past Alcohol Use History: Rare Additional Past Alcohol Use History / Comment(s): started smoking 1956. QUIT 2015 Past Drug Use History: None Reported - Past Family History Mother History Unknown: Yes Family Medical History: CVA/TIA Father History Unknown: Yes Family Medical History: No Reported History Brother(s) Family Medical History: Cancer Additional Family Medical History / Comment(s): MESOTHELIOMA LUNG CANCER Medications and Allergies Home Medications Medication Instructions Recorded Confirmed Type Cholecalciferol [Vitamin D3] 400 unit PO BID 01/26/16 05/20/18 History Simvastatin [Zocor] 10 mg PO HS 01/26/16 05/20/18 History traZODone HCL [Desyrel] 100 mg PO HS 01/26/16 05/20/18 History Metoprolol Tartrate [Lopressor] 25 mg PO BID 03/15/16 05/20/18 History Amiodarone [Cordarone] 200 mg PO DAILY 11/10/16 05/20/18 History Aspirin 81 mg PO DAILY 11/10/16 05/20/18 History Oxybutynin Chloride [Ditropan] 5 mg PO DAILY@1600 11/10/16 05/20/18 History glipiZIDE XL [Glucotrol XL] 2.5 mg PO DAILY 11/10/16 05/20/18 History Dabigatran [Pradaxa] 150 mg PO BID 12/13/17 05/20/18 History Cetirizine HCl [Zyrtec] 10 mg PO DAILY@1100 03/15/18 05/20/18 History Cyanocobalamin (Vitamin B-12) 1,000 mcg PO DAILY 03/15/18 05/20/18 History [Vitamin B-12] Docusate [Colace] 100 mg PO HS 04/07/18 05/20/18 History amLODIPine [Norvasc] 5 mg PO DAILY 04/07/18 05/20/18 History Famotidine [Pepcid] 20 mg PO BID 05/20/18 05/20/18 History Melatonin 5 mg PO HS 05/20/18 05/20/18 History Allergies Allergy/AdvReac Type Severity Reaction Status Date / Time No Known Allergies Allergy Verified 05/20/18 22:37 Physical Exam Vitals: Vital Signs Temp Pulse Pulse Resp BP BP Pulse Ox 05/21/18 08:07 64 05/21/18 07:54 64 05/21/18 06:39 98.6 F 66 18 115/62 97 05/21/18 02:00 96 05/21/18 01:49 97.8 F 72 20 123/57 87 L 05/21/18 01:00 67 18 115/55 93 L 05/21/18 00:00 65 18 118/56 96 05/20/18 23:00 68 16 116/56 94 L 05/20/18 22:42 73 15 138/59 94 L 05/20/18 22:15 75 18 129/59 95 05/20/18 21:45 77 18 147/67 93 L 05/20/18 21:36 74 18 05/20/18 21:30 98.3 F 71 16 145/68 97 Intake and Output 05/20/18 05/21/18 05/21/18 22:59 06:59 14:59 Other: # Voids 1 Weight 87 kg 78.698 kg - Constitutional General appearance: average body habitus, cooperative, disheveled, obese - EENT Eyes: abnormal pupil, anicteric sclerae, EOMI, PERRLA, poor dentition, normal appearance ENT: hearing grossly normal Ears: bilateral: normal - Neck Neck: normal ROM Carotids: bilateral: upstroke normal, bruit absent Thyroid: bilateral: normal size - Respiratory Respiratory: bilateral: diminished, rales (More so on the right side compared to the left side), negative: dullness, rhonchi, wheezing - Cardiovascular Rhythm: regular Heart sounds: normal: S1, S2 - Gastrointestinal General gastrointestinal: normal bowel sounds, soft - Integumentary Integumentary: normal, normal turgor - Neurologic Right-sided weakness, a phasic but does comprehend very well Neurologic: CNII-XII intact, focal deficits - Musculoskeletal Musculoskeletal: generalized weakness, right sided weakness - Psychiatric Psychiatric: A&O x's 3, intact judgment & insight Trace bilateral lower extremity edema Results - Laboratory Findings CBC and BMP: 05/21/18 07:54 05/21/18 07:54 PT/INR, D-dimer PT 13.6 sec (9.0-12.0) H 05/20/18 21:37 INR 1.5 (<1.2) H 05/20/18 21:37 Abnormal lab findings: Abnormal Labs 05/20/18 05/20/18 05/20/18 21:37 21:37 21:37 RBC Hgb Hct 55.2 H MCHC 30.1 L Neutrophils # Lymphocytes # 0.3 L PT INR APTT BUN 27 H Creatinine 1.80 H Glucose 268 H POC Glucose (mg/dL) Calcium AST Total Creatine Kinase 25 L Total Protein 6.0 L Albumin 3.1 L 05/20/18 05/21/18 05/21/18 21:37 07:15 07:54 RBC 4.06 L Hgb 12.1 L D Hct 38.3 L MCHC Neutrophils # 8.0 H Lymphocytes # 0.2 L PT 13.6 H INR 1.5 H APTT 34.2 H BUN Creatinine Glucose POC Glucose (mg/dL) 184 H Calcium AST Total Creatine Kinase Total Protein Albumin 05/21/18 07:54 RBC Hgb Hct MCHC Neutrophils # Lymphocytes # PT INR APTT BUN 25 H Creatinine 1.66 H Glucose 196 H POC Glucose (mg/dL) Calcium 8.2 L AST 15 L Total Creatine Kinase Total Protein 5.1 L Albumin 2.5 L - Diagnostic Findings Chest x-ray: report reviewed, image reviewed (Possible right-sided pneumonia with prominent interstitium likely developing pulmonary fibrosis) Assessment and Plan Assessment: Altered mental status encephalopathy likely related to Sirs-like process along with contribution of COPD hypoxia and likely hypercapnia which appears to be transient Sirs-like process associated with aspiration pneumonia Recurrent intermittent aspiration Right lower lobe aspiration pneumonia Squamous cell cancer of the lung status post right upper lobe resection Recurrence of squamous cell carcinoma in trachea status post palliative radiation Generalized weakness and medical debility Right-sided weakness related to old CVA Plan: Broad-spectrum antibiotics Bronchodilators Supplemental oxygen Deep breathing exercise intensive spirometry Continue home medications Monitor aspiration precautions Would recommend PEG tube Overall prognosis is very poor Hospice would be a reasonable option Time with Patient: Greater than 30
--- NOTE | 2018-05-21 13:12 | P.PN ---
Progress Note - Text Progress Note Date: 05/21/18 Please see H&P for full note. 73-year-old M with PMH of lung cancer s/p radiation and lobectomy (Palliative), CVA, diabetes mellitus, hypertension, hyperlipidemia, CKD presents to the ED for altered mental status. He was noted to be hypoxic at home, with no improvement with breathing treatments. Of note, patient's family reported a cough prior to admission. Patient was also noted to be previously admitted for aspiration pneumonia. He is admitted for further workup. Patient was seen and examined on 05/21/2018 at 12:15 PM. He has no complaints at this time. Patient is nonverbal. He is in no acute distress. Normocephalic, Atraumatic. Decreased breath sounds bilaterally. Assessment and Plan 1. Acute Encephalopathy - Likely 2/2 hypoxemia 2/2 aspiration PNA vs COPD. He is non compliant with his pureed diet. - Patient is afebrile with no leukocytosis on admission. - CXR: Interstitial opacities throughout the lungs which may represent pulmonary edema or fluid overload. Superimposed infection cannot be excluded. - Echo (2015): EF 55-60% with mild LVH. - MRI brain (03/2017): Cerebral atrophy without signs of metastatic disease. - Antibiotics: Unasyn 3g IV Q6H - Will knee patient NPO pending bedside swallow eval. Continue IV Abx for concerns of aspiration PNA. HOB Elevation. DuoNeb QID scheduled and PRN. O2 per NC to maintain O2 sat > 92%. Aspiration precautions. FU Echocardiogram, Pulmonology 2. COPD exacerbation: Continue DuoNeb QID scheduled and PRN, Symbicort 2 puff BID. Continue SoluMedrol 60 mg IV Q6H. O2 per NC to maintain O2 sat > 92%. FU Pulmonology 3. SCC Lung CA: RU lobectomy in 05/2016, pathology confirmed IA SCC. SBRT for LLL primary completed in 08/2016. CTA in 02/2018 showing a 3.5 x 2.8 cm mass along the R Lat tracheal wall + 1.1 cm RLL nodule, Bx confirming SCC, receiving palliative RT at [facility]. Will keep patient NPO pending swallow eval. Patient is DNR DNI. Refused PEG and Hospice during past admissions. FU Oncology, Pulmonology 4. Anemia: Hg 12.1 Hct 38.3 MCV 94.3. Normal on admission but likely due to hemoconcentration. Likely 2/2 CKD and malignancy. Transfuse if Hg < 7. Daily CBC while in house. Vit B12 1000 mcg PO QD. FU Ferritin, Iron studies, B12/ Folate 5. DM: POC glucose 196. A1c 6.6 03/2018. ISS. Accuchecks QID. Hypoglycemic precautions. 6. HTN: BP 115/62. Continue Amlodipine 5 mg PO QD, Metoprolol 25 mg PO BID. Monitor vitals, adjust medications as necessary. 7. CKD: BUN 25 Cr 1.66 at baseline. Improved from admission. Encourage PO hydration. Avoid nephrotoxins. Monitor and replace electrolytes. 8. h/o CVA: Stable. Continue ASA 81 mg PO QD, Pradaxa 150 mg PO BID and Lipitor 40 mg PO QHS. FU PT consult 9. Urinary incontinence: Stable. Continue Ditropan 5 mg PO QD. 10. A-Fib: Noted on 10/2016 note. Continue Amiodorone 200 mg PO QD. Rate control with Metoprolol 25 mg PO BID. AC with Pradaxa 150 mg PO BID. Telemetry monitoring. Keep Mg > 2 and K > 4. FU EKG 11. DVT/GI Prophylaxis: Pradaxa 150 mg PO BID. Pepcid 20 mg PO QD.
--- NOTE | 2018-05-21 13:19 | CDI ---
Last Revision, August 2017 Documentation Clarification Form Date: 05/21/2018 1:02:21 PM From: Jazlyn CuellarJEFF, CCDS Admit Date: 05/21/2018 12:21:00 AM Patient Name: Joesph Lopez Visit Number: [id number] Discharge Date: ATTENTION: The Clinical Documentation Specialists (CDI) and [employer] Coding Staff appreciate your assistance in clarifying documentation. Please respond to the clarification below the line at the bottom and electronically sign. The CDI & [employer] Coding staff will review the response and follow-up if needed. Please note: Queries are made part of the Legal Health Record. If you have any questions, please contact the author of this message via ITS. Chery Lorenzo MD: 73 yo male presented with difficulty in breathing from fdc, feels SOB, non productive cough & altered mental status. Per the History & Physical, Acute encephalopathy secondary to most likely hypoxemia, r/o underlying infection, resolved with acute hypoxic respiratory failure. Per the ID consult: SIRS like process w/COPD, hypoxia & likely hypercapnia with aspiration pneumonia. History/Risk factors: CVA x3, DM, GERD, Hyperlipidemia, hypertension, Pneumonia , Renal Disease, recurrent aspiration pneumonia. Clinical Indicators: VS: T 98.3, P 71, R 16, BP 145/68, PO 97 nrb-14% ventimask Labs: Hct 55.2^, PT 13.6^, INR 1.5^, APTT 34.2^, BUN 27^, Cr 1.80^, Gluc 268^, T Prot 6.0*, Alb 3.1* Treatment: IV fluid boluses, IV antibiotics, O2 via ventimask, Albuterol IH, IV Solumedrol In your professional opinion, can you please clarify the specific type of encephalopathy, if known? Anoxic Encephalopathy Hypertensive Encephalopathy Metabolic Encephalopathy Septic Encephalopathy Toxic Encephalopathy Other, please specify Unable to determine mild anoxic encephalopathy MTDD
[2018-05-21 15:20] VITALS: BMI 27.1
[2018-05-21] MEDS: OXYBUTYNIN CHLORIDE 5 MG TAB PO SCH (15:55)
[2018-05-21 17:10] LABS: Glucose,Whole Blood 247 mg/dL (75-99)
[2018-05-21 20:35] LABS: Glucose,Whole Blood 257 mg/dL (75-99)
[2018-05-21] MEDS: DOCUSATE 100 MG CAP PO SCH (20:56)
[2018-05-21] MEDS: ATORVASTATIN 40 MG TAB PO SCH (20:57)
[2018-05-21] MEDS: traZODone HCL 100 MG TAB PO SCH (20:57)
--- NOTE | 2018-05-21 21:41 | P.CONS ---
History of Present Illness - Reason for Consult Consult date: 05/21/18 Hx of Head and Neck and Lung Cancer Requesting physician: Abbe Allen - Chief Complaint Increased Shortness of breath - History of Present Illness Mr Lopez is a pleasant WM, who presented in late fall 2014 with complaints of production cough and upper airway congestions. Initial imaging appears to suggest a pneumonia. He was treated with antibiotics but had multiple relapses of his symptoms. CT chest during an admission to [facility] on 02/07/16 revealed wedge shaped infiltrate in the RUL, and fullness adjacent to the right main pulmunary artery. A repeat CT on 03/17/16 showed persistant abnormalities. He had a bronchoscopy with biopsy on 04/02/16 revealing squamous cell carcinoma. He was therefore referred here for further evaluation and recommendations. He had a PEt and brain CT , confirming chest limited disease. He he was seen by cardiothoracic surgery, Dr. Curry at [facility], and had a right upper lobectomy on 09/07 revealing a stage IA squamous cell carcinoma. He was subsequently found to have a synchronous primary in the left lower lobe, also squamous cell, that was treated with is PRT completed in 09/07 The patient was then on follow-up at [facility], with his last visit there in 12/08. Most recent CT scans in 11/10 had shown stable findings other than a new right lower lobe 4 mm nodule that was felt to be nonspecific. The patient was seen in consult at [facility] on 03/16/18. He was admitted with cough, hemoptysis, and hoarseness of voice and started about 2 weeks prior and had progressed since. CTA of the chest was negative for pulmonary embolus but showed a soft tissue density along the right lateral tracheal wall measuring 3.5 x 2.8 cm. 1.1 cm nodule in the right lower lobe seen along with prominent left-sided hilar consolidation. He had a bronchoscopy on 03/19/18. This showed edema in the mid trachea with evidence of a growth growing into the posterior and right lateral wall. Biopsy was positive for squamous cell carcinoma. The procedure was technically difficult because of this mass, but the left side was able to be inspected, with negative results. Additional brushings and washings on the right side were negative. the patient underwent a PET scan, which unfortunately showed metastatic disease with multiple bilateral lung nodules, as well as uptake in the known tracheal mass. Subsequent MRI of the brain was negative. The patient was then admitted to [facility] in 04/09, due to decreased oral intake, progressive weakness, dehydration and possible pneumonia. He did improve with supportive care and antibiotics. We had extensive discussions about feeding tube placement, but the patient ultimately refused. the PET results and implications, specifically that he had stage IV disease, were discussed with the patient and his family in the hospital. He was seen by radiation oncology and started on palliative radiation to the tracheal mass. He completed that on 04/24/18. He now presents from [facility] for Evaluation of increased Shortness of Breath and increasing lethargy and weakness. Apon evaluation patient is difficult to arouse for interaction. Once awakened he did answer questions appropriately. Mild increased respiratory effort. Noted stridor, dysphagia. Review of Systems A 14 point review of systems was attempted to best of my capability although difficulty with patients choice to answer questions and increased lethargy. Past Medical History Past Medical History: CVA/TIA, Diabetes Mellitus, GERD/Reflux, Hyperlipidemia, Hypertension, Pneumonia, Renal Disease Additional Past Medical History / Comment(s): Lung Cancer right upper lobe with radiation and lobectomy,. HX OF CVA X3 -RIGHT SIDED WEAKNESS, SPEECH DIFFICULT TO UNDERSTAND AT TIMES, W/C BOUND, ABLE TO PIVOT TO TRANSFER WITH ASSISTANCE, DIFFICULTY CHEWING AND SWALLOWING, HX OF ASPIRATION.,WEARS DEPENDS FOR OCC. INCONTINENCE., DDD, KIDNEY FUNCTION AT 50-60%, ENVIRONMENTAL ALLERGIES. PT LIVES AT [facility] -HAS OWN APARTMENT WITH 24 HOUR HELP., HAS DIZZINESS AND DIFFICULTY WITH VISION-WEARS PRISMS IN HIS EYE GLASSES. History of Any Multi-Drug Resistant Organisms: None Reported Past Surgical History: Appendectomy, Tonsillectomy Additional Past Surgical History / Comment(s): EYE SURGERY, right upper lobectomy for Ca 2016, spinal fusions x 2, gallstones removed. Past Anesthesia/Blood Transfusion Reactions: No Reported Reaction Past Psychological History: Depression Additional Psychological History / Comment(s): . Smoking Status: Former smoker Past Alcohol Use History: Rare Additional Past Alcohol Use History / Comment(s): started smoking 1956. QUIT 2015 Past Drug Use History: None Reported - Past Family History Mother History Unknown: Yes Family Medical History: CVA/TIA Father History Unknown: Yes Family Medical History: No Reported History Brother(s) Family Medical History: Cancer Additional Family Medical History / Comment(s): MESOTHELIOMA LUNG CANCER Medications and Allergies Home Medications Medication Instructions Recorded Confirmed Type Cholecalciferol [Vitamin D3] 400 unit PO BID 01/26/16 05/20/18 History Simvastatin [Zocor] 10 mg PO HS 01/26/16 05/20/18 History traZODone HCL [Desyrel] 100 mg PO HS 01/26/16 05/20/18 History Metoprolol Tartrate [Lopressor] 25 mg PO BID 03/15/16 05/20/18 History Amiodarone [Cordarone] 200 mg PO DAILY 11/10/16 05/20/18 History Aspirin 81 mg PO DAILY 11/10/16 05/20/18 History Oxybutynin Chloride [Ditropan] 5 mg PO DAILY@1600 11/10/16 05/20/18 History glipiZIDE XL [Glucotrol XL] 2.5 mg PO DAILY 11/10/16 05/20/18 History Dabigatran [Pradaxa] 150 mg PO BID 12/13/17 05/20/18 History Cetirizine HCl [Zyrtec] 10 mg PO DAILY@1100 03/15/18 05/20/18 History Cyanocobalamin (Vitamin B-12) 1,000 mcg PO DAILY 03/15/18 05/20/18 History [Vitamin B-12] Docusate [Colace] 100 mg PO HS 04/07/18 05/20/18 History amLODIPine [Norvasc] 5 mg PO DAILY 04/07/18 05/20/18 History Famotidine [Pepcid] 20 mg PO BID 05/20/18 05/20/18 History Melatonin 5 mg PO HS 05/20/18 05/20/18 History Allergies Allergy/AdvReac Type Severity Reaction Status Date / Time No Known Allergies Allergy Verified 05/20/18 22:37 Physical Exam Vitals: Vital Signs Temp Pulse Pulse Resp BP BP Pulse Ox 05/21/18 11:38 68 05/21/18 11:25 68 05/21/18 08:07 64 05/21/18 07:54 64 05/21/18 06:39 98.6 F 66 18 115/62 97 05/21/18 02:00 96 05/21/18 01:49 97.8 F 72 20 123/57 87 L 05/21/18 01:00 67 18 115/55 93 L 05/21/18 00:00 65 18 118/56 96 05/20/18 23:00 68 16 116/56 94 L 05/20/18 22:42 73 15 138/59 94 L 05/20/18 22:15 75 18 129/59 95 05/20/18 21:45 77 18 147/67 93 L 05/20/18 21:36 74 18 05/20/18 21:30 98.3 F 71 16 145/68 97 Intake and Output 05/20/18 05/21/18 05/21/18 22:59 06:59 14:59 Other: # Voids 1 Weight 87 kg 78.698 kg Results CBC & Chem 7: 05/21/18 07:54 05/21/18 07:54 Labs: Abnormal Lab Results - Last 24 Hours (Table) 05/20/18 05/20/18 05/20/18 Range/Units 21:37 21:37 21:37 RBC (4.30-5.90) m/uL Hgb (13.0-17.5) gm/dL Hct 55.2 H (39.0-53.0) % MCHC 30.1 L (31.0-37.0) g/dL Neutrophils # (1.3-7.7) k/uL Lymphocytes # 0.3 L (1.0-4.8) k/uL PT (9.0-12.0) sec INR (<1.2) APTT (22.0-30.0) sec BUN 27 H (9-20) mg/dL Creatinine 1.80 H (0.66-1.25) mg/dL Glucose 268 H (74-99) mg/dL POC Glucose (mg/dL) (75-99) mg/dL Calcium (8.4-10.2) mg/dL AST (17-59) U/L Total Creatine Kinase 25 L (55-170) U/L Total Protein 6.0 L (6.3-8.2) g/dL Albumin 3.1 L (3.5-5.0) g/dL 05/20/18 05/21/18 05/21/18 Range/Units 21:37 07:15 07:54 RBC 4.06 L (4.30-5.90) m/uL Hgb 12.1 L D (13.0-17.5) gm/dL Hct 38.3 L (39.0-53.0) % MCHC (31.0-37.0) g/dL Neutrophils # 8.0 H (1.3-7.7) k/uL Lymphocytes # 0.2 L (1.0-4.8) k/uL PT 13.6 H (9.0-12.0) sec INR 1.5 H (<1.2) APTT 34.2 H (22.0-30.0) sec BUN (9-20) mg/dL Creatinine (0.66-1.25) mg/dL Glucose (74-99) mg/dL POC Glucose (mg/dL) 184 H (75-99) mg/dL Calcium (8.4-10.2) mg/dL AST (17-59) U/L Total Creatine Kinase (55-170) U/L Total Protein (6.3-8.2) g/dL Albumin (3.5-5.0) g/dL 05/21/18 05/21/18 Range/Units 07:54 11:35 RBC (4.30-5.90) m/uL Hgb (13.0-17.5) gm/dL Hct (39.0-53.0) % MCHC (31.0-37.0) g/dL Neutrophils # (1.3-7.7) k/uL Lymphocytes # (1.0-4.8) k/uL PT (9.0-12.0) sec INR (<1.2) APTT (22.0-30.0) sec BUN 25 H (9-20) mg/dL Creatinine 1.66 H (0.66-1.25) mg/dL Glucose 196 H (74-99) mg/dL POC Glucose (mg/dL) 219 H (75-99) mg/dL Calcium 8.2 L (8.4-10.2) mg/dL AST 15 L (17-59) U/L Total Creatine Kinase (55-170) U/L Total Protein 5.1 L (6.3-8.2) g/dL Albumin 2.5 L (3.5-5.0) g/dL Assessment and Plan Plan: Assessment and Recommendations: 1. Acute Hypoxic Respiratory Failure secondary to probable aspiration Pneumonia - IV abx and Pulmonary Following 2. Acute Encephalopathy likely related to underlying infection and number one 3. Squamous Cell Carcinoma - Recently completed radiation palliative intent 4. Dysphagia - THick Liquid baseline diet, although non-compliant to diet and refuses to adhere to recommendation regardless of risks. - Stridor on exam concern for further aspiration - Attempted to contact neice related to goals of care, will discuss with her and primary team to determine goals of care and treatment plan, with patients non-adherence to recommendations on diet and placement of feeding tube, may be appropriate for a palliatve/Hospice approach. 5. Acute on Chronic Renal Insufficiency Physician Attestation: I have completed the full history and physical of this patient and agree with above dictation by Ailyn Romeo NP Dictated as a scribe.
[2018-05-22] MEDS: AMPICILLIN-SULBACTAM 3 GM in SODIUM CHLORIDE 0.9% 100 ML IVPB SCH ×3 (00:26→11:19)
[2018-05-22] MEDS: methylPREDNISolone SOD SUCCI 125 MG/2 ML VIAL IV SCH ×2 (00:27→06:16)
[2018-05-22] MEDS: SYMBICORT 160-4.5 MCG INHALER INHALATION SCH ×2 (07:16→20:21)
[2018-05-22] MEDS: IPRATROPIUM-ALBUTEROL 3 ML NEB INHALATION SCH ×4 (07:17→20:22)
[2018-05-22 07:35] LABS: Glucose,Whole Blood 211 mg/dL (75-99)
[2018-05-22 08:31] LABS: HCT 37.7 % (39.0-53.0); HGB 11.1 gm/dL (13.0-17.5); Hypochromasia Marked; MCH 28.8 pg (25.0-35.0); MCHC 29.3 g/dL (31.0-37.0); MCV 98.2 fL (80.0-100.0); Macrocytosis Slight; Platelet Count 305 k/uL (150-450); RBC 3.84 m/uL (4.30-5.90); RDW 15.1 % (11.5-15.5); WBC 14.8 k/uL (3.8-10.6)
[2018-05-22 08:44] LABS: Albumin 2.6 g/dL (3.5-5.0); Calcium 8.2 mg/dL (8.4-10.2); Magnesium 2.4 mg/dL (1.6-2.3); Potassium 4.3 mmol/L (3.5-5.1); Total Bilirubin 0.4 mg/dL (0.2-1.3); Total Protein 5.2 g/dL (6.3-8.2)
[2018-05-22] MEDS: ASPIRIN 81 MG PO SCH (08:47)
[2018-05-22] MEDS: CYANOCOBALAMIN 500 MCG TAB PO SCH (08:47)
[2018-05-22] MEDS: METOPROLOL TARTRATE 25 MG TAB PO SCH ×2 (08:47→22:05)
[2018-05-22] MEDS: DABIGATRAN 150 MG CAP PO SCH ×2 (08:47→22:05)
[2018-05-22] MEDS: FAMOTIDINE 20 MG TAB PO SCH (08:48)
[2018-05-22] MEDS: INSULIN ASPART 100 UNIT/ML 1 ML 10 ML VIAL SQ SCH ×4 (08:48→21:06)
[2018-05-22] MEDS: amLODIPine 5 MG TAB PO SCH (08:48)
[2018-05-22] MEDS: AMIODARONE 200 MG TAB PO SCH (08:48)
[2018-05-22] MEDS: LORATADINE 10 MG TAB PO SCH (08:48)
--- NOTE | 2018-05-22 09:39 | P.PN ---
Subjective Progress Note Date: 05/22/18 Principal diagnosis: Aspiration pneumonia, Sirs, squamous cell cancer of the lung status post right upper lobe resection, recurrence of squamous cell cancer in trachea is status post palliative radiation, generalized weakness and medical debility, high risk for aspiration, right sided weakness related to old CVA 05/22/2018, patient seen eval examined during the rounds clinically patient is doing well more awake and alert mental status have significantly improve almost back to baseline breathing comfortably denies any chest pain, patient is being evaluated by speech therapy, labs reviewed from today white cell count is slightly up to 14,000, renal functions have improved, blood glucose elevated likely related to high-dose IV steroids, suspect leukocytosis likely related to that to 73-year-old male with history of squamous cell cancer of the right upper lobe status post resection followed by palliative radiation patient was in remission until he developed intermittent hemoptysis was diagnosis tracheal mass biopsy comes back again positive for squamous cell cancer primary of lung origin with a recurrence into the trachea. Patient recently had finished palliative radiation therapy, patient has a chronic history of stroke with right-sided weakness and predominantly is a wheelchair-bound patient has chronic ongoing issues associated with intermittent aspiration and aspiration related complication of the lung including pulmonary fibrosis and recurrent pneumonia, patient was seen yesterday in the office he was noted to have low oxygen saturation only 90% with some crackles on the right base patient was offered bronchodilator therapy as well as supplemental oxygen and further evaluation but he declined, off note that patient has been sitting outside in hot humid weather for last 2 days yesterday in the evening patient was more somnolent and lethargic and confused than baseline was brought into the emergency department, patient is suspected to have aspiration pneumonia being admitted into the hospital on broad-spectrum antibiotics also appears to have a component of COPD exacerbation and being treated accordingly. Chest x-ray suggestive of bilateral prominent interstitium with right lower lobe infiltrate, this morning patient is more awake opens eyes does follow simple command patient of note that because of prior stroke is a poor historian but does comprehend, patient has been evaluated by speech therapist, he has been recommended for PEG tube placement but he has declined he is currently on nectar thick fluid with as needed and tolerated fluids with aspiration precautions, patient has been recommended for hospice as well currently he is not interested, next of kin is his niece who is actively involved in his care Objective - Vital Signs Vital signs: Vital Signs Temp 97.0 F L 05/22/18 07:00 Pulse 72 05/22/18 07:30 Resp 20 05/22/18 07:00 BP 119/57 05/22/18 07:00 Pulse Ox 98 05/22/18 07:00 Intake & Output 05/21/18 05/22/18 05/22/18 18:59 06:59 18:59 Intake Total 100 Balance 100 Weight 78.698 kg Intake: Intake, IV Titration 100 Amount Ampicillin-Sulbactam 3 gm 100 In Sodium Chloride 0.9% 100 ml @ 100 mls/hr IVPB Q6HR FELIX Rx#:[id number] Oral 0 Other: # Voids 1 1 - Exam - Constitutional General appearance: average body habitus, cooperative, disheveled, obese - EENT Eyes: abnormal pupil, anicteric sclerae, EOMI, PERRLA, poor dentition, normal appearance ENT: hearing grossly normal Ears: bilateral: normal - Neck Neck: normal ROM Carotids: bilateral: upstroke normal, bruit absent Thyroid: bilateral: normal size - Respiratory Respiratory: bilateral: diminished, rales (More so on the right side compared to the left side), negative: dullness, rhonchi, wheezing - Cardiovascular Rhythm: regular Heart sounds: normal: S1, S2 - Gastrointestinal General gastrointestinal: normal bowel sounds, soft - Integumentary Integumentary: normal, normal turgor - Neurologic Right-sided weakness, a phasic but does comprehend very well Neurologic: CNII-XII intact, focal deficits - Musculoskeletal Musculoskeletal: generalized weakness, right sided weakness - Psychiatric Psychiatric: A&O x's 3, intact judgment & insight Trace bilateral lower extremity edema - Labs CBC & Chem 7: 05/22/18 07:53 05/22/18 07:53 Labs: Abnormal Lab Results - Last 24 Hours (Table) 05/21/18 05/21/18 05/21/18 Range/Units 11:35 17:06 20:31 WBC (3.8-10.6) k/uL RBC (4.30-5.90) m/uL Hgb (13.0-17.5) gm/dL Hct (39.0-53.0) % MCHC (31.0-37.0) g/dL Chloride (98-107) mmol/L BUN (9-20) mg/dL Creatinine (0.66-1.25) mg/dL Glucose (74-99) mg/dL POC Glucose (mg/dL) 219 H 247 H 257 H (75-99) mg/dL Calcium (8.4-10.2) mg/dL Magnesium (1.6-2.3) mg/dL Total Protein (6.3-8.2) g/dL Albumin (3.5-5.0) g/dL 05/22/18 05/22/18 05/22/18 Range/Units 07:31 07:53 07:53 WBC 14.8 H (3.8-10.6) k/uL RBC 3.84 L (4.30-5.90) m/uL Hgb 11.1 L (13.0-17.5) gm/dL Hct 37.7 L (39.0-53.0) % MCHC 29.3 L (31.0-37.0) g/dL Chloride 108 H (98-107) mmol/L BUN 24 H (9-20) mg/dL Creatinine 1.45 H (0.66-1.25) mg/dL Glucose 216 H (74-99) mg/dL POC Glucose (mg/dL) 211 H (75-99) mg/dL Calcium 8.2 L (8.4-10.2) mg/dL Magnesium 2.4 H (1.6-2.3) mg/dL Total Protein 5.2 L (6.3-8.2) g/dL Albumin 2.6 L (3.5-5.0) g/dL Assessment and Plan Assessment: Altered mental status encephalopathy likely related to Sirs-like process along with contribution of COPD hypoxia and likely hypercapnia which appears to be transient Sirs-like process associated with aspiration pneumonia Recurrent intermittent aspiration Right lower lobe aspiration pneumonia Squamous cell cancer of the lung status post right upper lobe resection Recurrence of squamous cell carcinoma in trachea status post palliative radiation Generalized weakness and medical debility Right-sided weakness related to old CVA Plan: Broad-spectrum antibiotics Bronchodilators Will lower down the Solu-Medrol however in next 24 hours can be switched to oral Supplemental oxygen Deep breathing exercise intensive spirometry Continue home medications Monitor aspiration precautions Would recommend PEG tube Can be discharged home to ECF in next 24 hours Overall prognosis is very poor Hospice would be a reasonable option Time with Patient: Greater than 30
--- NOTE | 2018-05-22 10:10 | CDI ---
Last Revision, August 2017 Documentation Clarification Form Date: 05/22/2018 9:51:44 AM From: Jazlyn CuellarJEFF, CCDS Admit Date: 05/21/2018 12:21:00 AM Patient Name: Joesph Lopez Visit Number: [id number] Discharge Date: ATTENTION: The Clinical Documentation Specialists (CDI) and [facility] Coding Staff appreciate your assistance in clarifying documentation. Please respond to the clarification below the line at the bottom and electronically sign. The CDI & [facility] Coding staff will review the response and follow-up if needed. Please note: Queries are made part of the Legal Health Record. If you have any questions, please contact the author of this message via ITS. Usama Hoffman MD: Admitted with aspiration pneumonia & COPD exacerbation, history lung CA and mets to lung nodules & trachea. Per the 05/21 PN: CKD: BUN 25 Cr 1.66 at baseline. Improved from admission. Encourage PO. Hydration. Avoid nephrotoxins. Monitor and replace electrolytes. History/Risk Factors: Lung CA status post chemo & radiation, CVA w/right side weakness, DM, GERD, Hyperlipidemia, Hypertension. Clinical Indicators: Presented to ER with difficulty breathing, from assisted. Admission BUN 27, Cr 1.80. GFR 37 Current BUN 24, Cr 1.45. GFR 48 Patients Baseline: BUN 25, Cr .166. GFR 41. Treatment: IV Solumedrol, IV Ampicillin, Insulin sq, Neb treatments, Daily CBC, po hydration. In order to capture the severity of condition, please clarify if the condition signifies: CKD Stage 1 (GFR > 90) CKD Stage 2 (GFR 60-89) CKD Stage 3 (GFR 30-59) CKD Stage 4 (GFR 15-29) CKD Stage 5 (GFR <15) Other, please specify Unable to determine __stage 3 MTDD
[2018-05-22 11:54] LABS: Glucose,Whole Blood 331 mg/dL (75-99)
--- NOTE | 2018-05-22 12:18 | P.PN ---
Subjective Progress Note Date: 05/22/18 Principal diagnosis: cough, altered mental status. patient was seen and examined. No acute events overnight. Patient reports improvement in his breathing. Sadiq, his POA and pouch maker is at bedside. Sadiq reports the patient is back to baseline. Objective - Vital Signs Vital signs: Vital Signs Temp 97.0 F L 05/22/18 07:00 Pulse 72 05/22/18 07:30 Resp 20 05/22/18 07:00 BP 119/57 05/22/18 07:00 Pulse Ox 98 05/22/18 07:00 Intake & Output 05/21/18 05/22/18 05/22/18 18:59 06:59 18:59 Intake Total 100 Balance 100 Weight 78.698 kg Intake: Intake, IV Titration 100 Amount Ampicillin-Sulbactam 3 gm 100 In Sodium Chloride 0.9% 100 ml @ 100 mls/hr IVPB Q6HR FELIX Rx#:[id number] Oral 0 Other: # Voids 1 1 - Exam General: [non toxic], [no distress], [appears at stated age] Derm: [warm], [dry] Head: [atraumatic], [normocephalic], [symmetric] Eyes: [EOMI], [no lid lag], [anicteric sclera] Mouth: [no lip lesion], [mucus membranes moist] Cardiovascular: [S1S2 reg], [no murmur], [positive posterior tibial pulse bilateral], Lungs: [decreased breath sounds bilaterally], [Rales right > left] , [no accessory muscle use] Abdominal: [soft], [ nontender to palpation], [no guarding], [no appreciable organomegaly] Ext: [no gross muscle atrophy], [no edema], [no contractures] Neuro: [ Aphasic], [strength 3 out of 5 in the RUE and RLE], [strength 5 out of 5 in the LUE and LLE]. Sensation intact to touch in all 4 extremities. - Labs CBC & Chem 7: 05/22/18 07:53 05/22/18 07:53 Labs: Abnormal Lab Results - Last 24 Hours (Table) 05/21/18 05/21/18 05/21/18 Range/Units 11:35 17:06 20:31 WBC (3.8-10.6) k/uL RBC (4.30-5.90) m/uL Hgb (13.0-17.5) gm/dL Hct (39.0-53.0) % MCHC (31.0-37.0) g/dL Chloride (98-107) mmol/L BUN (9-20) mg/dL Creatinine (0.66-1.25) mg/dL Glucose (74-99) mg/dL POC Glucose (mg/dL) 219 H 247 H 257 H (75-99) mg/dL Calcium (8.4-10.2) mg/dL Magnesium (1.6-2.3) mg/dL Total Protein (6.3-8.2) g/dL Albumin (3.5-5.0) g/dL 05/22/18 05/22/18 05/22/18 Range/Units 07:31 07:53 07:53 WBC 14.8 H (3.8-10.6) k/uL RBC 3.84 L (4.30-5.90) m/uL Hgb 11.1 L (13.0-17.5) gm/dL Hct 37.7 L (39.0-53.0) % MCHC 29.3 L (31.0-37.0) g/dL Chloride 108 H (98-107) mmol/L BUN 24 H (9-20) mg/dL Creatinine 1.45 H (0.66-1.25) mg/dL Glucose 216 H (74-99) mg/dL POC Glucose (mg/dL) 211 H (75-99) mg/dL Calcium 8.2 L (8.4-10.2) mg/dL Magnesium 2.4 H (1.6-2.3) mg/dL Total Protein 5.2 L (6.3-8.2) g/dL Albumin 2.6 L (3.5-5.0) g/dL Assessment and Plan Assessment: Assessment and Plan 1. Aspiration Pneumonia - Likely 2/2 hypoxemia 2/2 aspiration PNA vs COPD. He is non compliant with his pureed diet. - Patient is afebrile with no leukocytosis on admission. Leukocytosis of 14.8 on 05/22 likely due to IV steroid. - CXR: Interstitial opacities throughout the lungs which may represent pulmonary edema or fluid overload. Superimposed infection cannot be excluded. - Echo (2016): EF 55-60% with mild LVH. - MRI brain (03/2017): Cerebral atrophy without signs of metastatic disease. - Antibiotics: Unasyn 3g IV Q6H - ST eval: Will follow while inPT for speech therapy. Pureed diet/ HT liquids with free water and ice chip between meals. - Pulmonology consut: Broad spectrum Abx, Switch SoluMedrol to PO in 24H, recommend PEG, DC in the next 24H - Re-start diet as per ST recommendations. Continue IV Abx for concerns of aspiration PNA. HOB Elevation. DuoNeb QID scheduled and PRN. O2 per NC to maintain O2 sat > 92%. Aspiration precautions. FU Echocardiogram, Pulmonology 2. COPD exacerbation: Continue DuoNeb QID scheduled and PRN, Symbicort 2 puff BID. Continue SoluMedrol 60 mg IV Q6H. O2 per NC to maintain O2 sat > 92%. FU Pulmonology 3. SCC Lung CA: RU lobectomy in 05/2016, pathology confirmed IA SCC. SBRT for LLL primary completed in 08/2016. CTA in 02/2018 showing a 3.5 x 2.8 cm mass along the R Lat tracheal wall + 1.1 cm RLL nodule, Bx confirming SCC, receiving palliative RT at [facility]. Patient is DNR DNI. Refused PEG and Hospice. Oncology consulted, recommend Hospice given his prognosis and poor compliance with diet. Patient currently undergoing evaluation for immunotherapy and would like to pursue if possible. 4. Anemia: Hg 11.1 Hct 37.7 MCV 98.2. Normal on admission but likely due to hemoconcentration. Likely 2/2 CKD and malignancy. Transfuse if Hg < 7. Daily CBC while in house. Vit B12 1000 mcg PO QD. FU Ferritin, Iron studies, B12/ Folate 5. Acute encephalopathy: Likely 2/2 hypoxemia 2/2 aspiration PNA. Resolved. 6. DM: POC glucose 331. A1c 6.6 (03/2018). ISS. Accuchecks QID. Hypoglycemic precautions. 7. HTN: BP 119/57. Continue Amlodipine 5 mg PO QD, Metoprolol 25 mg PO BID. Monitor vitals, adjust medications as necessary. 8. CKD3: BUN 24 Cr 1.45 at baseline. Improved from admission. Encourage PO hydration. Avoid nephrotoxins. Monitor and replace electrolytes. 9. h/o CVA: Stable. Continue ASA 81 mg PO QD, Pradaxa 150 mg PO BID and Lipitor 40 mg PO QHS. FU PT consult 10. Urinary incontinence: Stable. Continue Ditropan 5 mg PO QD. 11. A-Fib: Noted on 10/2016 note. Continue Amiodorone 200 mg PO QD. Rate control with Metoprolol 25 mg PO BID. AC with Pradaxa 150 mg PO BID. Telemetry monitoring. Keep Mg > 2 and K > 4. 12. DVT/GI Prophylaxis: Pradaxa 150 mg PO BID. Pepcid 20 mg PO QD. I had a long discussion with Sadiq with the POA. She states that patient is currently undergoing evaluation for immunotherapy and would like to do that prior to discussion of hospice. He is currently being followed by Soha Brooks and has an appointment on 05/27/2018. He has decided to be DO NOT RESUSCITATE and DO NOT INTUBATE.Sadiq has also reconfirmed that the patient would not like PEG tube placement as his weight has increased after his chemotherapy and radiation sessions. Sadiq states that the patient understands his prognosis and is being followed by Dr. Durán in the outpatient setting.
--- NOTE | 2018-05-22 13:07 | ECHOF ---
Referral Reason:Dyspnea MEASUREMENTS -------- HEIGHT: 170.2 cm WEIGHT: 78.5 kg BP: 115/62 RVIDd: 2.8 cm (< 3.3) IVSd: 1.5 cm (0.6 - 1.1) LVIDd: 3.7 cm (3.9 - 5.3) LVPWd: 1.6 cm (0.6 - 1.1) IVSs: 1.6 cm LVIDs: 3.7 cm LVPWs: 1.1 cm LA Diam: 3.1 cm (2.7 - 3.8) Ao Diam: 3.5 cm (2.0 - 3.7) AV Cusp: 1.4 cm (1.5 - 2.6) LA Diam: 3.4 cm (2.7 - 3.8) MV EXCURSION: 19.089 mm (> 18.000) MV EF SLOPE: 66 mm/s (70 - 150) EPSS: 0.5 cm MV E Glen: 0.56 m/s MV DecT: 238 ms MV A Glen: 0.77 m/s MV E/A Ratio: 0.73 RAP: 5.00 mmHg RVSP: 11.33 mmHg FINDINGS -------- Undetermined rhythm. This was a techncally difficult study with suboptimal views, , Lumason utilized for enhancement of im ages. The left ventricular size is normal. There is moderate concentric left ventricular hypertrophy. O verall left ventricular systolic function is normal with, an EF between 55 - 60 %. The right ventricle is normal in size. The left atrial size is normal. The right atrial size is normal. 5.0mg OF Lumason UTLIZED: 2 OR MORE WALL SEGMENTS NOT VISUALIZED. There is mild aortic valve sclerosis. There is no evidence of aortic regurgitation. Mild mitral annular calcification present. Mild mitral regurgitation is present. Mild tricuspid regurgitation present. There is no evidence of pulmonary hypertension. The right v entricular systolic pressure, as measured by Doppler, is 11.33mmHg. Trace/mild (physiologic) pulmonic regurgitation. The aortic root size is normal. There is no pericardial effusion. CONCLUSIONS -------- 1. This was a techncally difficult study with suboptimal views, , Lumason utilized for enhancement of images. 2. The left ventricular size is normal. 3. There is moderate concentric left ventricular hypertrophy. 4. Overall left ventricular systolic function is normal with, an EF between 55 - 60 %. 5. The left atrial size is normal. 6. 5.0mg OF Lumason UTLIZED: 2 OR MORE WALL SEGMENTS NOT VISUALIZED. 7. There is mild aortic valve sclerosis. 8. Mild mitral annular calcification present. 9. Mild mitral regurgitation is present. 10. Mild tricuspid regurgitation present. 11. There is no evidence of pulmonary hypertension. 12. Trace/mild (physiologic) pulmonic regurgitation. 13. The aortic root size is normal. 14. There is no pericardial effusion. ELECTRICAL CHECKOUT MECHANIC: Nahomi Armando RDCS
[2018-05-22] MEDS: OXYBUTYNIN CHLORIDE 5 MG TAB PO SCH (15:17)
--- NOTE | 2018-05-22 16:47 | P.PN ---
Subjective Progress Note Date: 05/22/18 Principal diagnosis: Squamous Cell Carcinoma and Acute Hypoxic Respiratory Failure Neice and Caregiver at bedside, patient looks much better today, up in chair and interactive. Making jokes, laughing and answering appropriately. He is off oxygen at this time and does not appear to be in any increased respiratory distress. Objective - Vital Signs Vital signs: Vital Signs Temp 97.8 F 05/22/18 15:00 Pulse 74 05/22/18 15:00 Resp 18 05/22/18 15:00 BP 127/74 05/22/18 15:00 Pulse Ox 96 05/22/18 15:00 Intake & Output 05/21/18 05/22/18 05/22/18 18:59 06:59 18:59 Intake Total 100 Balance 100 Weight 78.698 kg 78.698 kg Intake: Intake, IV Titration 100 Amount Ampicillin-Sulbactam 3 gm 100 In Sodium Chloride 0.9% 100 ml @ 100 mls/hr IVPB Q6HR FELIX Rx#:[id number] Oral 0 Other: # Voids 1 1 1 - Exam Physical Exam: Awake and alert and oriented Head NC/NT Lungs - Decreased throughout, Stridor noted Hear RRR Abdomen Soft, PYROMETER TEMPERATURE REGULATOR, NT Extremities - No rash Edema - Labs CBC & Chem 7: 05/22/18 07:53 05/22/18 07:53 Labs: Abnormal Lab Results - Last 24 Hours (Table) 05/21/18 05/21/18 05/22/18 Range/Units 17:06 20:31 07:31 WBC (3.8-10.6) k/uL RBC (4.30-5.90) m/uL Hgb (13.0-17.5) gm/dL Hct (39.0-53.0) % MCHC (31.0-37.0) g/dL Chloride (98-107) mmol/L BUN (9-20) mg/dL Creatinine (0.66-1.25) mg/dL Glucose (74-99) mg/dL POC Glucose (mg/dL) 247 H 257 H 211 H (75-99) mg/dL Calcium (8.4-10.2) mg/dL Magnesium (1.6-2.3) mg/dL Total Protein (6.3-8.2) g/dL Albumin (3.5-5.0) g/dL 05/22/18 05/22/18 05/22/18 Range/Units 07:53 07:53 11:48 WBC 14.8 H (3.8-10.6) k/uL RBC 3.84 L (4.30-5.90) m/uL Hgb 11.1 L (13.0-17.5) gm/dL Hct 37.7 L (39.0-53.0) % MCHC 29.3 L (31.0-37.0) g/dL Chloride 108 H (98-107) mmol/L BUN 24 H (9-20) mg/dL Creatinine 1.45 H (0.66-1.25) mg/dL Glucose 216 H (74-99) mg/dL POC Glucose (mg/dL) 331 H (75-99) mg/dL Calcium 8.2 L (8.4-10.2) mg/dL Magnesium 2.4 H (1.6-2.3) mg/dL Total Protein 5.2 L (6.3-8.2) g/dL Albumin 2.6 L (3.5-5.0) g/dL Assessment and Plan Plan: Assessment and Recommendations: 1. Acute Hypoxic Respiratory Failure secondary to probable aspiration Pneumonia - IV abx and Pulmonary Following 2. Acute Encephalopathy likely related to underlying infection and number one - Resolved 3. Squamous Cell Carcinoma - Recently completed radiation palliative intent 4. Dysphagia - THick Liquid baseline diet, although non-compliant to diet and refuses to adhere to recommendation regardless of risks. - Stridor on exam concern for further aspiration - Attempted to contact nemayi related to goals of care, will discuss with her and primary team to determine goals of care and treatment plan, with patients non-adherence to recommendations on diet and placement of feeding tube, may be appropriate for a palliatve/Hospice approach. - this was discussed in detail and length with patient and family at bedside. Patient would like to consider immunotherapy compassionately prior to enrolling in hospice care. I have educated and re-educated on risks of aspiration and concern of not adhering to thick liquid diet. He refuses peg tube and/or committment to adhere to thickened liquids, he understands the risks maybe detrimental and aspiration may cause . He is a no CPR, although understanding treatment overall goal is palliative he will refuse the option of hospice care and discuss treatment options with immunotherapy next week with oncologist. 5. Acute on Chronic Renal Insufficiency
[2018-05-22 17:02] LABS: Glucose,Whole Blood 194 mg/dL (75-99)
[2018-05-22 19:34] LABS: Folate, Serum 7.7 ng/mL
[2018-05-22 19:43] LABS: Iron Saturation 4.78 (15.00-50.00)
[2018-05-22 20:44] LABS: Glucose,Whole Blood 207 mg/dL (75-99)
[2018-05-22] MEDS ORDERED: methylPREDNISolone SOD SUCCI 40 MG/ML 1 ML VIAL IV SCH (21:00)
[2018-05-22] MEDS: ATORVASTATIN 40 MG TAB PO SCH (22:06)
[2018-05-22] MEDS: AMOXIC-POT CLAV 875-125MG 1 EACH TAB PO SCH (22:07)
[2018-05-22] MEDS: traZODone HCL 100 MG TAB PO SCH (22:07)
[2018-05-22] MEDS: DOCUSATE 100 MG CAP PO SCH (22:08)
[2018-05-22 22:45] VITALS: RESP 17
[2018-05-23 06:01] VITALS: BP 119/56; TEMP 97.5
[2018-05-23 07:20] LABS: Glucose,Whole Blood 168 mg/dL (75-99)
[2018-05-23] MEDS: INSULIN ASPART 100 UNIT/ML 1 ML 10 ML VIAL SQ SCH ×2 (07:58→13:16)
[2018-05-23] MEDS: DABIGATRAN 150 MG CAP PO SCH (07:58)
[2018-05-23] MEDS: AMOXIC-POT CLAV 875-125MG 1 EACH TAB PO SCH (07:58)
[2018-05-23] MEDS: CYANOCOBALAMIN 500 MCG TAB PO SCH (07:58)
[2018-05-23] MEDS: LORATADINE 10 MG TAB PO SCH (07:59)
[2018-05-23] MEDS: METOPROLOL TARTRATE 25 MG TAB PO SCH (07:59)
[2018-05-23] MEDS: amLODIPine 5 MG TAB PO SCH (07:59)
[2018-05-23] MEDS: FAMOTIDINE 20 MG TAB PO SCH (07:59)
[2018-05-23] MEDS: ASPIRIN 81 MG PO SCH (07:59)
[2018-05-23] MEDS: AMIODARONE 200 MG TAB PO SCH (07:59)
[2018-05-23] MEDS: IPRATROPIUM-ALBUTEROL 3 ML NEB INHALATION SCH ×2 (08:23→11:39)
[2018-05-23] MEDS: SYMBICORT 160-4.5 MCG INHALER INHALATION SCH (08:23)
[2018-05-23] MEDS ORDERED: predniSONE 50 MG TAB PO SCH (09:00)
--- NOTE | 2018-05-23 10:32 | P.PN ---
<Cristiana Chun E - Last Filed: 05/23/18 10:26> Subjective Progress Note Date: 05/23/18 HPI: 73-year-old male with history of squamous cell cancer of the right upper lobe status post resection followed by palliative radiation patient was in remission until he developed intermittent hemoptysis was diagnosis tracheal mass biopsy comes back again positive for squamous cell cancer primary of lung origin with a recurrence into the trachea. Patient recently had finished palliative radiation therapy, patient has a chronic history of stroke with right-sided weakness and predominantly is a wheelchair-bound patient has chronic ongoing issues associated with intermittent aspiration and aspiration related complication of the lung including pulmonary fibrosis and recurrent pneumonia, patient was seen yesterday in the office he was noted to have low oxygen saturation only 90% with some crackles on the right base patient was offered bronchodilator therapy as well as supplemental oxygen and further evaluation but he declined, off note that patient has been sitting outside in hot humid weather for last 2 days yesterday in the evening patient was more somnolent and lethargic and confused than baseline was brought into the emergency department, patient is suspected to have aspiration pneumonia being admitted into the hospital on broad-spectrum antibiotics also appears to have a component of COPD exacerbation and being treated accordingly. Chest x-ray suggestive of bilateral prominent interstitium with right lower lobe infiltrate, this morning patient is more awake opens eyes does follow simple command patient of note that because of prior stroke is a poor historian but does comprehend, patient has been evaluated by speech therapist, he has been recommended for PEG tube placement but he has declined he is currently on nectar thick fluid with as needed and tolerated fluids with aspiration precautions, patient has been recommended for hospice as well currently he is not interested, next of kin is his niece who is actively involved in his care Interval history 05/23/2018patient is being seen examined and evaluated while covering for Dr. Cabral. Patient is resting up in bed on room air. States his breathing has been relatively stable, he is feeling better today. He does get short of breath with exertion and activity. He has been working with therapy. He is tolerating his diet well. He continues to be seen by oncology and infectious disease as well. All labs and reports have been reviewed. Afebrile no further complaints Objective - Vital Signs Vital signs: Vital Signs Temp 97.5 F L 05/23/18 06:00 Pulse 76 05/23/18 08:37 Resp 17 05/23/18 06:00 BP 119/56 05/23/18 06:00 Pulse Ox 96 05/23/18 06:00 Intake & Output 05/22/18 05/23/18 05/23/18 18:59 06:59 18:59 Intake Total 200 Balance 200 Weight 78.698 kg 78.698 kg Intake: Oral 200 Other: # Voids 1 2 - Exam GENERAL EXAM: Alert, active, comfortable in no apparent distress. HEAD: Normocephalic. EYES: Normal reaction of pupils, equal size. NOSE: Clear with pink turbinates. THROAT: No erythema or exudates. Poor dentition patient with hourse voice NECK: No masses, no JVD. CHEST: No chest wall deformity. LUNGS: Lungs diminished bilaterally, no wheezes or rhonchi noted CVS: S1 and S2 normal with no audible mumurs, regular rhythm. ABDOMEN: No hepatosplenomegaly, normal bowel sounds, no guarding or rigidity. EXTREMITIES: Trace bilateral edema noted, pedal pulses palpable. CENTRAL NERVOUS SYSTEM: Right-sided weakness with aphasia - Labs CBC & Chem 7: 05/22/18 07:53 05/22/18 07:53 Labs: Abnormal Lab Results - Last 24 Hours (Table) 05/22/18 05/22/18 05/22/18 Range/Units 07:53 11:48 16:58 POC Glucose (mg/dL) 331 H 194 H (75-99) mg/dL Iron 10 L (65-175) ug/dL TIBC 209 L (228-460) ug/dL Iron Saturation 4.78 L (15.00-50.00) Vitamin B12 2594.0 H (200.0-944.0) pg/mL 05/22/18 05/23/18 Range/Units 20:41 07:18 POC Glucose (mg/dL) 207 H 168 H (75-99) mg/dL Iron (65-175) ug/dL TIBC (228-460) ug/dL Iron Saturation (15.00-50.00) Vitamin B12 (200.0-944.0) pg/mL Assessment and Plan Assessment: Assessment: Altered mental status encephalopathy likely related to Sirs-like process along with contribution of COPD hypoxia and likely hypercapnia which appears to be transient Sirs-like process associated with aspiration pneumonia Recurrent intermittent aspiration Right lower lobe aspiration pneumonia Squamous cell cancer of the lung status post right upper lobe resection 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 Cabral. I performed an examination of the patient and discussed their management with the nurse practitioner. I have reviewed the nurse practitioner's note and agree with the documented findings and plan of care. <Renate Hicks A - Last Filed: 05/23/18 13:41> Objective - Vital Signs Vital signs: Vital Signs Temp 97.5 F L 05/23/18 06:00 Pulse 72 05/23/18 11:48 Resp 17 05/23/18 06:00 BP 119/56 05/23/18 06:00 Pulse Ox 96 05/23/18 06:00 Intake & Output 05/22/18 05/23/18 05/23/18 18:59 06:59 18:59 Intake Total 200 Balance 200 Weight 78.698 kg 78.698 kg Intake: Oral 200 Other: # Voids 1 2 - Labs CBC & Chem 7: 05/23/18 13:21 05/22/18 07:53 Labs: Abnormal Lab Results - Last 24 Hours (Table) 05/22/18 05/22/18 05/22/18 Range/Units 07:53 16:58 20:41 WBC (3.8-10.6) k/uL Hgb (13.0-17.5) gm/dL MCHC (31.0-37.0) g/dL Neutrophils # (1.3-7.7) k/uL Lymphocytes # (1.0-4.8) k/uL POC Glucose (mg/dL) 194 H 207 H (75-99) mg/dL Iron 10 L (65-175) ug/dL TIBC 209 L (228-460) ug/dL Iron Saturation 4.78 L (15.00-50.00) Vitamin B12 2594.0 H (200.0-944.0) pg/mL 05/23/18 05/23/1805/23/18 Range/Units 07:18 11:54 13:21 WBC 16.5 H (3.8-10.6) k/uL Hgb 12.5 L (13.0-17.5) gm/dL MCHC 29.4 L (31.0-37.0) g/dL Neutrophils # 15.7 H (1.3-7.7) k/uL Lymphocytes # 0.3 L (1.0-4.8) k/uL POC Glucose (mg/dL) 168 H 186 H (75-99) mg/dL Iron (65-175) ug/dL TIBC (228-460) ug/dL Iron Saturation (15.00-50.00) Vitamin B12 (200.0-944.0) pg/mL Assessment and Plan Assessment: Patient seen and examined. Respiratory status is at baseline. Okay to discharge to ECF from pulmonary standpoint. ~Renate Hicks DO
[2018-05-23 11:40] VITALS: PULSE 72
--- NOTE | 2018-05-23 11:50 | P.DS ---
Providers Date of admission: 05/21/18 00:21 Expected date of discharge: 05/23/18 Attending physician: Chery Sanchez MD Consults: 05/21/18 00:22 Consult Physician Routine Consulting Provider: Ervin Cabral Consult Reason/Comments: dyspnea Do you want consulting provider notified?: Yes Consult Physician Routine Consulting Provider: Sergio Durán Consult Reason/Comments: Oncological evaluation and care Do you want consulting provider notified?: Yes Primary care physician: Timur Beltrán - Discharge Diagnosis(es) (1) COPD exacerbation Current Visit: Yes Status: Acute (2) Anemia Current Visit: Yes Status: Acute (3) Hypertension Current Visit: Yes Status: Acute (4) CKD stage 3 secondary to diabetes Current Visit: Yes Status: Acute (5) History of CVA (cerebrovascular accident) Current Visit: Yes Status: Acute (6) Urinary incontinence Current Visit: Yes Status: Acute (7) A-fib Current Visit: Yes Status: Acute (8) Acute encephalopathy Current Visit: No Status: Acute (9) Aspiration pneumonia Current Visit: No Status: Acute (10) Diabetes mellitus Current Visit: No Status: Acute (11) History of lung cancer Current Visit: No Status: Acute Hospital Course: 73-year-old M with PMH of lung cancer s/p radiation and lobectomy (Palliative), CVA, diabetes mellitus, hypertension, hyperlipidemia, CKD presents to the ED for altered mental status. He was noted to be hypoxic at home, with no improvement with breathing treatments. Of note, patient's family reported a cough prior to admission. Patient was also noted to be previously admitted for aspiration pneumonia. He is admitted for further workup. His acute encephalopathy was likely secondary to hypoxemia due to aspiration pneumonia with component of COPD. There was reports of him being noncompliant with his pure diet. Patient was afebrile with no leukocytosis on admission. He had a mild leukocytosis of 14.8 on 05/22/2018 but this was likely secondary to IV steroid use. Chest x-ray showed interstitial opacities throughout the lungs which may represent pulmonary edema or fluid overload, superimposed infection cannot be ruled out. Patient was started on Unasyn 3 g IV every 6 hours. Speech therapy evaluated the patient and recommended a pured diet with honey thick liquids and free water and ice chips between meals. Pulmonology was consulted and recommended broad-spectrum IV antibiotics, steroids and PEG tube. Patient was given oxygen per nasal cannula to maintain an oxygen saturation greater than 92%. He was placed on aspiration precautions as well with head of bed elevation. He was transitioned to Augmentin and Prednisone by mouth prior to discharge. For his COPD, DuoNebs was started scheduled and as needed when necessary his home medication of Symbicort was resumed. He was initially started on Solu- Medrol IV 60 mg every 6 hours but was later transitioned to prednisone 50 mg by mouth daily on discharge. With regard to his lung cancer, it was noted that he underwent right upper lobectomy in May 2016 with pathology confirming stage IA SCC. Patient underwent SBRT for a left lower lobe primary nodule which was completed in August 2016 he had a CTA of the chest in February 2018 which showed a 3.5 x 2.8 cm mass along the right lateral tracheal wall with a 1.1 cm nodule in the right lower lobe. He received palliative RT at [facility]. His CODE STATUS was confirmed to be DNR/DNI. Oncology was consulted and recommended hospice given his poor prognosis and poor compliance with his diet. I had a long discussion with Amberly. She stated that the patient is currently undergoing evaluation for immunotherapy and would like to do that prior to discussion of hospice. He is currently being followed by Soha Brooks and has an appointment on 05/27/2018. Sadiq also reconfirm that the patient would not like PEG tube placement as his weight has increased after RT at [facility]. Patient was noted to be anemic during his hospitalization. He had a hemoglobin of 11.1 and hematocrit of 37.7 with an MCV of 98.2 on discharge. Iron studies showed iron deficiency anemia. Patient was advised to obtain a CBC within 1 week of discharge, results faxed to PCP. Otherwise his home medications was resumed for his diabetes, hypertension, CKG stage III, history of CVA, urinary incontinence, atrial fibrillation. Patient was discharged back to his ECF. This complex discharge took greater than 30 minutes. Patient was seen and examined prior to discharge. No acute events overnight. Patient reports feeling well, has no complaints. General: non toxic, no distress, appears at stated age Derm: warm, dry Head: atraumatic, normocephalic, symmetric Eyes: EOMI, no lid lag, anicteric sclera Mouth: no lip lesion, mucus membranes moist Cardiovascular: S1S2 reg, no murmur, positive posterior tibial pulse bilateral, Lungs: Decreased BS bilaterally, no rhonchi, no rales , no accessory muscle use Abdominal: soft, nontender to palpation, no guarding, no appreciable organomegaly Ext: no gross muscle atrophy, no edema, no contractures Neuro: 3/5 weakness in the RU and RLE, 5/5 otherwise Psych: Alert, oriented, appropriate affect Pertinent Studies: CXR Echo Plan - Discharge Summary New Discharge Prescriptions: New Amoxic-Pot Clav 875-125Mg [Augmentin 875-125] 1 each PO Q12HR #10 tab Budesonide-Formot 160-4.5 Mcg [Symbicort 160-4.5 Mcg Inhaler] 2 puff INHALATION RT-BID puff Fluticasone/Salmeterol [Advair 250-50 Diskus] 1 inhalation PO BID #1 inhaler Ipratropium-Albuterol Nebulize [Duoneb 0.5 mg-3 mg/3 ml Soln] 3 ml INHALATION RT-Q4H PRN ampul.neb PRN Reason: Shortness Of Breath Or Wheezing predniSONE 50 mg PO DAILY #4 tab Ipratropium-Albuterol Nebulize [Duoneb 0.5 mg-3 mg/3 ml Soln] 3 ml INHALATION RT-QID #90 ampul.neb Albuterol Sulfate [Proair Hfa] 1 - 2 puff INHALATION Q6HR PRN #1 inhaler PRN Reason: Shortness Of Breath Continue Cholecalciferol [Vitamin D3] 400 unit PO BID Simvastatin [Zocor] 10 mg PO HS traZODone HCL [Desyrel] 100 mg PO HS Metoprolol Tartrate [Lopressor] 25 mg PO BID Oxybutynin Chloride [Ditropan] 5 mg PO DAILY@1600 glipiZIDE XL [Glucotrol XL] 2.5 mg PO DAILY Aspirin 81 mg PO DAILY Amiodarone [Cordarone] 200 mg PO DAILY Dabigatran [Pradaxa] 150 mg PO BID Cetirizine HCl [Zyrtec] 10 mg PO DAILY@1100 Cyanocobalamin (Vitamin B-12) [Vitamin B-12] 1,000 mcg PO DAILY amLODIPine [Norvasc] 5 mg PO DAILY Docusate [Colace] 100 mg PO HS Melatonin 5 mg PO HS Famotidine [Pepcid] 20 mg PO BID Discharge Medication List Cholecalciferol [Vitamin D3] 400 unit PO BID 01/26/16 [History] Simvastatin [Zocor] 10 mg PO HS 01/26/16 [History] traZODone HCL [Desyrel] 100 mg PO HS 01/26/16 [History] Metoprolol Tartrate [Lopressor] 25 mg PO BID 03/15/16 [History] Amiodarone [Cordarone] 200 mg PO DAILY 11/10/16 [History] Aspirin 81 mg PO DAILY 11/10/16 [History] Oxybutynin Chloride [Ditropan] 5 mg PO DAILY@1600 11/10/16 [History] glipiZIDE XL [Glucotrol XL] 2.5 mg PO DAILY 11/10/16 [History] Dabigatran [Pradaxa] 150 mg PO BID 12/13/17 [History] Cetirizine HCl [Zyrtec] 10 mg PO DAILY@1100 03/15/18 [History] Cyanocobalamin (Vitamin B-12) [Vitamin B-12] 1,000 mcg PO DAILY 03/15/18 [ History] Docusate [Colace] 100 mg PO HS 04/07/18 [History] amLODIPine [Norvasc] 5 mg PO DAILY 04/07/18 [History] Famotidine [Pepcid] 20 mg PO BID 05/20/18 [History] Melatonin 5 mg PO HS 05/20/18 [History] Albuterol Sulfate [Proair Hfa] 1 - 2 puff INHALATION Q6HR PRN #1 inhaler [Rx] Amoxic-Pot Clav 875-125Mg [Augmentin 875-125] 1 each PO Q12HR #10 tab 05/23/18 [ Rx] Budesonide-Formot 160-4.5 Mcg [Symbicort 160-4.5 Mcg Inhaler] 2 puff INHALATION RT-BID puff 05/23/18 [Rx] Fluticasone/Salmeterol [Advair 250-50 Diskus] 1 inhalation PO BID #1 inhaler [Rx] Ipratropium-Albuterol Nebulize [Duoneb 0.5 mg-3 mg/3 ml Soln] 3 ml INHALATION RT -Q4H PRN ampul.neb 05/23/18 [Rx] Ipratropium-Albuterol Nebulize [Duoneb 0.5 mg-3 mg/3 ml Soln] 3 ml INHALATION RT -QID #90 ampul.neb 05/23/18 [Rx] predniSONE 50 mg PO DAILY #4 tab 05/23/18 [Rx] Follow up Appointment(s)/Referral(s): Timur Beltrán MD [Primary Care Provider] - 1-2 days Ervin Cabral MD [STAFF PHYSICIAN] - 1 Week Sergio Durán MD [STAFF PHYSICIAN] - 1 Week Activity/Diet/Wound Care/Special Instructions: Diet: Pureed, Honey thick liquids with water sips and ice chips with supervision in between Please take all medications as advised. Please follow up with your PCP within 1-2 days of discharge. Please follow up with Pulmonology with the appointment given to you. Please follow up with Oncology with the appointment given to you. Discharge Disposition: TRANSFER TO SNF/ECF Pending Studies Pending Results: CBC BMP
[2018-05-23 11:57] LABS: Glucose,Whole Blood 186 mg/dL (75-99)
[2018-05-23 13:38] LABS: Basophils % (A) 0 %; Eosinophils # (A) 0.2 k/uL (0-0.7); Eosinophils % (A) 1 %; HCT 42.6 % (39.0-53.0); HGB 12.5 gm/dL (13.0-17.5); Hypochromasia Marked; Lymphocytes # (A) 0.3 k/uL (1.0-4.8); Lymphocytes % (A) 2 %; MCH 29.1 pg (25.0-35.0); MCHC 29.4 g/dL (31.0-37.0); MCV 98.9 fL (80.0-100.0); Macrocytosis Slight; Mean Platelet Volume 6.6; Monocytes # (A) 0.3 k/uL (0-1.0); Monocytes % (A) 2 %; Neutrophils # (A) 15.7 k/uL (1.3-7.7); Neutrophils % (A) 95 %; Platelet Count 345 k/uL (150-450); RBC 4.31 m/uL (4.30-5.90); RDW 15.4 % (11.5-15.5); WBC 16.5 k/uL (3.8-10.6)
--- NOTE | 2018-05-28 07:19 | CDI ---
Last Revision, August 2017 Documentation Clarification Form Date: 05/28/18 From: Susan Yung Esthela Zhou, Senior Media Planner Hours-8:30 am & 5 pm [facility] Admit Date: 05/21/2018 12:21:00 AM Patient Name: Joesph Lopez Visit Number: [id number] Discharge Date: 05/23/18 ATTENTION: The Clinical Documentation Specialists (CDI) and [facility] Coding Staff appreciate your assistance in clarifying documentation. Please respond to the clarification below the line at the bottom and electronically sign. The CDI & [facility] Coding staff will review the response and follow-up if needed. Please note: Queries are made part of the Legal Health Record. If you have any questions, please contact the author of this message via ITS. Usama Hoffman MD Atrial fibrillation is documented in the pns 05/21, 05/22 and DS. History/Risk Factors: aspiration pneumonia, acute hypoxic respiratory failure Clinical Indicators: EKG/telemetry: wide QRS rhythm w occassional PVCs Treatment: continue Amiodorone 200 mg PO QD, rate control with Metoprolol 25 mg BID, AC w Pradaxa 150 mg BID, telemetry monitoring, keep Mg >2 and K >4 In your professional opinion, can you please clarify the type of atrial fibrillation, if known? Chronic/Permanent Paroxysmal Persistent Other, please specify Unable to determine Please continue to document in your progress notes and discharge summary in order to capture severity of illness and risk of mortality. Include clinical findings that support your diagnosis. paroxysmal MTDD
--- NOTE | 2018-05-29 17:30 | P.PN ---
Subjective Progress Note Date: 05/23/18 Principal diagnosis: Squamous Cell Carcinoma and Acute Hypoxic Respiratory Failure Neice at bedside, patient has improved. Discussed patient's pathology of 40% PDL -1 Iron Saturation is low, although ferritin greater than 200, will address as outpatient with Dr. Durán regarding parental Iron infusion effectiveness. 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, NT Extremities - No rash Edema - Labs CBC & Chem 7: 05/23/18 13:21 05/22/18 07:53 Labs: Abnormal Lab Results - Last 24 Hours (Table) 05/22/18 05/22/18 05/22/18 Range/Units 07:53 16:58 20:41 WBC (3.8-10.6) k/uL Hgb (13.0-17.5) gm/dL MCHC (31.0-37.0) g/dL Neutrophils # (1.3-7.7) k/uL Lymphocytes # (1.0-4.8) k/uL POC Glucose (mg/dL) 194 H 207 H (75-99) mg/dL Iron 10 L (65-175) ug/dL TIBC 209 L (228-460) ug/dL Iron Saturation 4.78 L (15.00-50.00) Vitamin B12 2594.0 H (200.0-944.0) pg/mL 05/23/18 05/23/18 05/23/18 Range/Units 07:18 11:54 13:21 WBC 16.5 H (3.8-10.6) k/uL Hgb 12.5 L (13.0-17.5) gm/dL MCHC 29.4 L (31.0-37.0) g/dL Neutrophils # 15.7 H (1.3-7.7) k/uL Lymphocytes # 0.3 L (1.0-4.8) k/uL POC Glucose (mg/dL) 168 H 186 H (75-99) mg/dL Iron (65-175) ug/dL TIBC (228-460) ug/dL Iron Saturation (15.00-50.00) Vitamin B12 (200.0-944.0) pg/mL Assessment and Plan Plan: Assessment and Recommendations: 1. Acute Hypoxic Respiratory Failure secondary to probable aspiration Pneumonia - IV abx and Pulmonary Following 2. Acute Encephalopathy likely related to underlying infection and number one - Resolved 3. Squamous Cell Carcinoma - Recently completed radiation palliative intent 4. Dysphagia - THick Liquid baseline diet, although non-compliant to diet and refuses to adhere to recommendation regardless of risks. - Stridor on exam concern for further aspiration - Attempted to contact neice related to goals of care, will discuss with her and primary team to determine goals of care and treatment plan, with patients non-adherence to recommendations on diet and placement of feeding tube, may be appropriate for a palliatve/Hospice approach. - this was discussed in detail and length with patient and family at bedside. Patient would like to consider immunotherapy compassionately prior to enrolling in hospice care. I have educated and re-educated on risks of aspiration and concern of not adhering to thick liquid diet. He refuses peg tube and/or committment to adhere to thickened liquids, he understands the risks maybe detrimental and aspiration may cause . He is a no CPR, although understanding treatment overall goal is palliative he will refuse the option of hospice care and discuss treatment options with immunotherapy next week with oncologist. 5. Acute on Chronic Renal Insufficiency DISPO - Iron studies are low, Saturation 4%, although ferritin greatetr than 200. Will address at follow-up visit next week after discussion with Dr. durán on parental irons effectiveness with increased stores. Discussed 40% PDL-1 identified in molecular testing, will likely set up for immunotherapy as outpatient next week.
== END 2018-05-23 15:16 | disposition hospice, home (50) | DRG 177 ==
LOC: EC 21:27 → 4MS4W 05-21 00:21
PROVIDERS: ADMIT Internal Medicine; ATTEND Internal Medicine
DX: J69.0 Pneumonitis due to inhalation of food and vomit (principal); J96.01 Acute respiratory failure with hypoxia; G93.1 Anoxic brain damage, not elsewhere classified; I69.351 Hemiplegia and hemiparesis following cerebral infarction affecting right dominant side; J44.1 Chronic obstructive pulmonary disease with (acute) exacerbation; E44.1 Mild protein-calorie malnutrition; E11.22 Type 2 diabetes mellitus with diabetic chronic kidney disease; R13.10 Dysphagia, unspecified; I48.0 Paroxysmal atrial fibrillation; N18.3 Chronic kidney disease, stage 3 (moderate); I44.7 Left bundle-branch block, unspecified; Z66 Do not resuscitate; I12.9 Hypertensive chronic kidney disease with stage 1 through stage 4 chronic kidney disease, or unspecified chronic kidney disease; R40.2362 Coma scale, best motor response, obeys commands, at arrival to emergency department; R40.2142 Coma scale, eyes open, spontaneous, at arrival to emergency department; R40.2252 Coma scale, best verbal response, oriented, at arrival to emergency department; D50.9 Iron deficiency anemia, unspecified; D72.829 Elevated white blood cell count, unspecified; T38.0X5A Adverse effect of glucocorticoids and synthetic analogues, initial encounter; E78.5 Hyperlipidemia, unspecified; R32 Unspecified urinary incontinence; K21.9 Gastro-esophageal reflux disease without esophagitis; Z79.82 Long term (current) use of aspirin; Z79.01 Long term (current) use of anticoagulants; Z79.84 Long term (current) use of oral hypoglycemic drugs; Z79.899 Other long term (current) drug therapy; Z85.118 Personal history of other malignant neoplasm of bronchus and lung; Z92.3 Personal history of irradiation; Z90.2 Acquired absence of lung [part of]; Z87.01 Personal history of pneumonia (recurrent); Z90.49 Acquired absence of other specified parts of digestive tract; Z87.891 Personal history of nicotine dependence; Z98.1 Arthrodesis status; Z99.3 Dependence on wheelchair; Z91.19 Patient's noncompliance with other medical treatment and regimen; Z85.12 Personal history of malignant neoplasm of trachea; Z86.59 Personal history of other mental and behavioral disorders; Z80.1 Family history of malignant neoplasm of trachea, bronchus and lung
CPT/HCPCS: 36415; 71046; 80053; 82550; 82553; 82607; 82728; 82746; 83540; 83550; 83735; 83880; 84484; 85025; 85027; 85610; 85730; 93005; 93306; 94640; 94760; 96365; 96375; 99285

== ENCOUNTER 2018-05-27 11:30 | Emergency (ER) | payer MEDICARE, OTHER ==
[2018-05-27] MEDS ORDERED: DIPH,PERTUS(ACELL)TETVAC-LF 0.5 ML VIAL IM ONE (11:42)
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
[2018-05-27 12:01] LABS: Glucose,Whole Blood 117 mg/dL (75-99)
[2018-05-27 12:03] LABS: Basophils % (A) 0 %; Eosinophils # (A) 0.6 k/uL (0-0.7); Eosinophils % (A) 4 %; HCT 42.3 % (39.0-53.0); HGB 12.7 gm/dL (13.0-17.5); Hypochromasia Moderate; Lymphocytes # (A) 0.3 k/uL (1.0-4.8); Lymphocytes % (A) 2 %; MCH 28.9 pg (25.0-35.0); MCHC 30.1 g/dL (31.0-37.0); Mean Platelet Volume 6.6; Monocytes # (A) 0.4 k/uL (0-1.0); Monocytes % (A) 3 %; Neutrophils # (A) 14.1 k/uL (1.3-7.7); Neutrophils % (A) 91 %; Platelet Count 313 k/uL (150-450); RBC 4.41 m/uL (4.30-5.90); RDW 15.2 % (11.5-15.5); WBC 15.4 k/uL (3.8-10.6)
--- NOTE | 2018-05-27 12:05 | XR ---
EXAMINATION TYPE: XR chest 1V portable DATE OF EXAM: 05/27/2018 COMPARISON: 05/20/2018 HISTORY: Pain post fall TECHNIQUE: Single frontal view of the chest is obtained. FINDINGS: Bilateral consolidation and pleural effusion. No pneumothorax. Arthropathy of the shoulder s. Diffuse osteopenia. Chronic rib cage deformity noted. Surgical clips in the upper abdomen. IMPRESSION: Stable appearing bilateral consolidation and pleural effusion. Findings unchanged from .
--- NOTE | 2018-05-27 12:06 | XR ---
AP pelvis one view Exam date 05/27/2018 HISTORY: Pain COMPARISON: None FINDINGS: A postsurgical change overlying the lower lumbar spine. Chronic appearing deformity of the right luma c wing. SI joints are fairly symmetric given rotation. Visualized osseous structures intact. Diffuse osteopenia. Arthropathy of the hips. Vascular calcifications in the pelvis. IMPRESSION: 1. Postsurgical change.
[2018-05-27 12:11] LABS: INR 1.5 (<1.2); Partial Thromboplastin Time 38.3 sec (22.0-30.0)
[2018-05-27 12:28] LABS: Creatine Kinase <20 U/L (55-170)
--- NOTE | 2018-05-27 12:28 | CT ---
EXAMINATION TYPE: CT brain karina quintero DATE OF EXAM: 05/27/2018 COMPARISON: 04/19/2016 HISTORY: Fall today, right sided head injury. Patient on blood thinners. CT DLP: 1534 mGycm Automated exposure control for dose reduction was used. TECHNIQUE: CT scan of the head and cervical spine are performed without contrast. FINDINGS: Moderate generalized degenerative change with a greater component involving the cerebellu m. Abnormal attenuation in the basal ganglia bilaterally stable compatible with remote lacunar infarc tions. No midline shift or mass effect. Abnormal attenuation within the white matter bilaterally is n onspecific but most typical remote microvascular ischemia. Calvarium intact.. Assessment spinal canal nondiagnostic due to technique and lack of contrast. There is hypertrophic an d degenerative change multiple levels. Multilevel mild facet arthropathy. No acute fracture. Odontoid intact. Prevertebral soft tissue structures within normal limits. IMPRESSION: 1. There is no acute fracture or dislocation evident in the cervical spine. Multilevel degenerative d isc disease. Correlate with MRI. 2. No acute intracranial hemorrhage, mass effect, or midline shift is seen. Degenerative and nonspeci fic changes most typical of remote ischemia.
[2018-05-27 12:39] LABS: ALT 54 U/L (21-72); AST 33 U/L (17-59); Albumin 2.9 g/dL (3.5-5.0); Alcohol <10 mg/dL; Alkaline Phosphatase 65 U/L (38-126); Amylase 37 U/L (30-110); Anion Gap 5 mmol/L; Blood Urea Nitrogen 30 mg/dL (9-20); Calcium 8.8 mg/dL (8.4-10.2); Carbon Dioxide 27 mmol/L (22-30); Chloride 107 mmol/L (98-107); Glucose 115 mg/dL (74-99); Lipase 15 U/L (23-300); Potassium 4.6 mmol/L (3.5-5.1); Sodium 139 mmol/L (137-145); Total Bilirubin 0.7 mg/dL (0.2-1.3); Total Protein 5.6 g/dL (6.3-8.2)
[2018-05-27 12:42] LABS: Creatine Kinase MB 0.9 ng/mL (0.0-2.4); Troponin I <0.012 ng/mL (0.000-0.034)
== END 2018-05-27 13:38 | disposition home or self-care (01) ==
LOC: EC 11:30
DX: S00.81XA Abrasion of other part of head, initial encounter (principal); Z23 Encounter for immunization; E78.5 Hyperlipidemia, unspecified; I10 Essential (primary) hypertension; K21.9 Gastro-esophageal reflux disease without esophagitis; E11.9 Type 2 diabetes mellitus without complications; Z79.01 Long term (current) use of anticoagulants; Z79.82 Long term (current) use of aspirin; Z79.84 Long term (current) use of oral hypoglycemic drugs; Z79.899 Other long term (current) drug therapy; Z87.891 Personal history of nicotine dependence; Z85.118 Personal history of other malignant neoplasm of bronchus and lung; Z86.73 Personal history of transient ischemic attack (TIA), and cerebral infarction without residual deficits; Z85.21 Personal history of malignant neoplasm of larynx; V00.811A Fall from moving wheelchair (powered), initial encounter
CPT/HCPCS: 36415; 93005; 86900; 86901; 80053; 82150; 82550; 82553; 83605; 83690; 84484; 85025; 85610; 85730; 86850; 72170; 71045; 72125; 70450; 90715; 99285; 90471; G0480; 80320

== ENCOUNTER 2018-05-28 22:34 | Emergency (ER) | payer MEDICARE, OTHER ==
--- NOTE | 2018-05-28 23:02 | ED ---
General Adult HPI - General Chief complaint: Altered Mental Status Stated complaint: Lethargy Time Seen by Provider: 05/28/18 22:40 Source: patient, EMS, RN notes reviewed Mode of arrival: EMS Limitations: language barrier, altered mental status, physical limitation - History of Present Illness Initial comments: Patient is a pleasant 73-year-old male presenting to the emergency department by EMS. Patient is a poor historian and obtaining history is difficult. Patient states he does feel weak all over. Patient states he did have a fall again today. Patient denies any significant injury. - Related Data Home Medications Medication Instructions Recorded Confirmed Cholecalciferol [Vitamin D3] 400 unit PO BID 01/26/16 05/28/18 Simvastatin [Zocor] 10 mg PO HS 01/26/16 05/28/18 traZODone HCL [Desyrel] 100 mg PO HS 01/26/16 05/28/18 Metoprolol Tartrate [Lopressor] 25 mg PO HS 03/15/16 05/28/18 Amiodarone [Cordarone] 200 mg PO DAILY 11/10/16 05/28/18 Aspirin 81 mg PO DAILY 11/10/16 05/28/18 Oxybutynin Chloride [Ditropan] 5 mg PO DAILY@1600 11/10/16 05/28/18 glipiZIDE XL [Glucotrol XL] 2.5 mg PO DAILY@0700 11/10/16 05/28/18 Dabigatran [Pradaxa] 150 mg PO BID 12/13/17 05/28/18 Cetirizine HCl [Zyrtec] 10 mg PO DAILY@1100 03/15/18 05/28/18 Cyanocobalamin (Vitamin B-12) 1,000 mcg PO DAILY@0700 03/15/18 05/28/18 [Vitamin B-12] Docusate [Colace] 100 mg PO HS PRN 04/07/18 05/28/18 amLODIPine [Norvasc] 5 mg PO DAILY@0700 04/07/18 05/28/18 Famotidine [Pepcid] 20 mg PO BID 05/20/18 05/28/18 Melatonin 5 mg PO HS 05/20/18 05/28/18 Albuterol Sulfate [Proair Hfa] 1 - 2 puff INHALATION RT-Q6H PRN 05/27/18 Amoxicillin/Potassium Clav 1 tab PO DAILY 05/28/18 05/28/18 [Augmentin 875-125 Tablet] Previous Rx's Medication Instructions Recorded Budesonide-Formot 160-4.5 Mcg 2 puff INHALATION RT-BID puff 05/23/18 [Symbicort 160-4.5 Mcg Inhaler] Ipratropium-Albuterol Nebulize 3 ml INHALATION RT-QID #90 05/23/18 [Duoneb 0.5 mg-3 mg/3 ml Soln] ampul.neb Allergies Allergy/AdvReac Type Severity Reaction Status Date / Time No Known Allergies Allergy Verified 05/28/18 23:09 Review of Systems ROS Statement: Those systems with pertinent positive or pertinent negative responses have been documented in the HPI. ROS Other: All systems not noted in ROS Statement are negative. Constitutional: Reports: as per HPI Eyes: Denies: eye pain ENT: Denies: ear pain Respiratory: Denies: dyspnea Cardiovascular: Denies: chest pain Endocrine: Reports: fatigue Gastrointestinal: Denies: abdominal pain Genitourinary: Denies: dysuria Musculoskeletal: Denies: back pain Skin: Denies: rash Neurological: Denies: headache Past Medical History Past Medical History: CVA/TIA, Diabetes Mellitus, GERD/Reflux, Hyperlipidemia, Hypertension, Pneumonia, Renal Disease Additional Past Medical History / Comment(s): Lung Cancer right upper lobe with radiation and lobectomy,. HX OF CVA X3 -RIGHT SIDED WEAKNESS, SPEECH DIFFICULT TO UNDERSTAND AT TIMES, W/C BOUND, ABLE TO PIVOT TO TRANSFER WITH ASSISTANCE, DIFFICULTY CHEWING AND SWALLOWING, HX OF ASPIRATION.,WEARS DEPENDS FOR OCC. INCONTINENCE., DDD, KIDNEY FUNCTION AT 50-60%, ENVIRONMENTAL ALLERGIES. PT LIVES AT [facility] -HAS OWN APARTMENT WITH 24 HOUR HELP., HAS DIZZINESS AND DIFFICULTY WITH VISION-WEARS PRISMS IN HIS EYE GLASSES. History of Any Multi-Drug Resistant Organisms: None Reported Past Surgical History: Appendectomy, Tonsillectomy Additional Past Surgical History / Comment(s): EYE SURGERY, right upper lobectomy for Ca 2016, spinal fusions x 2, gallstones removed. Past Anesthesia/Blood Transfusion Reactions: No Reported Reaction Past Psychological History: Depression Smoking Status: Former smoker Past Alcohol Use History: Rare Past Drug Use History: None Reported - Past Family History Mother History Unknown: Yes Family Medical History: CVA/TIA Father History Unknown: Yes Family Medical History: No Reported History Brother(s) Family Medical History: Cancer Additional Family Medical History / Comment(s): MESOTHELIOMA LUNG CANCER General Exam Limitations: language barrier, altered mental status, physical limitation General appearance: alert Head exam: Present: other (Ecchymosis right forehead) Eye exam: Present: normal appearance, PERRL ENT exam: Present: normal oropharynx Neck exam: Present: normal inspection. Absent: tenderness Respiratory exam: Present: normal lung sounds bilaterally Cardiovascular Exam: Present: regular rate, normal rhythm GI/Abdominal exam: Present: soft. Absent: tenderness Extremities exam: Present: normal inspection, full ROM. Absent: tenderness Neurological exam: Present: alert, CN II-XII intact Expanded Motor strength exam: RUE: 4 (Patient states chronic), LUE: 5, RLE: 4 (Patient states chronic), LLE: 5 Psychiatric exam: Present: normal affect, normal mood Skin exam: Present: normal color Course Vital Signs 05/28/18 05/28/18 05/29/18 22:40 23:26 00:37 Temperature 98.6 F 100.1 F H 97.5 F L Pulse Rate 75 70 71 Respiratory 20 18 18 Rate Blood Pressure 135/62 150/67 O2 Sat by Pulse 93 L 95 97 Oximetry - Reevaluation(s) Reevaluation #1: 05/29/18 00:09 Please was power of commercial real estate attorney has now arrived and provides further information. She states patient was acting well this morning and then has been less active throughout the day. Patient has been achy all over. Patient did have temperature of 99. Patient has not had an appetite eating breakfast morning. Limited oral intake since breakfast. She states right sided weakness is chronic from previous stroke. She states patient does appear improved from earlier this afternoon. Patient is still on Augmentin. 05/29/18 01:32 Patient again reevaluated and resting comfortably in bed. Further discussion had with biotechnician. She does feel he is doing well at this time and is comfortable with discharge. She states they do have follow-up tomorrow with visiting nurse. She states patient did see his visiting DrLauren earlier today who felt he was doing well. It is recommended close follow-up again. EKG Findings - EKG Comments: EKG Findings:: Normal sinus rhythm 77. TN 174. QRS 16. QT 436. QTc 493. Left axis. Left bundle branch block. Nonspecific ST-T. Medical Decision Making - Lab Data Result diagrams: 05/29/18 00:03 05/29/18 00:03 Lab Results 05/29/18 05/29/18 05/29/18 Range/Units 00:03 00:03 00:03 WBC 12.8 H (3.8-10.6) k/uL RBC 4.37 (4.30-5.90) m/uL Hgb 12.8 L (13.0-17.5) gm/dL Hct 41.0 (39.0-53.0) % MCV 93.7 (80.0-100.0) fL MCH 29.3 (25.0-35.0) pg MCHC 31.3 (31.0-37.0) g/dL RDW 14.8 (11.5-15.5) % Plt Count 236 (150-450) k/uL Neutrophils % 89 % Lymphocytes % 3 % Monocytes % 4 % Eosinophils % 3 % Basophils % 0 % Neutrophils # 11.4 H (1.3-7.7) k/uL Lymphocytes # 0.4 L (1.0-4.8) k/uL Monocytes # 0.5 (0-1.0) k/uL Eosinophils # 0.4 (0-0.7) k/uL Basophils # 0.0 (0-0.2) k/uL Hypochromasia Slight PT (9.0-12.0) sec INR (<1.2) APTT (22.0-30.0) sec Sodium 139 (137-145) mmol/L Potassium 4.1 (3.5-5.1) mmol/L Chloride 107 (98-107) mmol/L Carbon Dioxide 24 (22-30) mmol/L Anion Gap 8 mmol/L BUN 21 H (9-20) mg/dL Creatinine 1.37 H (0.66-1.25) mg/dL Est GFR (CKD-EPI)AfAm 59 (>60 ml/min/1.73 sqM) Est GFR (CKD-EPI)NonAf 51 (>60 ml/min/1.73 sqM) Glucose 57 L (74-99) mg/dL POC Glucose (mg/dL) (75-99) mg/dL POC Glu Strategic Buyer ID Plasma Lactic Acid Enrique 1.0 (0.7-2.0) mmol/L Calcium 8.1 L (8.4-10.2) mg/dL Total Bilirubin 0.7 (0.2-1.3) mg/dL AST 20 (17-59) U/L ALT 45 (21-72) U/L Alkaline Phosphatase 63 (38-126) U/L Total Protein 5.2 L (6.3-8.2) g/dL Albumin 2.6 L (3.5-5.0) g/dL 05/29/18 05/29/18 Range/Units 00:03 01:05 WBC (3.8-10.6) k/uL RBC (4.30-5.90) m/uL Hgb (13.0-17.5) gm/dL Hct (39.0-53.0) % MCV (80.0-100.0) fL MCH (25.0-35.0) pg MCHC (31.0-37.0) g/dL RDW (11.5-15.5) % Plt Count (150-450) k/uL Neutrophils % % Lymphocytes % % Monocytes % % Eosinophils % % Basophils % % Neutrophils # (1.3-7.7) k/uL Lymphocytes # (1.0-4.8) k/uL Monocytes # (0-1.0) k/uL Eosinophils # (0-0.7) k/uL Basophils # (0-0.2) k/uL Hypochromasia PT 11.9 (9.0-12.0) sec INR 1.2 H (<1.2) APTT 33.9 H (22.0-30.0) sec Sodium (137-145) mmol/L Potassium (3.5-5.1) mmol/L Chloride (98-107) mmol/L Carbon Dioxide (22-30) mmol/L Anion Gap mmol/L BUN (9-20) mg/dL Creatinine (0.66-1.25) mg/dL Est GFR (CKD-EPI)AfAm (>60 ml/min/1.73 sqM) Est GFR (CKD-EPI)NonAf (>60 ml/min/1.73 sqM) Glucose (74-99) mg/dL POC Glucose (mg/dL) 77 (75-99) mg/dL POC Glu Strategic Buyer ID Maude Menendez Plasma Lactic Acid Enrique (0.7-2.0) mmol/L Calcium (8.4-10.2) mg/dL Total Bilirubin (0.2-1.3) mg/dL AST (17-59) U/L ALT (21-72) U/L Alkaline Phosphatase (38-126) U/L Total Protein (6.3-8.2) g/dL Albumin (3.5-5.0) g/dL - Radiology Data Radiology results: image reviewed (Chest x-ray shows improvement of mild heart failure. Cannot exclude mild pneumonia.) Disposition Clinical Impression: Fatigue Disposition: HOME SELF-CARE Condition: Stable Instructions: Weakness (ED), Dehydration (ED) Additional Instructions: Please follow-up with primary care physician again in the next day or 2 for recheck. Return for change in mental status, weakness, fevers, worsening or changing symptoms or other concerns. Is patient prescribed a controlled substance at d/c from ED?: No Referrals: Timur Beltrán MD [Primary Care Provider] - 1-2 days Time of Disposition: 01:35
[2018-05-28 23:28] VITALS: RESP 18
[2018-05-29] MEDS ORDERED: SODIUM CHLORIDE 0.9% 500 ML IV SCH (00:15)
[2018-05-29 00:22] LABS: Basophils % (A) 0 %; Eosinophils # (A) 0.4 k/uL (0-0.7); Eosinophils % (A) 3 %; HGB 12.8 gm/dL (13.0-17.5); Hypochromasia Slight; Lymphocytes # (A) 0.4 k/uL (1.0-4.8); Lymphocytes % (A) 3 %; MCH 29.3 pg (25.0-35.0); MCHC 31.3 g/dL (31.0-37.0); MCV 93.7 fL (80.0-100.0); Monocytes # (A) 0.5 k/uL (0-1.0); Monocytes % (A) 4 %; Neutrophils # (A) 11.4 k/uL (1.3-7.7); Neutrophils % (A) 89 %; Platelet Count 236 k/uL (150-450); RBC 4.37 m/uL (4.30-5.90); RDW 14.8 % (11.5-15.5); WBC 12.8 k/uL (3.8-10.6)
--- NOTE | 2018-05-29 00:27 | XR ---
EXAMINATION TYPE: XR chest 2V DATE OF EXAM: 05/29/2018 COMPARISON: 05/27/2018 HISTORY: Chest pain TECHNIQUE: Frontal and lateral views of the chest are obtained. FINDINGS: There is slight blunting of costophrenic angles. There is mild pulmonary vascular congesti on. There are chest leads. IMPRESSION: There is evidence of mild heart failure that is improved compared to last exam. Bilatera l mild pneumonia cannot be excluded.
[2018-05-29 00:33] LABS: INR 1.2 (<1.2); Partial Thromboplastin Time 33.9 sec (22.0-30.0); Prothrombin Time 11.9 sec (9.0-12.0)
[2018-05-29 00:35] LABS: Albumin 2.6 g/dL (3.5-5.0); Calcium 8.1 mg/dL (8.4-10.2); Potassium 4.1 mmol/L (3.5-5.1); Total Bilirubin 0.7 mg/dL (0.2-1.3); Total Protein 5.2 g/dL (6.3-8.2)
[2018-05-29 01:17] LABS: Glucose,Whole Blood 77 mg/dL (75-99)
[2018-05-29 02:32] VITALS: BP 140/73; PULSE 89; TEMP 98
[2018-05-29 09:04] LABS: Glucose,Whole Blood 73 mg/dL (75-99)
== END 2018-05-29 02:15 | disposition home or self-care (01) ==
LOC: EC 22:34
DX: S00.83XA Contusion of other part of head, initial encounter (principal); R41.82 Altered mental status, unspecified; E11.9 Type 2 diabetes mellitus without complications; K21.9 Gastro-esophageal reflux disease without esophagitis; E78.5 Hyperlipidemia, unspecified; I10 Essential (primary) hypertension; F32.9 Major depressive disorder, single episode, unspecified; Z87.891 Personal history of nicotine dependence; Z79.84 Long term (current) use of oral hypoglycemic drugs; Z79.82 Long term (current) use of aspirin; Z79.01 Long term (current) use of anticoagulants; Z79.899 Other long term (current) drug therapy; Z86.73 Personal history of transient ischemic attack (TIA), and cerebral infarction without residual deficits; Z85.118 Personal history of other malignant neoplasm of bronchus and lung; W19.XXXA Unspecified fall, initial encounter
CPT/HCPCS: 36415; 71046; 80053; 83605; 85025; 85610; 85730; 87040; 93005; 96360; 96361; 99285

== ENCOUNTER 2018-06-04 15:23 | Inpatient (IN) | payer MEDICARE, OTHER ==
[2018-06-04] MEDS ORDERED: IPRATROPIUM-ALBUTEROL 3 ML NEB INHALATION STA (15:36)
[2018-06-04] MEDS ORDERED: methylPREDNISolone SOD SUCCI 125 MG/2 ML VIAL IV STA (15:38)
--- NOTE | 2018-06-04 15:40 | ED ---
General Adult HPI - General Stated complaint: ABDIEL Time Seen by Provider: 06/04/18 15:27 Source: patient, RN notes reviewed, old records reviewed Limitations: physical limitation - History of Present Illness Initial comments: Patient is a pleasant 73-year-old male presenting to the emergency department with difficulty in breathing. Patient is a poor historian and does placed on BiPAP. Patient states his breathing has gotten worse over the past several days. Patient does have cough. No reported fevers. History is limited. - Related Data Home Medications Medication Instructions Recorded Confirmed Cholecalciferol [Vitamin D3] 400 unit PO BID 01/26/16 06/04/18 Simvastatin [Zocor] 10 mg PO HS 01/26/16 06/04/18 traZODone HCL [Desyrel] 100 mg PO HS 01/26/16 06/04/18 Metoprolol Tartrate [Lopressor] 25 mg PO HS 03/15/16 06/04/18 Amiodarone [Cordarone] 200 mg PO DAILY 11/10/16 06/04/18 Aspirin 81 mg PO DAILY 11/10/16 06/04/18 Oxybutynin Chloride [Ditropan] 5 mg PO DAILY@1600 11/10/16 06/04/18 glipiZIDE XL [Glucotrol XL] 2.5 mg PO DAILY@0700 11/10/16 06/04/18 Dabigatran [Pradaxa] 150 mg PO BID 12/13/17 06/04/18 Cetirizine HCl [Zyrtec] 10 mg PO DAILY@1100 03/15/18 06/04/18 Cyanocobalamin (Vitamin B-12) 1,000 mcg PO DAILY@0700 03/15/18 06/04/18 [Vitamin B-12] Docusate [Colace] 100 mg PO HS PRN 04/07/18 06/04/18 amLODIPine [Norvasc] 5 mg PO DAILY@0700 04/07/18 06/04/18 Famotidine [Pepcid] 20 mg PO BID 05/20/18 06/04/18 Melatonin 5 mg PO HS 05/20/18 06/04/18 Albuterol Sulfate [Proair Hfa] 1 - 2 puff INHALATION RT-Q6H PRN 05/27/18 Amoxicillin/Potassium Clav 1 tab PO DAILY 05/28/18 06/04/18 [Augmentin 875-125 Tablet] Previous Rx's Medication Instructions Recorded Budesonide-Formot 160-4.5 Mcg 2 puff INHALATION RT-BID puff 05/23/18 [Symbicort 160-4.5 Mcg Inhaler] Ipratropium-Albuterol Nebulize 3 ml INHALATION RT-QID #90 05/23/18 [Duoneb 0.5 mg-3 mg/3 ml Soln] ampul.neb Allergies Allergy/AdvReac Type Severity Reaction Status Date / Time No Known Allergies Allergy Verified 06/04/18 15:35 Review of Systems ROS Statement: Those systems with pertinent positive or pertinent negative responses have been documented in the HPI. ROS Other: All systems not noted in ROS Statement are negative. Constitutional: Denies: fever Eyes: Denies: eye pain ENT: Denies: ear pain Respiratory: Reports: cough, dyspnea Cardiovascular: Denies: chest pain Endocrine: Reports: fatigue Gastrointestinal: Denies: vomiting Genitourinary: Denies: dysuria Musculoskeletal: Denies: back pain Skin: Denies: rash Neurological: Denies: headache Past Medical History Past Medical History: CVA/TIA, Diabetes Mellitus, GERD/Reflux, Hyperlipidemia, Hypertension, Pneumonia, Renal Disease Additional Past Medical History / Comment(s): Lung Cancer right upper lobe with radiation and lobectomy,. HX OF CVA X3 -RIGHT SIDED WEAKNESS, SPEECH DIFFICULT TO UNDERSTAND AT TIMES, W/C BOUND, ABLE TO PIVOT TO TRANSFER WITH ASSISTANCE, DIFFICULTY CHEWING AND SWALLOWING, HX OF ASPIRATION.,WEARS DEPENDS FOR OCC. INCONTINENCE., DDD, KIDNEY FUNCTION AT 50-60%, ENVIRONMENTAL ALLERGIES. PT LIVES AT [facility] -HAS OWN APARTMENT WITH 24 HOUR HELP., HAS DIZZINESS AND DIFFICULTY WITH VISION-WEARS PRISMS IN HIS EYE GLASSES. History of Any Multi-Drug Resistant Organisms: None Reported Past Surgical History: Appendectomy, Tonsillectomy Additional Past Surgical History / Comment(s): EYE SURGERY, right upper lobectomy for Ca 2016, spinal fusions x 2, gallstones removed. Past Anesthesia/Blood Transfusion Reactions: No Reported Reaction Past Psychological History: Depression Smoking Status: Former smoker Past Alcohol Use History: Rare Past Drug Use History: None Reported - Past Family History Mother History Unknown: Yes Family Medical History: CVA/TIA Father History Unknown: Yes Family Medical History: No Reported History Brother(s) Family Medical History: Cancer Additional Family Medical History / Comment(s): MESOTHELIOMA LUNG CANCER General Exam Limitations: physical limitation General appearance: alert Head exam: Present: other (Mild ecchymosis right forehead) Eye exam: Present: normal appearance Neck exam: Present: normal inspection Respiratory exam: Present: wheezes, decreased breath sounds Cardiovascular Exam: Present: regular rate, normal rhythm GI/Abdominal exam: Present: soft. Absent: tenderness Extremities exam: Present: normal inspection. Absent: pedal edema, calf tenderness Neurological exam: Present: alert Psychiatric exam: Present: normal affect, normal mood Skin exam: Present: normal color Course Vital Signs 06/04/18 06/04/18 06/04/18 15:40 15:47 15:58 Temperature 96.8 F L Pulse Rate 87 85 Respiratory 21 20 Rate Blood Pressure 156/64 O2 Sat by Pulse 100 Oximetry 06/04/18 06/04/18 06/04/18 16:09 17:11 17:37 Temperature 96.7 F L Pulse Rate 86 87 82 Respiratory 16 25 H Rate Blood Pressure 168/66 149/63 O2 Sat by Pulse 100 99 Oximetry - Reevaluation(s) Reevaluation #1: 06/04/18 17:51 Patient meets diagnosis of septic shock and pneumonia diagnosed at 1740. Blood culture and IV antibiotic and lactic acid and fluid boluses have all been ordered. EKG Findings - EKG Comments: EKG Findings:: Normal sinus rhythm 87. SD 188. QRS 80. QT 452. QTC 543. Normal axis. Left bundle branch block. Nonspecific ST-T. Medical Decision Making - Lab Data Result diagrams: 06/04/18 16:10 06/04/18 16:10 Lab Results 06/04/18 06/04/18 06/04/18 Range/Units 16:10 16:10 16:10 WBC 26.2 H (3.8-10.6) k/uL RBC 4.51 (4.30-5.90) m/uL Hgb 13.2 (13.0-17.5) gm/dL Hct 43.3 (39.0-53.0) % MCV 96.0 (80.0-100.0) fL MCH 29.4 (25.0-35.0) pg MCHC 30.6 L (31.0-37.0) g/dL RDW 14.8 (11.5-15.5) % Plt Count 344 (150-450) k/uL Neutrophils % 95 % Lymphocytes % 1 % Monocytes % 3 % Eosinophils % 0 % Basophils % 0 % Neutrophils # 25.0 H (1.3-7.7) k/uL Lymphocytes # 0.4 L (1.0-4.8) k/uL Monocytes # 0.7 (0-1.0) k/uL Eosinophils # 0.0 (0-0.7) k/uL Basophils # 0.0 (0-0.2) k/uL Hypochromasia Marked PT (9.0-12.0) sec INR (<1.2) APTT (22.0-30.0) sec Sodium 138 (137-145) mmol/L Potassium 4.8 (3.5-5.1) mmol/L Chloride 104 (98-107) mmol/L Carbon Dioxide 23 (22-30) mmol/L Anion Gap 11 mmol/L BUN 33 H (9-20) mg/dL Creatinine 1.76 H (0.66-1.25) mg/dL Est GFR (CKD-EPI)AfAm 44 (>60 ml/min/1.73 sqM) Est GFR (CKD-EPI)NonAf 38 (>60 ml/min/1.73 sqM) Glucose 293 H (74-99) mg/dL Plasma Lactic Acid Enrique (0.7-2.0) mmol/L Calcium 9.1 (8.4-10.2) mg/dL Total Bilirubin 0.5 (0.2-1.3) mg/dL AST 26 (17-59) U/L ALT 37 (21-72) U/L Alkaline Phosphatase 72 (38-126) U/L Total Creatine Kinase <20 L (55-170) U/L CK-MB (CK-2) 1.3 (0.0-2.4) ng/mL CK-MB (CK-2) Rel Index Troponin I <0.012 (0.000-0.034) ng/mL NT-Pro-B Natriuret Pep pg/mL Total Protein 6.1 L (6.3-8.2) g/dL Albumin 3.2 L (3.5-5.0) g/dL 06/04/18 06/04/18 06/04/18 Range/Units 16:10 16:10 16:10 WBC (3.8-10.6) k/uL RBC (4.30-5.90) m/uL Hgb (13.0-17.5) gm/dL Hct (39.0-53.0) % MCV (80.0-100.0) fL MCH (25.0-35.0) pg MCHC (31.0-37.0) g/dL RDW (11.5-15.5) % Plt Count (150-450) k/uL Neutrophils % % Lymphocytes % % Monocytes % % Eosinophils % % Basophils % % Neutrophils # (1.3-7.7) k/uL Lymphocytes # (1.0-4.8) k/uL Monocytes # (0-1.0) k/uL Eosinophils # (0-0.7) k/uL Basophils # (0-0.2) k/uL Hypochromasia PT 10.1 (9.0-12.0) sec INR 1.0 (<1.2) APTT 20.6 L (22.0-30.0) sec Sodium (137-145) mmol/L Potassium (3.5-5.1) mmol/L Chloride (98-107) mmol/L Carbon Dioxide (22-30) mmol/L Anion Gap mmol/L BUN (9-20) mg/dL Creatinine (0.66-1.25) mg/dL Est GFR (CKD-EPI)AfAm (>60 ml/min/1.73 sqM) Est GFR (CKD-EPI)NonAf (>60 ml/min/1.73 sqM) Glucose (74-99) mg/dL Plasma Lactic Acid Enrique 4.0 H* (0.7-2.0) mmol/L Calcium (8.4-10.2) mg/dL Total Bilirubin (0.2-1.3) mg/dL AST (17-59) U/L ALT (21-72) U/L Alkaline Phosphatase (38-126) U/L Total Creatine Kinase (55-170) U/L CK-MB (CK-2) (0.0-2.4) ng/mL CK-MB (CK-2) Rel Index Troponin I (0.000-0.034) ng/mL NT-Pro-B Natriuret Pep 2870 pg/mL Total Protein (6.3-8.2) g/dL Albumin (3.5-5.0) g/dL - Radiology Data Radiology results: image reviewed (Chest x-ray shows fibrosis and increased infiltrates) Critical Care Time Critical Care Time: Yes Total Critical Care Time: 35 Disposition Clinical Impression: Pneumonia, Septic shock Disposition: ADMITTED IP TO THIS [facility] Condition: Serious Is patient prescribed a controlled substance at d/c from ED?: No Referrals: Timur Beltrán MD [Primary Care Provider] - 1-2 days Decision Time: 17:46
[2018-06-04 16:49] LABS: Prothrombin Time 10.1 sec (9.0-12.0)
[2018-06-04 16:52] LABS: Creatine Kinase <20 U/L (55-170)
[2018-06-04 16:53] LABS: Albumin 3.2 g/dL (3.5-5.0); Basophils % (A) 0 %; Calcium 9.1 mg/dL (8.4-10.2); Eosinophils % (A) 0 %; HCT 43.3 % (39.0-53.0); HGB 13.2 gm/dL (13.0-17.5); Hypochromasia Marked; Lymphocytes # (A) 0.4 k/uL (1.0-4.8); Lymphocytes % (A) 1 %; MCH 29.4 pg (25.0-35.0); MCHC 30.6 g/dL (31.0-37.0); Mean Platelet Volume 6.8; Monocytes # (A) 0.7 k/uL (0-1.0); Monocytes % (A) 3 %; Neutrophils % (A) 95 %; Platelet Count 344 k/uL (150-450); RBC 4.51 m/uL (4.30-5.90); RDW 14.8 % (11.5-15.5); Total Bilirubin 0.5 mg/dL (0.2-1.3); Total Protein 6.1 g/dL (6.3-8.2); WBC 26.2 k/uL (3.8-10.6)
[2018-06-04 16:55] LABS: Potassium 4.8 mmol/L (3.5-5.1)
--- NOTE | 2018-06-04 16:57 | XR ---
EXAMINATION TYPE: XR chest 1V portable DATE OF EXAM: 06/04/2018 COMPARISON: 05/29/2018 HISTORY: Short of breath TECHNIQUE: Single frontal view of the chest is obtained. FINDINGS: There is extensive coarse pulmonary interstitial density in both lungs. Heart is enlarged. Pulmonary vascularity is difficult to evaluate because of the lung disease. I do not see definite he art failure. There is no definite pleural effusion. There are chest leads. There is old right rib fra cture noted. IMPRESSION: Pulmonary fibrosis. Bilateral pulmonary infiltrates are increased compared to 03/23/2018 a nd not significantly different than 05/29/2018. There is acute and chronic pneumonia.
[2018-06-04 17:04] LABS: Creatine Kinase MB 1.3 ng/mL (0.0-2.4); Troponin I <0.012 ng/mL (0.000-0.034)
[2018-06-04 17:14] LABS: Partial Thromboplastin Time 20.6 sec (22.0-30.0)
[2018-06-04] MEDS ORDERED: SODIUM CHLORIDE 0.9% 500 ML IV STA (17:41)
[2018-06-04] MEDS ORDERED: SODIUM CHLORIDE 0.9% 1,000 ML IV STA ×2 (17:41)
[2018-06-04] MEDS ORDERED: PIPERACILLIN-TAZOBACTAM 3.375 GM in DEXTROSE/WATER 1 50ML.BAG IVPB STA (17:42)
[2018-06-04] MEDS ORDERED: IPRATROPIUM-ALBUTEROL 3 ML NEB INHALATION PRN (17:42)
[2018-06-04] MEDS ORDERED: PNEUMONIA PROTOCOL UTILIZED 1 EACH MISC PO PRN (17:42)
[2018-06-04] MEDS ORDERED: LEVOFLOXACIN 750MG-D5W PMX 750 MG in DEXTROSE/WATER 1 150ML.BAG IVPB STA (17:42)
[2018-06-04] MEDS ORDERED: SODIUM CHLORIDE 0.9% 1,000 ML IV SCH (17:45)
[2018-06-04] MEDS ORDERED: DOCUSATE 100 MG CAP PO PRN (18:11)
[2018-06-04] MEDS ORDERED: ALPRAZolam 0.25 MG TAB PO PRN (18:13)
[2018-06-04] MEDS ORDERED: ACETAMINOPHEN TAB 500 MG TAB PO PRN (18:13)
[2018-06-04] MEDS ORDERED: SYMBICORT 160-4.5 MCG INHALER INHALATION SCH (20:00)
[2018-06-04] MEDS: IPRATROPIUM-ALBUTEROL 3 ML NEB INHALATION SCH (20:33)
[2018-06-04 20:35] LABS: Glucose,Whole Blood 372 mg/dL (75-99)
--- NOTE | 2018-06-04 22:16 | HP ---
HISTORY AND PHYSICAL CHIEF COMPLAINT: Shortness of breath. HISTORY OF PRESENT ILLNESS: This 73-year-old gentleman with a past medical history of multiple medical problems including CVA, TIA, diabetes mellitus, history of GERD, hypertension, hypertension, pneumonia, lung cancer with right upper lobe radiation, lobectomy, history of CVA with right-sided weakness and appendectomy was being followed by Dr. fernandez in the outpatient setting. The patient was recently admitted with COPD acute exacerbation. The patient had a fall at that time. The patient went home. The patient improved significantly, but according to the family the pulse ox was dipping at home on multiple locations, going down to 80s. The patient had increased shortness of breath for the past several days and BiPAP was tried because of lack of improvement. The patient came to [facility] and admitted for further evaluation and treatment. Currently, the patient is on BiPAP and the chest x-ray showed bilateral lower lobe infiltrate, which is increasing compared with previous x-rays indicating possibly a pneumonic process and there is no history of fever, rigors. No headache, loss of consciousness at this time. PAST MEDICAL HISTORY: Diabetes, CVA, TIA, GERD, hypertension, history of pneumonia, history of lung cancer. MEDICATIONS: Prior to admission and home medications are: 1. Desyrel 100 mg q.h.s. 2. Glucotrol XR 2.5 mg daily. 3. Norvasc 5 mg b.i.d. 4. Zocor 10 mg q.h.s. 5. Ditropan 5 mg b.i.d. 6. Lopressor 25 mg q.h.s. 7. Melatonin 5 mg q.h.s. 8. DuoNeb q.i.d. 9. Pepcid 20 mg p.o. b.i.d. 10.Colace 100 mg q.h.s. 11.Pradaxa 150 mg p.o. b.i.d. 12.B12, 1000 mcg daily. 13.Vitamin D3 400 p.o. daily. 14.Zyrtec 10 mg p.o. daily. 15.Symbicort 160/4.5 two puffs b.i.d. 16.Aspirin 81 mg. 17.Augmentin 875 mg 1 p.o. daily. 18.Cordarone 200 mg daily. 19.ProAir HFA 1-2 puffs q.6h p.r.n. ALLERGIES: None. FAMILY HISTORY: History of CVA, TIA, mesothelioma and lung cancer. SOCIAL HISTORY: Previous history of smoking. Occasional alcohol intake. REVIEW OF SYSTEMS: ENT: Diminished hearing, diminished vision. CARDIOVASCULAR: As mentioned earlier. GI: No nausea. : No dysuria. NERVOUS SYSTEM: No numbness or weakness. ALLERGY: No asthma or hayfever. MUSCULOSKELETAL: As mentioned earlier. HEMATOLOGY/ONCOLOGY: No history of anemia. ENDOCRINE: Diabetes mellitus. CONSTITUTIONAL: As mentioned earlier. DERMATOLOGY: Negative. RHEUMATOLOGY: Negative. PSYCHIATRY: As mentioned earlier. PHYSICAL EXAM: Patient is alert and oriented x2. Pulse 81, blood pressure 149/60, respiration 18, temperature 98.7, pulse ox 96% on BiPAP. HEENT: Conjunctivae normal. Oral mucosa moist. NECK: No jugular venous distention. No lymph node enlargement. CARDIOVASCULAR: S1, S2 muffled. No S3, S4. RESPIRATORY: Breath sounds diminished in the bases. Bilateral scattered rhonchi, expiratory wheezing and crackles. Breathing efforts are markedly increased. ABDOMEN: Soft, nontender. No mass palpable. LEGS: No edema, no swelling. NERVOUS: Diffusely weak. A complete exam is not possible at this time. LYMPHATICS: No lymphadenopathy in neck or axillae. JOINTS: No active deforming arthropathy. SKIN: No ulcer, rash or bleeding. LAB STUDIES: WBC 26.2, hemoglobin 13.2, and creatinine is 1.76, which is baseline and plasma lactic acid is 4, albumin 3.2. ASSESSMENT: 1. Bilateral pneumonia, possibly healthcare associated pneumonia with acute hypoxic respiratory failure, as well as possible sepsis present on admission. 2. Diabetes mellitus type 2. 3. Increased creatinine with chronic kidney stage 3. 4. Increased plasma lactic acid. 5. Increased WBC. 6. Chronic obstructive pulmonary disease acute exacerbation. 7. Possible pulmonary fibrosis. 8. History of CVA/TIA. 9. History of lung cancer right upper lobe with radiation lobectomy. 10.GERD. 11.Hypertension. 12.History of pneumonia. 13.History of CVA x3 with right-sided weakness. 14.Gait dysfunction. 15.Possible chronic hypoxic respiratory failure. 16.Remote history of nicotine dependence. 17.Depression. RECOMMENDATION AND DISCUSSION: In this 73-year-old gentleman who presented with multiple complex medical issues , we will monitor the patient closely. Continue the current management and symptomatic treatment. We will optimize the bronchodilator treatment. Pulmonary consultation. I would also recommend broad-spectrum IV antibiotics. The prognosis guarded because of multiple complex medical issues. Further recommendations to follow. See orders for details. I would also recommend Infectious Disease evaluation as well. Cultures will be monitored. I would also recommend close monitoring for the hypoxia, seems like the patient is having chronic hypoxic respiratory failure, which might need home O2. I would recommend continuous oxygen measurement since the patient is unable to undergo any severe exertion at this point and if the oxygen is going less than 89%, the patient might require home O2. Once again, the prognosis extremely guarded and discussed with the family. Further recommendations to follow. MMSULEMAL / IJN: [id number] / APRIL
[2018-06-04] MEDS: ATORVASTATIN 10 MG TAB PO SCH (22:39)
[2018-06-04] MEDS: METOPROLOL TARTRATE 25 MG TAB PO SCH (22:39)
[2018-06-04] MEDS: MELATONIN 5 MG TABLET PO SCH (22:39)
[2018-06-04] MEDS: DABIGATRAN 150 MG CAP PO SCH (22:39)
[2018-06-04] MEDS: CHOLECALCIFEROL 400 UNIT TAB PO SCH (22:39)
[2018-06-04] MEDS: methylPREDNISolone SOD SUCCI 125 MG/2 ML VIAL IV SCH (22:40)
[2018-06-04] MEDS: FAMOTIDINE 20 MG TAB PO SCH (22:40)
[2018-06-04] MEDS: traZODone HCL 100 MG TAB PO SCH (22:41)
[2018-06-04] MEDS ORDERED: FUROSEMIDE 10 MG/ML 4 ML VIAL IV STA (23:24)
[2018-06-05] MEDS: PIPERACILLIN-TAZOBACTAM 3.375 GM in DEXTROSE/WATER 1 50ML.BAG IVPB SCH ×3 (00:12→18:53)
[2018-06-05] MEDS: FAMOTIDINE 20 MG TAB PO SCH ×2 (00:14→08:48)
[2018-06-05] MEDS: DABIGATRAN 150 MG CAP PO SCH ×2 (00:14→08:48)
[2018-06-05 06:10] LABS: Glucose,Whole Blood 301 mg/dL (75-99)
[2018-06-05] MEDS: amLODIPine 5 MG TAB PO SCH (06:40)
[2018-06-05] MEDS: PANTOPRAZOLE 40 MG TABLET PO SCH (06:41)
[2018-06-05] MEDS: methylPREDNISolone SOD SUCCI 125 MG/2 ML VIAL IV SCH ×4 (06:42→20:54)
[2018-06-05] MEDS ORDERED: CYANOCOBALAMIN 500 MCG TAB PO SCH (07:00)
[2018-06-05] MEDS ORDERED: amLODIPine 5 MG TAB PO SCH (07:00)
[2018-06-05 07:07] LABS: Basophils % (A) 0 %; Eosinophils # (A) 0.1 k/uL (0-0.7); Eosinophils % (A) 0 %; HGB 10.9 gm/dL (13.0-17.5); Hypochromasia Moderate; Lymphocytes # (A) 0.2 k/uL (1.0-4.8); Lymphocytes % (A) 1 %; MCH 29.1 pg (25.0-35.0); MCHC 30.3 g/dL (31.0-37.0); MCV 96.2 fL (80.0-100.0); Mean Platelet Volume 6.9; Monocytes # (A) 0.4 k/uL (0-1.0); Monocytes % (A) 2 %; Neutrophils # (A) 18.3 k/uL (1.3-7.7); Neutrophils % (A) 97 %; Platelet Count 291 k/uL (150-450); RBC 3.74 m/uL (4.30-5.90); RDW 14.6 % (11.5-15.5); WBC 18.9 k/uL (3.8-10.6)
[2018-06-05] MEDS: INSULIN ASPART 100 UNIT/ML 1 ML 10 ML VIAL SQ SCH ×4 (07:13→21:04)
[2018-06-05 07:19] LABS: Calcium 7.4 mg/dL (8.4-10.2); Potassium 4.3 mmol/L (3.5-5.1)
[2018-06-05] MEDS: LORATADINE 10 MG TAB PO SCH (08:48)
[2018-06-05] MEDS: CHOLECALCIFEROL 400 UNIT TAB PO SCH ×2 (08:48→20:56)
[2018-06-05] MEDS: CYANOCOBALAMIN 500 MCG TAB PO SCH (08:49)
[2018-06-05] MEDS: AMIODARONE 200 MG TAB PO SCH (08:49)
[2018-06-05] MEDS: ASPIRIN 81 MG PO SCH (08:49)
[2018-06-05] MEDS: INSULIN DETEMIR 100 UNIT/ML 10 ML VIAL SQ SCH (08:54)
[2018-06-05] MEDS: BUDESONIDE 1 MG/2 ML NEBU INHALATION SCH ×2 (08:54→19:45)
[2018-06-05] MEDS: IPRATROPIUM-ALBUTEROL 3 ML NEB INHALATION SCH ×5 (08:55→19:45)
[2018-06-05] MEDS: FORMOTEROL FUMARATE 20 MCG/2 ML NEBU INHALATION SCH ×2 (08:55→19:59)
--- NOTE | 2018-06-05 10:24 | P.CNPUL ---
History of Present Illness Consult date: 06/05/18 Reason for consult: dyspnea, cough, pneumonia, lung mass, abnormal CXR/CT Chief complaint: Shortness of breath History of present illness: Mr. Joesph Lopez is a 73-year-old male with history of stage IV lung cancer with recurrence into the trachea patient is status post palliative radiation therapy he has not been feeling well increased cough congestion shortness of breath came into the hospital was evaluated initially in the emergency department subsequently admitted into the floor patient required BiPAP support overnight with 10/5 and 50% oxygen now BiPAP is off he is on supplemental oxygen breathing relatively more comfortably but still get short of breath he did require extra dose of furosemide, he remains on breathing treatments and broad-spectrum antibiotics, his chest x-ray revealed pulmonary fibrosis bilateral infiltrate slight worsening compared to March was noted Review of Systems All systems: negative Past Medical History Past Medical History: Cancer, CVA/TIA, Diabetes Mellitus, GERD/Reflux, Hyperlipidemia, Hypertension, Pneumonia, Renal Disease Additional Past Medical History / Comment(s): Lung Cancer right upper lobe with radiation and lobectomy,. HX OF CVA X3 -RIGHT SIDED WEAKNESS, SPEECH DIFFICULT TO UNDERSTAND AT TIMES, W/C BOUND, ABLE TO PIVOT TO TRANSFER WITH ASSISTANCE, DIFFICULTY CHEWING AND SWALLOWING, HX OF ASPIRATION.,WEARS DEPENDS FOR OCC. INCONTINENCE., DDD, KIDNEY FUNCTION AT 50-60%, ENVIRONMENTAL ALLERGIES. PT LIVES AT [facility] -HAS OWN APARTMENT WITH 24 HOUR HELP., HAS DIZZINESS AND DIFFICULTY WITH VISION-WEARS PRISMS IN HIS EYE GLASSES. History of Any Multi-Drug Resistant Organisms: None Reported Past Surgical History: Appendectomy, Tonsillectomy Additional Past Surgical History / Comment(s): EYE SURGERY, right upper lobectomy for Ca 2016, spinal fusions x 2, gallstones removed. Past Anesthesia/Blood Transfusion Reactions: No Reported Reaction Past Psychological History: Depression Additional Psychological History / Comment(s): . Smoking Status: Former smoker Past Alcohol Use History: Rare Additional Past Alcohol Use History / Comment(s): started smoking 1956. QUIT 2016 Past Drug Use History: None Reported - Past Family History Mother History Unknown: Yes Family Medical History: CVA/TIA Father History Unknown: Yes Family Medical History: No Reported History Brother(s) Family Medical History: Cancer Additional Family Medical History / Comment(s): MESOTHELIOMA LUNG CANCER Medications and Allergies Home Medications Medication Instructions Recorded Confirmed Type Cholecalciferol [Vitamin D3] 400 unit PO BID 01/26/16 06/04/18 History Simvastatin [Zocor] 10 mg PO HS 01/26/16 06/04/18 History traZODone HCL [Desyrel] 100 mg PO HS 01/26/16 06/04/18 History Metoprolol Tartrate [Lopressor] 25 mg PO HS 03/15/16 06/04/18 History Amiodarone [Cordarone] 200 mg PO DAILY 11/10/16 06/04/18 History Aspirin 81 mg PO DAILY 11/10/16 06/04/18 History Oxybutynin Chloride [Ditropan] 5 mg PO DAILY@1600 11/10/16 06/04/18 History glipiZIDE XL [Glucotrol XL] 2.5 mg PO DAILY@0700 11/10/16 06/04/18 History Dabigatran [Pradaxa] 150 mg PO BID 12/13/17 06/04/18 History Cetirizine HCl [Zyrtec] 10 mg PO DAILY@1100 03/15/18 06/04/18 History Cyanocobalamin (Vitamin B-12) 1,000 mcg PO DAILY@0700 03/15/18 06/04/18 History [Vitamin B-12] Docusate [Colace] 100 mg PO HS PRN 04/07/18 06/04/18 History amLODIPine [Norvasc] 5 mg PO DAILY@0700 04/07/18 06/04/18 History Famotidine [Pepcid] 20 mg PO BID 05/20/18 06/04/18 History Melatonin 5 mg PO HS 05/20/18 06/04/18 History Budesonide-Formot 160-4.5 Mcg 2 puff INHALATION RT-BID puff 05/23/18 06/04/18 Rx [Symbicort 160-4.5 Mcg Inhaler] Ipratropium-Albuterol Nebulize 3 ml INHALATION RT-QID #90 05/23/18 06/04/18 Rx [Duoneb 0.5 mg-3 mg/3 ml Soln] ampul.neb Albuterol Sulfate [Proair Hfa] 1 - 2 puff INHALATION RT-Q6H PRN 05/27/18 History Amoxicillin/Potassium Clav 1 tab PO DAILY 05/28/18 06/04/18 History [Augmentin 875-125 Tablet] Allergies Allergy/AdvReac Type Severity Reaction Status Date / Time No Known Allergies Allergy Verified 06/04/18 15:35 Physical Exam Vitals: Vital Signs Temp Pulse Pulse Resp BP BP Pulse Ox 06/05/18 09:21 88 06/05/18 09:11 88 06/05/18 09:10 88 06/05/18 08:55 84 06/05/18 08:00 96.8 F L 63 20 120/59 96 06/05/18 04:00 96.7 F L 54 L 20 112/51 99 06/05/18 02:04 660 H 20 06/04/18 21:00 96.8 F L 100 20 157/65 94 L 06/04/18 20:48 88 20 06/04/18 20:35 87 19 99 06/04/18 19:18 96.7 F L 81 18 149/63 96 06/04/18 18:56 81 18 149/63 96 06/04/18 17:37 96.7 F L 82 25 H 149/63 99 06/04/18 17:11 87 16 168/66 100 06/04/18 16:09 86 06/04/18 15:58 20 06/04/18 15:47 96.8 F L 85 21 156/64 100 06/04/18 15:40 87 Intake and Output 06/04/18 06/05/18 06/05/18 22:59 06:59 14:59 Intake Total 0 Balance 0 Intake: Oral 0 Other: Voiding Method Diaper Diaper Diaper Incontinent Incontinent # Voids 2 Weight 79.515 kg 69 kg General appearance: alert Head exam: Present: other (Mild ecchymosis right forehead) Eye exam: Present: normal appearance Neck exam: Present: normal inspection Respiratory exam: Present: wheezes, decreased breath sounds Cardiovascular Exam: Present: regular rate, normal rhythm GI/Abdominal exam: Present: soft. Absent: tenderness Extremities exam: Present: normal inspection. Absent: pedal edema, calf tenderness Neurological exam: Present: alert Psychiatric exam: Present: normal affect, normal mood Skin exam: Present: normal color Patient does have difficulty in expectorating respirator secretions have discussed with the day nursing staff if a bedside suction is available so patient can expectorate and clear respiratory secretion Results - Laboratory Findings CBC and BMP: 06/05/18 06:31 06/05/18 06:31 PT/INR, D-dimer PT 10.1 sec (9.0-12.0) 06/04/18 16:10 INR 1.0 (<1.2) 06/04/18 16:10 Abnormal lab findings: Abnormal Labs 06/04/18 06/04/18 06/04/18 16:10 16:10 16:10 WBC 26.2 H RBC Hgb Hct MCHC 30.6 L Neutrophils # 25.0 H Lymphocytes # 0.4 L APTT Carbon Dioxide BUN 33 H Creatinine 1.76 H Glucose 293 H POC Glucose (mg/dL) Plasma Lactic Acid Enrique Calcium Total Creatine Kinase <20 L Total Protein 6.1 L Albumin 3.2 L 06/04/18 06/04/18 06/04/18 16:10 16:10 20:29 WBC RBC Hgb Hct MCHC Neutrophils # Lymphocytes # APTT 20.6 L Carbon Dioxide BUN Creatinine Glucose POC Glucose (mg/dL) 372 H Plasma Lactic Acid Enrique 4.0 H* Calcium Total Creatine Kinase Total Protein Albumin 06/05/18 06/05/18 06/05/18 06:09 06:31 06:31 WBC 18.9 H RBC 3.74 L Hgb 10.9 L Hct 36.0 L MCHC 30.3 L Neutrophils # 18.3 H Lymphocytes # 0.2 L APTT Carbon Dioxide 21 L BUN 29 H Creatinine 1.33 H Glucose 254 H POC Glucose (mg/dL) 301 H Plasma Lactic Acid Enrique Calcium 7.4 L Total Creatine Kinase Total Protein Albumin - Diagnostic Findings Chest x-ray: report reviewed, image reviewed (Findings as noted above) Assessment and Plan Assessment: Acute hypoxic respirator failure Bilateral pneumonia likely mixed bacterial as well as aspiration related Stage IV lung cancer with recurrence into trachea Status post right upper lobe wedge resection for lung cancer Plan: Broad-spectrum antibiotics Respiratory: Alert suctioning and cleaning Bronchodilator Swallow evaluation BiPAP as needed Further recommendations pending plan of care as per clinical response of the patient Agree with obtaining sputum for Gram stain is culture and sensitivity Time with Patient: Greater than 30
[2018-06-05 11:23] LABS: Glucose,Whole Blood 148 mg/dL (75-99)
[2018-06-05 12:10] LABS: Hemoglobin A1C 7.1 % (4.0-6.0)
--- NOTE | 2018-06-05 15:08 | XR ---
EXAMINATION TYPE: XR chest 2V DATE OF EXAM: 06/05/2018 COMPARISON: Prior chest x-ray 06/04/2018, 04/08/2018 HISTORY: Cough, pneumonia TECHNIQUE: Frontal and lateral views of the chest are obtained. FINDINGS: Patient is rotated. Heart size thought to be enlarged and stable. Patient's lung nodules a re not well seen on plain film. Interstitium is increased as on prior exam. No evident pneumothorax. Interstitium is increased. Apical pleural thickening is present. There is bronchial wall thickening. No evident effusion. Lung volumes are low. There are overlying cardiac leads. IMPRESSION: Exam is limited technically. Correlate to exclude pulmonary venous hypertension and inte rstitial edema, pneumonia not excluded, consider bronchitis, interstitial lung disease, reactive airw ays disease. Expiratory rotated exam. Follow-up recommended. Limitations as described. Cardiomegaly.
[2018-06-05 16:25] LABS: Glucose,Whole Blood 207 mg/dL (75-99)
[2018-06-05] MEDS: OXYBUTYNIN CHLORIDE 5 MG TAB PO SCH (16:59)
[2018-06-05] MEDS: LEVOFLOXACIN 750MG-D5W PMX 750 MG in DEXTROSE/WATER 1 150ML.BAG IVPB SCH (17:01)
--- NOTE | 2018-06-05 17:36 | P.PN ---
Subjective Progress Note Date: 06/05/18 Progress note being dictated for Dr. Emmanuel. Interval history: This a 73-year-old gentleman admitted with bilateral pneumonia , acute hypoxic respiratory failure, acute on chronic renal failure, acute COPD exacerbation and multiple other medical issues. Maintaining O2 sats of 94% on 2 L nasal cannula. BiPAP at bedside, required last night. Chest x-ray reporting pulmonary venous hypertension, interstitial edema, possible pneumonia. Renal function improving. Afebrile. Review systems unable to obtain, speech difficult to understand. Active Medications Acetaminophen (Tylenol Tab) 500 mg PO Q6HR PRN PRN Reason: Fever and/ or MILD Pain Albuterol/Ipratropium (Duoneb 0.5 Mg-3 Mg/3 Ml Soln) 3 ml INHALATION RT-QID [facility] Last Admin: 06/05/18 16:10 Dose: 3 ml Albuterol/Ipratropium (Duoneb 0.5 Mg-3 Mg/3 Ml Soln) 3 ml INHALATION RT-Q4H PRN PRN Reason: shortness of breath Alprazolam (Xanax) 0.25 mg PO TID PRN PRN Reason: Anxiety Last Admin: 06/05/18 09:25 Dose: 0.25 mg Amiodarone HCl (Cordarone) 200 mg PO DAILY [facility] Last Admin: 06/05/18 08:49 Dose: 200 mg Amlodipine Besylate (Norvasc) 5 mg PO DAILY@0700 [facility] Last Admin: 06/05/18 06:40 Dose: 5 mg Aspirin (Aspirin) 81 mg PO DAILY [facility] Last Admin: 06/05/18 08:49 Dose: 81 mg Atorvastatin Calcium (Lipitor) 10 mg PO HS [facility] Last Admin: 06/04/18 22:39 Dose: 10 mg Budesonide (Pulmicort) 1 mg INHALATION RT-BID [facility] Last Admin: 06/05/18 08:54 Dose: 1 mg Cholecalciferol (Vitamin D3) 400 unit PO BID [facility] Last Admin: 06/05/18 08:48 Dose: 400 unit Cyanocobalamin (Vitamin B-12) 1,000 mcg PO DAILY [facility] Last Admin: 06/05/18 08:49 Dose: 1,000 mcg Dabigatran (Pradaxa) 150 mg PO BID [facility] Last Admin: 06/05/18 08:48 Dose: 150 mg Docusate Sodium (Colace) 100 mg PO PRN PRN Reason: Constipation Formoterol Fumarate (Perforomist) 20 mcg INHALATION RT-BID [facility] Last Admin: 06/05/18 08:55 Dose: 20 mcg Glipizide (Glucotrol) 2.5 mg PO DAILY [facility] Last Admin: 06/05/18 08:48 Dose: 2.5 mg Levofloxacin 750 mg/ IV (Solution) 150 mls @ 100 mls/hr IVPB Q24H [facility] Stop: 06/17/18 18:01 Last Admin: 06/05/18 17:01 Dose: 100 mls/hr Piperacillin/Tazobactam/ (Dextrose 3.375 gm/ IV Solution) 50 mls @ 12.5 mls/hr IVPB Q8HR [facility] Stop: 06/15/18 00:01 Last Admin: 06/05/18 08:54 Dose: 12.5 mls/hr Insulin Aspart (Novolog) 0 unit SQ ACHS [facility]; Protocol Last Admin: 06/05/18 17:04 Dose: 6 unit Insulin Detemir (Levemir) 2 unit SQ 0700 [facility] Last Admin: 06/05/18 08:54 Dose: 2 unit Loratadine (Claritin) 10 mg PO DAILY@1100 [facility] Last Admin: 06/05/18 08:48 Dose: 10 mg Melatonin (Melatonin) 5 mg PO [facility] Last Admin: 06/04/18 22:39 Dose: 5 mg Methylprednisolone Sodium Succinate (Solu-Medrol) 60 mg IV Q6H [facility] Last Admin: 06/05/18 16:59 Dose: 60 mg Metoprolol Tartrate (Lopressor) 25 mg PO [facility] Last Admin: 06/04/18 22:39 Dose: 25 mg Miscellaneous Information (Pneumonia Protocol Utilized) 1 each PO ONCE PRN PRN Reason: Per Protocol Oxybutynin Chloride (Ditropan) 5 mg PO DAILY@1600 [facility] Last Admin: 06/05/18 16:59 Dose: 5 mg Pantoprazole Sodium (Protonix) 40 mg PO AC-BRKFST [facility] Last Admin: 06/05/18 06:41 Dose: 40 mg Trazodone HCl (Desyrel) 100 mg PO [facility] Last Admin: 06/04/18 22:41 Dose: 100 mg Objective - Vital Signs Vital signs: Vital Signs Temp 96.7 F L 06/05/18 15:39 Pulse 70 06/05/18 16:23 Resp 24 06/05/18 15:39 BP 119/59 06/05/18 15:39 Pulse Ox 94 L 06/05/18 15:39 Intake & Output 06/04/18 06/05/18 06/05/18 18:59 06:59 18:59 Intake Total 850 Balance 850 Weight 79.515 kg 69 kg 69 kg Intake: Intake, IV Titration 850 Amount Piperacillin-Tazobactam 3 50 .375 gm In Dextrose/Water 1 50ml.bag @ 12.5 mls/hr IVPB Q8HR [facility] Rx#: [id number] Sodium Chloride 0.9% 1, 800 000 ml @ 100 mls/hr IV . Q10H [facility] Rx#:[id number] Oral 0 Other: Voiding Method Diaper Diaper Incontinent Incontinent # Voids 0 2 # Bowel Movements 0 - Exam PHYSICAL EXAM: VITAL SIGNS: As above GENERAL: Sitting up in chair, no acute distress HEENT: Conjunctivae normal. eyes normal. Oral mucosa moist NECK: No JVD. No thyroid enlargement. No LNs CARDIOVASCULAR: S1, S2 muffled. Regular, No murmur RESPIRATION: Breath sounds diminished in the bases. Scattered rhonchi with extensive crackles throughout. Expiratory wheezing ABDOMEN: Soft, nontender . No guarding. no masses palpable. Bowel sounds heard. LEGS: mild edema. no clubbing, no cyanosis PSYCHIATRY: Alert and oriented -3, mood and affect normal. NERVOUS SYSTEM: Residual right-sided weakness, dysarthria secondary to CVA 3, Diffuse weakness Skin: Bilateral buttocks, stage II - Labs CBC & Chem 7: 06/05/18 06:31 06/05/18 06:31 Labs: Abnormal Lab Results - Last 24 Hours (Table) 06/04/18 06/04/18 06/04/18 Range/Units 16:10 16:10 20:29 WBC (3.8-10.6) k/uL RBC (4.30-5.90) m/uL Hgb (13.0-17.5) gm/dL Hct (39.0-53.0) % MCHC (31.0-37.0) g/dL Neutrophils # (1.3-7.7) k/uL Lymphocytes # (1.0-4.8) k/uL APTT 20.6 L (22.0-30.0) sec Carbon Dioxide (22-30) mmol/L BUN (9-20) mg/dL Creatinine (0.66-1.25) mg/dL Glucose (74-99) mg/dL POC Glucose (mg/dL) 372 H (75-99) mg/dL Hemoglobin A1c (4.0-6.0) % Plasma Lactic Acid Enrique 4.0 H* (0.7-2.0) mmol/L Calcium (8.4-10.2) mg/dL 06/05/18 06/05/18 06/05/18 Range/Units 06:09 06:31 06:31 WBC 18.9 H (3.8-10.6) k/uL RBC 3.74 L (4.30-5.90) m/uL Hgb 10.9 L (13.0-17.5) gm/dL Hct 36.0 L (39.0-53.0) % MCHC 30.3 L (31.0-37.0) g/dL Neutrophils # 18.3 H (1.3-7.7) k/uL Lymphocytes # 0.2 L (1.0-4.8) k/uL APTT (22.0-30.0) sec Carbon Dioxide 21 L (22-30) mmol/L BUN 29 H (9-20) mg/dL Creatinine 1.33 H (0.66-1.25) mg/dL Glucose 254 H (74-99) mg/dL POC Glucose (mg/dL) 301 H (75-99) mg/dL Hemoglobin A1c (4.0-6.0) % Plasma Lactic Acid Enrique (0.7-2.0) mmol/L Calcium 7.4 L (8.4-10.2) mg/dL 06/05/18 06/05/18 06/05/18 Range/Units 06:31 11:21 16:13 WBC (3.8-10.6) k/uL RBC (4.30-5.90) m/uL Hgb (13.0-17.5) gm/dL Hct (39.0-53.0) % MCHC (31.0-37.0) g/dL Neutrophils # (1.3-7.7) k/uL Lymphocytes # (1.0-4.8) k/uL APTT (22.0-30.0) sec Carbon Dioxide (22-30) mmol/L BUN (9-20) mg/dL Creatinine (0.66-1.25) mg/dL Glucose (74-99) mg/dL POC Glucose (mg/dL) 148 H 207 H (75-99) mg/dL Hemoglobin A1c 7.1 H (4.0-6.0) % Plasma Lactic Acid Enrique (0.7-2.0) mmol/L Calcium (8.4-10.2) mg/dL Assessment and Plan Assessment: -Possible sepsis related to Acute bilateral pneumonia, possibly healthcare associated pneumonia, present on admission -Acute hypoxic respiratory failure secondary to the above as well as acute COPD exacerbation -Diabetes mellitus type 2 -Acute on chronic renal failure, stage III -Acute exacerbation COPD -Pulmonary fibrosis -History of lung cancer-stage IV, right upper lobe with radiation lumpectomy -History of CVA 3 with right-sided weakness -Possible chronic hypoxic respiratory failure -Stage II bilateral buttock ulcer Plan: Continue on current medication regime ,monitoring and symptomatic treatment. Strict aspiration precautions, head of bed up at 45 at all times, frequent oral care with suctioning this patient has difficulty clearing secretions, history of aspiration. Infectious disease consulted regarding wound care. Maintain nebulized bronchodilators, broad-spectrum IV antibiotics. Sputum culture ordered .Pulmonary recommendations noted. Suspect patient will require home O2 at discharge, as he appears to be having possible chronic hypoxic respiratory failure. continuous monitoring/documentation for hypoxia-as patient unable to forego severe exertion. Close monitoring of renal function, electrolytes with repeat labs ordered for a.m. Further recommendations to follow. The impression and plan of care has been dictated as directed. : I performed a history and examination of this patient, discussed the same with the dictator. I agree with the dictator's note ,documented as a scribe. Any additional findings or plans will be noted.
--- NOTE | 2018-06-05 19:38 | P.CONS ---
History of Present Illness - Reason for Consult Consult date: 06/05/18 oncology care Requesting physician: Abbe Allen - Chief Complaint ABDIEL - History of Present Illness Mr. Lopez is a very pleasant male who presented in fall 2014 with complaints of productive cough and upper airway congestion, initial imaging suggested a pneumonia, treated with antibiotics but, had multiple relapses of symptoms, CT chest 02/07/16 revealed wedge shaped infiltrate in the RUL and fullness adjacent to the right main pulmonary artery, CT on 03/17/16 showed persistent abnormalities, bronchoscopy with biopsy was done on 04/02/16 revealing squamous cell carcinoma, staging PET and brain CT confirmed chest limited disease. Dr. Curry at [facility] performed right upper lobectomy on 06/04/16, final path stage IA squamous cell carcinoma, subsequently pt found to have a synchronous primary in the left lower lobe, also squamous cell, treated with PRT , completed in 09/07. patient continued to follow-up at [place], CT scan 11/10 showed stable findings, 4 mm nodule in the right lower lobe. Patient was seen and Mon on 03/16/2018 when he was admitted with cough, hemoptysis and hoarseness 2 weeks, CTA negative for PE but soft tissue density along the right lateral tracheal wall measuring 3.5 x 2.8 cm, 1.1 cm nodule in the right lower lobe, prominent left-sided hilar consolidation, bronchoscopy on 03/19/18, showed edema in the mid trachea, evidence of a growth growing into the posterior and right lateral wall, biopsy was positive for squamous cell carcinoma. Patient opted for proton beam radiation therapy, unclear if this was ever accomplished, will have to speak with family. He was supposed to be started at [facility] in March. This is his seventh admission to the hospital since February. He has had several bouts of aspiration pneumonia. As of note patient does refuse PEG tube and does not always follow the prescribed pured, thickened liquids diet When asking patient why he came into the hospital he denies that it had to do with difficulty in breathing but, patient is noted to have a very weak and congested cough, he denies fever, nausea, indigestion, dysphagia, odynophagia, his voice is persistently weak and hoarse, no chest pain, changes in bowel or bladder habits, he is weak, requires assistance for IADLs, can perform some ADLs independently, no other pain to report. Review of Systems ROS is as stated in HPI Past Medical History Past Medical History: Cancer, CVA/TIA, Diabetes Mellitus, GERD/Reflux, Hyperlipidemia, Hypertension, Pneumonia, Renal Disease Additional Past Medical History / Comment(s): Lung Cancer right upper lobe with radiation and lobectomy,. HX OF CVA X3 -RIGHT SIDED WEAKNESS, SPEECH DIFFICULT TO UNDERSTAND AT TIMES, W/C BOUND, ABLE TO PIVOT TO TRANSFER WITH ASSISTANCE, DIFFICULTY CHEWING AND SWALLOWING, HX OF ASPIRATION.,WEARS DEPENDS FOR OCC. INCONTINENCE., DDD, KIDNEY FUNCTION AT 50-60%, ENVIRONMENTAL ALLERGIES. PT LIVES AT [facility] -HAS OWN APARTMENT WITH 24 HOUR HELP., HAS DIZZINESS AND DIFFICULTY WITH VISION-WEARS PRISMS IN HIS EYE GLASSES. History of Any Multi-Drug Resistant Organisms: None Reported Past Surgical History: Appendectomy, Tonsillectomy Additional Past Surgical History / Comment(s): EYE SURGERY, right upper lobectomy for Ca 2016, spinal fusions x 2, gallstones removed. Past Anesthesia/Blood Transfusion Reactions: No Reported Reaction Past Psychological History: Depression Additional Psychological History / Comment(s): . Smoking Status: Former smoker Past Alcohol Use History: Rare Additional Past Alcohol Use History / Comment(s): started smoking 1956. QUIT 2015 Past Drug Use History: None Reported - Past Family History Mother History Unknown: Yes Family Medical History: CVA/TIA Father History Unknown: Yes Family Medical History: No Reported History Brother(s) Family Medical History: Cancer Additional Family Medical History / Comment(s): MESOTHELIOMA LUNG CANCER Medications and Allergies Home Medications Medication Instructions Recorded Confirmed Type Cholecalciferol [Vitamin D3] 400 unit PO BID 01/26/16 06/04/18 History Simvastatin [Zocor] 10 mg PO HS 01/26/16 06/04/18 History traZODone HCL [Desyrel] 100 mg PO HS 01/26/16 06/04/18 History Metoprolol Tartrate [Lopressor] 25 mg PO HS 03/15/16 06/04/18 History Amiodarone [Cordarone] 200 mg PO DAILY 11/10/16 06/04/18 History Aspirin 81 mg PO DAILY 11/10/16 06/04/18 History Oxybutynin Chloride [Ditropan] 5 mg PO DAILY@1600 11/10/16 06/04/18 History glipiZIDE XL [Glucotrol XL] 2.5 mg PO DAILY@0700 11/10/16 06/04/18 History Dabigatran [Pradaxa] 150 mg PO BID 12/13/17 06/04/18 History Cetirizine HCl [Zyrtec] 10 mg PO DAILY@1100 03/15/18 06/04/18 History Cyanocobalamin (Vitamin B-12) 1,000 mcg PO DAILY@0700 03/15/18 06/04/18 History [Vitamin B-12] Docusate [Colace] 100 mg PO HS PRN 04/07/18 06/04/18 History amLODIPine [Norvasc] 5 mg PO DAILY@0700 04/07/18 06/04/18 History Famotidine [Pepcid] 20 mg PO BID 05/20/18 06/04/18 History Melatonin 5 mg PO HS 05/20/18 06/04/18 History Budesonide-Formot 160-4.5 Mcg 2 puff INHALATION RT-BID puff 05/23/18 06/04/18 Rx [Symbicort 160-4.5 Mcg Inhaler] Ipratropium-Albuterol Nebulize 3 ml INHALATION RT-QID #90 05/23/18 06/04/18 Rx [Duoneb 0.5 mg-3 mg/3 ml Soln] ampul.neb Albuterol Sulfate [Proair Hfa] 1 - 2 puff INHALATION RT-Q6H PRN 05/27/18 History Amoxicillin/Potassium Clav 1 tab PO DAILY 05/28/18 06/04/18 History [Augmentin 875-125 Tablet] Allergies Allergy/AdvReac Type Severity Reaction Status Date / Time No Known Allergies Allergy Verified 06/04/18 15:35 Physical Exam Vitals: Vital Signs Temp Pulse Pulse Resp BP BP Pulse Ox 06/05/18 09:21 88 06/05/18 09:11 88 06/05/18 09:10 88 06/05/18 08:55 84 06/05/18 08:00 96.8 F L 63 20 120/59 96 06/05/18 04:00 96.7 F L 54 L 20 112/51 99 06/05/18 02:04 660 H 20 06/04/18 21:00 96.8 F L 100 20 157/65 94 L 06/04/18 20:48 88 20 06/04/18 20:35 87 19 99 06/04/18 19:18 96.7 F L 81 18 149/63 96 06/04/18 18:56 81 18 149/63 96 06/04/18 17:37 96.7 F L 82 25 H 149/63 99 06/04/18 17:11 87 16 168/66 100 06/04/18 16:09 86 06/04/18 15:58 20 06/04/18 15:47 96.8 F L 85 21 156/64 100 06/04/18 15:40 87 Intake and Output 06/04/18 06/05/18 06/05/18 22:59 06:59 14:59 Intake Total 0 Balance 0 Intake: Oral 0 Other: Voiding Method Diaper Diaper Diaper Incontinent Incontinent # Voids 2 Weight 79.515 kg 69 kg - Constitutional General appearance: average body habitus, cooperative, mild distress - EENT Difficulty managing secretions Eyes: anicteric sclerae, EOMI - Neck Neck: lymphadenopathy - Respiratory extraordinarily congested cough that is weak, respirations are shallow Respiratory: bilateral: rhonchi - Cardiovascular Heart sounds: normal: S1, S2 leg Peripheral Edema: bilateral: Trace - Gastrointestinal General gastrointestinal: no absent bowel sounds, no decreased bowel sounds, no distended, no hepatomegaly, no hyperactive bowel sounds, normal bowel sounds, no organomegaly, no rigid, no scaphoid, soft, no splenomegaly, no tenderness, no umbilical hernia, no ventral hernia - Integumentary Integumentary: pale - Neurologic Neurologic: CNII-XII intact - Musculoskeletal Musculoskeletal: generalized weakness - Psychiatric Psychiatric: A&O x's 3, appropriate affect, intact judgment & insight Results CBC & Chem 7: 06/05/18 06:31 06/05/18 06:31 Labs: Abnormal Lab Results - Last 24 Hours (Table) 06/04/18 06/04/18 06/04/18 Range/Units 16:10 16:10 16:10 WBC 26.2 H (3.8-10.6) k/uL RBC (4.30-5.90) m/uL Hgb (13.0-17.5) gm/dL Hct (39.0-53.0) % MCHC 30.6 L (31.0-37.0) g/dL Neutrophils # 25.0 H (1.3-7.7) k/uL Lymphocytes # 0.4 L (1.0-4.8) k/uL APTT (22.0-30.0) sec Carbon Dioxide (22-30) mmol/L BUN 33 H (9-20) mg/dL Creatinine 1.76 H (0.66-1.25) mg/dL Glucose 293 H (74-99) mg/dL POC Glucose (mg/dL) (75-99) mg/dL Plasma Lactic Acid Enrique (0.7-2.0) mmol/L Calcium (8.4-10.2) mg/dL Total Creatine Kinase <20 L (55-170) U/L Total Protein 6.1 L (6.3-8.2) g/dL Albumin 3.2 L (3.5-5.0) g/dL 06/04/18 06/04/18 06/04/18 Range/Units 16:10 16:10 20:29 WBC (3.8-10.6) k/uL RBC (4.30-5.90) m/uL Hgb (13.0-17.5) gm/dL Hct (39.0-53.0) % MCHC (31.0-37.0) g/dL Neutrophils # (1.3-7.7) k/uL Lymphocytes # (1.0-4.8) k/uL APTT 20.6 L (22.0-30.0) sec Carbon Dioxide (22-30) mmol/L BUN (9-20) mg/dL Creatinine (0.66-1.25) mg/dL Glucose (74-99) mg/dL POC Glucose (mg/dL) 372 H (75-99) mg/dL Plasma Lactic Acid Enrique 4.0 H* (0.7-2.0) mmol/L Calcium (8.4-10.2) mg/dL Total Creatine Kinase (55-170) U/L Total Protein (6.3-8.2) g/dL Albumin (3.5-5.0) g/dL 06/05/18 06/05/18 06/05/18 Range/Units 06:09 06:31 06:31 WBC 18.9 H (3.8-10.6) k/uL RBC 3.74 L (4.30-5.90) m/uL Hgb 10.9 L (13.0-17.5) gm/dL Hct 36.0 L (39.0-53.0) % MCHC 30.3 L (31.0-37.0) g/dL Neutrophils # 18.3 H (1.3-7.7) k/uL Lymphocytes # 0.2 L (1.0-4.8) k/uL APTT (22.0-30.0) sec Carbon Dioxide 21 L (22-30) mmol/L BUN 29 H (9-20) mg/dL Creatinine 1.33 H (0.66-1.25) mg/dL Glucose 254 H (74-99) mg/dL POC Glucose (mg/dL) 301 H (75-99) mg/dL Plasma Lactic Acid Enrique (0.7-2.0) mmol/L Calcium 7.4 L (8.4-10.2) mg/dL Total Creatine Kinase (55-170) U/L Total Protein (6.3-8.2) g/dL Albumin (3.5-5.0) g/dL Chest x-ray: report reviewed Assessment and Plan (1) Metastatic squamous cell carcinoma Narrative/Plan: Patient PS cont to be poor, he has had several admits in the last 2 months for aspiration pneumonia, pt refuses PEG. Have not been able to give palliative chemo as PS is questionable and may cause more harm to the pt. We are working on compassionate use of immunotherpay in the front line setting with PDL1 <50% (his tumor was 40%). We have not discussed this with the pt yet as we do not know if we can get it. Will f/u. Current Visit: Yes Status: Acute Priority: High Code(s): C79.9 - SECONDARY MALIGNANT NEOPLASM OF UNSPECIFIED SITE SNOMED Code(s): 013549026 (2) Neutrophilic leukocytosis Narrative/Plan: Suspect related to aspiration/pneumonia, chest x-ray report reviewed. Patient is on antibiotics per internal medicine. Current Visit: Yes Status: Acute Priority: High Code(s): D72.9 - DISORDER OF WHITE BLOOD CELLS, UNSPECIFIED SNOMED Code(s): 166543514 (3) Anemia Narrative/Plan: Normocytic normochromic anemia, mild, not requiring intervention. Iron studies were done 05/22. Iron and saturation were low, ferritin was normal. In the setting of acute infection parenteral iron typically is not indicated. Patient may benefit from some oral iron but anemia is not severe, this can be initiated later Current Visit: No Status: Acute Priority: Medium Code(s): D64.9 - ANEMIA, UNSPECIFIED SNOMED Code(s): 150478918 Plan: Cont supportive care and treatment of pneumonia Doctor attests:I have performed a history and physical exam of this pt, discussed with dictator. I agree with dictated note, documented as a scribe.
[2018-06-05 20:52] LABS: Glucose,Whole Blood 272 mg/dL (75-99)
[2018-06-05] MEDS: ATORVASTATIN 10 MG TAB PO SCH (20:55)
[2018-06-05] MEDS: traZODone HCL 100 MG TAB PO SCH (20:56)
[2018-06-05] MEDS: METOPROLOL TARTRATE 25 MG TAB PO SCH (20:56)
[2018-06-05] MEDS: MELATONIN 5 MG TABLET PO SCH (20:56)
--- NOTE | 2018-06-06 00:05 | CONS ---
CONSULTATION DATE OF SERVICE: 06/05/2018. REASON FOR CONSULTATION: Aspiration pneumonia. HISTORY OF PRESENT ILLNESS: The patient is a 73-year-old male with a past medical history significant for squamous cell carcinoma for which the patient did have a right upper lobectomy on 06/04/2016. Subsequently the patient did have a synchronous primary left lower lobe lesion treated with radiation. The patient recently seems to be having a problem with the recurrent aspiration pneumonia. The patient apparently was doing fine, however, yesterday seemed to be having rapid progression of difficulty in breathing and hypoxemia with low O2 sats. The patient was noticed to be dyspneic and also had a congested cough but not bringing up any sputum. No nausea or vomiting was noticed, only diarrhea. Subsequently with these symptoms, the patient was brought into the ER at [facility]. On arrival to the ER the patient has been afebrile. White count was elevated 26.2. Also recent slightly elevated creatinine 1.76. The patient did have a chest x-ray obtained, which shows pulmonary fibrosis with bilateral pulmonary infiltrates increased compared to previous chest x-ray with concern for acute on chronic pneumonia with concern for possible aspiration. Patient has been started on Zosyn and Levaquin. Infectious Disease was consulted for further recommendation regarding antibiotic therapy. All of this information has been obtained from prior review of the chart and talking to the patient's daughter as the patient seems unable to give reliable history. REVIEW OF SYSTEMS: Positive points have been mentioned in HPI. The rest of the systems are negative. PAST MEDICAL HISTORY: Significant for a squamous cell carcinoma of the lung, CVA, diabetes mellitus, , hyperlipidemia, hypertension, renal insufficiency and recurrent aspiration pneumonia. PAST SURGICAL HISTORY: Appendectomy, tonsillectomy, right upper lobectomy, spinal fusion x2. SOCIAL HISTORY: The patient started smoking vanc in 195, quit 2016. Rarely drinks. No drug use. FAMILY HISTORY: Mother with history of CVA and TIA. ALLERGIES: No known drug allergies. MEDICATIONS: Medications include the patient currently on: 1. Tylenol. 2. DuoNeb. 3. Xanax. 4. Midodrine. 5. Aspirin. 6. Lipitor. 7. Pulmicort. 8. Vitamin D3. 9. Pradaxa. 10.Colace. 11.Glucotrol. 12.NovoLog. 13.Levofloxacin. 14.Claritin. 15.Melatonin. 16.Solu-Medrol. 17.Lopressor. 18.Ditropan. 19.Protonix. 20.Zosyn. EXAMINATION: Blood pressure is 114/55 with a pulse of 72, temperature 97.1. He is 96% on 2 L nasal cannula. GENERAL DESCRIPTION: An elderly male lying in bed in no distress. No tachypnea or accessory muscle of respiration use. HEENT: Shows slight pallor. No scleral icterus. Oral mucosa is moist. No pharyngeal erythema or thrush. NECK: No thyromegaly. LUNGS: Unlabored breathing. Coarse breath sounds at the bases bilaterally. No wheezes. HEART: S1, S2. Regular rate and rhythm. ABDOMEN: Soft, no tenderness. No rigidity. EXTREMITIES: No edema of the feet. SKIN: Rash improved, no rash or mass palpable. NEUROLOGICAL: The patient is awake, alert, oriented x2. Mood affect normal. LABS: BUN of 29, creatinine 1.33, hemoglobin is 12.1, white count . DIAGNOSTIC IMPRESSION AND PLAN: 1. Patient admitted to the hospital with acute hypoxemia with concern for possible recurrent aspiration pneumonia. The patient did have history of squamous cell lung cancer status post left upper lobe lobectomy and radiation therapy. The patient is currently not neutropenic. In view of the patient being admitted to the hospital, concern for possible for resistant gram positive with gram-negative pathogen. 2. Patient with a stage II pressure ulcer with no evidence of any cellulitis. PLAN: 1. We will try to obtain sputum for Gram stain, culture and sensitivity. 2. We will keep the patient on Zosyn 3.37 kg every 8 along with the Levaquin. 3. Apply dressing to the sacral area, keep area free from pressure. 4. We will follow up on clinical condition as well as cultures and further adjust medication if needed. Thank you for this consultation. Will follow the patient along with you. MMODL / IJN: [id number] /
[2018-06-06] MEDS: PIPERACILLIN-TAZOBACTAM 3.375 GM in DEXTROSE/WATER 1 50ML.BAG IVPB SCH ×4 (03:00→23:31)
[2018-06-06] MEDS: methylPREDNISolone SOD SUCCI 125 MG/2 ML VIAL IV SCH ×4 (03:30→21:39)
[2018-06-06 05:59] LABS: Glucose,Whole Blood 173 mg/dL (75-99)
[2018-06-06] MEDS: DABIGATRAN 150 MG CAP PO SCH ×3 (06:00→21:28)
[2018-06-06 06:45] LABS: Basophils % (A) 0 %; Eosinophils % (A) 0 %; HCT 35.8 % (39.0-53.0); Hypochromasia Marked; Lymphocytes # (A) 0.1 k/uL (1.0-4.8); Lymphocytes % (A) 1 %; MCH 29.3 pg (25.0-35.0); MCHC 30.7 g/dL (31.0-37.0); MCV 95.5 fL (80.0-100.0); Mean Platelet Volume 6.6; Monocytes # (A) 0.3 k/uL (0-1.0); Monocytes % (A) 2 %; Neutrophils # (A) 13.7 k/uL (1.3-7.7); Neutrophils % (A) 97 %; Platelet Count 280 k/uL (150-450); RBC 3.75 m/uL (4.30-5.90); RDW 14.5 % (11.5-15.5); WBC 14.2 k/uL (3.8-10.6)
[2018-06-06 06:46] LABS: Calcium 7.5 mg/dL (8.4-10.2)
[2018-06-06] MEDS: amLODIPine 5 MG TAB PO SCH (07:04)
[2018-06-06] MEDS: INSULIN ASPART 100 UNIT/ML 1 ML 10 ML VIAL SQ SCH ×5 (07:04→21:38)
[2018-06-06] MEDS: FORMOTEROL FUMARATE 20 MCG/2 ML NEBU INHALATION SCH ×2 (08:46→20:16)
[2018-06-06] MEDS: BUDESONIDE 1 MG/2 ML NEBU INHALATION SCH ×2 (08:46→20:16)
[2018-06-06] MEDS: IPRATROPIUM-ALBUTEROL 3 ML NEB INHALATION SCH ×4 (08:47→20:16)
[2018-06-06] MEDS: CYANOCOBALAMIN 500 MCG TAB PO SCH (09:09)
[2018-06-06] MEDS: INSULIN DETEMIR 100 UNIT/ML 10 ML VIAL SQ SCH (09:09)
[2018-06-06] MEDS: PANTOPRAZOLE 40 MG TABLET PO SCH (09:09)
[2018-06-06] MEDS: AMIODARONE 200 MG TAB PO SCH (09:09)
[2018-06-06] MEDS: ASPIRIN 81 MG PO SCH (09:09)
[2018-06-06] MEDS: CHOLECALCIFEROL 400 UNIT TAB PO SCH ×2 (09:09→21:27)
[2018-06-06 11:29] LABS: Glucose,Whole Blood 251 mg/dL (75-99)
[2018-06-06] MEDS: LORATADINE 10 MG TAB PO SCH (12:06)
--- NOTE | 2018-06-06 15:39 | PN ---
PROGRESS NOTE DATE OF SERVICE: 06/06/2018. REASON FOR FOLLOWUP: 1. Pneumonia. 2. Stage II sacral wound. INTERVAL HISTORY: The patient is afebrile. He seemed to be slightly more awake and alert today. He is breathing comfortably. Denies significant chest pain. Did have some cough but not bringing up any sputum. No abdominal pain. Has complained of some pain to the sacral area, but no worsening. EXAMINATION: Blood pressure 132/62 with a pulse of 94, temperature 97.2. He is 94% on 2 L nasal cannula. General description is an elderly male up in the bed in no distress. RESPIRATORY SYSTEM: Unlabored breathing. Coarse crackles at bases bilaterally. No wheeze. HEART: S1, S2. Regular rate and rhythm. ABDOMEN: Soft, no tenderness. Examination of sacral area: He did have a stage II pressure ulcer but no significant cellulitis. LABS: White count 14.2. Blood culture has been negative. DIAGNOSTIC IMPRESSION AND PLAN: 1. Patient in the hospital with difficulty breathing and hypoxemia which is likely multifactorial in patient who did have evidence of pneumonia, possible aspiration etiology. Currently covered with Zosyn and Levaquin. Will try to obtain a sputum to narrow down his antibiotic. 2. The patient with stage II sacral wound. Keep the area dry. Treat it with Calmoseptine lotion and off the pressure. MMODL / IJN: [id number] /
--- NOTE | 2018-06-06 15:42 | P.PN ---
Subjective Progress Note Date: 06/06/18 Progress note being dictated for Dr. Emmanuel. Interval history: This a 73-year-old gentleman admitted with bilateral pneumonia , acute hypoxic respiratory failure, acute on chronic renal failure, acute COPD exacerbation and multiple other medical issues. Maintaining O2 sats of 94% on 2 L nasal cannula. BiPAP at bedside, required last night. Chest x-ray reporting pulmonary venous hypertension, interstitial edema, possible pneumonia. Renal function improving. Afebrile. Review systems unable to obtain, speech difficult to understand. Active Medications Acetaminophen (Tylenol Tab) 500 mg PO Q6HR PRN PRN Reason: Fever and/ or MILD Pain Albuterol/Ipratropium (Duoneb 0.5 Mg-3 Mg/3 Ml Soln) 3 ml INHALATION RT-QID [facility] Last Admin: 06/05/18 16:10 Dose: 3 ml Albuterol/Ipratropium (Duoneb 0.5 Mg-3 Mg/3 Ml Soln) 3 ml INHALATION RT-Q4H PRN PRN Reason: shortness of breath Alprazolam (Xanax) 0.25 mg PO TID PRN PRN Reason: Anxiety Last Admin: 06/05/18 09:25 Dose: 0.25 mg Amiodarone HCl (Cordarone) 200 mg PO DAILY [facility] Last Admin: 06/05/18 08:49 Dose: 200 mg Amlodipine Besylate (Norvasc) 5 mg PO DAILY@0700 [facility] Last Admin: 06/05/18 06:40 Dose: 5 mg Aspirin (Aspirin) 81 mg PO DAILY [facility] Last Admin: 06/05/18 08:49 Dose: 81 mg Atorvastatin Calcium (Lipitor) 10 mg PO HS [facility] Last Admin: 06/04/18 22:39 Dose: 10 mg Budesonide (Pulmicort) 1 mg INHALATION RT-BID [facility] Last Admin: 06/05/18 08:54 Dose: 1 mg Cholecalciferol (Vitamin D3) 400 unit PO BID [facility] Last Admin: 06/05/18 08:48 Dose: 400 unit Cyanocobalamin (Vitamin B-12) 1,000 mcg PO DAILY [facility] Last Admin: 06/05/18 08:49 Dose: 1,000 mcg Dabigatran (Pradaxa) 150 mg PO BID [facility] Last Admin: 06/05/18 08:48 Dose: 150 mg Docusate Sodium (Colace) 100 mg PO PRN PRN Reason: Constipation Formoterol Fumarate (Perforomist) 20 mcg INHALATION RT-BID [facility] Last Admin: 06/05/18 08:55 Dose: 20 mcg Glipizide (Glucotrol) 2.5 mg PO DAILY [facility] Last Admin: 06/05/18 08:48 Dose: 2.5 mg Levofloxacin 750 mg/ IV (Solution) 150 mls @ 100 mls/hr IVPB Q24H [facility] Stop: 06/17/18 18:01 Last Admin: 06/05/18 17:01 Dose: 100 mls/hr Piperacillin/Tazobactam/ (Dextrose 3.375 gm/ IV Solution) 50 mls @ 12.5 mls/hr IVPB Q8HR [facility] Stop: 06/15/18 00:01 Last Admin: 06/05/18 08:54 Dose: 12.5 mls/hr Insulin Aspart (Novolog) 0 unit SQ ACHS [facility]; Protocol Last Admin: 06/05/18 17:04 Dose: 6 unit Insulin Detemir (Levemir) 2 unit SQ 0700 [facility] Last Admin: 06/05/18 08:54 Dose: 2 unit Loratadine (Claritin) 10 mg PO DAILY@1100 [facility] Last Admin: 06/05/18 08:48 Dose: 10 mg Melatonin (Melatonin) 5 mg PO [facility] Last Admin: 06/04/18 22:39 Dose: 5 mg Methylprednisolone Sodium Succinate (Solu-Medrol) 60 mg IV Q6H [facility] Last Admin: 06/05/18 16:59 Dose: 60 mg Metoprolol Tartrate (Lopressor) 25 mg PO [facility] Last Admin: 06/04/18 22:39 Dose: 25 mg Miscellaneous Information (Pneumonia Protocol Utilized) 1 each PO ONCE PRN PRN Reason: Per Protocol Oxybutynin Chloride (Ditropan) 5 mg PO DAILY@1600 [facility] Last Admin: 06/05/18 16:59 Dose: 5 mg Pantoprazole Sodium (Protonix) 40 mg PO AC-BRKFST [facility] Last Admin: 06/05/18 06:41 Dose: 40 mg Trazodone HCl (Desyrel) 100 mg PO [facility] Last Admin: 06/04/18 22:41 Dose: 100 mg 06/06/2018 sitting up in bed, gurgling at times. Maintaining O2 sats in the low 90s on 2 L nasal cannula. Evaluated by infectious disease with recommendations noted regarding wound care and antibiotics. Maintained on gentle IV fluid hydration, renal function improving. Denies chest pain, palpitations. Afebrile, WBC down to 14.2. Objective - Vital Signs Vital signs: Vital Signs Temp 97.2 F L 06/06/18 11:36 Pulse 72 06/06/18 12:42 Resp 22 06/06/18 11:36 BP 132/62 06/06/18 11:36 Pulse Ox 84 L 06/06/18 12:20 Intake & Output 06/05/18 06/06/18 06/06/18 18:59 06:59 18:59 Intake Total 1250 0 Balance 1250 0 Weight 69 kg 72 kg Intake: Intake, IV Titration 850 Amount Piperacillin-Tazobactam 3 50 .375 gm In Dextrose/Water 1 50ml.bag @ 12.5 mls/hr IVPB Q8HR [facility] Rx#: [id number] Sodium Chloride 0.9% 1, 800 000 ml @ 100 mls/hr IV . Q10H [facility] Rx#:[id number] Oral 400 0 Other: Voiding Method Diaper Diaper Incontinent Incontinent # Voids 1 1 # Bowel Movements 0 - Exam PHYSICAL EXAM: VITAL SIGNS: As above GENERAL: Sitting up in bed, no acute distress HEENT: Conjunctivae normal. eyes normal. Oral mucosa moist NECK: No JVD. No thyroid enlargement. No LNs CARDIOVASCULAR: S1, S2 muffled. Regular, No murmur RESPIRATION: Breath sounds diminished in the bases. Scattered rhonchi with extensive crackles throughout. Expiratory wheezing ABDOMEN: Soft, nontender . No guarding. no masses palpable. Bowel sounds heard. LEGS: mild edema. no clubbing, no cyanosis PSYCHIATRY: Alert and oriented -3, mood and affect normal. NERVOUS SYSTEM: Residual right-sided weakness, dysarthria secondary to CVA 3, Diffuse weakness Skin: Bilateral buttocks/sacrum, stage II - Labs CBC & Chem 7: 06/06/18 05:59 06/06/18 05:59 Labs: Abnormal Lab Results - Last 24 Hours (Table) 06/05/18 06/05/18 06/06/18 Range/Units 16:13 20:51 05:57 WBC (3.8-10.6) k/uL RBC (4.30-5.90) m/uL Hgb (13.0-17.5) gm/dL Hct (39.0-53.0) % MCHC (31.0-37.0) g/dL Neutrophils # (1.3-7.7) k/uL Lymphocytes # (1.0-4.8) k/uL Chloride (98-107) mmol/L BUN (9-20) mg/dL Glucose (74-99) mg/dL POC Glucose (mg/dL) 207 H 272 H 173 H (75-99) mg/dL Calcium (8.4-10.2) mg/dL 06/06/18 06/06/18 06/06/18 Range/Units 05:59 05:59 11:26 WBC 14.2 H (3.8-10.6) k/uL RBC 3.75 L (4.30-5.90) m/uL Hgb 11.0 L (13.0-17.5) gm/dL Hct 35.8 L (39.0-53.0) % MCHC 30.7 L (31.0-37.0) g/dL Neutrophils # 13.7 H (1.3-7.7) k/uL Lymphocytes # 0.1 L (1.0-4.8) k/uL Chloride 108 H (98-107) mmol/L BUN 33 H (9-20) mg/dL Glucose 144 H (74-99) mg/dL POC Glucose (mg/dL) 251 H (75-99) mg/dL Calcium 7.5 L (8.4-10.2) mg/dL Microbiology - Last 24 Hours (Table) 06/04/18 16:10 Blood Culture - Preliminary Blood No Growth after 24 hours Assessment and Plan Assessment: -Possible sepsis related to Acute bilateral pneumonia, possibly healthcare associated pneumonia, possibly aspiration, present on admission -Acute hypoxic respiratory failure secondary to the above as well as acute COPD exacerbation -Diabetes mellitus type 2 -Acute on chronic renal failure, stage III -Acute exacerbation COPD -Pulmonary fibrosis -History of lung cancer-stage IV, right upper lobe with radiation lumpectomy -History of CVA 3 with right-sided weakness -Possible chronic hypoxic respiratory failure -Stage II bilateral buttock ulcer Plan: Continue on current medication regime ,monitoring and symptomatic treatment. Consult to speech therapy for MBS .supervised/assisted feedings only. Strict aspiration precautions, head of bed up at 45 at all times. Maintain nebulized bronchodilators, broad-spectrum IV antibiotics. Antibiotics/ wound care as per ID. Suspect chronic hypoxic respiratory failure. Continuous monitoring/documentation for hypoxia-as patient unable to forego severe exertion. Close monitoring of renal function, electrolytes with repeat labs ordered for a.m. Further recommendations to follow. Prognosis guarded given multiple complex medical issues. The impression and plan of care has been dictated as directed. : I performed a history and examination of this patient, discussed the same with the dictator. I agree with the dictator's note ,documented as a scribe. Any additional findings or plans will be noted.
--- NOTE | 2018-06-06 16:15 | P.PN ---
Subjective Progress Note Date: 06/06/18 The patient remains quite weak, with persistent shortness of breath and cough. He is somewhat improved compared to yesterday. No history of fever or chills. No obvious bleeding noted. Objective - Vital Signs Vital signs: Vital Signs Temp 97.5 F L 06/06/18 16:00 Pulse 68 06/06/18 16:06 Resp 22 06/06/18 16:00 BP 120/60 06/06/18 16:00 Pulse Ox 98 06/06/18 16:00 Intake & Output 06/05/18 06/06/18 06/06/18 18:59 06:59 18:59 Intake Total 1250 0 Balance 1250 0 Weight 69 kg 72 kg Intake: Intake, IV Titration 850 Amount Piperacillin-Tazobactam 3 50 .375 gm In Dextrose/Water 1 50ml.bag @ 12.5 mls/hr IVPB Q8HR [facility] Rx#: [id number] Sodium Chloride 0.9% 1, 800 000 ml @ 100 mls/hr IV . Q10H [facility] Rx#:[id number] Oral 400 0 Other: Voiding Method Diaper Diaper Incontinent Incontinent # Voids 1 1 # Bowel Movements 0 - Constitutional General appearance: Present: mild distress - EENT Eyes: Present: EOMI ENT: Present: hearing grossly normal, normal oropharynx - Respiratory Respiratory: bilateral: diminished, rales (Right greater than left) - Cardiovascular Rhythm: regular Heart sounds: normal: S1, S2 - Gastrointestinal General gastrointestinal: Present: normal bowel sounds, soft - Neurologic Neurologic: Present: CNII-XII intact - Musculoskeletal Musculoskeletal: Present: generalized weakness, strength equal bilaterally - Labs CBC & Chem 7: 06/06/18 05:59 06/06/18 05:59 Labs: Abnormal Lab Results - Last 24 Hours (Table) 06/05/18 06/05/18 06/06/18 Range/Units 16:13 20:51 05:57 WBC (3.8-10.6) k/uL RBC (4.30-5.90) m/uL Hgb (13.0-17.5) gm/dL Hct (39.0-53.0) % MCHC (31.0-37.0) g/dL Neutrophils # (1.3-7.7) k/uL Lymphocytes # (1.0-4.8) k/uL Chloride (98-107) mmol/L BUN (9-20) mg/dL Glucose (74-99) mg/dL POC Glucose (mg/dL) 207 H 272 H 173 H (75-99) mg/dL Calcium (8.4-10.2) mg/dL 06/06/18 06/06/18 06/06/18 Range/Units 05:59 05:59 11:26 WBC 14.2 H (3.8-10.6) k/uL RBC 3.75 L (4.30-5.90) m/uL Hgb 11.0 L (13.0-17.5) gm/dL Hct 35.8 L (39.0-53.0) % MCHC 30.7 L (31.0-37.0) g/dL Neutrophils # 13.7 H (1.3-7.7) k/uL Lymphocytes # 0.1 L (1.0-4.8) k/uL Chloride 108 H (98-107) mmol/L BUN 33 H (9-20) mg/dL Glucose 144 H (74-99) mg/dL POC Glucose (mg/dL) 251 H (75-99) mg/dL Calcium 7.5 L (8.4-10.2) mg/dL Microbiology - Last 24 Hours (Table) 06/04/18 16:10 Blood Culture - Preliminary Blood No Growth after 24 hours Assessment and Plan (1) Metastatic squamous cell carcinoma Narrative/Plan: As noted previously, patient is a suboptimal candidate for standard first line chemotherapy. Been discussed in the office, he had refused chemotherapy. I had a long discussion with him, and his niece who is his primary caregiver, at the bedside. He has reiterated to her, that he does not want started chemotherapy. He is not a candidate for first-line immunotherapy, based on his biomarker status and current guidelines. I discussed with the niece, that we' re looking at prior to get the immunotherapy on possibly a compassionate protocol basis. They will be contacted if the efforts are successful. Current Visit: Yes Status: Acute Priority: High Code(s): C79.9 - SECONDARY MALIGNANT NEOPLASM OF UNSPECIFIED SITE SNOMED Code(s): 004335119 (2) Pneumonia Narrative/Plan: This is felt to be the cause of his acute hypoxic respiratory failure. The patient is likely getting recurrent pneumonias due to periodic aspiration. He is especially at increased risk with thin liquids and according to his caregiver , has not been totally compliant with recommendations for thickened and pured foods. PEG tube placement was again discussed with him, and he continues to refuse the same Current Visit: Yes Status: Acute Code(s): J18.9 - PNEUMONIA, UNSPECIFIED ORGANISM SNOMED Code(s): 624741461 Plan: Defer to the admitting service and other consultants for management of his multiple other medical problems
[2018-06-06 16:24] LABS: Glucose,Whole Blood 270 mg/dL (75-99)
[2018-06-06] MEDS: OXYBUTYNIN CHLORIDE 5 MG TAB PO SCH (17:10)
[2018-06-06] MEDS: LEVOFLOXACIN 750MG-D5W PMX 750 MG in DEXTROSE/WATER 1 150ML.BAG IVPB SCH ×2 (17:46→21:48)
[2018-06-06 20:48] LABS: Glucose,Whole Blood 247 mg/dL (75-99)
[2018-06-06] MEDS ORDERED: MENTHOL-ZINC OXIDE OINT 113 GM TUBE TOPICAL PRN (21:00)
[2018-06-06] MEDS: ATORVASTATIN 10 MG TAB PO SCH (21:27)
[2018-06-06] MEDS: traZODone HCL 100 MG TAB PO SCH (21:28)
[2018-06-06] MEDS: MELATONIN 5 MG TABLET PO SCH (21:28)
[2018-06-06] MEDS: METOPROLOL TARTRATE 25 MG TAB PO SCH (21:28)
--- NOTE | 2018-06-06 23:32 | P.PN ---
Subjective Progress Note Date: 06/06/18 Principal diagnosis: Aspiration pneumonia, metastatic stage IV squamous cell cancer, compromised poor performance status, protein calorie malnourishment, history of CVA, hypertension hypertensive cardiovascular disease, generalized weakness and medical debility 06/06/2018, patient seen eval reexamined during the rounds cuff congestion shortness breath is improved patient has been evaluated by aspiration as well as oncology services considered not to be a candidate for aggressive chemotherapy or first-line chemotherapy due to poor performance status recommended to do supportive care, patient remains at a high risk of aspiration and aspiration related complication or problem but he continued to refuse more definitive intervention like PEG tube Mr. Joesph Lopez is a 73-year-old male with history of stage IV lung cancer with recurrence into the trachea patient is status post palliative radiation therapy he has not been feeling well increased cough congestion shortness of breath came into the hospital was evaluated initially in the emergency department subsequently admitted into the floor patient required BiPAP support overnight with 10/5 and 50% oxygen now BiPAP is off he is on supplemental oxygen breathing relatively more comfortably but still get short of breath he did require extra dose of furosemide, he remains on breathing treatments and broad-spectrum antibiotics, his chest x-ray revealed pulmonary fibrosis bilateral infiltrate slight worsening compared to March was noted Objective - Vital Signs Vital signs: Vital Signs Temp 97.8 F 06/06/18 20:00 Pulse 74 06/06/18 20:46 Resp 20 06/06/18 20:00 BP 111/54 06/06/18 20:00 Pulse Ox 99 06/06/18 20:18 Intake & Output 06/06/18 06/06/18 06/07/18 06:59 18:59 06:59 Intake Total 0 Balance 0 Weight 72 kg Intake: Oral 0 Other: Voiding Method Diaper Diaper Incontinent # Voids 1 1 1 # Bowel Movements 0 - Exam General appearance: alert Head exam: Present: other (Mild ecchymosis right forehead) Eye exam: Present: normal appearance Neck exam: Present: normal inspection Respiratory exam: Present: wheezes, decreased breath sounds Cardiovascular Exam: Present: regular rate, normal rhythm GI/Abdominal exam: Present: soft. Absent: tenderness Extremities exam: Present: normal inspection. Absent: pedal edema, calf tenderness Neurological exam: Present: alert Psychiatric exam: Present: normal affect, normal mood Skin exam: Present: normal color - Labs CBC & Chem 7: 06/06/18 05:59 06/06/18 05:59 Labs: Abnormal Lab Results - Last 24 Hours (Table) 06/06/18 06/06/18 06/06/18 Range/Units 05:57 05:59 05:59 WBC 14.2 H (3.8-10.6) k/uL RBC 3.75 L (4.30-5.90) m/uL Hgb 11.0 L (13.0-17.5) gm/dL Hct 35.8 L (39.0-53.0) % MCHC 30.7 L (31.0-37.0) g/dL Neutrophils # 13.7 H (1.3-7.7) k/uL Lymphocytes # 0.1 L (1.0-4.8) k/uL Chloride 108 H (98-107) mmol/L BUN 33 H (9-20) mg/dL Glucose 144 H (74-99) mg/dL POC Glucose (mg/dL) 173 H (75-99) mg/dL Calcium 7.5 L (8.4-10.2) mg/dL 06/06/18 06/06/18 06/06/18 Range/Units 11:26 16:21 20:46 WBC (3.8-10.6) k/uL RBC (4.30-5.90) m/uL Hgb (13.0-17.5) gm/dL Hct (39.0-53.0) % MCHC (31.0-37.0) g/dL Neutrophils # (1.3-7.7) k/uL Lymphocytes # (1.0-4.8) k/uL Chloride (98-107) mmol/L BUN (9-20) mg/dL Glucose (74-99) mg/dL POC Glucose (mg/dL) 251 H 270 H 247 H (75-99) mg/dL Calcium (8.4-10.2) mg/dL Microbiology - Last 24 Hours (Table) 06/04/18 16:10 Blood Culture - Preliminary Blood No Growth after 48 hours Assessment and Plan Assessment: Acute hypoxic respirator failure Severe baseline COPD Bilateral pneumonia likely mixed bacterial as well as aspiration related Stage IV metastatic squamous cell lung cancer with recurrence into trachea Status post right upper lobe wedge resection for lung cancer Plan: Broad-spectrum antibiotics Respiratory: Continue suctioning and cleaning Bronchodilator Swallow evaluation BiPAP as needed Further recommendations pending plan of care as per clinical response of the patient Agree with obtaining sputum for Gram stain is culture and sensitivity Time with Patient: Greater than 30
[2018-06-07] MEDS: methylPREDNISolone SOD SUCCI 125 MG/2 ML VIAL IV SCH ×4 (04:36→20:24)
[2018-06-07 06:08] LABS: Glucose,Whole Blood 261 mg/dL (75-99)
[2018-06-07] MEDS: PANTOPRAZOLE 40 MG TABLET PO SCH (06:31)
[2018-06-07] MEDS: amLODIPine 5 MG TAB PO SCH (06:31)
[2018-06-07] MEDS: INSULIN ASPART 100 UNIT/ML 1 ML 10 ML VIAL SQ SCH ×4 (06:34→21:20)
[2018-06-07] MEDS: INSULIN DETEMIR 100 UNIT/ML 10 ML VIAL SQ SCH (07:03)
[2018-06-07 07:51] LABS: Basophils % (A) 0 %; Eosinophils % (A) 0 %; HCT 35.2 % (39.0-53.0); HGB 10.7 gm/dL (13.0-17.5); Hypochromasia Marked; Lymphocytes # (A) 0.1 k/uL (1.0-4.8); Lymphocytes % (A) 1 %; MCH 29.1 pg (25.0-35.0); MCHC 30.4 g/dL (31.0-37.0); Monocytes # (A) 0.3 k/uL (0-1.0); Monocytes % (A) 2 %; Neutrophils # (A) 10.8 k/uL (1.3-7.7); Neutrophils % (A) 96 %; Platelet Count 270 k/uL (150-450); RBC 3.67 m/uL (4.30-5.90); RDW 14.7 % (11.5-15.5); WBC 11.2 k/uL (3.8-10.6)
[2018-06-07 07:56] LABS: Calcium 7.6 mg/dL (8.4-10.2); Potassium 3.7 mmol/L (3.5-5.1)
[2018-06-07] MEDS: IPRATROPIUM-ALBUTEROL 3 ML NEB INHALATION SCH ×4 (08:12→20:29)
[2018-06-07] MEDS: FORMOTEROL FUMARATE 20 MCG/2 ML NEBU INHALATION SCH ×2 (08:12→20:29)
[2018-06-07] MEDS: BUDESONIDE 1 MG/2 ML NEBU INHALATION SCH ×2 (08:12→20:29)
[2018-06-07] MEDS: PIPERACILLIN-TAZOBACTAM 3.375 GM in DEXTROSE/WATER 1 50ML.BAG IVPB SCH ×3 (08:59→23:14)
--- NOTE | 2018-06-07 09:04 | P.PN ---
Subjective Progress Note Date: 06/07/18 Principal diagnosis: Aspiration pneumonia, metastatic stage IV squamous cell cancer, compromised poor performance status, protein calorie malnourishment, history of CVA, hypertension hypertensive cardiovascular disease, generalized weakness and medical debility 06/07/2018, patient seen eval examined during the rounds clinically patient is slightly more stable now breathing more comfortably cuff congestion shortness of breath there was seen previously is slightly better patient is swallowing better sitting upright however patient remains at a high risk of recurrent aspiration, patient continued to decline the PEG tube placement, care plan discussed with the nursing staff present at bedside at length 06/06/2018, patient seen eval reexamined during the rounds cuff congestion shortness breath is improved patient has been evaluated by aspiration as well as oncology services considered not to be a candidate for aggressive chemotherapy or first-line chemotherapy due to poor performance status recommended to do supportive care, patient remains at a high risk of aspiration and aspiration related complication or problem but he continued to refuse more definitive intervention like PEG tube Mr. Joesph Lopez is a 73-year-old male with history of stage IV lung cancer with recurrence into the trachea patient is status post palliative radiation therapy he has not been feeling well increased cough congestion shortness of breath came into the hospital was evaluated initially in the emergency department subsequently admitted into the floor patient required BiPAP support overnight with 10/5 and 50% oxygen now BiPAP is off he is on supplemental oxygen breathing relatively more comfortably but still get short of breath he did require extra dose of furosemide, he remains on breathing treatments and broad-spectrum antibiotics, his chest x-ray revealed pulmonary fibrosis bilateral infiltrate slight worsening compared to March was noted Objective - Vital Signs Vital signs: Vital Signs Temp 96.6 F L 06/07/18 04:00 Pulse 74 06/07/18 08:40 Resp 18 06/07/18 04:00 BP 141/65 06/07/18 04:00 Pulse Ox 98 06/07/18 04:00 Intake & Output 06/06/18 06/07/18 06/07/18 18:59 06:59 18:59 Intake Total 0 220 Balance 0 220 Weight 68.5 kg Intake: Oral 0 220 Other: Voiding Method Diaper # Voids 1 1 - Exam General appearance: alert Head exam: Present: other (Mild ecchymosis right forehead) Eye exam: Present: normal appearance Neck exam: Present: normal inspection Respiratory exam: Present: wheezes, decreased breath sounds Cardiovascular Exam: Present: regular rate, normal rhythm GI/Abdominal exam: Present: soft. Absent: tenderness Extremities exam: Present: normal inspection. Absent: pedal edema, calf tenderness Neurological exam: Present: alert Psychiatric exam: Present: normal affect, normal mood Skin exam: Present: normal color - Labs CBC & Chem 7: 06/07/18 06:43 06/07/18 06:43 Labs: Abnormal Lab Results - Last 24 Hours (Table) 06/06/18 06/06/18 06/06/18 Range/Units 11:26 16:21 20:46 WBC (3.8-10.6) k/uL RBC (4.30-5.90) m/uL Hgb (13.0-17.5) gm/dL Hct (39.0-53.0) % MCHC (31.0-37.0) g/dL Neutrophils # (1.3-7.7) k/uL Lymphocytes # (1.0-4.8) k/uL Chloride (98-107) mmol/L BUN (9-20) mg/dL Glucose (74-99) mg/dL POC Glucose (mg/dL) 251 H 270 H 247 H (75-99) mg/dL Calcium (8.4-10.2) mg/dL 06/07/18 06/07/18 06/07/18 Range/Units 06:03 06:43 06:43 WBC 11.2 H (3.8-10.6) k/uL RBC 3.67 L (4.30-5.90) m/uL Hgb 10.7 L (13.0-17.5) gm/dL Hct 35.2 L (39.0-53.0) % MCHC 30.4 L (31.0-37.0) g/dL Neutrophils # 10.8 H (1.3-7.7) k/uL Lymphocytes # 0.1 L (1.0-4.8) k/uL Chloride 115 H (98-107) mmol/L BUN 32 H (9-20) mg/dL Glucose 214 H (74-99) mg/dL POC Glucose (mg/dL) 261 H (75-99) mg/dL Calcium 7.6 L (8.4-10.2) mg/dL Microbiology - Last 24 Hours (Table) 06/04/18 16:10 Blood Culture - Preliminary Blood No Growth after 48 hours Assessment and Plan Assessment: Acute hypoxic respirator failure Severe baseline COPD Bilateral pneumonia likely mixed bacterial as well as aspiration related Stage IV metastatic squamous cell lung cancer with recurrence into trachea Status post right upper lobe wedge resection for lung cancer History of CVA with hemiparesis Plan: Broad-spectrum antibiotics Respiratory: Continue suctioning and cleaning Bronchodilator Swallow evaluation, with close monitoring and observation and implementing aspiration precaution BiPAP as needed Further recommendations pending plan of care as per clinical response of the patient Agree with obtaining sputum for Gram stain is culture and sensitivity Time with Patient: Greater than 30
[2018-06-07] MEDS: DABIGATRAN 150 MG CAP PO SCH ×3 (09:12→20:16)
[2018-06-07] MEDS: AMIODARONE 200 MG TAB PO SCH (09:12)
[2018-06-07] MEDS: CHOLECALCIFEROL 400 UNIT TAB PO SCH ×2 (09:12→20:16)
[2018-06-07] MEDS: ASPIRIN 81 MG PO SCH (09:12)
[2018-06-07] MEDS: CYANOCOBALAMIN 500 MCG TAB PO SCH (09:13)
[2018-06-07 11:48] LABS: Glucose,Whole Blood 249 mg/dL (75-99)
[2018-06-07] MEDS: LORATADINE 10 MG TAB PO SCH (12:44)
[2018-06-07] MEDS ORDERED: INSULIN DETEMIR 100 UNIT/ML 10 ML VIAL SQ ONE (13:00)
[2018-06-07] MEDS: SODIUM CHLORIDE 0.9% 1,000 ML IV SCH (13:18)
--- NOTE | 2018-06-07 15:02 | XR ---
EXAMINATION TYPE: XR chest 1V portable DATE OF EXAM: 06/07/2018 COMPARISON: 06/04/2018 HISTORY: Short of breath TECHNIQUE: Single frontal view of the chest is obtained. FINDINGS: There is pulmonary edema. Heart is enlarged. There is patchy bilateral pulmonary infiltrat es. There are chest leads. There is old right rib fracture. IMPRESSION: Patchy bilateral pulmonary infiltrates with cardiomegaly. I would consider congestive he art failure and RDS. Infiltrates are increased compared to last exam.
[2018-06-07] MEDS: OXYBUTYNIN CHLORIDE 5 MG TAB PO SCH (15:45)
--- NOTE | 2018-06-07 16:31 | PN ---
PROGRESS NOTE DATE OF SERVICE: 06/07/2018. REASON FOR FOLLOWUP: 1. Aspiration pneumonia. 2. Stage II sacral wound. INTERVAL HISTORY: The patient is afebrile. He seems to be more awake and alert today. He is breathing comfortably. He did have a cough, but decreased in intensity and remains to be dry. Denies any chest pain. No abdominal pain and no diarrhea. EXAMINATION: Blood pressure is 131/61 with a pulse of 75. Temperature of 96.3. He is 98% on 2 L nasal cannula. General description is an elderly male up in the bed in no distress. RESPIRATORY SYSTEM: Unlabored breathing. Some coarse crackles in the bases. No wheeze. HEART: S1, S2. Regular rate and rhythm. ABDOMEN: Soft, no tenderness. EXTREMITIES: Some trace edema feet. LABS: White count is down to 11.2 with a BUN of 32, creatinine 1.11. DIAGNOSTIC IMPRESSION AND PLAN: 1. Patient admitted to the hospital with difficulty breathing and hypoxemia with concern for pneumonia, likely an aspiration etiology. The patient is currently covered with IV Zosyn and that will be continued. We will try to obtain a sputum to narrow the antibiotics. 2. Patient with a stage II sacral wound. Calmoseptine lotion and keep the area dry and off the pressure. MMODL / IJN: [id number] /
[2018-06-07 17:09] LABS: Glucose,Whole Blood 202 mg/dL (75-99)
--- NOTE | 2018-06-07 17:19 | PN ---
PROGRESS NOTE DATE OF SERVICE: 06/07/2018 This 73-year-old gentleman who was admitted with multiple medical problems including aspiration pneumonia, acute hypoxic respiratory failure also had history of stage IV lung cancer as well. The patient is not able to eat anything, but the patient insists on eating. Patient had significant aspirations today. Previously the patient was in No CODE, but however the patient refused either hospice intervention or PEG tube placement according to the power of real estate attorney even after several discussion with the oncology team. Currently the patient is stuporous. The patient is coughing incessantly after eating as mentioned earlier. The most recent x-ray showed worsening. PAST MEDICAL HISTORY: Reviewed. REVIEW OF SYSTEMS: Could not be taken. The patient is slightly confused. CURRENT MEDICATIONS: Reviewed and include: 1. Tylenol 500 q.6 p.r.n. 2. DuoNeb q.i.d. and p.r.n. 3. Xanax 0.5 t.i.d. 4. Cordarone 200 mg p.o. 5. Norvasc 5 mg p.o. daily. 6. Aspirin 81 mg. 7. Lipitor 10 mg q.h.s. 8. Pulmicort 1 mg b.i.d. 9. Vitamin D3 400 b.i.d. 10.Pradaxa. 11.Glucotrol. 12.Levemir. 13.Levaquin. 14.Melatonin. 15.Solu-Medrol 60 IV q.6h. 16.Lopressor. 17.Ditropan. 18.Protonix. 19.Zosyn 3.375 IV q8. 20.Desyrel. PHYSICAL EXAM: Patient is alert, oriented x2. Pulse 69, blood pressure 112/60, respiration 24, temperature 97.4, Pulse ox 100 percent on 4 L. HEENT: Conjunctivae normal. Oral mucosa moist. NECK: No jugular venous distention. No carotid bruit. No lymph node enlargement. CARDIOVASCULAR: S1, S2. RESPIRATORY: Breath sounds diminished in the bases. Bilateral scattered rhonchi and crackles. Expiratory wheezing also present. ABDOMEN: Soft, nontender. No mass palpable. LEGS: No edema, no swelling. NERVOUS SYSTEM: Higher functions as mentioned. Moves all four limbs. No focal motor or sensory deficit. LYMPHATICS: No lymphadenopathy in the neck, axillae, groin. SKIN: No ulcer, rash, bleeding. LABS: WBC 11, hemoglobin 10.7, otherwise glucose is 214, calcium is 7.6. ASSESSMENT: 1. Acute bilateral pneumonia possibly aspiration with sepsis, present on admission. 2. Acute hypoxic respiratory failure secondary to above as well as chronic obstructive pulmonary disease acute exacerbation. 3. Diabetes mellitus type 2. 4. Acute on chronic renal failure stage III. 5. Stage IV lung cancer. 6. Pulmonary fibrosis. 7. Right upper lobe lung cancer status post radiation lumpectomy. 8. History of cerebrovascular accident x3 with right-sided weakness. 9. Dysphagia with aspiration. 10.Possible chronic hypoxic respiratory failure. 11.Stage II bilateral buttock ulcer. 12.NO CODE, NO CPR. RECOMMENDATIONS AND DISCUSSION: This 73-year-old gentleman who presented with multiple complex medical issues, we will monitor the patient closely. Continue the current medication. I had a detailed discussion with the power of real estate attorney. At this time, we will keep the patient strictly n.p.o. and I would recommend aspiration precautions and will discuss with the patient and family and if agreeable to them we will proceed with consulting Dr. Fulton for possible PEG tube placement. Broad-spectrum antibiotics and bronchodilators and steroids will be continued. Monitor blood sugars closely. Overall prognosis extremely guarded because of multiple complex medical issues. Further recommendations to follow. See orders for details. Once again, discussed with the family at length. MMSULEMAL / TIFFANIEN: [id number] /
[2018-06-07] MEDS: LEVOFLOXACIN 750MG-D5W PMX 750 MG in DEXTROSE/WATER 1 150ML.BAG IVPB SCH (17:42)
[2018-06-07] MEDS: ATORVASTATIN 10 MG TAB PO SCH (20:15)
[2018-06-07] MEDS: MELATONIN 5 MG TABLET PO SCH (20:16)
[2018-06-07] MEDS: METOPROLOL TARTRATE 25 MG TAB PO SCH (20:16)
[2018-06-07] MEDS: traZODone HCL 100 MG TAB PO SCH (20:17)
[2018-06-07 20:36] LABS: Glucose,Whole Blood 171 mg/dL (75-99)
[2018-06-08] MEDS: methylPREDNISolone SOD SUCCI 125 MG/2 ML VIAL IV SCH ×4 (03:58→21:18)
[2018-06-08] MEDS: amLODIPine 5 MG TAB PO SCH (04:12)
[2018-06-08] MEDS: PANTOPRAZOLE 40 MG TABLET PO SCH (04:12)
[2018-06-08 06:05] LABS: Basophils % (A) 0 %; Eosinophils # (A) 0.1 k/uL (0-0.7); Eosinophils % (A) 1 %; HGB 10.9 gm/dL (13.0-17.5); Hypochromasia Marked; Lymphocytes # (A) 0.1 k/uL (1.0-4.8); Lymphocytes % (A) 1 %; MCHC 30.2 g/dL (31.0-37.0); MCV 96.3 fL (80.0-100.0); Mean Platelet Volume 6.8; Monocytes # (A) 0.3 k/uL (0-1.0); Monocytes % (A) 3 %; Neutrophils # (A) 9.9 k/uL (1.3-7.7); Neutrophils % (A) 96 %; Platelet Count 264 k/uL (150-450); RBC 3.74 m/uL (4.30-5.90); RDW 14.7 % (11.5-15.5); WBC 10.4 k/uL (3.8-10.6)
[2018-06-08 06:09] LABS: Glucose,Whole Blood 142 mg/dL (75-99)
[2018-06-08 06:15] LABS: Calcium 7.9 mg/dL (8.4-10.2); Potassium 3.7 mmol/L (3.5-5.1)
[2018-06-08] MEDS: INSULIN ASPART 100 UNIT/ML 1 ML 10 ML VIAL SQ SCH ×4 (06:33→21:17)
[2018-06-08] MEDS: INSULIN DETEMIR 100 UNIT/ML 10 ML VIAL SQ SCH ×2 (06:55→11:41)
[2018-06-08] MEDS: BUDESONIDE 1 MG/2 ML NEBU INHALATION SCH ×2 (07:16→21:08)
[2018-06-08] MEDS: IPRATROPIUM-ALBUTEROL 3 ML NEB INHALATION SCH ×4 (07:16→21:08)
[2018-06-08] MEDS: FORMOTEROL FUMARATE 20 MCG/2 ML NEBU INHALATION SCH ×2 (07:16→21:08)
[2018-06-08] MEDS: ASPIRIN 81 MG PO SCH (08:32)
[2018-06-08] MEDS: CHOLECALCIFEROL 400 UNIT TAB PO SCH ×2 (08:32→21:07)
[2018-06-08] MEDS: ENOXAPARIN 40 MG/0.4 ML SYRINGE SQ SCH ×2 (08:32→21:17)
[2018-06-08] MEDS: PIPERACILLIN-TAZOBACTAM 3.375 GM in DEXTROSE/WATER 1 50ML.BAG IVPB SCH ×3 (08:32→23:56)
[2018-06-08] MEDS: AMIODARONE 200 MG TAB PO SCH (08:32)
[2018-06-08] MEDS: CYANOCOBALAMIN 500 MCG TAB PO SCH (08:32)
--- NOTE | 2018-06-08 08:49 | P.PN ---
Subjective Progress Note Date: 06/08/18 Principal diagnosis: Aspiration pneumonia, metastatic stage IV squamous cell cancer, compromised poor performance status, protein calorie malnourishment, history of CVA, hypertension hypertensive cardiovascular disease, generalized weakness and medical debility 06/08/2018, patient seen eval examined during the rounds he is awake and alert breathing comfortably no obvious distress present care plan discussed with RN present at bedside patient continued as significant choking and coughing episodes while trying to eat food, patient is now agreeable for PEG tube placement, last dose of pradexa was given on of this month patient is being placed on the Lovenox however it can be discontinued prior to PEG tube placement, GI consultation with Dr. Fulton has been initiated for PEG tube placement 06/07/2018, patient seen eval examined during the rounds clinically patient is slightly more stable now breathing more comfortably cuff congestion shortness of breath there was seen previously is slightly better patient is swallowing better sitting upright however patient remains at a high risk of recurrent aspiration, patient continued to decline the PEG tube placement, care plan discussed with the nursing staff present at bedside at length 06/06/2018, patient seen eval reexamined during the rounds cuff congestion shortness breath is improved patient has been evaluated by aspiration as well as oncology services considered not to be a candidate for aggressive chemotherapy or first-line chemotherapy due to poor performance status recommended to do supportive care, patient remains at a high risk of aspiration and aspiration related complication or problem but he continued to refuse more definitive intervention like PEG tube Mr. Joesph Lopez is a 73-year-old male with history of stage IV lung cancer with recurrence into the trachea patient is status post palliative radiation therapy he has not been feeling well increased cough congestion shortness of breath came into the hospital was evaluated initially in the emergency department subsequently admitted into the floor patient required BiPAP support overnight with 10/5 and 50% oxygen now BiPAP is off he is on supplemental oxygen breathing relatively more comfortably but still get short of breath he did require extra dose of furosemide, he remains on breathing treatments and broad-spectrum antibiotics, his chest x-ray revealed pulmonary fibrosis bilateral infiltrate slight worsening compared to March was noted Objective - Vital Signs Vital signs: Vital Signs Temp 97.6 F 06/08/18 08:00 Pulse 80 06/08/18 08:00 Resp 20 06/08/18 08:00 BP 132/63 06/08/18 08:00 Pulse Ox 99 06/08/18 08:00 Intake & Output 06/07/18 06/08/18 06/08/18 18:59 06:59 18:59 Intake Total 270 0 Output Total 500 Balance -230 0 Weight 68 kg Intake: IV 50 Piperacillin-Tazobactam 3 50 .375 gm In Dextrose/Water 1 50ml.bag @ 12.5 mls/hr IVPB Q8HR [facility] Rx#: [id number] Oral 220 0 Output: Urine 500 Other: Voiding Method Diaper Diaper # Voids 1 1 - Exam General appearance: alert Head exam: Present: other (Mild ecchymosis right forehead) Eye exam: Present: normal appearance Neck exam: Present: normal inspection Respiratory exam: Present: wheezes, decreased breath sounds Cardiovascular Exam: Present: regular rate, normal rhythm GI/Abdominal exam: Present: soft. Absent: tenderness Extremities exam: Present: normal inspection. Absent: pedal edema, calf tenderness Neurological exam: Present: alert Psychiatric exam: Present: normal affect, normal mood Skin exam: Present: normal color - Labs CBC & Chem 7: 06/08/18 05:30 06/08/18 05:30 Labs: Abnormal Lab Results - Last 24 Hours (Table) 06/07/18 06/07/18 06/07/18 Range/Units 11:38 16:53 20:35 RBC (4.30-5.90) m/uL Hgb (13.0-17.5) gm/dL Hct (39.0-53.0) % MCHC (31.0-37.0) g/dL Neutrophils # (1.3-7.7) k/uL Lymphocytes # (1.0-4.8) k/uL Sodium (137-145) mmol/L Chloride (98-107) mmol/L BUN (9-20) mg/dL Glucose (74-99) mg/dL POC Glucose (mg/dL) 249 H 202 H 171 H (75-99) mg/dL Calcium (8.4-10.2) mg/dL 06/08/18 06/08/18 06/08/18 Range/Units 05:30 05:30 06:07 RBC 3.74 L (4.30-5.90) m/uL Hgb 10.9 L (13.0-17.5) gm/dL Hct 36.0 L (39.0-53.0) % MCHC 30.2 L (31.0-37.0) g/dL Neutrophils # 9.9 H (1.3-7.7) k/uL Lymphocytes # 0.1 L (1.0-4.8) k/uL Sodium 147 H (137-145) mmol/L Chloride 118 H (98-107) mmol/L BUN 34 H (9-20) mg/dL Glucose 125 H (74-99) mg/dL POC Glucose (mg/dL) 142 H (75-99) mg/dL Calcium 7.9 L (8.4-10.2) mg/dL Microbiology - Last 24 Hours (Table) 06/04/18 16:10 Blood Culture - Preliminary Blood No Growth after 72 hours Assessment and Plan Assessment: Acute hypoxic respirator failure Severe baseline COPD Bilateral pneumonia likely mixed bacterial as well as aspiration related Stage IV metastatic squamous cell lung cancer with recurrence into trachea Status post right upper lobe wedge resection for lung cancer History of CVA with hemiparesis Plan: GI service has been consulted for PEG tube placement, patient is being placed on Lovenox, which can be stopped 12 hour prior to PEG tube insertion Broad-spectrum antibiotics Respiratory: Continue suctioning and cleaning Bronchodilator Swallow evaluation, with close monitoring and observation and implementing aspiration precaution BiPAP as needed Further recommendations pending plan of care as per clinical response of the patient Agree with obtaining sputum for Gram stain is culture and sensitivity Time with Patient: Greater than 30
[2018-06-08] MEDS: LORATADINE 10 MG TAB PO SCH (11:40)
[2018-06-08 11:58] LABS: Glucose,Whole Blood 191 mg/dL (75-99)
[2018-06-08] MEDS: SODIUM CHLORIDE 0.9% 1,000 ML IV SCH (13:22)
[2018-06-08] MEDS: OXYBUTYNIN CHLORIDE 5 MG TAB PO SCH (15:37)
[2018-06-08 17:07] LABS: Glucose,Whole Blood 141 mg/dL (75-99)
[2018-06-08] MEDS: DEXTROSE 5% IN WATER 1,000 ML IV SCH (18:15)
[2018-06-08] MEDS: LEVOFLOXACIN 750MG-D5W PMX 750 MG in DEXTROSE/WATER 1 150ML.BAG IVPB SCH (21:03)
[2018-06-08] MEDS: ATORVASTATIN 10 MG TAB PO SCH (21:07)
[2018-06-08 21:13] LABS: Glucose,Whole Blood 139 mg/dL (75-99)
[2018-06-08] MEDS: MELATONIN 5 MG TABLET PO SCH (21:16)
--- NOTE | 2018-06-08 21:20 | PN ---
PROGRESS NOTE DATE OF SERVICE: 06/08/2018. INTERVAL HISTORY: This 73-year-old gentleman who was admitted with multiple medical problems found to have acute bilateral pneumonia possibly aspiration. Patient also had sepsis on presentation. The patient is not willing for any PEG tube initially. After thorough discussion with the family and the patient yesterday the patient is willing to undergo PEG tube insertion. Dr. Fulton is going to do the PEG tube insertion on Saturday. No chest pain. No palpitations. PAST MEDICAL HISTORY: Reviewed. REVIEW OF SYSTEMS: Cardiovascular: No angina or palpitations. Respirations: Occasional cough. GI: As mentioned earlier. no dysuria. Nervous System as mentioned earlier. CURRENT MEDICATIONS: Reviewed and include: 1. Tylenol 500 mg q.6h p.r.n. 2. DuoNeb q.i.d. and p.r.n. 3. Xanax 0.25 t.i.d. 4. Cordarone 20 mg daily. 5. Norvasc 5 mg p.o. 6. Aspirin 81 mg. 7. Lipitor 40 mg. 8. Pulmicort 1 mg b.i.d. 9. Vitamin D3 400 units b.i.d. 10.Vitamin B12 1000 mg p.o. daily. 11.Colace 100 mg q.h.s. 12.Lovenox 40 mg subcu b.i.d. 13.Perforomist 20 mg b.i.d. 14.Glucotrol 2.5 mg daily. 15.NovoLog. 16.Levemir 10 units subcu daily. 17.Levaquin 750 daily. 18.Claritin 10 mg. 19.Melatonin 5 mg q.h.s. 20.Solu-Medrol 60 IV every 6 hours. 21.Lopressor. 22.Ditropan 5 mg. 23.Protonix. 24.Zosyn 3.375 IV q.6h. 25.Desyrel 100 mg p.o. q.h.s. PHYSICAL EXAMINATION: Alert and oriented x2. Pulse 81, blood pressure 153/68, respirations 20, temperature 97.2, pulse ox 97% on 2 L. HEENT is conjunctivae normal. Oral mucosa moist. Neck is no jugular venous distention. No thyroid enlargement. No carotid bruit. Cardiovascular System: S1, S2 muffled. Respirations: Breath sounds diminished in the bases. A few scattered rhonchi and crackles. Expiratory wheezing also present, right more than the left. ABDOMEN: Soft, nontender. No mass. Legs: No edema and no swelling. Central nervous system: Diffusely weak. LAB STUDIES: WBC 10.5, hemoglobin 10.9, sodium 147, potassium 3.7. Glucose noted. ASSESSMENT: 1. Acute bilateral pneumonia possibly aspiration pneumonia with sepsis present on admission. 2. Acute hypoxic respiratory failure secondary to above as well as chronic obstructive pulmonary disease acute exacerbation. 3. Diabetes mellitus type 2. 4. Acute on chronic renal failure stage III. 5. Stage IV lung cancer. 6. Pulmonary fibrosis. 7. Right upper lobe lung cancer status post radiation and lumpectomy. 8. History of cerebrovascular incident x3 with right-sided weakness. 9. Dysphagia with aspiration. 10.Possible chronic hypoxic respiratory failure. 11.Stage II bilateral buttock ulcers. 12.NO CODE, NO CPR, NO VENT. RECOMMENDATIONS AND DISCUSSION: Recommend to continue current medications, continue with monitoring and symptomatic treatment. Otherwise at this time I recommend continue the current medication, continue symptomatic treatment. We will recommend 5% dextrose and continue to monitor. Otherwise the prognosis is guarded because of multiple complex medical issues and further recommendations to follow. MMODL / IJN: [id number] /
[2018-06-08] MEDS: METOPROLOL TARTRATE 25 MG TAB PO SCH (21:21)
[2018-06-08] MEDS: traZODone HCL 100 MG TAB PO SCH (21:21)
--- NOTE | 2018-06-08 22:32 | P.CONS ---
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 In the past few months since receiving radiation therapy for recurrent disease the patient has required multiple admissions for aspiration pneumonia. In the remote past the patient had had a CVA and at that time there was a concern that the patient would aspirate. However per the patient and his niece who is his caregiver the patient was able to modify his diet and use techniques to overcome problems with swallowing. The patient hadn't had any problems with swallowing until recent treatment of his disease. Since that time he has required multiple hospitalizations for aspiration pneumonia, for which she is currently being treated. No nausea or vomiting or abdominal pain however the patient has episodes of coughing and regurgitation of food when he tries to swallow. Review of Systems REVIEW OF SYSTEMS: CARDIOPULMONARY: Denies chest pain but has had cough, shortness of breath and sputum production. GENITOURINARY: No dysuria or hematuria. MUSCULOSKELETAL: That of for weakness. SKIN: Denies any new rashes or lesions, jaundice or pallor. PSYCHIATRIC: Denies any depression or anxiety. NEUROLOGY: Denies headache, denies any new focal deficits. EARS: No tinnitus, discharge or new hearing loss. NOSE: No discharge or congestion. EYES: No pain in eyes or change in vision. CONSTITUTIONAL: No recent weight loss. No fever, chills, night sweats. Past Medical History Past Medical History: Cancer, CVA/TIA, Diabetes Mellitus, GERD/Reflux, Hyperlipidemia, Hypertension, Pneumonia, Renal Disease Additional Past Medical History / Comment(s): Lung Cancer right upper lobe with radiation and lobectomy,. HX OF CVA X3 -RIGHT SIDED WEAKNESS, SPEECH DIFFICULT TO UNDERSTAND AT TIMES, W/C BOUND, ABLE TO PIVOT TO TRANSFER WITH ASSISTANCE, DIFFICULTY CHEWING AND SWALLOWING, HX OF ASPIRATION.,WEARS DEPENDS FOR OCC. INCONTINENCE., DDD, KIDNEY FUNCTION AT 50-60%, ENVIRONMENTAL ALLERGIES. PT LIVES AT [facility] -HAS OWN APARTMENT WITH 24 HOUR HELP., HAS DIZZINESS AND DIFFICULTY WITH VISION-WEARS PRISMS IN HIS EYE GLASSES. History of Any Multi-Drug Resistant Organisms: None Reported Past Surgical History: Appendectomy, Tonsillectomy Additional Past Surgical History / Comment(s): EYE SURGERY, right upper lobectomy for Ca 2016, spinal fusions x 2, gallstones removed. Past Anesthesia/Blood Transfusion Reactions: No Reported Reaction Past Psychological History: Depression Additional Psychological History / Comment(s): . Smoking Status: Former smoker Past Alcohol Use History: Rare Additional Past Alcohol Use History / Comment(s): started smoking 7. QUIT 2015 Past Drug Use History: None Reported - Past Family History Mother History Unknown: Yes Family Medical History: CVA/TIA Father History Unknown: Yes Family Medical History: No Reported History Brother(s) Family Medical History: Cancer Additional Family Medical History / Comment(s): MESOTHELIOMA LUNG CANCER Medications and Allergies Home Medications Medication Instructions Recorded Confirmed Type Cholecalciferol [Vitamin D3] 400 unit PO BID 01/26/16 06/04/18 History Simvastatin [Zocor] 10 mg PO HS 01/26/16 06/04/18 History traZODone HCL [Desyrel] 100 mg PO HS 01/26/16 06/04/18 History Metoprolol Tartrate [Lopressor] 25 mg PO HS 03/15/16 06/04/18 History Amiodarone [Cordarone] 200 mg PO DAILY 11/10/16 06/04/18 History Aspirin 81 mg PO DAILY 11/10/16 06/04/18 History Oxybutynin Chloride [Ditropan] 5 mg PO DAILY@1600 11/10/16 06/04/18 History glipiZIDE XL [Glucotrol XL] 2.5 mg PO DAILY@0700 11/10/16 06/04/18 History Dabigatran [Pradaxa] 150 mg PO BID 12/13/17 06/04/18 History Cetirizine HCl [Zyrtec] 10 mg PO DAILY@1100 03/15/18 06/04/18 History Cyanocobalamin (Vitamin B-12) 1,000 mcg PO DAILY@0700 03/15/18 06/04/18 History [Vitamin B-12] Docusate [Colace] 100 mg PO HS PRN 04/07/18 06/04/18 History amLODIPine [Norvasc] 5 mg PO DAILY@0700 04/07/18 06/04/18 History Famotidine [Pepcid] 20 mg PO BID 05/20/18 06/04/18 History Melatonin 5 mg PO HS 05/20/18 06/04/18 History Budesonide-Formot 160-4.5 Mcg 2 puff INHALATION RT-BID puff 05/23/18 06/04/18 Rx [Symbicort 160-4.5 Mcg Inhaler] Ipratropium-Albuterol Nebulize 3 ml INHALATION RT-QID #90 05/23/18 06/04/18 Rx [Duoneb 0.5 mg-3 mg/3 ml Soln] ampul.neb Albuterol Sulfate [Proair Hfa] 1 - 2 puff INHALATION RT-Q6H PRN 05/27/18 History Amoxicillin/Potassium Clav 1 tab PO DAILY 05/28/18 06/04/18 History [Augmentin 875-125 Tablet] Allergies Allergy/AdvReac Type Severity Reaction Status Date / Time No Known Allergies Allergy Verified 06/04/18 15:35 Physical Exam Vitals: Vital Signs Temp Pulse Pulse Pulse Pulse Resp BP 06/08/18 16:46 88 06/08/18 16:33 86 06/08/18 15:36 97.4 F L 81 20 06/08/18 11:32 96.9 F L 79 24 131/60 06/08/18 11:16 88 06/08/18 11:08 84 06/08/18 08:00 97.6 F 80 20 132/63 06/08/18 07:45 84 06/08/18 07:29 80 06/08/18 07:28 80 06/08/18 07:19 80 06/08/18 04:00 79 18 06/08/18 03:59 97.1 F L 77 18 146/65 06/08/18 00:00 97.5 F L 78 20 129/61 BP Pulse Ox 06/08/18 16:46 06/08/18 16:33 98 06/08/18 15:36 153/68 97 06/08/18 11:32 99 06/08/18 11:16 06/08/18 11:08 06/08/18 08:00 99 06/08/18 07:45 06/08/18 07:29 06/08/18 07:28 06/08/18 07:19 06/08/18 04:00 06/08/18 03:59 97 06/08/18 00:00 100 Intake and Output 06/08/18 06/08/18 06/08/18 06:59 14:59 22:59 Intake Total 370 0 Balance 370 0 Intake: IV 370 Piperacillin-Tazobactam 3 50 .375 gm In Dextrose/Water 1 50ml.bag @ 12.5 mls/hr IVPB Q8HR [facility] Rx#: [id number] Sodium Chloride 0.9% 1, 320 000 ml @ 40 mls/hr IV . Q24H [facility] Rx#:[id number] Oral 0 0 Other: Voiding Method Diaper Diaper Diaper # Voids 1 1 2 Weight 68 kg On physical examination, patient appears comfortable in no apparent distress. HEAD: Normocephalic, atraumatic. EYES: No scleral icterus. No conjunctival injection. MOUTH: No lesions, tongue midline. NECK: Trachea midline. CHEST: Coarse respiratory noises in all amador, with decreased air entry noted. HEART: Regular rate and rhythm. ABDOMEN: Soft. Bowel sounds are positive. No organomegaly. No guarding or rigidity. EXTREMITIES: No pedal edema. SKIN: No rashes, no jaundice. NEUROLOGIC: Alert and oriented. No focal deficits. Results CBC & Chem 7: 06/08/18 05:30 06/08/18 05:30 Labs: Abnormal Lab Results - Last 24 Hours (Table) 06/08/18 06/08/18 06/08/18 Range/Units 05:30 05:30 06:07 RBC 3.74 L (4.30-5.90) m/uL Hgb 10.9 L (13.0-17.5) gm/dL Hct 36.0 L (39.0-53.0) % MCHC 30.2 L (31.0-37.0) g/dL Neutrophils # 9.9 H (1.3-7.7) k/uL Lymphocytes # 0.1 L (1.0-4.8) k/uL Sodium 147 H (137-145) mmol/L Chloride 118 H (98-107) mmol/L BUN 34 H (9-20) mg/dL Glucose 125 H (74-99) mg/dL POC Glucose (mg/dL) 142 H (75-99) mg/dL Calcium 7.9 L (8.4-10.2) mg/dL 06/08/18 06/08/18 06/08/18 Range/Units 11:37 16:55 21:12 RBC (4.30-5.90) m/uL Hgb (13.0-17.5) gm/dL Hct (39.0-53.0) % MCHC (31.0-37.0) g/dL Neutrophils # (1.3-7.7) k/uL Lymphocytes # (1.0-4.8) k/uL Sodium (137-145) mmol/L Chloride (98-107) mmol/L BUN (9-20) mg/dL Glucose (74-99) mg/dL POC Glucose (mg/dL) 191 H 141 H 139 H (75-99) mg/dL Calcium (8.4-10.2) mg/dL Microbiology - Last 24 Hours (Table) 06/04/18 16:10 Blood Culture - Preliminary Blood No Growth after 96 hours Assessment and Plan (1) Aspiration pneumonia Narrative/Plan: Recurrent aspiration pneumonia in the setting of local regional treatment of metastatic squamous cell cancer of the lung. Current Visit: No Status: Acute Code(s): J69.0 - PNEUMONITIS DUE TO INHALATION OF FOOD AND VOMIT SNOMED Code(s): 177660758 (2) Metastatic squamous cell carcinoma Current Visit: Yes Status: Acute Priority: High Code(s): C79.9 - SECONDARY MALIGNANT NEOPLASM OF UNSPECIFIED SITE SNOMED Code(s): 151563859 (3) Anemia Narrative/Plan: Normocytic, normochromic with no signs or symptoms of GI bleeding the results evidence of iron deficiency however likely that patient's chronic disease plays a great role in her anemia. Current Visit: No Status: Acute Priority: Medium Code(s): D64.9 - ANEMIA, UNSPECIFIED SNOMED Code(s): 522115745 Plan: Supportive care Continue antibiotic treatment for aspiration pneumonia Nothing by mouth Plan on EGD with PEG placement, however given patient's local regional treatment for recurrence of squamous cell lung cancer into the trachea there may be stenosis which makes PEG tube placement during EGD not possible. If this is case will consult surgery for placement. Thank you for allowing us to participate in the care of this patient, we will continue to follow.
--- NOTE | 2018-06-08 23:11 | PN ---
PROGRESS NOTE DATE OF SERVICE: 06/08/2018. REASON FOR FOLLOWUP: 1. Pneumonia aspiration etiology. 2. Sacral wound. INTERVAL HISTORY: The patient is currently afebrile. He seems to be breathing comfortably. Denies significant chest pain. No nausea, vomiting, no abdominal pain or diarrhea. EXAMINATION: Blood pressure 153/68 with a pulse of 81, temperature 97.4. He is 97% on 2 L nasal cannula. General description is an elderly male lying in bed in no distress. Respiratory system unlabored breathing, decreased breath sounds. No wheeze or crackles. Heart S1, S2. Regular rate and rhythm. Abdomen soft, no tenderness. Extremities: No edema of the feet. LABS: White count normalized to 10.4, admission white count was 26.2, BUN of 34, creatinine is 1.19. Blood culture has been negative. DIAGNOSTIC IMPRESSION AND PLAN: 1. Patient with recurrent aspiration pneumonia. The patient white count responded to the Rocephin that will be continued. Hopefully finish therapy with oral antibiotic therapy. 2. Patient with a stage II sacral wound. Local wound care to continue with Calmoseptine lotion. Keep the area dry and off the pressure. MMODL / IJN: [id number] /
[2018-06-09] MEDS: methylPREDNISolone SOD SUCCI 125 MG/2 ML VIAL IV SCH ×3 (02:01→16:06)
[2018-06-09 05:59] LABS: Glucose,Whole Blood 152 mg/dL (75-99)
[2018-06-09] MEDS: amLODIPine 5 MG TAB PO SCH (05:59)
[2018-06-09] MEDS: INSULIN ASPART 100 UNIT/ML 1 ML 10 ML VIAL SQ SCH ×3 (06:00→17:06)
[2018-06-09] MEDS: PANTOPRAZOLE 40 MG TABLET PO SCH (06:01)
[2018-06-09 08:13] LABS: Basophils % (A) 0 %; Eosinophils # (A) 0.1 k/uL (0-0.7); Eosinophils % (A) 1 %; HCT 36.5 % (39.0-53.0); HGB 11.7 gm/dL (13.0-17.5); Hypochromasia Moderate; Lymphocytes # (A) 0.1 k/uL (1.0-4.8); Lymphocytes % (A) 1 %; MCH 29.8 pg (25.0-35.0); MCHC 32.1 g/dL (31.0-37.0); Mean Platelet Volume 7.6; Monocytes # (A) 0.6 k/uL (0-1.0); Monocytes % (A) 4 %; Neutrophils # (A) 12.6 k/uL (1.3-7.7); Neutrophils % (A) 93 %; Platelet Count 268 k/uL (150-450); RBC 3.92 m/uL (4.30-5.90); RDW 14.9 % (11.5-15.5); WBC 13.5 k/uL (3.8-10.6)
[2018-06-09 08:22] LABS: Calcium 8.2 mg/dL (8.4-10.2)
[2018-06-09 08:27] LABS: Potassium 4.3 mmol/L (3.5-5.1)
[2018-06-09] MEDS: IPRATROPIUM-ALBUTEROL 3 ML NEB INHALATION SCH ×4 (08:40→21:11)
[2018-06-09] MEDS: FORMOTEROL FUMARATE 20 MCG/2 ML NEBU INHALATION SCH ×2 (08:40→21:11)
[2018-06-09] MEDS: BUDESONIDE 1 MG/2 ML NEBU INHALATION SCH ×2 (08:40→21:11)
[2018-06-09] MEDS: ENOXAPARIN 40 MG/0.4 ML SYRINGE SQ SCH (09:00)
[2018-06-09] MEDS: INSULIN DETEMIR 100 UNIT/ML 10 ML VIAL SQ SCH (09:00)
[2018-06-09] MEDS: PIPERACILLIN-TAZOBACTAM 3.375 GM in DEXTROSE/WATER 1 50ML.BAG IVPB SCH ×2 (09:00→16:06)
[2018-06-09] MEDS: ASPIRIN 81 MG PO SCH (09:10)
[2018-06-09] MEDS: CYANOCOBALAMIN 500 MCG TAB PO SCH (09:10)
[2018-06-09] MEDS: CHOLECALCIFEROL 400 UNIT TAB PO SCH (09:10)
[2018-06-09] MEDS: AMIODARONE 200 MG TAB PO SCH (09:10)
[2018-06-09 10:23] VITALS: RESP 18
[2018-06-09 10:49] VITALS: BMI 23.8
--- NOTE | 2018-06-09 10:55 | P.PN ---
Subjective Progress Note Date: 06/09/18 Principal diagnosis: aspiration pneumonia, squamous cell metastatic lung cancer Pt seen in f/u, he is denying any specific physical c/o, no pain. I asked him about compassionate use immunotherapy-as this requires numerous forms to filled out with pt information-and he seems reluctant. Objective - Vital Signs Vital signs: Vital Signs Temp 98.2 F 06/09/18 08:00 Pulse 88 06/09/18 09:03 Resp 18 06/09/18 08:00 BP 169/72 06/09/18 08:00 Pulse Ox 90 L 06/09/18 08:00 Intake & Output 06/08/18 06/09/18 06/09/18 18:59 06:59 18:59 Intake Total 370 375 Balance 370 375 Weight 75.5 kg Intake: IV 370 Piperacillin-Tazobactam 3 50 .375 gm In Dextrose/Water 1 50ml.bag @ 12.5 mls/hr IVPB Q8HR FELIX Rx#: [id number] Sodium Chloride 0.9% 1, 320 000 ml @ 40 mls/hr IV . Q24H FELIX Rx#:[id number] Intake, IV Titration 375 Amount Dextrose 5% in Water 1, 225 000 ml @ 75 mls/hr IV . [id number] FELIX Rx#:[id number] Levofloxacin 750Mg-D5w 100 Pmx 750 mg In Dextrose/ Water 1 150ml.bag @ 100 mls/hr IVPB Q24H FELIX Rx#: [id number] Piperacillin-Tazobactam 3 50 .375 gm In Dextrose/Water 1 50ml.bag @ 12.5 mls/hr IVPB Q8HR FELIX Rx#: [id number] Oral 0 Other: Voiding Method Diaper Diaper Diaper # Voids 2 1 - Constitutional General appearance: Present: average body habitus, cooperative, mild distress - EENT Eyes: Present: anicteric sclerae - Respiratory Respiratory: bilateral: rhonchi - Cardiovascular Heart sounds: normal: S1, S2 - Gastrointestinal General gastrointestinal: Present: normal bowel sounds, soft - Integumentary Integumentary: Present: pale - Musculoskeletal Musculoskeletal: Present: generalized weakness - Labs CBC & Chem 7: 06/09/18 06:34 06/09/18 06:34 Labs: Abnormal Lab Results - Last 24 Hours (Table) 06/08/18 06/08/18 06/08/18 Range/Units 11:37 16:55 21:12 WBC (3.8-10.6) k/uL RBC (4.30-5.90) m/uL Hgb (13.0-17.5) gm/dL Hct (39.0-53.0) % Neutrophils # (1.3-7.7) k/uL Lymphocytes # (1.0-4.8) k/uL Sodium (137-145) mmol/L Chloride (98-107) mmol/L BUN (9-20) mg/dL Glucose (74-99) mg/dL POC Glucose (mg/dL) 191 H 141 H 139 H (75-99) mg/dL Calcium (8.4-10.2) mg/dL 06/09/18 06/09/18 06/09/18 Range/Units 05:55 06:34 06:34 WBC 13.5 H (3.8-10.6) k/uL RBC 3.92 L (4.30-5.90) m/uL Hgb 11.7 L (13.0-17.5) gm/dL Hct 36.5 L (39.0-53.0) % Neutrophils # 12.6 H (1.3-7.7) k/uL Lymphocytes # 0.1 L (1.0-4.8) k/uL Sodium 146 H (137-145) mmol/L Chloride 118 H (98-107) mmol/L BUN 36 H (9-20) mg/dL Glucose 153 H (74-99) mg/dL POC Glucose (mg/dL) 152 H (75-99) mg/dL Calcium 8.2 L (8.4-10.2) mg/dL Microbiology - Last 24 Hours (Table) 06/04/18 16:10 Blood Culture - Preliminary Blood No Growth after 96 hours Assessment and Plan (1) Metastatic squamous cell carcinoma Narrative/Plan: Dr. Durán discussed case with pt and niece last week. Paperwork for compassionate use pebrolizumab will be given to pt and niece will be contacted. If they want to proceed that will have to be completed. Will f/u. Pt continues to refuse PEG. Pt does not want chemotherapy. Current Visit: Yes Status: Acute Priority: High Code(s): C79.9 - SECONDARY MALIGNANT NEOPLASM OF UNSPECIFIED SITE SNOMED Code(s): 332274503 (2) Neutrophilic leukocytosis Narrative/Plan: Persistent, likely r/t aspiration. Pt is on abx, CBC continues to be monitored Current Visit: Yes Status: Acute Priority: High Code(s): D72.9 - DISORDER OF WHITE BLOOD CELLS, UNSPECIFIED SNOMED Code(s): 861745362 (3) Anemia Narrative/Plan: Mild, not requiring intervention Current Visit: No Status: Acute Priority: Medium Code(s): D64.9 - ANEMIA, UNSPECIFIED SNOMED Code(s): 686444903 Plan: Cont supportive care and treatment of pneumonia
[2018-06-09] MEDS: LORATADINE 10 MG TAB PO SCH (11:20)
[2018-06-09] MEDS: DEXTROSE 5% IN WATER 1,000 ML IV SCH (11:28)
[2018-06-09 11:31] LABS: Glucose,Whole Blood 174 mg/dL (75-99)
[2018-06-09] MEDS: OXYBUTYNIN CHLORIDE 5 MG TAB PO SCH (15:56)
[2018-06-09 16:25] LABS: Glucose,Whole Blood 180 mg/dL (75-99)
[2018-06-09] MEDS: LEVOFLOXACIN 750MG-D5W PMX 750 MG in DEXTROSE/WATER 1 150ML.BAG IVPB SCH (17:06)
--- NOTE | 2018-06-09 17:36 | PN ---
PROGRESS NOTE DATE OF SERVICE: 06/09/18 Mr. Joesph Lopez is seen and examined on 6th floor. This patient has history of 73- years old. This patient has a history of squamous cell cancer stage IV with new lesions in the trachea, which have been biopsied and status post radiation therapy palliative. The patient has ongoing worsening of aspiration-related issues and recurrent admission related to aspiration pneumonia, has been hospitalized with another episode. He did respond with the antibiotics, but however, due to ongoing aspiration issues, the patient is being considered for PEG tube placement. The patient prefers the PEG tube to be inserted at [facility] and likely will be transferred over there. Care plan discussed with the primary service as well as niece at length. Labs reviewed. Medications reviewed. Cultures are no growth so far, white cell count is 13,500, hemoglobin and hematocrit 11 and 36, platelets are 268,000. Sodium is 140, potassium 4.3, BUN and creatinine 36 and 1.11. MEDICATIONS: Reviewed, which include Tylenol as needed, albuterol, DuoNeb updraft 4 times a day, amiodarone 200 mg daily, Norvasc 5 mg daily, aspirin, Lipitor, Pulmicort 2 times a day, also on vitamin D3, B12 with D5 75 mL an hour, Lovenox 40 mg subcu q.12h, glipizide is 2.5 mg daily, Levaquin 750 mg daily, Solu-Medrol 60 q.6 hourly, also on metoprolol 25 mg daily, Protonix 40 mg, Zosyn 3.375 q.6 hourly. On examination, most recent vitals include blood pressure is 142/68, respiratory 18, pulse of 82, temp is 98, oxygen 90% on room air. HEENT atraumatic. Pharynx is clear. Narrow pharyngeal opening is present. Neck is supple without lymphadenopathy, jugular venous distention, or bruit. Lungs bilateral good air entry is present without significant rales, rhonchi or rub. Heart: Regular rate and rhythm, S1, S2 audible. Abdomen is soft. No rebound, rigidity. Extremities: +1 pedal pulses. Neurological examination otherwise awake and alert. IMPRESSION: 1. Severe sepsis associated with the healthcare system pneumonia and aspiration pneumonia. 2. High risk of recurrent aspiration. The patient is requesting PEG tube placed at [facility]. Patient likely will be transferred over there later on today. 3. Metastatic squamous cell cancer, stage IV. 4. Chronic anemia. 5. Generalized weakness and medical debility. PLAN: Recommendation as above. Continue supportive care. Increase activity as tolerated. Labs reviewed and medications reviewed. Will follow. MELANIE / SHAHRAM: [id number] /
[2018-06-09 17:44] VITALS: BP 151/67; PULSE 78; TEMP 96.3
[2018-06-09] MEDS ORDERED: hydrALAZINE HCL 20 MG/ML 1 ML VIAL IVP PRN (18:12)
--- NOTE | 2018-06-09 18:12 | P.PN ---
Subjective Progress Note Date: 06/09/18 Principal diagnosis: Aspiration pneumonia, oropharyngeal dysphagia Patient lying in bed comfortably. No acute events overnight per nursing. The patient had been scheduled for PEG tube placement today but this time the patient and his family members are refusing. They would like transferred to [facility] where the patient has received all of his care for further treatment. Discussed at length with the patient and his niece who is his primary caregiver. Objective - Vital Signs Vital signs: Vital Signs Temp 96.3 F L 06/09/18 16:20 Pulse 78 06/09/18 16:20 Resp 18 06/09/18 16:20 BP 151/67 06/09/18 16:20 Pulse Ox 96 06/09/18 16:20 Intake & Output 06/08/18 06/09/18 06/09/18 18:59 06:59 18:59 Intake Total 370 375 650 Balance 370 375 650 Weight 75.5 kg 75.5 kg Intake: IV 370 50 Piperacillin-Tazobactam 3 50 50 .375 gm In Dextrose/Water 1 50ml.bag @ 12.5 mls/hr IVPB Q8HR FELIX Rx#: [id number] Sodium Chloride 0.9% 1, 320 000 ml @ 40 mls/hr IV . Q24H FELIX Rx#:[id number] Intake, IV Titration 375 600 Amount Dextrose 5% in Water 1, 225 600 000 ml @ 75 mls/hr IV . [id number] FELIX Rx#:[id number] Levofloxacin 750Mg-D5w 100 Pmx 750 mg In Dextrose/ Water 1 150ml.bag @ 100 mls/hr IVPB Q24H FELIX Rx#: [id number] Piperacillin-Tazobactam 3 50 .375 gm In Dextrose/Water 1 50ml.bag @ 12.5 mls/hr IVPB Q8HR FELIX Rx#: [id number] Oral 0 Other: Voiding Method Diaper Diaper Diaper # Voids 2 1 - Exam On physical examination, patient appears comfortable in no apparent distress. HEAD: Normocephalic, atraumatic. EYES: No scleral icterus. No conjunctival injection. MOUTH: No lesionse. NECK: Trachea midline. CHEST: Coarse respiratory noises in all lung amador, with associated wheezing appreciated.. HEART: Regular rate and rhythm. ABDOMEN: Soft, obese. Bowel sounds are positive. No organomegaly. No guarding or rigidity. - Labs CBC & Chem 7: 06/09/18 06:34 06/09/18 06:34 Labs: Abnormal Lab Results - Last 24 Hours (Table) 06/08/18 06/09/18 06/09/18 Range/Units 21:12 05:55 06:34 WBC 13.5 H (3.8-10.6) k/uL RBC 3.92 L (4.30-5.90) m/uL Hgb 11.7 L (13.0-17.5) gm/dL Hct 36.5 L (39.0-53.0) % Neutrophils # 12.6 H (1.3-7.7) k/uL Lymphocytes # 0.1 L (1.0-4.8) k/uL Sodium (137-145) mmol/L Chloride (98-107) mmol/L BUN (9-20) mg/dL Glucose (74-99) mg/dL POC Glucose (mg/dL) 139 H 152 H (75-99) mg/dL Calcium (8.4-10.2) mg/dL 06/09/18 06/09/18 06/09/18 Range/Units 06:34 11:28 16:24 WBC (3.8-10.6) k/uL RBC (4.30-5.90) m/uL Hgb (13.0-17.5) gm/dL Hct (39.0-53.0) % Neutrophils # (1.3-7.7) k/uL Lymphocytes # (1.0-4.8) k/uL Sodium 146 H (137-145) mmol/L Chloride 118 H (98-107) mmol/L BUN 36 H (9-20) mg/dL Glucose 153 H (74-99) mg/dL POC Glucose (mg/dL) 174 H 180 H (75-99) mg/dL Calcium 8.2 L (8.4-10.2) mg/dL Microbiology - Last 24 Hours (Table) 06/04/18 16:10 Blood Culture - Preliminary Blood No Growth after 96 hours Assessment and Plan (1) Aspiration pneumonia Narrative/Plan: Recurrent aspiration pneumonia in the setting of local regional treatment of metastatic squamous cell cancer of the lung. Plan for PEG tube placement today however this was canceled after the patient and family members refutes to sign consent. Current Visit: No Status: Acute Code(s): J69.0 - PNEUMONITIS DUE TO INHALATION OF FOOD AND VOMIT SNOMED Code(s): 296420389 (2) Metastatic squamous cell carcinoma Current Visit: Yes Status: Acute Priority: High Code(s): C79.9 - SECONDARY MALIGNANT NEOPLASM OF UNSPECIFIED SITE SNOMED Code(s): 360782474 (3) Anemia Narrative/Plan: Normocytic, normochromic with no signs or symptoms of GI bleeding the results evidence of iron deficiency however likely that patient's chronic disease plays a great role in her anemia. Current Visit: No Status: Acute Priority: Medium Code(s): D64.9 - ANEMIA, UNSPECIFIED SNOMED Code(s): 972657649 Plan: Supportive care Continue antibiotic treatment for aspiration pneumonia Nothing by mouth PEG tube placement today was canceled. The case was discussed at length with the patient and his niece who is bedside. They're aware that an endoscopy assisted PEG tube placement may not be possible in the setting of recent radiation therapy and because of this fact would prefer to be at [facility] where patient has received all of his care in the past for treatment of his recurrent squamous cell lung CA. The plan was for EGD today for evaluation and possible PEG tube placement but given their concerns agree with the treatment plan. We will standby at this time, if any further questions or concerns arise please feel free to call us.
[2018-06-09] MEDS ORDERED: METOPROLOL TARTRATE 5 MG/5 ML VIAL IVP SCH (18:15)
--- NOTE | 2018-06-09 20:42 | DS ---
DISCHARGE SUMMARY DATE OF SERVICE: 06/09/2018 FINAL DIAGNOSES: 1. Acute bilateral pneumonia with possible aspiration pneumonia with sepsis, present on admission. 2. Acute hypoxic respiratory failure secondary to above as well as chronic obstructive pulmonary disease, acute exacerbation, present on admission. 3. Diabetes mellitus, type 2. 4. Dysphagia for PEG tube placement. 5. Acute on chronic renal failure, stage III. 6. Stage IV lung cancer. 7. Pulmonary fibrosis. 8. Right upper lobe lung cancer, status post radiation and lumpectomy. 9. History of cerebrovascular incident x3 and right-sided weakness. 10.Dysphagia with aspiration. 11.Possible chronic hypoxic respiratory failure. 12.Stage II bilateral gluteal ulcers. 13.NO CODE, NO CPR, NO VENT. DISCHARGE DISPOSITION: The patient will be discharged in stable condition with guarded prognosis. The patient will be transferred to [facility]. Total time taken 35 minutes. HISTORY OF PRESENT ILLNESS: This 73-year-old gentleman with a past medical history of multiple medical problems, was admitted with bilateral aspiration pneumonia, sepsis, hypoxic respiratory failure. Evaluation revealed tiffany aspiration and the patient was later made n.p.o. and case was discussed with family and patient on multiple occasions. The family and the patient would like to proceed with a PEG tube at this time. Because of the gastroenterology concerns, I discussed the case with [facility], where the patient was evaluated previously. The patient will be transferred for further evaluation and treatment, including possible PEG tube placement. On exam, vitals are stable. CARDIOVASCULAR SYSTEM: S1, S2 muffled. ABDOMEN: Soft. NERVOUS SYSTEM: No focal deficit. CURRENT MEDICATIONS: 1. Tylenol p.r.n. 2. Albuterol and Atrovent q.i.d. and p.r.n. 3. Pulmicort 1 mg b.i.d. 4. Dextrose 5%, 75 mL/hour. 5. Lovenox 40 mg subcutaneously b.i.d. 6. Perforomist 20 mcg b.i.d. 7. Apresoline 10 mg IV q.4 p.r.n. 8. Levemir 10 units subcutaneously daily. 9. Levaquin 750 IV daily. 10.Solu-Medrol 60 IV q.6. 11.Lopressor 2.5 IV q.8 p.r.n. 12.Protonix 40 mg daily. 13.Zosyn 3.375 IV q.8. 14. MMSULEMAL / IJN: [id number] /
--- NOTE | 2018-06-09 22:42 | PN ---
PROGRESS NOTE DATE OF SERVICE: 06/09/2018 REASON FOR FOLLOWUP: 1. Aspiration pneumonia. 2. Stage II sacral wound. INTERVAL HISTORY: The patient was seen on rounds this morning. The patient has been afebrile. The patient is breathing more comfortably. Complaining of some constipation, but no nausea, no vomiting. EXAMINATION: Blood pressure 151/67 with a pulse of 78, temperature 96.3. He is 96% on room air. General description is an elderly male lying in bed in no distress. RESPIRATORY SYSTEM: Unlabored breathing with decreased breath sounds, no wheeze. HEART: S1, S2. Regular. ABDOMEN: Soft, minimal tenderness lower abdominal area. LABS: BUN of 26, creatinine 1.11. Blood culture has been negative. Sputum not collected. DIAGNOSTIC IMPRESSION AND PLAN: 1. Patient admitted to the hospital with sepsis with concern for possible aspiration pneumonia. Sputum blood culture have been negative. Overall improvement on Zosyn and Levaquin. We will continue the patient on oral Augmentin for 1 week with close outpatient followup. 2. Patient with a stage II sacral wound . Keep the area dry. MMODL / IJN: [id number] /
== END 2018-06-09 21:16 | disposition short-term general hospital (02) | DRG 871 ==
LOC: EC 15:23 → 6SEL 17:43
PROVIDERS: ADMIT Hospitalist; ATTEND Hospitalist
DX: A41.9 Sepsis, unspecified organism (principal); J69.0 Pneumonitis due to inhalation of food and vomit; J96.21 Acute and chronic respiratory failure with hypoxia; R65.21 Severe sepsis with septic shock; C34.11 Malignant neoplasm of upper lobe, right bronchus or lung; E46 Unspecified protein-calorie malnutrition; I69.351 Hemiplegia and hemiparesis following cerebral infarction affecting right dominant side; J44.0 Chronic obstructive pulmonary disease with (acute) lower respiratory infection; J44.1 Chronic obstructive pulmonary disease with (acute) exacerbation; N17.9 Acute kidney failure, unspecified; C79.9 Secondary malignant neoplasm of unspecified site; D63.8 Anemia in other chronic diseases classified elsewhere; E11.22 Type 2 diabetes mellitus with diabetic chronic kidney disease; E78.5 Hyperlipidemia, unspecified; Z68.23 Body mass index [BMI] 23.0-23.9, adult; Z87.891 Personal history of nicotine dependence; Z87.01 Personal history of pneumonia (recurrent); Z91.81 History of falling; Z92.3 Personal history of irradiation; F32.9 Major depressive disorder, single episode, unspecified; F41.9 Anxiety disorder, unspecified; I13.10 Hypertensive heart and chronic kidney disease without heart failure, with stage 1 through stage 4 chronic kidney disease, or unspecified chronic kidney disease; I69.391 Dysphagia following cerebral infarction; I69.328 Other speech and language deficits following cerebral infarction; R13.10 Dysphagia, unspecified; K21.9 Gastro-esophageal reflux disease without esophagitis; K59.00 Constipation, unspecified; L89.152 Pressure ulcer of sacral region, stage 2; L89.322 Pressure ulcer of left buttock, stage 2; L89.312 Pressure ulcer of right buttock, stage 2; N18.3 Chronic kidney disease, stage 3 (moderate); R13.12 Dysphagia, oropharyngeal phase; Z79.02 Long term (current) use of antithrombotics/antiplatelets; Z79.4 Long term (current) use of insulin; Z79.51 Long term (current) use of inhaled steroids; Z79.82 Long term (current) use of aspirin; Z79.899 Other long term (current) drug therapy; Z80.1 Family history of malignant neoplasm of trachea, bronchus and lung; Z98.1 Arthrodesis status; J84.10 Pulmonary fibrosis, unspecified; R32 Unspecified urinary incontinence; Z66 Do not resuscitate; Z90.2 Acquired absence of lung [part of]; R26.9 Unspecified abnormalities of gait and mobility
CPT/HCPCS: 36415; 71045; 71046; 80048; 80053; 82550; 82553; 83036; 83605; 83880; 84484; 85025; 85610; 85730; 87040; 93005; 94640; 94660; 94760; 96365; 96375; 99291

== ENCOUNTER 2018-06-22 19:20 | Emergency (ER) | payer MEDICARE, OTHER ==
--- NOTE | 2018-06-22 19:59 | ED ---
General Adult HPI - General Source: patient, EMS, RN notes reviewed Mode of arrival: EMS Limitations: no limitations <Catalina Vora - Last Filed: 06/22/18 21:17> <Charanjit Strong - Last Filed: 06/22/18 21:34> - General Chief complaint: Recheck/Abnormal Lab/Rx Stated complaint: PEG TUBE ISSUE Time Seen by Provider: 06/22/18 19:26 - History of Present Illness Initial comments: This is a 73-year-old male who presents to the emergency department with chief complaint of PEG tube issue. Patient has a history of throat cancer. He was hospitalized a couple of weeks ago with aspiration pneumonia. Patient was transported to [place] for placement of a PEG tube to prevent aspiration pneumonia in the future. PEG tube was placed on June 13. Patient's niece is present and contributes to history. She states that since Saturday patient has been staying at [facility] on the [place]. She states that in the evenings he becomes very anxious. She states that patient has had a binder around his abdomen to cover up the PEG tube to prevent patient from pulling it out. Employees at [facility] told niece that patient soiled himself earlier today. They laundered his binder and after it was washed, they did not put it back on the patient. Patient did pull the PEG tube out. It is reported the patient had a 20-Welsh PEG tube. Patient denies any fevers or chills, chest pain or shortness of breath, abdominal pain, nausea or vomiting. (Catalina Vora) - Related Data Home Medications Medication Instructions Recorded Confirmed Cholecalciferol [Vitamin D3] 400 unit PO BID 01/26/16 06/04/18 Simvastatin [Zocor] 10 mg PO HS 01/26/16 06/04/18 traZODone HCL [Desyrel] 100 mg PO HS 01/26/16 06/04/18 Metoprolol Tartrate [Lopressor] 25 mg PO HS 03/15/16 06/04/18 Amiodarone [Cordarone] 200 mg PO DAILY 11/10/16 06/04/18 Aspirin 81 mg PO DAILY 11/10/16 06/04/18 Oxybutynin Chloride [Ditropan] 5 mg PO DAILY@1600 11/10/16 06/04/18 glipiZIDE XL [Glucotrol XL] 2.5 mg PO DAILY@0700 11/10/16 06/04/18 Dabigatran [Pradaxa] 150 mg PO BID 12/13/17 06/04/18 Cetirizine HCl [Zyrtec] 10 mg PO DAILY@1100 03/15/18 06/04/18 Cyanocobalamin (Vitamin B-12) 1,000 mcg PO DAILY@0700 03/15/18 06/04/18 [Vitamin B-12] Docusate [Colace] 100 mg PO HS PRN 04/07/18 06/04/18 amLODIPine [Norvasc] 5 mg PO DAILY@0700 04/07/18 06/04/18 Famotidine [Pepcid] 20 mg PO BID 05/20/18 06/04/18 Melatonin 5 mg PO HS 05/20/18 06/04/18 Albuterol Sulfate [Proair Hfa] 1 - 2 puff INHALATION RT-Q6H PRN 05/27/18 Amoxicillin/Potassium Clav 1 tab PO DAILY 05/28/18 06/04/18 [Augmentin 875-125 Tablet] Previous Rx's Medication Instructions Recorded Budesonide-Formot 160-4.5 Mcg 2 puff INHALATION RT-BID puff 05/23/18 [Symbicort 160-4.5 Mcg Inhaler] Ipratropium-Albuterol Nebulize 3 ml INHALATION RT-QID #90 05/23/18 [Duoneb 0.5 mg-3 mg/3 ml Soln] ampul.neb Allergies Allergy/AdvReac Type Severity Reaction Status Date / Time No Known Allergies Allergy Verified 06/22/18 19:29 Review of Systems ROS Other: All systems not noted in ROS Statement are negative. <Catalina Vora - Last Filed: 06/22/18 21:17> ROS Other: All systems not noted in ROS Statement are negative. <Charanjit Strong - Last Filed: 06/22/18 21:34> ROS Statement: Those systems with pertinent positive or pertinent negative responses have been documented in the HPI. Past Medical History Past Medical History: Cancer, CVA/TIA, Diabetes Mellitus, GERD/Reflux, Hyperlipidemia, Hypertension, Pneumonia, Renal Disease Additional Past Medical History / Comment(s): Lung Cancer right upper lobe with radiation and lobectomy,. HX OF CVA X3 -RIGHT SIDED WEAKNESS, SPEECH DIFFICULT TO UNDERSTAND AT TIMES, W/C BOUND, ABLE TO PIVOT TO TRANSFER WITH ASSISTANCE, DIFFICULTY CHEWING AND SWALLOWING, HX OF ASPIRATION.,WEARS DEPENDS FOR OCC. INCONTINENCE., DDD, KIDNEY FUNCTION AT 50-60%, ENVIRONMENTAL ALLERGIES. PT LIVES AT [facility] -HAS OWN APARTMENT WITH 24 HOUR HELP., HAS DIZZINESS AND DIFFICULTY WITH VISION-WEARS PRISMS IN HIS EYE GLASSES. History of Any Multi-Drug Resistant Organisms: None Reported Past Surgical History: Appendectomy, Tonsillectomy Additional Past Surgical History / Comment(s): EYE SURGERY, right upper lobectomy for Ca 2016, spinal fusions x 2, gallstones removed. Past Anesthesia/Blood Transfusion Reactions: No Reported Reaction Past Psychological History: Depression Smoking Status: Former smoker Past Alcohol Use History: Rare Past Drug Use History: None Reported - Past Family History Mother History Unknown: Yes Family Medical History: CVA/TIA Father History Unknown: Yes Family Medical History: No Reported History Brother(s) Family Medical History: Cancer Additional Family Medical History / Comment(s): MESOTHELIOMA LUNG CANCER <Catalina Vora - Last Filed: 06/22/18 21:17> General Exam Limitations: no limitations <Catalina Vora - Last Filed: 06/22/18 21:17> <Charanjit Strong - Last Filed: 06/22/18 21:34> - General Exam Comments Initial Comments: General: Awake and alert, well-developed; in no apparent distress. Rhonchorous sounding with breathing. Niece is at bedside and states that this is baseline for patient. Patient states he has been breathing like this for 10 years. HEENT: Head atraumatic, normocephalic. Pupils are equal, round and reactive to light. Extraocular movements intact. Oropharynx moist without erythema or exudate. Neck: Supple. Normal ROM. Cardiovascular: Regular rate and rhythm. No murmurs, rubs or gallops. Chest symmetrical. Respiratory: Lungs clear to auscultation bilaterally. No wheezes, rales or rhonchi. Normal respiratory effort with no use of accessory muscles. Abdomen: Soft, non-tender, non-distended. No rigidity, rebound or guarding. Normal bowel sounds in all 4 quadrants. Catheter replacing PEG tube within stoma. Musculoskeletal: Normal ROM, no tenderness bilateral upper and lower extremities. Skin: [place], warm and dry without rashes or lesions. Neurological: Alert and oriented x3. CN II-XII grossly intact. Speech is limited. Soft voice. Patient able to communicate yes vs no. (Catalina Vora) Vital Signs 06/22/18 06/22/18 06/22/18 19:26 20:29 21:29 Temperature 98.2 F 98.5 F Pulse Rate 92 88 88 Respiratory 20 18 18 Rate Blood Pressure 155/74 152/78 156/88 O2 Sat by Pulse 97 98 97 Oximetry Medical Decision Making - Radiology Data Radiology results: report reviewed <Catalina Vora - Last Filed: 06/22/18 21:17> <Charanjit Strong - Last Filed: 06/22/18 21:34> - Medical Decision Making This is a 73-year-old male who presents to the emergency department with chief complaint of PEG tube issue. Patient had the PEG tube placed on June 13. Patient pulled the PEG tube out today and the fpc replaced it with a Castanon catheter. PEG tube was reinserted by attending physician, Dr. Strong. A computed tomography scan with PEG tube contrast was obtained to confirm placement. This revealed gastrostomy tube within a good position without contrast extravasion. Incidental finding of increase of lung nodules. This was relayed to patient and his niece and recommended proper follow-up regarding this. Patient's vital signs have been stable and he is in acute distress. He will be discharged back to [facility] on the [place]. He is in agreement. All questions answered. (Catalina Vora) Patient is being evaluated for dislodged PEG tube. Patient is 9 days postop PEG tube placement and [facility]. He presents from the fpc after PEG tube was displaced, fpc staff did put Csatanon catheter in the track and sent the patient for evaluation. When I evaluated the patient, there was Castanon catheter in place. I discussed the case with on-call surgeon given the fact this is a very new PEG tube and the track is not fully formed. He does recommend attempting placement given that the Castanon catheter was placed by fpc staff. 20-Welsh PEG tube was reinserted with sterile precautions. No complications. Patient tolerated well. CT obtained with contrast which is negative for any extravasation, PEG tube is placed properly inside the gastric lumen. (Charanjit Strong) - Radiology Data CT abdomen and pelvis without contrast impression: Gastrostomy tube appears in good position. No contrast activation. No free air. Multiple lower lobe pulmonary nodules. These nodules appear increased compared to 03/15/2018 computed tomography scan. (Catalina Vora) Disposition Is patient prescribed a controlled substance at d/c from ED?: No Time of Disposition: 21:21 <Catalina Vora - Last Filed: 06/22/18 21:17> <Charanjit Strong - Last Filed: 06/22/18 21:34> Clinical Impression: PEG tube malfunction Disposition: HOME SELF-CARE Condition: Good Instructions: How to Use and Care for Your PEG Tube (ED) Additional Instructions: As discussed, please follow-up to address pulmonary nodules. Please follow up with primary care provider within 1-2 days. Return to emergency department if symptoms should worsen or any concerns arise. Referrals: Alexander Mcdaniel MD [Primary Care Provider] - 1-2 days
[2018-06-22] MEDS ORDERED: IOPAMIDOL-300 CONTRAST 30 ML VIAL (ORAL USE) PO PRN (20:15)
[2018-06-22 20:52] VITALS: PULSE 88; RESP 18
--- NOTE | 2018-06-22 21:10 | CT ---
EXAMINATION TYPE: CT abdomen pelvis wo con DATE OF EXAM: 06/22/2018 COMPARISON: None HISTORY: PEG TUBE PLACEMENT CT DLP: 897.3 mGycm Automated exposure control for dose reduction was used. TECHNIQUE: Helical acquisition of images was performed from the lung bases through the pelvis. FINDINGS: Lung bases show multiple small pulmonary nodules that measure up to 1.5 cm. Nodules are mostly on the right side. There is minimal pleural thickening at the lung bases. There is no pericardial effusion. Liver shows no focal defect. There are clips from cholecystectomy. There is no evidence of a splenic mass. There is no pancreatic mass. There is a gastrostomy tube note d in good position in the body of the stomach. There is some contrast in the stomach and the duodenum . There is no adrenal mass. Kidneys have normal size without evidence of hydronephrosis. There is no re troperitoneal adenopathy. Abdominal aorta is atheromatous. There is no mesenteric adenopathy or edema . I see no intestinal wall thickening. There are no dilated loops. There is no sign of pneumoperitone um. Bladder distends smoothly. There is no evidence of the intestinal contrast extravasation. Lumbar spine is intact. I see no bony destructive process. There is no sign of free air. IMPRESSION: GASTROSTOMY TUBE APPEARS IN GOOD POSITION. NO CONTRAST EXTRAVASATION. NO FREE AIR. MULTIPLE LOWER LOBE PULMONARY NODULES. THESE NODULES APPEAR INCREASED COMPARED TO 03/15/2018 CT SCAN.
[2018-06-22 21:31] VITALS: BP 156/88; TEMP 98.5
== END 2018-06-22 21:45 | disposition home or self-care (01) ==
LOC: EC 19:20
DX: K94.23 Gastrostomy malfunction (principal); R91.8 Other nonspecific abnormal finding of lung field; E78.5 Hyperlipidemia, unspecified; I10 Essential (primary) hypertension; E11.9 Type 2 diabetes mellitus without complications; K21.9 Gastro-esophageal reflux disease without esophagitis; I69.351 Hemiplegia and hemiparesis following cerebral infarction affecting right dominant side; F32.9 Major depressive disorder, single episode, unspecified; Z87.891 Personal history of nicotine dependence; Z79.01 Long term (current) use of anticoagulants; Z79.82 Long term (current) use of aspirin; Z79.84 Long term (current) use of oral hypoglycemic drugs; Z79.899 Other long term (current) drug therapy; Z91.048 Other nonmedicinal substance allergy status; Z85.118 Personal history of other malignant neoplasm of bronchus and lung; Z90.2 Acquired absence of lung [part of]; Z92.3 Personal history of irradiation; Z87.01 Personal history of pneumonia (recurrent); Z87.448 Personal history of other diseases of urinary system; Z90.49 Acquired absence of other specified parts of digestive tract; Z87.39 Personal history of other diseases of the musculoskeletal system and connective tissue; Z80.1 Family history of malignant neoplasm of trachea, bronchus and lung
CPT/HCPCS: 43760; 74176; 99283

== ENCOUNTER 2018-07-04 17:21 | Inpatient (IN) | payer MEDICARE, OTHER ==
[2018-07-04] MEDS ORDERED: MIDAZOLAM 1 MG/ML 5 ML VIAL IV STA ×3 (17:31→19:02)
[2018-07-04] MEDS ORDERED: IPRATROPIUM 0.5 MG/2.5 ML NEBU INHALATION STA (17:39)
[2018-07-04] MEDS ORDERED: LEVOFLOXACIN 750MG-D5W PMX 750 MG in DEXTROSE/WATER 1 150ML.BAG IVPB STA (17:39)
[2018-07-04] MEDS ORDERED: methylPREDNISolone SOD SUCCI 125 MG/2 ML VIAL IV STA (17:39)
[2018-07-04] MEDS ORDERED: ALBUTEROL NEBULIZED 2.5 MG/3 ML INHALATION STA (17:39)
[2018-07-04] MEDS ORDERED: SODIUM CHLORIDE 0.9% 1,000 ML IV STA (17:39)
[2018-07-04] MEDS ORDERED: PIPERACILLIN-TAZOBACTAM 3.375 GM in DEXTROSE/WATER 1 50ML.BAG IVPB STA (17:39)
[2018-07-04] MEDS ORDERED: VANCOMYCIN 1,500 MG in SODIUM CHLORIDE 0.9% 250 ML IVPB STA (17:43)
[2018-07-04] MEDS: SODIUM CHLORIDE 0.9% 1,000 ML IV STA ×2 (17:47→21:42)
--- NOTE | 2018-07-04 17:51 | ED ---
SOB HPI - General Chief Complaint: Shortness of Breath Stated Complaint: resp distress Time Seen by Provider: 07/04/18 17:36 Source: EMS, old records reviewed Mode of arrival: EMS Limitations: altered mental status - History of Present Illness Initial Comments: This is a 73-year-old male to the ER for evaluation of hypoxia and obtunded level, altered mental status. Patient has significant respiratory history is significant medical history including significant CVA. Patient's brought in to the ER for evaluation of low pulse ox, patient is unable to give history history obtained from patient's chart as well as EMS. EMS states there called to evaluate patient regarding low oxygen saturation. Afebrile patient to be severely obtunded with low oxygen when they arrived, patient placed on BiPAP and brought to ER MD Complaint: shortness of breath -: hour(s) (3) Severity: severe Consistency: constant Improves With: oxygen, bronchodilators Known History Of: COPD, congestive heart failure, recurrent pneumonia, aspiration pneumonia Context: recent URI, choking/aspiration, recent illness Associated Symptoms: denies other symptoms Treatments Prior to Arrival: oxygen, bronchodilator, NIPPV - Related Data Home Medications Medication Instructions Recorded Confirmed Cholecalciferol [Vitamin D3] 400 unit PEG/G-TUBE BID 01/26/16 07/04/18 Simvastatin [Zocor] 10 mg PO HS 01/26/16 07/04/18 Metoprolol Tartrate [Lopressor] 25 mg PO HS 03/15/16 07/04/18 Amiodarone [Cordarone] 200 mg PEG/G-TUBE DAILY 11/10/16 07/04/18 Aspirin 81 mg PEG/G-TUBE DAILY@0900 11/10/16 07/04/18 Oxybutynin Chloride [Ditropan] 5 mg PEG/G-TUBE DAILY@1700 PRN 11/10/16 07/04/18 Cetirizine HCl [Zyrtec] 10 mg PO DAILY@0903/15/18 07/04/18 Cyanocobalamin (Vitamin B-12) 1,000 mcg PO DAILY@0900 03/15/18 07/04/18 [Vitamin B-12] Docusate [Colace] 100 mg PEG/G-TUBE BID 04/07/18 07/04/18 amLODIPine [Norvasc] 5 mg PO DAILY@0900 04/07/18 07/04/18 Melatonin 5 mg PEG/G-TUBE HS PRN 05/20/18 07/04/18 Albuterol Inhaler [Ventolin Hfa 2 puff INHALATION RT-Q4H PRN 07/04/18 07/04/18 Inhaler] Apixaban [Eliquis] 5 mg PEG/G-TUBE BID PRN 07/04/18 07/04/18 Budesonide-Formot 160-4.5 Mcg 2 puff INHALATION RT-DAILY 07/04/18 07/04/18 [Symbicort 160-4.5 Mcg Inhaler] Hyoscyamine Elixir [Levsin 1 ml PEG/G-TUBE Q8HR PRN 07/04/18 07/04/18 0.125MG/ML Drops] Insulin Glargine,Hum.rec.anlog 10 unit SQ DAILY@2100 MDD SEE 07/04/18 07/04/18 [Basaglar [place] U-100] COMMENTS Ipratropium-Albuterol Nebulize 3 ml INHALATION RT-QID 07/04/18 07/04/18 [Duoneb 0.5 mg-3 mg/3 ml Soln] Omeprazole [PriLOSEC] 20 mg PEG/G-TUBE DAILY 07/04/18 07/04/18 Oxybutynin Chloride [Ditropan Oral 2.5 ml PEG/G-TUBE BID 07/04/18 07/04/18 Soln] Vits A and D/White Pet/Lanolin [A 1 applic TOPICAL DIRECTED 07/04/18 07/04/18 and D Ointment] Zinc Oxide [Desitin] 1 applic TOPICAL DAILY 07/04/18 07/04/18 amLODIPine [Norvasc] 5 mg PEG/G-TUBE DAILY@2100 07/04/18 07/04/18 clonazePAM [KlonoPIN] 0.5 mg PEG/G-TUBE BID MDD for 14 07/04/18 07/04/18 days (started 06/24/18) glipiZIDE [Glucotrol] 2.5 mg PEG/G-TUBE DAILY@0900 07/04/18 07/04/18 glipiZIDE [Glucotrol] 2.5 mg PEG/G-TUBE DAILY@1700 PRN 07/04/18 07/04/18 traMADol HCl [Ultram] 50 mg PEG/G-TUBE BID PRN 07/04/18 07/04/18 Allergies Allergy/AdvReac Type Severity Reaction Status Date / Time No Known Allergies Allergy Verified 07/04/18 17:48 Review of Systems ROS Statement: Those systems with pertinent positive or pertinent negative responses have been documented in the HPI. ROS Other: All systems not noted in ROS Statement are negative. Past Medical History Past Medical History: Cancer, CVA/TIA, Diabetes Mellitus, GERD/Reflux, Hyperlipidemia, Hypertension, Pneumonia, Renal Disease Additional Past Medical History / Comment(s): Lung Cancer right upper lobe with radiation and lobectomy,. HX OF CVA X3 -RIGHT SIDED WEAKNESS, SPEECH DIFFICULT TO UNDERSTAND AT TIMES, W/C BOUND, ABLE TO PIVOT TO TRANSFER WITH ASSISTANCE, DIFFICULTY CHEWING AND SWALLOWING, HX OF ASPIRATION.,WEARS DEPENDS FOR OCC. INCONTINENCE., DDD, KIDNEY FUNCTION AT 50-60%, ENVIRONMENTAL ALLERGIES. PT LIVES AT [facility] -HAS OWN APARTMENT WITH 24 HOUR HELP., HAS DIZZINESS AND DIFFICULTY WITH VISION-WEARS PRISMS IN HIS EYE GLASSES. History of Any Multi-Drug Resistant Organisms: None Reported Past Surgical History: Appendectomy, Tonsillectomy Additional Past Surgical History / Comment(s): EYE SURGERY, right upper lobectomy for Ca 2016, spinal fusions x 2, gallstones removed. Past Anesthesia/Blood Transfusion Reactions: No Reported Reaction Past Psychological History: Depression Smoking Status: Former smoker Past Alcohol Use History: Rare Past Drug Use History: None Reported - Past Family History Mother History Unknown: Yes Family Medical History: CVA/TIA Father History Unknown: Yes Family Medical History: No Reported History Brother(s) Family Medical History: Cancer Additional Family Medical History / Comment(s): MESOTHELIOMA LUNG CANCER General Exam Limitations: altered mental status General appearance: alert, anxious, obtunded, in distress Head exam: Present: atraumatic, normocephalic, normal inspection Eye exam: Present: normal appearance, PERRL, EOMI. Absent: scleral icterus, conjunctival injection, periorbital swelling ENT exam: Present: normal exam, mucous membranes moist Neck exam: Present: normal inspection. Absent: tenderness, meningismus, lymphadenopathy Respiratory exam: Present: respiratory distress, wheezes, rales, accessory muscle use, decreased breath sounds, prolonged expiratory. Absent: normal lung sounds bilaterally, rhonchi, stridor Cardiovascular Exam: Present: normal rhythm, tachycardia, normal heart sounds. Absent: systolic murmur, diastolic murmur, rubs, gallop, clicks GI/Abdominal exam: Present: soft, normal bowel sounds. Absent: distended, tenderness, guarding, rebound, rigid Extremities exam: Present: normal inspection, full ROM, normal capillary refill. Absent: tenderness, pedal edema, joint swelling, calf tenderness Back exam: Present: normal inspection Neurological exam: Present: alert, oriented X3, CN II-XII intact Psychiatric exam: Present: normal affect, normal mood Skin exam: Present: warm, dry, intact, normal color. Absent: rash Course Vital Signs 07/04/18 07/04/18 07/04/18 17:21 17:31 17:36 Temperature 97.5 F L Pulse Rate 88 93 103 H Respiratory 40 H 40 H 18 Rate Blood Pressure 87/50 103/55 89/52 O2 Sat by Pulse 54 L 72 L 100 Oximetry 07/04/18 07/04/18 07/04/18 17:44 17:55 18:05 Temperature Pulse Rate 99 96 92 Respiratory 18 18 18 Rate Blood Pressure 93/53 95/53 91/50 O2 Sat by Pulse 100 98 97 Oximetry 07/04/18 07/04/18 18:33 18:55 Temperature Pulse Rate 95 93 Respiratory 18 Rate Blood Pressure 100/57 96/51 O2 Sat by Pulse 99 96 Oximetry - Reevaluation(s) Reevaluation #1: 07/04/18 19:11 Medical records thoroughly reviewed Reevaluation #2: 07/04/18 19:11 Decision was made to make and inability patient upon arrival secondary to obtunded level as well as hypoxia and unresponsiveness Reevaluation #3: 07/04/18 19:11 Patient is arousing currently, during active neurological movements, need sedation Procedures - Intubation Time Out Performed: Yes Laryngoscope: Alma Size: 4 ET Tube Size: 7.5 ET Tube Uncuffed: No Tube Secured Location: teeth Tube Placement Confirmation: visualized tube passing through cords, equal breath sounds bilaterally, no breath sounds over epigastrium, confirmation by capnometry Patient Tolerated Procedure: well Intubation Complications: none Medical Decision Making - Medical Decision Making 73 male the ER for evaluation, patient's brought in secondary to hypoxic respiratory failure. Whether aspirational versus medical accommodation of both. Patient is intubated secondary to being obtunded and unresponsiveness. Patient will admit to ICU for cardiopulmonary monitoring and hemodynamic status - Lab Data Result diagrams: 07/04/18 17:27 07/04/18 17:27 Lab Results 07/04/18 07/04/18 07/04/18 Range/Units 17:27 17:27 17:27 WBC 28.6 H (3.8-10.6) k/uL RBC 4.39 (4.30-5.90) m/uL Hgb 12.6 L (13.0-17.5) gm/dL Hct 41.4 (39.0-53.0) % MCV 94.3 (80.0-100.0) fL MCH 28.7 (25.0-35.0) pg MCHC 30.5 L (31.0-37.0) g/dL RDW 15.4 (11.5-15.5) % Plt Count 582 H (150-450) k/uL Neutrophils % 85 % Lymphocytes % 8 % Monocytes % 4 % Eosinophils % 1 % Basophils % 1 % Neutrophils # 24.2 H (1.3-7.7) k/uL Lymphocytes # 2.4 (1.0-4.8) k/uL Monocytes # 1.0 (0-1.0) k/uL Eosinophils # 0.2 (0-0.7) k/uL Basophils # 0.2 (0-0.2) k/uL Manual Slide Review Performed Hypochromasia Moderate PT (9.0-12.0) sec INR (<1.2) APTT (22.0-30.0) sec Sample Site ABG pH (7.35-7.45) ABG pCO2 (35-45) mmHg ABG pO2 (83-108) mmHg ABG HCO3 (21-25) mmol/L ABG Total CO2 (19-24) mmol/L ABG O2 Saturation (94-97) % ABG Base Excess mmol/L Adonis Test FiO2 % Sodium 137 (137-145) mmol/L Potassium 5.5 H (3.5-5.1) mmol/L Chloride 100 (98-107) mmol/L Carbon Dioxide 26 (22-30) mmol/L Anion Gap 11 mmol/L BUN 40 H (9-20) mg/dL Creatinine 1.30 H (0.66-1.25) mg/dL Est GFR (CKD-EPI)AfAm 63 (>60 ml/min/1.73 sqM) Est GFR (CKD-EPI)NonAf 55 (>60 ml/min/1.73 sqM) Glucose 190 H (74-99) mg/dL Calcium 8.7 (8.4-10.2) mg/dL Magnesium 2.5 H (1.6-2.3) mg/dL Total Bilirubin 0.7 (0.2-1.3) mg/dL AST 42 (17-59) U/L ALT 43 (21-72) U/L Alkaline Phosphatase 115 (38-126) U/L Total Creatine Kinase 32 L (55-170) U/L CK-MB (CK-2) 2.4 (0.0-2.4) ng/mL CK-MB (CK-2) Rel Index 7.5 Troponin I <0.012 (0.000-0.034) ng/mL NT-Pro-B Natriuret Pep pg/mL Total Protein 6.4 (6.3-8.2) g/dL Albumin 3.4 L (3.5-5.0) g/dL Urine Color Urine Appearance (Clear) Urine pH (5.0-8.0) Ur Specific Pierce (1.001-1.035) Urine Protein (Negative) Urine Glucose (UA) (Negative) Urine Ketones (Negative) Urine Blood (Negative) Urine Nitrite (Negative) Urine Bilirubin (Negative) Urine Urobilinogen (<2.0) mg/dL Ur Leukocyte Esterase (Negative) 07/04/18 07/04/18 07/04/18 Range/Units 17:27 17:27 17:27 WBC (3.8-10.6) k/uL RBC (4.30-5.90) m/uL Hgb (13.0-17.5) gm/dL Hct (39.0-53.0) % MCV (80.0-100.0) fL MCH (25.0-35.0) pg MCHC (31.0-37.0) g/dL RDW (11.5-15.5) % Plt Count (150-450) k/uL Neutrophils % % Lymphocytes % % Monocytes % % Eosinophils % % Basophils % % Neutrophils # (1.3-7.7) k/uL Lymphocytes # (1.0-4.8) k/uL Monocytes # (0-1.0) k/uL Eosinophils # (0-0.7) k/uL Basophils # (0-0.2) k/uL Manual Slide Review Hypochromasia PT 10.5 (9.0-12.0) sec INR 1.1 (<1.2) APTT 26.3 (22.0-30.0) sec Sample Site ABG pH (7.35-7.45) ABG pCO2 (35-45) mmHg ABG pO2 (83-108) mmHg ABG HCO3 (21-25) mmol/L ABG Total CO2 (19-24) mmol/L ABG O2 Saturation (94-97) % ABG Base Excess mmol/L Adonis Test FiO2 % Sodium (137-145) mmol/L Potassium (3.5-5.1) mmol/L Chloride (98-107) mmol/L Carbon Dioxide (22-30) mmol/L Anion Gap mmol/L BUN (9-20) mg/dL Creatinine (0.66-1.25) mg/dL Est GFR (CKD-EPI)AfAm (>60 ml/min/1.73 sqM) Est GFR (CKD-EPI)NonAf (>60 ml/min/1.73 sqM) Glucose (74-99) mg/dL Calcium (8.4-10.2) mg/dL Magnesium (1.6-2.3) mg/dL Total Bilirubin (0.2-1.3) mg/dL AST (17-59) U/L ALT (21-72) U/L Alkaline Phosphatase (38-126) U/L Total Creatine Kinase (55-170) U/L CK-MB (CK-2) (0.0-2.4) ng/mL CK-MB (CK-2) Rel Index Troponin I (0.000-0.034) ng/mL NT-Pro-B Natriuret Pep 4480 pg/mL Total Protein (6.3-8.2) g/dL Albumin (3.5-5.0) g/dL Urine Color Yellow Urine Appearance Clear (Clear) Urine pH 7.0 (5.0-8.0) Ur Specific Pierce 1.013 (1.001-1.035) Urine Protein Trace H (Negative) Urine Glucose (UA) Negative (Negative) Urine Ketones Negative (Negative) Urine Blood Negative (Negative) Urine Nitrite Negative (Negative) Urine Bilirubin Negative (Negative) Urine Urobilinogen <2.0 (<2.0) mg/dL Ur Leukocyte Esterase Negative (Negative) 07/04/18 Range/Units 18:08 WBC (3.8-10.6) k/uL RBC (4.30-5.90) m/uL Hgb (13.0-17.5) gm/dL Hct (39.0-53.0) % MCV (80.0-100.0) fL MCH (25.0-35.0) pg MCHC (31.0-37.0) g/dL RDW (11.5-15.5) % Plt Count (150-450) k/uL Neutrophils % % Lymphocytes % % Monocytes % % Eosinophils % % Basophils % % Neutrophils # (1.3-7.7) k/uL Lymphocytes # (1.0-4.8) k/uL Monocytes # (0-1.0) k/uL Eosinophils # (0-0.7) k/uL Basophils # (0-0.2) k/uL Manual Slide Review Hypochromasia PT (9.0-12.0) sec INR (<1.2) APTT (22.0-30.0) sec Sample Site RRA ABG pH 7.28 L (7.35-7.45) ABG pCO2 58 H (35-45) mmHg ABG pO2 70 L (83-108) mmHg ABG HCO3 27 H (21-25) mmol/L ABG Total CO2 29 H (19-24) mmol/L ABG O2 Saturation 91.0 L (94-97) % ABG Base Excess 0.0 mmol/L Adonis Test Yes FiO2 100 % Sodium (137-145) mmol/L Potassium (3.5-5.1) mmol/L Chloride (98-107) mmol/L Carbon Dioxide (22-30) mmol/L Anion Gap mmol/L BUN (9-20) mg/dL Creatinine (0.66-1.25) mg/dL Est GFR (CKD-EPI)AfAm (>60 ml/min/1.73 sqM) Est GFR (CKD-EPI)NonAf (>60 ml/min/1.73 sqM) Glucose (74-99) mg/dL Calcium (8.4-10.2) mg/dL Magnesium (1.6-2.3) mg/dL Total Bilirubin (0.2-1.3) mg/dL AST (17-59) U/L ALT (21-72) U/L Alkaline Phosphatase (38-126) U/L Total Creatine Kinase (55-170) U/L CK-MB (CK-2) (0.0-2.4) ng/mL CK-MB (CK-2) Rel Index Troponin I (0.000-0.034) ng/mL NT-Pro-B Natriuret Pep pg/mL Total Protein (6.3-8.2) g/dL Albumin (3.5-5.0) g/dL Urine Color Urine Appearance (Clear) Urine pH (5.0-8.0) Ur Specific Pierce (1.001-1.035) Urine Protein (Negative) Urine Glucose (UA) (Negative) Urine Ketones (Negative) Urine Blood (Negative) Urine Nitrite (Negative) Urine Bilirubin (Negative) Urine Urobilinogen (<2.0) mg/dL Ur Leukocyte Esterase (Negative) - EKG Data -: EKG Interpreted by Me (EKG shows sinus tachycardia rate of 101, GA 190, QRS 134, QTC 504) EKG shows normal: sinus rhythm Rate: normal - Radiology Data Radiology results: report reviewed (Chest x-rays improved from prior, no acute disease), image reviewed Critical Care Time Critical Care Time: Yes Total Critical Care Time: 31 Disposition Clinical Impression: Acute exacerbation of chronic obstructive airways disease, Adult respiratory distress syndrome, Altered mental status, Hypoxia, Acute respiratory failure Disposition: ADMITTED IP TO THIS HOSP Condition: Critical Is patient prescribed a controlled substance at d/c from ED?: No Referrals: Alexander Mcdnaiel MD [Primary Care Provider] - 1-2 days
[2018-07-04 17:53] LABS: Appearance,Urine Clear (Clear); Bilirubin,Urine Negative (Negative); Blood,Urine Negative (Negative); Color,Urine Yellow; Glucose,Urine (UA) Negative (Negative); Ketones,Urine Negative (Negative); Leukocyte Esterase,Urine Negative (Negative); Nitrite,Urine Negative (Negative); Protein,Urine Trace (Negative); Specific Gravity,Urine 1.013 (1.001-1.035); Urobilinogen,Urine <2.0 mg/dL (<2.0)
[2018-07-04 17:58] LABS: Basophils # (A) 0.2 k/uL (0-0.2); Basophils % (A) 1 %; Eosinophils # (A) 0.2 k/uL (0-0.7); Eosinophils % (A) 1 %; HCT 41.4 % (39.0-53.0); HGB 12.6 gm/dL (13.0-17.5); Hypochromasia Moderate; Lymphocytes # (A) 2.4 k/uL (1.0-4.8); Lymphocytes % (A) 8 %; MCH 28.7 pg (25.0-35.0); MCHC 30.5 g/dL (31.0-37.0); MCV 94.3 fL (80.0-100.0); Mean Platelet Volume 6.9; Monocytes % (A) 4 %; Neutrophils # (A) 24.2 k/uL (1.3-7.7); Neutrophils % (A) 85 %; Platelet Count 582 k/uL (150-450); RBC 4.39 m/uL (4.30-5.90); RDW 15.4 % (11.5-15.5); WBC 28.6 k/uL (3.8-10.6)
[2018-07-04 18:02] LABS: Albumin 3.4 g/dL (3.5-5.0); Calcium 8.7 mg/dL (8.4-10.2); Magnesium 2.5 mg/dL (1.6-2.3); Potassium 5.5 mmol/L (3.5-5.1); Total Bilirubin 0.7 mg/dL (0.2-1.3); Total Protein 6.4 g/dL (6.3-8.2)
[2018-07-04 18:05] LABS: INR 1.1 (<1.2); Partial Thromboplastin Time 26.3 sec (22.0-30.0); Prothrombin Time 10.5 sec (9.0-12.0)
[2018-07-04 18:11] LABS: ABG HCO3 27 mmol/L (21-25); ABG PCO2 58 mmHg (35-45); ABG PH 7.28 (7.35-7.45); ABG PO2 70 mmHg (83-108); ABG TCO2 29 mmol/L (19-24)
--- NOTE | 2018-07-04 18:12 | XR ---
EXAMINATION TYPE: XR chest 1V DATE OF EXAM: 07/04/2018 COMPARISON: 06/07/2018 HISTORY: Unresponsive TECHNIQUE: Single frontal view of the chest is obtained. FINDINGS: Endotracheal tube is 5 cm from the vladimir. There is patchy airspace infiltrate in the left midlung. There is no heart failure. I see no pleural effusion. There are multiple old right-sided ri b fractures. IMPRESSION: Left perihilar pulmonary infiltrate unchanged. There is some clearing of right upper lob e infiltrate compared to last exam.
[2018-07-04 18:15] LABS: Creatine Kinase 32 U/L (55-170)
[2018-07-04] MEDS ORDERED: fentaNYL (PF) 50 MCG/ML 2 ML AMP IV STA ×2 (18:20→19:02)
[2018-07-04] MEDS ORDERED: VANCOMYCIN IV PER PHARMACY 1 EACH MISC MISCELLANE PRN (18:21)
[2018-07-04 18:28] LABS: Creatine Kinase MB 2.4 ng/mL (0.0-2.4); Troponin I <0.012 ng/mL (0.000-0.034)
[2018-07-04] MEDS ORDERED: NALOXONE 0.4 MG/ML 1 ML VIAL IV PRN (19:07)
[2018-07-04] MEDS: IPRATROPIUM-ALBUTEROL 3 ML NEB INHALATION SCH (19:41)
[2018-07-04] MEDS: MIDAZOLAM 2 MG/2 ML VIAL IV STA ×2 (20:52→21:43)
[2018-07-04 21:37] LABS: Glucose,Whole Blood 224 mg/dL (75-99)
[2018-07-04] MEDS: PROPOFOL 1,000 MG in EMPTY BAG 1 BAG IV SCH (21:42)
[2018-07-04] MEDS: SODIUM CHLORIDE 0.9% 1,000 ML IV SCH (21:43)
[2018-07-04] MEDS ORDERED: SODIUM CHLORIDE 0.9% 1,000 ML IV ONE ×2 (21:45→23:00)
[2018-07-04 22:09] LABS: Calcium 7.5 mg/dL (8.4-10.2); Potassium 4.7 mmol/L (3.5-5.1)
[2018-07-04] MEDS: NOREPINEPHRINE 4 MG in SODIUM CHLORIDE 0.9% 250 ML IV SCH (22:12)
[2018-07-05] MEDS ORDERED: INSULIN ASPART 100 UNIT/ML 1 ML 10 ML VIAL SQ SCH
[2018-07-05] MEDS: NOREPINEPHRINE 4 MG in SODIUM CHLORIDE 0.9% 250 ML IV SCH ×7 (02:09→10:53)
[2018-07-05] MEDS: PROPOFOL 1,000 MG in EMPTY BAG 1 BAG IV SCH ×3 (02:09→22:34)
[2018-07-05] MEDS: SODIUM CHLORIDE 0.9% 1,000 ML IV SCH ×5 (03:31→15:10)
[2018-07-05 04:18] LABS: Glucose,Whole Blood 257 mg/dL (75-99)
[2018-07-05] MEDS: INSULIN ASPART 100 UNIT/ML 1 ML 10 ML VIAL SQ SCH ×5 (04:23→20:40)
[2018-07-05 04:38] LABS: Albumin 2.2 g/dL (3.5-5.0); Calcium 6.7 mg/dL (8.4-10.2); Magnesium 1.8 mg/dL (1.6-2.3); Phosphorus 4.2 mg/dL (2.5-4.5); Potassium 4.5 mmol/L (3.5-5.1); Total Bilirubin 0.7 mg/dL (0.2-1.3); Total Protein 4.5 g/dL (6.3-8.2)
[2018-07-05 05:06] LABS: HCT 35.9 % (39.0-53.0); HGB 10.5 gm/dL (13.0-17.5); Hypochromasia Marked; MCHC 29.4 g/dL (31.0-37.0); MCV 98.6 fL (80.0-100.0); Macrocytosis Slight; Mean Platelet Volume 7.1; Platelet Count 416 k/uL (150-450); RBC 3.64 m/uL (4.30-5.90); RDW 15.1 % (11.5-15.5); WBC 24.5 k/uL (3.8-10.6)
[2018-07-05 05:44] LABS: Band Neutrophils % 30 %; Lymphocytes # (M) 0.25 k/uL (1.0-4.8); Metamyelocytes # (M) 0.49 k/uL (0); Metamyelocytes % 2 %; Monocytes # (M) 0.49 k/uL (0-1.0); Neutrophils % (M) 65 %; Nucleated Red Blood Cells 0 /100 WBC (0-0); Total Cells Counted 100
[2018-07-05 05:53] VITALS: BMI 25.9
[2018-07-05] MEDS ORDERED: Magnesium Replacement Protocol 1 EACH MISC MISCELLANE PRN (06:05)
--- NOTE | 2018-07-05 07:09 | XR ---
EXAMINATION TYPE: XR chest 1V portable DATE OF EXAM: 07/05/2018 HISTORY: Tube placement. REFERENCE: Previous study dated 07/04/2018. FINDINGS: The patient's ET tube remains in place, unchanged in appearance. Lung volumes are prominent. The heart is enlarged. There is vascular congestion and worsening interst itial change. No definite pleural fluid is seen. IMPRESSION: 1. COPD. 2. WORSENING CHANGES OF CONGESTIVE HEART FAILURE.
[2018-07-05 07:37] LABS: ABG Base Excess -11.7 mmol/L; ABG HCO3 18 mmol/L (21-25); ABG Oxygen Saturation 92.7 % (94-97); ABG PCO2 54 mmHg (35-45); ABG PO2 74 mmHg (83-108); ABG TCO2 19 mmol/L (19-24)
[2018-07-05] MEDS: IPRATROPIUM-ALBUTEROL 3 ML NEB INHALATION SCH ×4 (08:24→19:18)
[2018-07-05] MEDS: CHLORHEXIDINE GLUCONATE 15 ML CUP MUCOUS MEM SCH ×2 (09:11→20:40)
[2018-07-05] MEDS: PANTOPRAZOLE 40 MG/10 ML VIAL IV SCH (09:11)
[2018-07-05] MEDS: ENOXAPARIN 40 MG/0.4 ML SYRINGE SQ SCH (09:12)
[2018-07-05] MEDS: MAGNESIUM SULFATE-D5W PMX 1 GM in DEXTROSE/WATER 1 100ML.BAG IVPB SCH ×2 (09:12→10:51)
[2018-07-05 09:26] LABS: Glucose,Whole Blood 257 mg/dL (75-99)
--- NOTE | 2018-07-05 09:26 | P.CNPUL ---
History of Present Illness Consult date: 07/05/18 Reason for consult: dyspnea, cough, COPD, hypoxemia, pneumonia, lung mass Chief complaint: Altered mental status, acute hypoxic respiratory failure History of present illness: Mr. 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 patient had some chemo and radiation therapy afterwards patient has a relapse of the scope, 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, patient has a 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 however post to the radiation therapy no problems associated with aspiration progressively started getting worse with recurrent aspiration pneumonia requiring placement of PEG tube, exact details of the the initial events are not available but appears that patient probably aspirated followed by altered mental status which is appears to be likely related to hypercapnia and hypoxia, and during my evaluation patient noted to have significant hypercapnic hypoxic respiratory failure even on respirator ventilator changes changes has been done patient is very hypotensive with low urine output aggressive fluid resuscitation were done followed by infusion off vasopressors due to severe tachypnea patient required propofol drip as well as for agitation prompting placement of central line and A-line has a medical necessity, Review of Systems ROS unobtainable: due to endotracheal tube Past Medical History Past Medical History: Cancer, CVA/TIA, Diabetes Mellitus, GERD/Reflux, Hyperlipidemia, Hypertension, Pneumonia, Renal Disease Additional Past Medical History / Comment(s): Lung Cancer right upper lobe with radiation and lobectomy,. HX OF CVA X3 -RIGHT SIDED WEAKNESS, SPEECH DIFFICULT TO UNDERSTAND AT TIMES, W/C BOUND, ABLE TO PIVOT TO TRANSFER WITH ASSISTANCE, DIFFICULTY CHEWING AND SWALLOWING, HX OF ASPIRATION.,WEARS DEPENDS FOR OCC. INCONTINENCE., DDD, KIDNEY FUNCTION AT 50-60%, ENVIRONMENTAL ALLERGIES. PT LIVES AT [facility] -HAS OWN APARTMENT WITH 24 HOUR HELP., HAS DIZZINESS AND DIFFICULTY WITH VISION-WEARS PRISMS IN HIS EYE GLASSES. History of Any Multi-Drug Resistant Organisms: None Reported Past Surgical History: Appendectomy, Tonsillectomy Additional Past Surgical History / Comment(s): EYE SURGERY, right upper lobectomy for Ca 2016, spinal fusions x 2, gallstones removed. Past Anesthesia/Blood Transfusion Reactions: No Reported Reaction Smoking Status: Never smoker - Past Family History Mother History Unknown: Yes Family Medical History: CVA/TIA Father History Unknown: Yes Family Medical History: No Reported History Brother(s) Family Medical History: Cancer Additional Family Medical History / Comment(s): MESOTHELIOMA LUNG CANCER Medications and Allergies Home Medications Medication Instructions Recorded Confirmed Type Cholecalciferol [Vitamin D3] 400 unit PEG/G-TUBE BID 01/26/16 07/04/18 History Simvastatin [Zocor] 10 mg PO HS 01/26/16 07/04/18 History Metoprolol Tartrate [Lopressor] 25 mg PO HS 03/15/16 07/04/18 History Amiodarone [Cordarone] 200 mg PEG/G-TUBE DAILY 11/10/16 07/04/18 History Aspirin 81 mg PEG/G-TUBE DAILY@0900 11/10/16 07/04/18 History Oxybutynin Chloride [Ditropan] 5 mg PEG/G-TUBE DAILY@1700 PRN 11/10/16 07/04/18 History Cetirizine HCl [Zyrtec] 10 mg PO DAILY@0900 03/15/18 07/04/18 History Cyanocobalamin (Vitamin B-12) 1,000 mcg PO DAILY@0900 03/15/18 07/04/18 History [Vitamin B-12] Docusate [Colace] 100 mg PEG/G-TUBE BID 04/07/18 07/04/18 History amLODIPine [Norvasc] 5 mg PO DAILY@0900 04/07/18 07/04/18 History Melatonin 5 mg PEG/G-TUBE HS PRN 05/20/18 07/04/18 History Albuterol Inhaler [Ventolin Hfa 2 puff INHALATION RT-Q4H PRN 07/04/18 07/04/18 History Inhaler] Apixaban [Eliquis] 5 mg PEG/G-TUBE BID PRN 07/04/18 07/04/18 History Budesonide-Formot 160-4.5 Mcg 2 puff INHALATION RT-DAILY 07/04/18 07/04/18 History [Symbicort 160-4.5 Mcg Inhaler] Hyoscyamine Elixir [Levsin 1 ml PEG/G-TUBE Q8HR PRN 07/04/18 07/04/18 History 0.125MG/ML Drops] Insulin Glargine,Hum.rec.anlog 10 unit SQ DAILY@2100 MDD SEE 07/04/18 07/04/18 History [Basaglar Kwikpen U-100] COMMENTS Ipratropium-Albuterol Nebulize 3 ml INHALATION RT-QID 07/04/18 07/04/18 History [Duoneb 0.5 mg-3 mg/3 ml Soln] Omeprazole [PriLOSEC] 20 mg PEG/G-TUBE DAILY 07/04/18 07/04/18 History Oxybutynin Chloride [Ditropan Oral 2.5 ml PEG/G-TUBE BID 07/04/18 07/04/18 History Soln] Vits A and D/White Pet/Lanolin [A 1 applic TOPICAL DIRECTED 07/04/18 History and D Ointment] Zinc Oxide [Desitin] 1 applic TOPICAL DAILY 07/04/18 07/04/18 History amLODIPine [Norvasc] 5 mg PEG/G-TUBE DAILY@2100 07/04/18 07/04/18 History clonazePAM [KlonoPIN] 0.5 mg PEG/G-TUBE BID MDD for 14 07/04/18 07/04/18 History days (started 06/24/18) glipiZIDE [Glucotrol] 2.5 mg PEG/G-TUBE DAILY@0900 07/04/18 07/04/18 History glipiZIDE [Glucotrol] 2.5 mg PEG/G-TUBE DAILY@1700 PRN 07/04/18 07/04/18 History traMADol HCl [Ultram] 50 mg PEG/G-TUBE BID PRN 07/04/18 07/04/18 History Allergies Allergy/AdvReac Type Severity Reaction Status Date / Time No Known Allergies Allergy Verified 07/04/18 17:48 Physical Exam Vitals: Vital Signs Temp Pulse Resp BP Pulse Ox 07/05/18 08:35 86 07/05/18 08:28 83 07/05/18 07:00 80 29 H 107/45 96 07/05/18 06:45 81 27 H 106/50 93 L 07/05/18 06:30 83 28 H 109/54 92 L 07/05/18 06:15 81 27 H 110/53 95 07/05/18 06:00 81 27 H 109/52 96 07/05/18 05:45 82 25 H 112/53 96 07/05/18 05:30 82 28 H 111/52 94 L 07/05/18 05:15 81 28 H 101/50 94 L 07/05/18 05:00 82 26 H 110/50 94 L 07/05/18 04:45 82 26 H 104/49 94 L 07/05/18 04:30 82 27 H 107/55 93 L 07/05/18 04:15 83 27 H 104/50 93 L 07/05/18 04:00 98.4 F 83 25 H 109/51 94 L 07/05/18 03:45 84 32 H 111/51 95 07/05/18 03:30 85 26 H 109/50 97 07/05/18 03:15 85 28 H 111/46 97 07/05/18 03:00 84 25 H 102/48 97 07/05/18 02:45 98.4 F 85 27 H 100/47 97 07/05/18 02:30 85 27 H 108/57 97 07/05/18 02:15 105 H 27 H 90/56 97 07/05/18 02:00 106 H 26 H 110/54 98 07/05/18 01:45 107 H 27 H 108/58 98 07/05/18 01:30 108 H 27 H 96/53 97 07/05/18 01:15 108 H 26 H 107/53 97 07/05/18 01:00 107 H 28 H 96/56 98 07/05/18 00:45 107 H 30 H 112/51 98 07/05/18 00:30 104 H 25 H 98/52 98 07/05/18 00:15 106 H 34 H 100/51 98 07/05/18 00:00 107 H 25 H 102/53 99 07/04/18 23:45 107 H 29 H 109/53 100 07/04/18 23:30 106 H 29 H 108/54 100 07/04/18 23:15 108 H 29 H 104/56 100 07/04/18 23:00 107 H 29 H 88/51 99 07/04/18 22:45 109 H 31 H 104/53 98 07/04/18 22:30 107 H 30 H 113/56 99 07/04/18 22:15 87 34 H 77/46 99 07/04/18 22:00 85 35 H 79/43 99 07/04/18 21:45 85 33 H 76/48 100 07/04/18 21:30 98.8 F 86 34 H 85/50 100 07/04/18 20:31 97.9 F 94 22 118/50 92 L 07/04/18 20:29 85 07/04/18 20:11 100 07/04/18 20:08 98 22 91/53 89 L 07/04/18 19:41 88 22 90/54 99 07/04/18 19:29 85 07/04/18 19:12 91 22 95/50 100 07/04/18 18:55 93 18 96/51 96 07/04/18 18:33 95 100/57 99 07/04/18 18:05 92 18 91/50 97 07/04/18 17:55 96 18 95/53 98 07/04/18 17:44 99 18 93/53 100 07/04/18 17:36 103 H 18 89/52 100 07/04/18 17:31 93 40 H 103/55 72 L 07/04/18 17:21 97.5 F L 88 40 H 87/50 54 L Intake and Output 07/04/18 07/05/18 07/05/18 22:59 06:59 14:59 Intake Total 6605.802 4723.188 962.875 Output Total 30 200 35 Balance 261.184 6158.188 927.875 Intake: IV 1000 3000 500 Sodium Chloride 0.9% 1, 500 000 ml @ 100 mls/hr IV . Q10H [facility] Rx#:[id number] Sodium Chloride 0.9% 1, 1500 500 000 ml @ 500 mls/hr IV . Q2H [facility] Rx#:[id number] Sodium Chloride 0.9% 1, 1000 1000 000 ml @ 999 mls/hr IV . Q1H1M [facility] Rx#:[id number] Intake, IV Titration 5.726 1045.188 462.875 Amount Norepinephrine 4 mg In 4.063 976.249 462.875 Sodium Chloride 0.9% 250 ml @ Titrate IV .Q0M [facility] Rx#:[id number] Propofol 1,000 mg In 1.663 68.939 Empty Bag 1 bag @ Titrate IV .Q0M [facility] Rx#: [id number] Output: Urine 30 200 35 Other: Voiding Method Indwelling Catheter Indwelling Catheter Weight 77.655 kg 77.5 kg - Constitutional General appearance: average body habitus, disheveled - EENT Eyes: PERRLA Ears: bilateral: normal - Neck Carotids: bilateral: upstroke normal, bruit absent Thyroid: bilateral: normal size - Respiratory Respiratory: bilateral: diminished, rales, rhonchi, wheezing, prolonged expiration, negative: CTA, dullness - Cardiovascular Heart sounds: normal: S1, S2 - Gastrointestinal General gastrointestinal: decreased bowel sounds, normal bowel sounds, soft - Integumentary Integumentary: normal, normal turgor - Neurologic Neurologic: CNII-XII intact - Musculoskeletal Intubated unable to assess Intubated unable to assess Results - Laboratory Findings CBC and BMP: 07/05/18 04:17 07/05/18 04:17 ABG ABG pH 7.12 (7.35-7.45) L* 07/05/18 07:35 ABG pCO2 54 mmHg (35-45) H 07/05/18 07:35 ABG pO2 74 mmHg (83-108) L 07/05/18 07:35 ABG O2 Saturation 92.7 % (94-97) L 07/05/18 07:35 PT/INR, D-dimer PT 10.5 sec (9.0-12.0) 07/04/18 17:27 INR 1.1 (<1.2) 07/04/18 17:27 Abnormal lab findings: Abnormal Labs 07/04/18 07/04/18 07/04/18 17:27 17:27 17:27 WBC 28.6 H RBC Hgb 12.6 L Hct MCHC 30.5 L Plt Count 582 H Neutrophils # 24.2 H Neutrophils # (Manual) Lymphocytes # (Manual) Metamyelocytes # (Man) ABG pH ABG pCO2 ABG pO2 ABG HCO3 ABG Total CO2 ABG O2 Saturation Sodium Potassium 5.5 H Chloride Carbon Dioxide BUN 40 H Creatinine 1.30 H Glucose 190 H POC Glucose (mg/dL) Plasma Lactic Acid Enrique Calcium Magnesium 2.5 H Total Creatine Kinase 32 L Total Protein Albumin 3.4 L Urine Protein 07/04/18 07/04/18 07/04/18 17:27 18:08 21:18 WBC RBC Hgb Hct MCHC Plt Count Neutrophils # Neutrophils # (Manual) Lymphocytes # (Manual) Metamyelocytes # (Man) ABG pH 7.28 L ABG pCO2 58 H ABG pO2 70 L ABG HCO3 27 H ABG Total CO2 29 H ABG O2 Saturation 91.0 L Sodium Potassium Chloride Carbon Dioxide BUN Creatinine Glucose POC Glucose (mg/dL) 224 H Plasma Lactic Acid Enrique Calcium Magnesium Total Creatine Kinase Total Protein Albumin Urine Protein Trace H 07/04/18 07/04/18 07/05/18 21:41 21:41 02:01 WBC RBC Hgb Hct MCHC Plt Count Neutrophils # Neutrophils # (Manual) Lymphocytes # (Manual) Metamyelocytes # (Man) ABG pH ABG pCO2 ABG pO2 ABG HCO3 ABG Total CO2 ABG O2 Saturation Sodium 136 L Potassium Chloride Carbon Dioxide 18 L BUN 41 H Creatinine 1.35 H Glucose 216 H POC Glucose (mg/dL) Plasma Lactic Acid Enrique 2.1 H* 2.4 H* Calcium 7.5 L Magnesium Total Creatine Kinase Total Protein Albumin Urine Protein 07/05/18 07/05/18 07/05/18 04:16 04:17 04:17 WBC 24.5 H RBC 3.64 L Hgb 10.5 L Hct 35.9 L MCHC 29.4 L Plt Count Neutrophils # Neutrophils # (Manual) 23.20 H Lymphocytes # (Manual) 0.25 L Metamyelocytes # (Man) 0.49 H ABG pH ABG pCO2 ABG pO2 ABG HCO3 ABG Total CO2 ABG O2 Saturation Sodium Potassium Chloride 113 H Carbon Dioxide 17 L BUN 37 H Creatinine Glucose 244 H POC Glucose (mg/dL) 257 H Plasma Lactic Acid Enrique Calcium 6.7 L Magnesium Total Creatine Kinase Total Protein 4.5 L Albumin 2.2 L Urine Protein 07/05/18 07:35 WBC RBC Hgb Hct MCHC Plt Count Neutrophils # Neutrophils # (Manual) Lymphocytes # (Manual) Metamyelocytes # (Man) ABG pH 7.12 L* ABG pCO2 54 H ABG pO2 74 L ABG HCO3 18 L ABG Total CO2 ABG O2 Saturation 92.7 L Sodium Potassium Chloride Carbon Dioxide BUN Creatinine Glucose POC Glucose (mg/dL) Plasma Lactic Acid Enrique Calcium Magnesium Total Creatine Kinase Total Protein Albumin Urine Protein - Diagnostic Findings Chest x-ray: report reviewed, image reviewed (Left perihilar infiltrate along with a right upper lobe infiltrate) Assessment and Plan Assessment: Aspiration pneumonia Acute COPD exacerbation Acute on chronic hypoxic and hypercapnic respiratory failure Chronic old CVA with residual weakness Severe sepsis with septic shock due to pneumonia History of recurrent aspiration Recurrent squamous cell lung cancer with history of right upper lobe resection with a recurrence into the trachea requiring radiation therapy recently Plan: Aggressive fluid resuscitation Vasopressors to keep systolic over 90 and map over 65 Every feed Broad-spectrum antibiotics Breathing treatments IV steroids Central line Arterial line Patient has been made DO NOT RESUSCITATE by power of securities attorney Time with Patient: Greater than 30
--- NOTE | 2018-07-05 09:33 | P.PCN ---
Date of Procedure: 07/05/18 Preoperative Diagnosis: Acute respiratory failure hypercapnic hypoxic, aspiration pneumonia, severe sepsis and septic shock, CVA history, Postoperative Diagnosis: As above Procedure(s) Performed: Left radial arterial line placement Anesthesia: local Surgeon: Ervin Cabral Estimated Blood Loss (ml): 1 Disposition: ICU Indications for Procedure: As above Operative Findings: As below Description of Procedure: Patient prepared and draped in a usual fashion, Adonis's test was performed, without any complication or problem single-lumen catheter inserted into the left radial artery secured with the #3 silk good waveform obtained patient tolerated procedure well no complications noted
--- NOTE | 2018-07-05 09:35 | P.PCN ---
Date of Procedure: 07/05/18 Preoperative Diagnosis: Severe sepsis and septic shock, aspiration pneumonia, altered mental status related to hypercapnic hypoxic respiratory failure Postoperative Diagnosis: As above Procedure(s) Performed: Left internal jugular triple-lumen catheter insertion Surgeon: Ervin Cabral Estimated Blood Loss (ml): 2 Condition: critical Disposition: ICU Indications for Procedure: As above Operative Findings: As below Description of Procedure: Using a modified Salinger technique triple-lumen catheter inserted into the left internal jugular vein via anterior approach patient tolerated procedure well no complication noted post procedure chest x-ray reviewed a stable position of the catheter
--- NOTE | 2018-07-05 10:51 | XR ---
EXAMINATION TYPE: XR chest 1V confirm line [facility] DATE OF EXAM: 07/05/2018 HISTORY: central line placement. REFERENCE: Previous study dated 07/05/2018. FINDINGS: The patient's ET tube remains in place, unchanged in appearance. A left internal jugular ca theter is in place. This continues to appear malpositioned. There is bilateral airspace disease. There is a right-sided effusion. Heart size is obscured. IMPRESSION: 1. I STRONGLY SUSPECT MALPOSITIONING OF THE PATIENT'S LEFT INTERNAL JUGULAR CATHETER. 2. BILATERAL AIRSPACE DISEASE. 3. RIGHT-SIDED EFFUSION.
--- NOTE | 2018-07-05 10:51 | XR ---
EXAMINATION TYPE: XR KUB portable , ONE VIEW DATE OF EXAM ORDERED: 07/05/2018 HISTORY: PEG tube placement. COMPARISON: None. FINDINGS: Contrast injected into the patient's PEG tube outlines the stomach and duodenal bulb. IMPRESSION: CORRECT PLACEMENT OF THE PATIENT'S PEG TUBE.
[2018-07-05] MEDS: VANCOMYCIN 1,500 MG in SODIUM CHLORIDE 0.9% 250 ML IVPB SCH (10:52)
[2018-07-05] MEDS ORDERED: ALBUTEROL NEBULIZED 2.5 MG/3 ML INHALATION PRN (11:47)
[2018-07-05] MEDS ORDERED: APIXABAN 5 MG TAB PEG/G-TUBE PRN (11:47)
[2018-07-05 12:03] LABS: ABG Base Excess -12.3 mmol/L; ABG HCO3 16 mmol/L (21-25); ABG Oxygen Saturation 94.2 % (94-97); ABG PCO2 41 mmHg (35-45); ABG PO2 69 mmHg (83-108); ABG TCO2 17 mmol/L (19-24)
[2018-07-05] MEDS ORDERED: SODIUM BICARB 8.4% 50 ML SYR (1 MEQ/ML) IV ONE (12:13)
[2018-07-05 12:52] LABS: Glucose,Whole Blood 270 mg/dL (75-99)
[2018-07-05] MEDS: methylPREDNISolone SOD SUCCI 125 MG/2 ML VIAL IV SCH ×2 (12:55→17:11)
[2018-07-05] MEDS: NOREPINEPHRINE 16 MG in SODIUM CHLORIDE 0.9% 250 ML IV SCH ×2 (13:15→22:35)
--- NOTE | 2018-07-05 15:28 | P.HPIM ---
History of Present Illness 71-year-old gentleman came in with the altered mental status went into respiratory failure was subsequently intubated found to have pulmonary edema and bilateral lung amador. Patient is on assist control ventilation at this point of time. Patient the respiratory failure secondary to sepsis patient appears to have severe sepsis with elevated lactic acid elevated white blood cell count. Patient source of infection appears to be the PEG tube site which has purulent drainage around it infectious disease will be consulted patient is on broad-spectrum antibiotics vancomycin and Zosyn for now. Aspiration pneumonia can be another source which cannot be completely ruled out patient has significant hypercapnic and hypoxic respiratory failure patient is presently ventilator dependent on vasopressin at 30 mics for septic shock patient has any line and the left fifth internal jugular central line. Patient respiratory rate on the ventilator was set up at 26 because of metabolic acidosis with pH of 7.2 Review of Systems Unable to obtain Past Medical History Past Medical History: Cancer, CVA/TIA, Diabetes Mellitus, GERD/Reflux, Hyperlipidemia, Hypertension, Pneumonia, Renal Disease Additional Past Medical History / Comment(s): Lung Cancer right upper lobe with radiation and lobectomy,. HX OF CVA X3 -RIGHT SIDED WEAKNESS, SPEECH DIFFICULT TO UNDERSTAND AT TIMES, W/C BOUND, ABLE TO PIVOT TO TRANSFER WITH ASSISTANCE, DIFFICULTY CHEWING AND SWALLOWING, HX OF ASPIRATION.,WEARS DEPENDS FOR OCC. INCONTINENCE., DDD, KIDNEY FUNCTION AT 50-60%, ENVIRONMENTAL ALLERGIES. PT LIVES AT [facility] -HAS OWN APARTMENT WITH 24 HOUR HELP., HAS DIZZINESS AND DIFFICULTY WITH VISION-WEARS PRISMS IN HIS EYE GLASSES. History of Any Multi-Drug Resistant Organisms: None Reported Past Surgical History: Appendectomy, Tonsillectomy Additional Past Surgical History / Comment(s): EYE SURGERY, right upper lobectomy for Ca 2015, spinal fusions x 2, gallstones removed. Past Anesthesia/Blood Transfusion Reactions: No Reported Reaction Smoking Status: Never smoker - Past Family History Mother History Unknown: Yes Family Medical History: CVA/TIA Father History Unknown: Yes Family Medical History: No Reported History Brother(s) Family Medical History: Cancer Additional Family Medical History / Comment(s): MESOTHELIOMA LUNG CANCER Medications and Allergies Home Medications Medication Instructions Recorded Confirmed Type Cholecalciferol [Vitamin D3] 400 unit PEG/G-TUBE BID 01/26/16 07/04/18 History Simvastatin [Zocor] 10 mg PO HS 01/26/16 07/04/18 History Metoprolol Tartrate [Lopressor] 25 mg PO HS 03/15/16 07/04/18 History Amiodarone [Cordarone] 200 mg PEG/G-TUBE DAILY 11/10/16 07/04/18 History Aspirin 81 mg PEG/G-TUBE DAILY@0900 11/10/16 07/04/18 History Oxybutynin Chloride [Ditropan] 5 mg PEG/G-TUBE DAILY@1700 PRN 11/10/16 07/04/18 History Cetirizine HCl [Zyrtec] 10 mg PO DAILY@0900 03/15/18 07/04/18 History Cyanocobalamin (Vitamin B-12) 1,000 mcg PO DAILY@0900 03/15/18 07/04/18 History [Vitamin B-12] Docusate [Colace] 100 mg PEG/G-TUBE BID 04/07/18 07/04/18 History amLODIPine [Norvasc] 5 mg PO DAILY@0900 04/07/18 07/04/18 History Melatonin 5 mg PEG/G-TUBE HS PRN 05/20/18 07/04/18 History Albuterol Inhaler [Ventolin Hfa 2 puff INHALATION RT-Q4H PRN 07/04/18 07/04/18 History Inhaler] Apixaban [Eliquis] 5 mg PEG/G-TUBE BID PRN 07/04/18 07/04/18 History Budesonide-Formot 160-4.5 Mcg 2 puff INHALATION RT-DAILY 07/04/18 07/04/18 History [Symbicort 160-4.5 Mcg Inhaler] Hyoscyamine Elixir [Levsin 1 ml PEG/G-TUBE Q8HR PRN 07/04/18 07/04/18 History 0.125MG/ML Drops] Insulin Glargine,Hum.rec.anlog 10 unit SQ DAILY@2100 MDD SEE 07/04/18 07/04/18 History [Basaglar Kwikpen U-100] COMMENTS Ipratropium-Albuterol Nebulize 3 ml INHALATION RT-QID 07/04/18 07/04/18 History [Duoneb 0.5 mg-3 mg/3 ml Soln] Omeprazole [PriLOSEC] 20 mg PEG/G-TUBE DAILY 07/04/18 07/04/18 History Oxybutynin Chloride [Ditropan Oral 2.5 ml PEG/G-TUBE BID 07/04/18 07/04/18 History Soln] Vits A and D/White Pet/Lanolin [A 1 applic TOPICAL DIRECTED 07/04/18 History and D Ointment] Zinc Oxide [Desitin] 1 applic TOPICAL DAILY 07/04/18 07/04/18 History amLODIPine [Norvasc] 5 mg PEG/G-TUBE DAILY@2100 07/04/18 07/04/18 History clonazePAM [KlonoPIN] 0.5 mg PEG/G-TUBE BID MDD for 14 07/04/18 07/04/18 History days (started 06/24/18) glipiZIDE [Glucotrol] 2.5 mg PEG/G-TUBE DAILY@0900 07/04/18 07/04/18 History glipiZIDE [Glucotrol] 2.5 mg PEG/G-TUBE DAILY@1700 PRN 07/04/18 07/04/18 History traMADol HCl [Ultram] 50 mg PEG/G-TUBE BID PRN 07/04/18 07/04/18 History Allergies Allergy/AdvReac Type Severity Reaction Status Date / Time No Known Allergies Allergy Verified 07/04/18 17:48 Physical Exam Vitals: Vital Signs Temp Pulse Resp BP Pulse Ox 07/05/18 14:00 101 H 26 H 94 L 07/05/18 13:30 101 H 28 H 107/53 95 07/05/18 13:15 100 30 H 95 07/05/18 13:00 98.1 F 100 27 H 95 07/05/18 12:45 87 26 H 94 L 07/05/18 12:30 87 25 H 94 L 07/05/18 12:15 97.9 F 86 26 H 96 07/05/18 12:00 84 26 H 96 07/05/18 11:48 84 07/05/18 11:45 84 25 H 103/51 98 07/05/18 11:30 84 25 H 103/51 98 07/05/18 11:21 82 07/05/18 11:15 80 25 H 103/51 95 07/05/18 11:00 82 25 H 102/51 95 07/05/18 10:45 81 34 H 102/51 94 L 07/05/18 10:30 82 27 H 102/51 93 L 07/05/18 10:15 81 25 H 102/51 95 07/05/18 10:00 80 25 H 111/51 96 07/05/18 09:45 80 26 H 111/51 96 07/05/18 09:30 81 26 H 111/51 96 07/05/18 09:15 81 26 H 111/51 97 07/05/18 09:00 82 25 H 111/51 96 07/05/18 08:45 81 26 H 111/51 97 07/05/18 08:35 86 07/05/18 08:30 82 29 H 106/47 94 L 07/05/18 08:28 83 07/05/18 08:15 81 26 H 102/46 98 07/05/18 08:00 79 23 99/45 95 07/05/18 07:45 79 26 H 98/45 94 L 07/05/18 07:30 79 24 100/48 95 07/05/18 07:15 97.8 F 79 27 H 100/45 95 07/05/18 07:00 80 29 H 107/45 96 07/05/18 06:45 81 27 H 106/50 93 L 07/05/18 06:30 83 28 H 109/54 92 L 07/05/18 06:15 81 27 H 110/53 95 07/05/18 06:00 81 27 H 109/52 96 07/05/18 05:45 82 25 H 112/53 96 07/05/18 05:30 82 28 H 111/52 94 L 07/05/18 05:15 81 28 H 101/50 94 L 07/05/18 05:00 82 26 H 110/50 94 L 07/05/18 04:45 82 26 H 104/49 94 L 07/05/18 04:30 82 27 H 107/55 93 L 07/05/18 04:15 83 27 H 104/50 93 L 07/05/18 04:00 98.4 F 83 25 H 109/51 94 L 07/05/18 03:45 84 32 H 111/51 95 07/05/18 03:30 85 26 H 109/50 97 07/05/18 03:15 85 28 H 111/46 97 07/05/18 03:00 84 25 H 102/48 97 07/05/18 02:45 98.4 F 85 27 H 100/47 97 07/05/18 02:30 85 27 H 108/57 97 07/05/18 02:15 105 H 27 H 90/56 97 07/05/18 02:00 106 H 26 H 110/54 98 07/05/18 01:45 107 H 27 H 108/58 98 07/05/18 01:30 108 H 27 H 96/53 97 07/05/18 01:15 108 H 26 H 107/53 97 07/05/18 01:00 107 H 28 H 96/56 98 07/05/18 00:45 107 H 30 H 112/51 98 07/05/18 00:30 104 H 25 H 98/52 98 07/05/18 00:15 106 H 34 H 100/51 98 07/05/18 00:00 107 H 25 H 102/53 99 07/04/18 23:45 107 H 29 H 109/53 100 07/04/18 23:30 106 H 29 H 108/54 100 07/04/18 23:15 108 H 29 H 104/56 100 07/04/18 23:00 107 H 29 H 88/51 99 07/04/18 22:45 109 H 31 H 104/53 98 07/04/18 22:30 107 H 30 H 113/56 99 07/04/18 22:15 87 34 H 77/46 99 07/04/18 22:00 85 35 H 79/43 99 07/04/18 21:45 85 33 H 76/48 100 07/04/18 21:30 98.8 F 86 34 H 85/50 100 07/04/18 20:31 97.9 F 94 22 118/50 92 L 07/04/18 20:29 85 07/04/18 20:11 100 07/04/18 20:08 98 22 91/53 89 L 07/04/18 19:41 88 22 90/54 99 07/04/18 19:29 85 07/04/18 19:12 91 22 95/50 100 07/04/18 18:55 93 18 96/51 96 07/04/18 18:33 95 100/57 99 07/04/18 18:05 92 18 91/50 97 07/04/18 17:55 96 18 95/53 98 07/04/18 17:44 99 18 93/53 100 07/04/18 17:36 103 H 18 89/52 100 07/04/18 17:31 93 40 H 103/55 72 L 07/04/18 17:21 97.5 F L 88 40 H 87/50 54 L Intake and Output 07/05/18 07/05/18 07/05/18 06:59 14:59 22:59 Intake Total 4045.188 2791.500 Output Total 200 290 Balance 3845.188 2501.500 Intake: IV 3000 1915 Magnesium Sulfate-D5w Pmx 200 1 gm In Dextrose/Water 1 100ml.bag @ 100 mls/hr IVPB Q1H [facility] Rx#: [id number] Pressure bag 15 Sodium Chloride 0.9% 1, 500 400 000 ml @ 100 mls/hr IV . Q10H [facility] Rx#:[id number] Sodium Chloride 0.9% 1, 1500 1050 000 ml @ 500 mls/hr IV . Q2H [facility] Rx#:[id number] Sodium Chloride 0.9% 1, 1000 000 ml @ 999 mls/hr IV . Q1H1M ONE Rx#:[id number] Vancomycin 1,500 mg In 250 Sodium Chloride 0.9% 250 ml @ 125 mls/hr IVPB Q16H FELIX Rx#:[id number] Intake, IV Titration 1045.188 876.500 Amount Norepinephrine 16 mg In 0.5 Sodium Chloride 0.9% 250 ml @ Titrate IV .Q0M [facility] Rx#:[id number] Norepinephrine 4 mg In 976.249 776.000 Sodium Chloride 0.9% 250 ml @ Titrate IV .Q0M [facility]IX Rx#:[id number] Propofol 1,000 mg In 68.939 100 Empty Bag 1 bag @ Titrate IV .Q0M FELIX Rx#: [id number] Output: Urine 200 290 Other: Voiding Method Indwelling Catheter Indwelling Catheter Weight 77.5 kg 77.5 kg ABP, PAP, CO, CI - Last 8 Hours Arterial Blood Pressure 139/44 Arterial Blood Pressure 145/47 Arterial Blood Pressure 160/55 Arterial Blood Pressure 153/54 Arterial Blood Pressure 148/48 Arterial Blood Pressure 148/48 Arterial Blood Pressure 143/46 Arterial Blood Pressure 146/49 Arterial Blood Pressure 147/48 Arterial Blood Pressure 149/50 Arterial Blood Pressure 140/47 Arterial Blood Pressure 152/51 Arterial Blood Pressure 134/46 Arterial Blood Pressure 146/49 Arterial Blood Pressure 145/48 Arterial Blood Pressure 141/47 Arterial Blood Pressure 140/47 Arterial Blood Pressure 140/47 Arterial Blood Pressure 147/48 Arterial Blood Pressure 150/50 Arterial Blood Pressure 152/52 Arterial Blood Pressure 145/44 PHYSICAL EXAMINATION: GENERAL: Patient is intubated sedated HEENT: Pupils are round and equally reacting to light. EOMI. No scleral icterus. No conjunctival pallor. Normocephalic, atraumatic. No pharyngeal erythema. No thyromegaly. CARDIOVASCULAR: S1 and S2 present. No murmurs, rubs, or gallops. PULMONARY: Rhonchus breath sounds diffuse crackles. ABDOMEN: Soft, nontender, nondistended, normoactive bowel sounds. No palpable organomegaly. MUSCULOSKELETAL: No joint swelling or deformity. EXTREMITIES: No cyanosis, clubbing, or pedal edema. NEUROLOGICAL: RASS -1 SKIN: No rashes. Results CBC & Chem 7: 07/05/18 04:17 07/05/18 04:17 Labs: Abnormal Lab Results - Last 24 Hours (Table) 07/04/18 07/04/18 07/04/18 Range/Units 17:27 17:27 17:27 WBC 28.6 H (3.8-10.6) k/uL RBC (4.30-5.90) m/uL Hgb 12.6 L (13.0-17.5) gm/dL Hct (39.0-53.0) % MCHC 30.5 L (31.0-37.0) g/dL Plt Count 582 H (150-450) k/uL Neutrophils # 24.2 H (1.3-7.7) k/uL Neutrophils # (Manual) (1.3-7.7) k/uL Lymphocytes # (Manual) (1.0-4.8) k/uL Metamyelocytes # (Man) (0) k/uL ABG pH (7.35-7.45) ABG pCO2 (35-45) mmHg ABG pO2 (83-108) mmHg ABG HCO3 (21-25) mmol/L ABG Total CO2 (19-24) mmol/L ABG O2 Saturation (94-97) % Sodium (137-145) mmol/L Potassium 5.5 H (3.5-5.1) mmol/L Chloride (98-107) mmol/L Carbon Dioxide (22-30) mmol/L BUN 40 H (9-20) mg/dL Creatinine 1.30 H (0.66-1.25) mg/dL Glucose 190 H (74-99) mg/dL POC Glucose (mg/dL) (75-99) mg/dL Plasma Lactic Acid Enrique (0.7-2.0) mmol/L Calcium (8.4-10.2) mg/dL Magnesium 2.5 H (1.6-2.3) mg/dL Total Creatine Kinase 32 L (55-170) U/L Total Protein (6.3-8.2) g/dL Albumin 3.4 L (3.5-5.0) g/dL Urine Protein (Negative) 07/04/18 07/04/18 07/04/18 Range/Units 17:27 18:08 21:18 WBC (3.8-10.6) k/uL RBC (4.30-5.90) m/uL Hgb (13.0-17.5) gm/dL Hct (39.0-53.0) % MCHC (31.0-37.0) g/dL Plt Count (150-450) k/uL Neutrophils # (1.3-7.7) k/uL Neutrophils # (Manual) (1.3-7.7) k/uL Lymphocytes # (Manual) (1.0-4.8) k/uL Metamyelocytes # (Man) (0) k/uL ABG pH 7.28 L (7.35-7.45) ABG pCO2 58 H (35-45) mmHg ABG pO2 70 L (83-108) mmHg ABG HCO3 27 H (21-25) mmol/L ABG Total CO2 29 H (19-24) mmol/L ABG O2 Saturation 91.0 L (94-97) % Sodium (137-145) mmol/L Potassium (3.5-5.1) mmol/L Chloride (98-107) mmol/L Carbon Dioxide (22-30) mmol/L BUN (9-20) mg/dL Creatinine (0.66-1.25) mg/dL Glucose (74-99) mg/dL POC Glucose (mg/dL) 224 H (75-99) mg/dL Plasma Lactic Acid Enrique (0.7-2.0) mmol/L Calcium (8.4-10.2) mg/dL Magnesium (1.6-2.3) mg/dL Total Creatine Kinase (55-170) U/L Total Protein (6.3-8.2) g/dL Albumin (3.5-5.0) g/dL Urine Protein Trace H (Negative) 07/04/18 07/04/18 07/05/18 Range/Units 21:41 21:41 02:01 WBC (3.8-10.6) k/uL RBC (4.30-5.90) m/uL Hgb (13.0-17.5) gm/dL Hct (39.0-53.0) % MCHC (31.0-37.0) g/dL Plt Count (150-450) k/uL Neutrophils # (1.3-7.7) k/uL Neutrophils # (Manual) (1.3-7.7) k/uL Lymphocytes # (Manual) (1.0-4.8) k/uL Metamyelocytes # (Man) (0) k/uL ABG pH (7.35-7.45) ABG pCO2 (35-45) mmHg ABG pO2 (83-108) mmHg ABG HCO3 (21-25) mmol/L ABG Total CO2 (19-24) mmol/L ABG O2 Saturation (94-97) % Sodium 136 L (137-145) mmol/L Potassium (3.5-5.1) mmol/L Chloride (98-107) mmol/L Carbon Dioxide 18 L (22-30) mmol/L BUN 41 H (9-20) mg/dL Creatinine 1.35 H (0.66-1.25) mg/dL Glucose 216 H (74-99) mg/dL POC Glucose (mg/dL) (75-99) mg/dL Plasma Lactic Acid Enrique 2.1 H* 2.4 H* (0.7-2.0) mmol/L Calcium 7.5 L (8.4-10.2) mg/dL Magnesium (1.6-2.3) mg/dL Total Creatine Kinase (55-170) U/L Total Protein (6.3-8.2) g/dL Albumin (3.5-5.0) g/dL Urine Protein (Negative) 07/05/18 07/05/18 07/05/18 Range/Units 04:16 04:17 04:17 WBC 24.5 H (3.8-10.6) k/uL RBC 3.64 L (4.30-5.90) m/uL Hgb 10.5 L (13.0-17.5) gm/dL Hct 35.9 L (39.0-53.0) % MCHC 29.4 L (31.0-37.0) g/dL Plt Count (150-450) k/uL Neutrophils # (1.3-7.7) k/uL Neutrophils # (Manual) 23.20 H (1.3-7.7) k/uL Lymphocytes # (Manual) 0.25 L (1.0-4.8) k/uL Metamyelocytes # (Man) 0.49 H (0) k/uL ABG pH (7.35-7.45) ABG pCO2 (35-45) mmHg ABG pO2 (83-108) mmHg ABG HCO3 (21-25) mmol/L ABG Total CO2 (19-24) mmol/L ABG O2 Saturation (94-97) % Sodium (137-145) mmol/L Potassium (3.5-5.1) mmol/L Chloride 113 H (98-107) mmol/L Carbon Dioxide 17 L (22-30) mmol/L BUN 37 H (9-20) mg/dL Creatinine (0.66-1.25) mg/dL Glucose 244 H (74-99) mg/dL POC Glucose (mg/dL) 257 H (75-99) mg/dL Plasma Lactic Acid Enrique (0.7-2.0) mmol/L Calcium 6.7 L (8.4-10.2) mg/dL Magnesium (1.6-2.3) mg/dL Total Creatine Kinase (55-170) U/L Total Protein 4.5 L (6.3-8.2) g/dL Albumin 2.2 L (3.5-5.0) g/dL Urine Protein (Negative) 07/05/18 07/05/18 07/05/18 Range/Units 07:35 09:23 12:01 WBC (3.8-10.6) k/uL RBC (4.30-5.90) m/uL Hgb (13.0-17.5) gm/dL Hct (39.0-53.0) % MCHC (31.0-37.0) g/dL Plt Count (150-450) k/uL Neutrophils # (1.3-7.7) k/uL Neutrophils # (Manual) (1.3-7.7) k/uL Lymphocytes # (Manual) (1.0-4.8) k/uL Metamyelocytes # (Man) (0) k/uL ABG pH 7.12 L* 7.20 L (7.35-7.45) ABG pCO2 54 H (35-45) mmHg ABG pO2 74 L 69 L (83-108) mmHg ABG HCO3 18 L 16 L (21-25) mmol/L ABG Total CO2 17 L (19-24) mmol/L ABG O2 Saturation 92.7 L (94-97) % Sodium (137-145) mmol/L Potassium (3.5-5.1) mmol/L Chloride (98-107) mmol/L Carbon Dioxide (22-30) mmol/L BUN (9-20) mg/dL Creatinine (0.66-1.25) mg/dL Glucose (74-99) mg/dL POC Glucose (mg/dL) 257 H (75-99) mg/dL Plasma Lactic Acid Enrique (0.7-2.0) mmol/L Calcium (8.4-10.2) mg/dL Magnesium (1.6-2.3) mg/dL Total Creatine Kinase (55-170) U/L Total Protein (6.3-8.2) g/dL Albumin (3.5-5.0) g/dL Urine Protein (Negative) 07/05/18 Range/Units 12:49 WBC (3.8-10.6) k/uL RBC (4.30-5.90) m/uL Hgb (13.0-17.5) gm/dL Hct (39.0-53.0) % MCHC (31.0-37.0) g/dL Plt Count (150-450) k/uL Neutrophils # (1.3-7.7) k/uL Neutrophils # (Manual) (1.3-7.7) k/uL Lymphocytes # (Manual) (1.0-4.8) k/uL Metamyelocytes # (Man) (0) k/uL ABG pH (7.35-7.45) ABG pCO2 (35-45) mmHg ABG pO2 (83-108) mmHg ABG HCO3 (21-25) mmol/L ABG Total CO2 (19-24) mmol/L ABG O2 Saturation (94-97) % Sodium (137-145) mmol/L Potassium (3.5-5.1) mmol/L Chloride (98-107) mmol/L Carbon Dioxide (22-30) mmol/L BUN (9-20) mg/dL Creatinine (0.66-1.25) mg/dL Glucose (74-99) mg/dL POC Glucose (mg/dL) 270 H (75-99) mg/dL Plasma Lactic Acid Enrique (0.7-2.0) mmol/L Calcium (8.4-10.2) mg/dL Magnesium (1.6-2.3) mg/dL Total Creatine Kinase (55-170) U/L Total Protein (6.3-8.2) g/dL Albumin (3.5-5.0) g/dL Urine Protein (Negative) Microbiology - Last 24 Hours (Table) 07/04/18 17:55 Gram Stain - Preliminary Sputum Sputum Culture - Preliminary Thrombosis Risk Factor Assmnt - Choose All That Apply Any of the Below Risk Factors Present?: Yes Each Factor Represents 1 point: Obesity (BMI >25), Serious lung disease incl. pneumonia (< 1month) Each Risk Factor Represents 2 Points: Age 61-74 years Other congenital or acquired thrombophilia - If yes, enter type in comment: No Thrombosis Risk Factor Assessment Total Risk Factor Score: 4 Thrombosis Risk Factor Assessment Level: Moderate Risk Assessment and Plan Plan: -Septic shock blood cultures wound cultures are being obtained most possible source the PEG tube site area aspiration pneumonia cannot be ruled out patient is on vancomycin and Zosyn and infectious disease was consulted. Patient is on assist-control ventilation set up respiratory rate of 26 patient is not breathing over the ventilator -Anion gap metabolic acidosis: Secondary to lactic acidosis from sepsis and septic shock -Type 2 diabetes mellitus blood sugars are bit elevated patient will be continued on sliding scale insulin patient is on high-dose steroids because of the septic shock if his blood sugars continue to be high patient will be started on IV insulin -Gastroesophageal reflux disease -Hyperlipidemia -Hypertension -Acute renal failure: Secondary to possibly acute tubular necrosis from severe sepsis -Chronic kidney disease stage II secondary to diabetic nephropathy -History of lung cancer in the past patient recently received radiation therapy for his lung cancer as well -Dysphagia secondary to his previous strokes patient is a PEG tube in place -Stage II bilateral gluteal ulcers -CODE STATUS DO NOT RESUSCITATE
[2018-07-05 15:49] LABS: Glucose,Whole Blood 252 mg/dL (75-99)
[2018-07-05] MEDS: PIPERACILLIN-TAZOBACTAM 3.375 GM in DEXTROSE/WATER 1 50ML.BAG IVPB SCH (16:04)
[2018-07-05 20:34] LABS: Glucose,Whole Blood 244 mg/dL (75-99)
[2018-07-05] MEDS ORDERED: ATORVASTATIN 10 MG TAB PO SCH (21:00)
[2018-07-05] MEDS ORDERED: METOPROLOL TARTRATE 25 MG TAB PO SCH (21:00)
[2018-07-05] MEDS ORDERED: INSULIN DETEMIR 100 UNIT/ML 10 ML VIAL SQ SCH (21:00)
[2018-07-05] MEDS: DOCUSATE 100 MG CAP PO SCH (22:26)
[2018-07-06 00:02] LABS: Glucose,Whole Blood 239 mg/dL (75-99)
[2018-07-06] MEDS: SODIUM CHLORIDE 0.9% 1,000 ML IV SCH ×2 (00:04→12:09)
[2018-07-06] MEDS: methylPREDNISolone SOD SUCCI 125 MG/2 ML VIAL IV SCH ×3 (00:04→12:13)
[2018-07-06] MEDS: INSULIN ASPART 100 UNIT/ML 1 ML 10 ML VIAL SQ SCH ×4 (00:04→12:14)
[2018-07-06] MEDS: PIPERACILLIN-TAZOBACTAM 3.375 GM in DEXTROSE/WATER 1 50ML.BAG IVPB SCH ×2 (00:04→07:32)
[2018-07-06] MEDS: PROPOFOL 1,000 MG in EMPTY BAG 1 BAG IV SCH ×3 (03:35→17:40)
[2018-07-06] MEDS: VANCOMYCIN 1,500 MG in SODIUM CHLORIDE 0.9% 250 ML IVPB SCH (03:35)
[2018-07-06 04:40] LABS: ABG Base Excess -8.9 mmol/L; ABG HCO3 18 mmol/L (21-25); ABG Oxygen Saturation 97.6 % (94-97); ABG PCO2 40 mmHg (35-45); ABG PH 7.26 (7.35-7.45); ABG PO2 91 mmHg (83-108); ABG TCO2 19 mmol/L (19-24)
[2018-07-06 05:25] LABS: HCT 31.5 % (39.0-53.0); HGB 9.8 gm/dL (13.0-17.5); Hypochromasia Marked; MCH 29.1 pg (25.0-35.0); MCV 93.9 fL (80.0-100.0); Mean Platelet Volume 6.8; Platelet Count 315 k/uL (150-450); RBC 3.35 m/uL (4.30-5.90); RDW 15.5 % (11.5-15.5); WBC 31.6 k/uL (3.8-10.6)
[2018-07-06 05:27] LABS: Glucose,Whole Blood 220 mg/dL (75-99)
[2018-07-06 05:32] LABS: Magnesium 2.4 mg/dL (1.6-2.3); Phosphorus 4.1 mg/dL (2.5-4.5); Potassium 4.1 mmol/L (3.5-5.1)
[2018-07-06 05:39] LABS: Calcium 6.4 mg/dL (8.4-10.2)
--- NOTE | 2018-07-06 05:53 | XR ---
EXAMINATION TYPE: XR chest 1V portable DATE OF EXAM: 07/06/2018 HISTORY: Tube placement. REFERENCE: Previous study dated 07/05/2018. FINDINGS: The patient is intubated. ET tube is unchanged in appearance. A left internal jugular nelly ter is in place. It projects beyond the expected confines of the SVC. There is improved aeration of both lungs. There continues be right pleural effusion. The heart is mil dly enlarged. IMPRESSION: 1. IMPROVING AERATION OF BOTH LUNGS. 2. UNUSUAL APPEARANCE OF THE PATIENT'S LEFT INTERNAL JUGULAR CATHETER. 3. MILD CARDIOMEGALY. 4. SMALL, RIGHT-SIDED PLEURAL EFFUSION.
[2018-07-06 06:02] LABS: Band Neutrophils % 10 %; Monocytes # (M) 0.95 k/uL (0-1.0); Neutrophils % (M) 88 %; Nucleated Red Blood Cells 0 /100 WBC (0-0); Total Cells Counted 200; Toxic Vacuolation Present
[2018-07-06] MEDS: IPRATROPIUM-ALBUTEROL 3 ML NEB INHALATION SCH ×3 (06:46→15:16)
[2018-07-06 06:56] LABS: Glucose,Whole Blood 210 mg/dL (75-99)
[2018-07-06] MEDS ORDERED: CALCIUM CHLORIDE 500 MG in SODIUM CHLORIDE 0.9% 50 ML IVPB ONE (07:00)
[2018-07-06] MEDS: DOCUSATE 100 MG CAP PO SCH (07:21)
[2018-07-06] MEDS: ENOXAPARIN 40 MG/0.4 ML SYRINGE SQ SCH (08:01)
[2018-07-06] MEDS: PANTOPRAZOLE 40 MG/10 ML VIAL IV SCH (08:01)
[2018-07-06] MEDS: CHLORHEXIDINE GLUCONATE 15 ML CUP MUCOUS MEM SCH (08:01)
--- NOTE | 2018-07-06 08:41 | CONS ---
CONSULTATION DATE OF SERVICE: 07/05/2018. REASON FOR CONSULTATION: Sepsis. 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 The patient did have a CVA and apparently did have a problem with an aspiration requiring a PEG tube placement. The patient who was residing at [facility] and was about to be discharged home with the patient developed acute severe respiratory distress. The patient has been tried on a BiPAP without any improvement. Subsequently the patient ended up getting intubated and has been admitted to the ICU at the [facility]. The patient has been hypertensive requiring a pressor support. At one time the patient required almost 50 mcg of Levophed and is currently down to 25 mcg. The patient noticed to have significant drainage from his PEG tube site for which further investigation was done with obtaining a KUB after injecting of the contrast through the PEG tube. However, there was no leakage from the stomach was noticed. The patient has been treated with broad-spectrum antibiotic in the form of vancomycin and Zosyn. Infectious Disease was consulted for further recommendation of antibiotic therapy. The patient did have a chest x-ray which shows bibasilar infiltrate/pneumonia. The patient did have significant hypertension and tachycardia as well as elevated white count of 28,000. His UA has been negative. All of this information has been obtained from thorough review of the chart, talking to the family and the nursing staff. The patient is currently intubated on the vent and unable to provide reliable history. REVIEW OF SYSTEMS: Could not be reliably obtained. The positive points as mentioned in HPI. PAST MEDICAL HISTORY: Squamous cell carcinoma of the lung, CVA, diabetes mellitus, hypertension, hyperlipidemia, renal insufficiency and recurrent aspiration pneumonia. PAST SURGICAL HISTORY: Appendectomy, tonsillectomy, right upper lobectomy, spinal fusion x2. SOCIAL HISTORY: The patient started smoking back in 1986, quit 2016. Rarely drinks. No drug use. FAMILY HISTORY: Mother with history of CVA and TIA. ALLERGIES: No known drug allergies. MEDICATION: Currently include the patient is on Zosyn 3.375 g q.8 hours. He is on vancomycin, Protonix, Levophed, Narcan, zinc oxide, Lopressor, Solu-Medrol, Levemir, NovoLog, Lipitor, Amiodarone, DuoNeb and Ventolin. EXAMINATION: Blood pressure is 132/42 with a pulse of 103, temperature of 98. He is 99% on 50% FiO2. General description is an elderly male lying in bed in no distress. No tachypnea or accessory muscle of respiration use. HEENT: Shows slight pallor. No scleral icterus. The patient is orally intubated limiting examination of oral cavity. NECK: Trachea central. No thyromegaly. LUNGS: Unlabored breathing. Decreased breath sounds in the bases. No wheeze, no crackle. HEART: S1, S2. Regular rate and rhythm. ABDOMEN: Soft, mildly distended. No guarding or rigidity. The patient did have a PEG tube site with minimal erythema. Some clear drainage. No significant foul smelling. EXTREMITIES: No edema feet. SKIN EXAMINATION: No rash or mass palpable. NEUROLOGIC: The patient is currently sedated on the vent. Thorough exam cannot be completed. LABS: Hemoglobin 10.5, white count 8.6 with a BUN of 27, creatinine 1.19. Lactic acid elevated 2.4. Liver enzymes have been normal. Blood and sputum cultures currently pending. His abdominal cultures currently pending as well. Chest x-ray, bibasilar pneumonia. IMPRESSION/PLAN: 1. The patient with sepsis, septic shock in a patient who did have a significant elevated white count, hypertension requiring significant amount of pressor support with acute respiratory failure and a component of pneumonia. The patient has been in the hospital and need to cover for the resistant gram positive as well as gram- negative pathogen. 2. Patient was noticed to have some PEG tube site leakage with minimal around it. However, there was no evidence of any leakage after injection of the dye through the PEG tube. PLAN: 1. Blood and sputum culture has been obtained. Those will be followed. 2. Vancomycin pharmacy to dose, target of 15 while watching his Vanco trough as well as kidney function closely. 3. Zosyn 3.4 g q.8 hours. 4. We will follow up on his clinical condition as well as cultures to further adjust medication if needed. Thank you for this consultation. Will follow this patient along with you. MMODL / IJN: [id number] /
[2018-07-06] MEDS ORDERED: AMIODARONE 200 MG TAB PEG/G-TUBE SCH (09:00)
[2018-07-06] MEDS ORDERED: ZINC OXIDE 20% OINT 28.4 GM TUBE TOPICAL SCH (09:00)
[2018-07-06] MEDS ORDERED: NON-FORMULARY DRUG (Omeprazole 20 MG) PEG/G-TUBE SCH (09:00)
[2018-07-06 11:58] LABS: Glucose,Whole Blood 165 mg/dL (75-99)
--- NOTE | 2018-07-06 14:29 | XR ---
EXAMINATION TYPE: XR chest 1V confirm line plcmt DATE OF EXAM: 07/05/2018 HISTORY: central line placement. REFERENCE: Previous study dated 07/05/2018. FINDINGS: The patient is ET tube remains in place, unchanged in appearance. A left internal jugular c atheter is been inserted. Its tip is in unusual location which appears outside of the SVC. There is worsening bilateral airspace disease. There is a right-sided effusion. Heart size is obscure d. IMPRESSION: 1. MALPOSITIONING OF THE PATIENT'S LEFT INTERNAL JUGULAR CATHETER. 2. WORSENING BILATERAL AIRSPACE DISEASE. 3. RIGHT-SIDED EFFUSION. THIS REPORT WAS ATTEMPTED TO FIND OF THE ICU AT THE TIME OF REPORTING BUT ON 2 OCCASIONS THE ICU ON T HE PHONE WITHOUT ANSWERING.
--- NOTE | 2018-07-06 15:08 | P.PN ---
Subjective 71-year-old admitted with a septic shock which was believed secondary to abdominal wall infection at the PEG tube site area for which patient will receive local wound care and patient is on IV antibiotics. Lung is also being considered as a source and patient chest x-ray showed significant improvement in pulmonary edema patient remains on the ventilator. Almost off pressor support. I had extensive discussion with the family today regarding his cancer issue patient appears to have had recurrence of his lung cancer and tracheal metastasis for which she received radiation therapy. Patient apparently was receiving radiation therapy and no therapy was discussed with the patient and her goal is to get immunotherapy to prolong his life for few months. I will consult oncology considering this a couple of sepsis. I discussed the options of hospice comfort care and terminal extubation with the family had the Janice discussion adding overall goals of care expectations of treatment, expectations of further continuation of treatment. Family will discuss amongst themselves today. Patient is presently DO NOT RESUSCITATE remains intubated Objective - Vital Signs Vital signs: Vital Signs Temp 98.1 F 07/06/18 08:00 Pulse 92 07/06/18 12:08 Resp 31 H 07/06/18 11:00 BP 116/56 07/06/18 05:00 Pulse Ox 98 07/06/18 11:00 Intake & Output 07/05/18 07/06/18 07/06/18 18:59 06:59 18:59 Intake Total 3403.896 1567.352 505.505 Output Total 460 455 195 Balance 2943.896 1112.352 310.505 Weight 77.5 kg 77.8 kg Intake: IV 2327 1236 305.0 Calcium Chloride 500 mg 50 In Sodium Chloride 0.9% 50 ml @ 200 mls/hr IVPB ONCE ONE Rx#:[id number] Magnesium Sulfate-D5w Pmx 200 1 gm In Dextrose/Water 1 100ml.bag @ 100 mls/hr IVPB Q1H [facility] Rx#: [id number] Piperacillin-Tazobactam 3 50.0 .375 gm In Dextrose/Water 1 50ml.bag @ 12.5 mls/hr IVPB Q8HR [facility] Rx#: [id number] Pressure bag 27 36 15 Sodium Chloride 0.9% 1, 800 1200 190 000 ml @ 100 mls/hr IV . Q10H [facility] Rx#:[id number] Sodium Chloride 0.9% 1, 1050 000 ml @ 500 mls/hr IV . Q2H [facility] Rx#:[id number] Vancomycin 1,500 mg In 250 Sodium Chloride 0.9% 250 ml @ 125 mls/hr IVPB Q16H [facility] Rx#:[id number] Intake, IV Titration 1076.896 331.352 200.505 Amount Norepinephrine 16 mg In 100.896 261.369 68.537 Sodium Chloride 0.9% 250 ml @ Titrate IV .Q0M [facility] Rx#:[id number] Norepinephrine 4 mg In 776.000 Sodium Chloride 0.9% 250 ml @ Titrate IV .Q0M [facility] Rx#:[id number] Propofol 1,000 mg In 200 69.983 131.968 Empty Bag 1 bag @ Titrate IV .Q0M [facility] Rx#: [id number] Output: Urine 460 455 195 Other: Voiding Method Indwelling Catheter Indwelling Catheter Indwelling Catheter ABP, PAP, CO, CI - Last Documented Arterial Blood Pressure 141/49 - Exam PHYSICAL EXAMINATION: GENERAL: Patient is intubated sedated HEENT: Pupils are round and equally reacting to light. EOMI. No scleral icterus. No conjunctival pallor. Normocephalic, atraumatic. No pharyngeal erythema. No thyromegaly. CARDIOVASCULAR: S1 and S2 present. No murmurs, rubs, or gallops. PULMONARY: Rhonchus breath sounds diffuse crackles. ABDOMEN: Soft, nontender, nondistended, normoactive bowel sounds. No palpable organomegaly. MUSCULOSKELETAL: No joint swelling or deformity. EXTREMITIES: No cyanosis, clubbing, or pedal edema. NEUROLOGICAL: RASS -1 SKIN: No rashes. - Labs CBC & Chem 7: 07/06/18 04:36 07/06/18 04:36 Labs: Abnormal Lab Results - Last 24 Hours (Table) 07/05/18 07/05/18 07/05/18 Range/Units 07:00 15:44 20:32 WBC (3.8-10.6) k/uL RBC (4.30-5.90) m/uL Hgb (13.0-17.5) gm/dL Hct (39.0-53.0) % Neutrophils # (Manual) (1.3-7.7) k/uL ABG pH (7.35-7.45) ABG HCO3 (21-25) mmol/L ABG O2 Saturation (94-97) % Chloride (98-107) mmol/L Carbon Dioxide (22-30) mmol/L BUN (9-20) mg/dL Glucose (74-99) mg/dL POC Glucose (mg/dL) 252 H 244 H (75-99) mg/dL Hemoglobin A1c 7.0 H (4.0-6.0) % Calcium (8.4-10.2) mg/dL Magnesium (1.6-2.3) mg/dL 07/06/18 07/06/18 07/06/18 Range/Units 00:01 04:35 04:36 WBC (3.8-10.6) k/uL RBC (4.30-5.90) m/uL Hgb (13.0-17.5) gm/dL Hct (39.0-53.0) % Neutrophils # (Manual) (1.3-7.7) k/uL ABG pH 7.26 L (7.35-7.45) ABG HCO3 18 L (21-25) mmol/L ABG O2 Saturation 97.6 H (94-97) % Chloride 116 H (98-107) mmol/L Carbon Dioxide 18 L (22-30) mmol/L BUN 39 H (9-20) mg/dL Glucose 214 H (74-99) mg/dL POC Glucose (mg/dL) 239 H (75-99) mg/dL Hemoglobin A1c (4.0-6.0) % Calcium 6.4 L* (8.4-10.2) mg/dL Magnesium 2.4 H (1.6-2.3) mg/dL 07/06/18 07/06/18 07/06/18 Range/Units 04:36 05:26 06:54 WBC 31.6 H (3.8-10.6) k/uL RBC 3.35 L (4.30-5.90) m/uL Hgb 9.8 L (13.0-17.5) gm/dL Hct 31.5 L (39.0-53.0) % Neutrophils # (Manual) 30.90 H (1.3-7.7) k/uL ABG pH (7.35-7.45) ABG HCO3 (21-25) mmol/L ABG O2 Saturation (94-97) % Chloride (98-107) mmol/L Carbon Dioxide (22-30) mmol/L BUN (9-20) mg/dL Glucose (74-99) mg/dL POC Glucose (mg/dL) 220 H 210 H (75-99) mg/dL Hemoglobin A1c (4.0-6.0) % Calcium (8.4-10.2) mg/dL Magnesium (1.6-2.3) mg/dL 07/06/18 Range/Units 11:46 WBC (3.8-10.6) k/uL RBC (4.30-5.90) m/uL Hgb (13.0-17.5) gm/dL Hct (39.0-53.0) % Neutrophils # (Manual) (1.3-7.7) k/uL ABG pH (7.35-7.45) ABG HCO3 (21-25) mmol/L ABG O2 Saturation (94-97) % Chloride (98-107) mmol/L Carbon Dioxide (22-30) mmol/L BUN (9-20) mg/dL Glucose (74-99) mg/dL POC Glucose (mg/dL) 165 H (75-99) mg/dL Hemoglobin A1c (4.0-6.0) % Calcium (8.4-10.2) mg/dL Magnesium (1.6-2.3) mg/dL Microbiology - Last 24 Hours (Table) 07/04/18 17:55 Gram Stain - Preliminary Sputum Sputum Culture - Preliminary Gram Neg Bacilli 07/05/18 09:45 Gram Stain - Preliminary Abdomen Wound Culture - Preliminary Gram Neg Bacilli 07/04/18 17:27 Blood Culture - Preliminary Blood No Growth after 24 hours 07/05/18 09:45 Anaerobic Culture - Preliminary Abdomen Assessment and Plan Plan: -Septic shock blood cultures wound cultures are being obtained most possible source the PEG tube site area aspiration pneumonia cannot be ruled out patient is on vancomycin and Zosyn and infectious disease was consulted. 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 -Anion gap metabolic acidosis: Secondary to lactic acidosis from sepsis and septic shock shock is improving now patient is off pressor support -Type 2 diabetes mellitus blood sugars are bit elevated patient will be continued on sliding scale insulin patient is on high-dose steroids because of the septic shock if his blood sugars continue to be high patient will be started on IV insulin -Gastroesophageal reflux disease -Hyperlipidemia -Hypertension -Acute renal failure: Secondary to possibly acute tubular necrosis from severe sepsis -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
[2018-07-06 15:25] VITALS: RESP 26
[2018-07-06] MEDS ORDERED: ATROPINE OPHTH SOLN 1% 5ML BTL SUBLINGUAL PRN (17:52)
[2018-07-06] MEDS ORDERED: SCOPOLAMINE 1.5MG/72HR PATCH TRANSDERM SCH (18:00)
[2018-07-06] MEDS ORDERED: MORPHINE SULFATE (100 MG/2 ML) 100 MG in SODIUM CHLORIDE 0.9% 100 ML IV SCH (18:00)
[2018-07-06 19:29] VITALS: BP 106/59; PULSE 93; TEMP 97.7
[2018-07-06] MEDS: MORPHINE SULFATE 2 MG/ML SYRINGE IV PRN ×2 (20:11→20:39)
[2018-07-06] MEDS ORDERED: APIXABAN 5 MG TAB PO SCH (21:00)
[2018-07-07 07:45] LABS: ABG PH 7.12 (7.35-7.45)
[2018-07-07] MEDS ORDERED: VANCOMYCIN TROUGH DUE 1 EACH MISC MISCELLANE ONE (10:00)
== END 2018-07-06 21:03 | disposition hospice, inpatient (51) | DRG 393 ==
LOC: EC 17:21 → 6ICU 19:08 → 2SICU 07-06 08:56
PROVIDERS: ADMIT Hospitalist; ATTEND Hospitalist
PROC: 5A1945Z Respiratory Ventilation, 24-96 Consecutive Hours (ICD-10-PCS; principal; 2018-07-04)
PROC: 0BH17EZ Insertion of Endotracheal Airway into Trachea, Via Natural or Artificial Opening (ICD-10-PCS; 2018-07-04)
PROC: 05HN33Z Insertion of Infusion Device into Left Internal Jugular Vein, Percutaneous Approach (ICD-10-PCS; 2018-07-04)
PROC: 03HY32Z Insertion of Monitoring Device into Upper Artery, Percutaneous Approach (ICD-10-PCS; 2018-07-04)
PROC: 4A133B1 Monitoring of Arterial Pressure, Peripheral, Percutaneous Approach (ICD-10-PCS; 2018-07-04)
PROC: 4A133J1 Monitoring of Arterial Pulse, Peripheral, Percutaneous Approach (ICD-10-PCS; 2018-07-04)
DX: K94.22 Gastrostomy infection (principal); A41.9 Sepsis, unspecified organism; J69.0 Pneumonitis due to inhalation of food and vomit; R65.21 Severe sepsis with septic shock; J96.02 Acute respiratory failure with hypercapnia; J96.01 Acute respiratory failure with hypoxia; N17.0 Acute kidney failure with tubular necrosis; J96.21 Acute and chronic respiratory failure with hypoxia; J96.22 Acute and chronic respiratory failure with hypercapnia; C34.90 Malignant neoplasm of unspecified part of unspecified bronchus or lung; C78.39 Secondary malignant neoplasm of other respiratory organs; E87.2 Acidosis; I13.0 Hypertensive heart and chronic kidney disease with heart failure and stage 1 through stage 4 chronic kidney disease, or unspecified chronic kidney disease; I69.351 Hemiplegia and hemiparesis following cerebral infarction affecting right dominant side; J44.1 Chronic obstructive pulmonary disease with (acute) exacerbation; Z99.11 Dependence on respirator [ventilator] status; Z51.5 Encounter for palliative care; Z87.891 Personal history of nicotine dependence; Z66 Do not resuscitate; E11.21 Type 2 diabetes mellitus with diabetic nephropathy; E11.22 Type 2 diabetes mellitus with diabetic chronic kidney disease; L89.892 Pressure ulcer of other site, stage 2; E78.5 Hyperlipidemia, unspecified; I50.9 Heart failure, unspecified; I69.391 Dysphagia following cerebral infarction; I69.328 Other speech and language deficits following cerebral infarction; R13.10 Dysphagia, unspecified; K21.9 Gastro-esophageal reflux disease without esophagitis; N18.2 Chronic kidney disease, stage 2 (mild); Z79.01 Long term (current) use of anticoagulants; Z79.51 Long term (current) use of inhaled steroids; Z79.84 Long term (current) use of oral hypoglycemic drugs; Z80.1 Family history of malignant neoplasm of trachea, bronchus and lung; Z87.01 Personal history of pneumonia (recurrent); Z90.2 Acquired absence of lung [part of]; Z98.1 Arthrodesis status
CPT/HCPCS: 31500; 36415; 36600; 71045; 74018; 80048; 80053; 81003; 82550; 82553; 82805; 83036; 83605; 83735; 83880; 84100; 84484; 85025; 85610; 85730; 87040; 87070; 87075; 87077; 87186; 87205; 93005; 94002; 94003; 94640; 94644; 96365; 96366; 96367; 96374; 99291

== ENCOUNTER 2018-07-06 18:07 | Inpatient (IN) | payer MEDICAID ==
[2018-07-06] MEDS ORDERED: LORazepam 2 MG/ML INJ IV ONE (18:26)
[2018-07-06] MEDS ORDERED: MORPHINE SULFATE 2 MG/ML SYRINGE IVP PRN (18:27)
[2018-07-06] MEDS ORDERED: LORazepam 2 MG/ML INJ IV PRN ×2 (18:32→18:55)
[2018-07-06] MEDS ORDERED: ONDANSETRON 4 MG/2 ML VIAL IVP PRN ×2 (18:34→18:49)
[2018-07-06] MEDS ORDERED: ATROPINE OPHTH SOLN 1% 5ML BTL SUBLINGUAL PRN ×2 (18:34→18:49)
[2018-07-06] MEDS ORDERED: ACETAMINOPHEN SUPPOSITORY 650 MG SUPP RECTAL PRN ×2 (18:34→18:49)
[2018-07-06] MEDS ORDERED: BISACODYL 10 MG SUPP RECTAL PRN ×2 (18:37→18:53)
[2018-07-06] MEDS ORDERED: MORPHINE SULFATE (100 MG/2 ML) 100 MG in SODIUM CHLORIDE 0.9% 100 ML IV SCH ×2 (18:45→19:00)
[2018-07-06] MEDS ORDERED: MORPHINE SULFATE 2 MG/ML SYRINGE IVP ONE (18:49)
[2018-07-06] MEDS ORDERED: LORazepam 2 MG/ML INJ IV STA (18:54)
[2018-07-06] MEDS ORDERED: SCOPOLAMINE 1.5MG/72HR PATCH TRANSDERM SCH ×2 (20:00)
== END 2018-07-06 21:46 | disposition expired | DRG 951 ==
LOC: 2SICU 21:04
PROVIDERS: ADMIT Hospitalist; ATTEND Hospitalist
DX: Z51.5 Encounter for palliative care (principal); A41.9 Sepsis, unspecified organism; R65.21 Severe sepsis with septic shock; J69.0 Pneumonitis due to inhalation of food and vomit; N17.0 Acute kidney failure with tubular necrosis; E87.2 Acidosis; R13.10 Dysphagia, unspecified; Z66 Do not resuscitate; E11.21 Type 2 diabetes mellitus with diabetic nephropathy; E11.22 Type 2 diabetes mellitus with diabetic chronic kidney disease; Z93.1 Gastrostomy status; I69.391 Dysphagia following cerebral infarction; L98.411 Non-pressure chronic ulcer of buttock limited to breakdown of skin; I12.9 Hypertensive chronic kidney disease with stage 1 through stage 4 chronic kidney disease, or unspecified chronic kidney disease; N18.2 Chronic kidney disease, stage 2 (mild); K21.9 Gastro-esophageal reflux disease without esophagitis; E78.5 Hyperlipidemia, unspecified; Z85.118 Personal history of other malignant neoplasm of bronchus and lung